=== PATIENT | female | born 1940 | race Caucasian/White ===

== ENCOUNTER 2017-02-02 11:01 | Inpatient (IN) | payer OTHER, BC ==
[2017-02-02 11:08] VITALS: BMI 42.1
[2017-02-02] MEDS ORDERED: ALBUTEROL SO4 2.5/IPRATROPIUM 0.5 INH SOL 3 ML VIAL.NEB. NEB ONE ×3 (11:14→13:35)
[2017-02-02] MEDS ORDERED: methylPREDNISolone NA SUCC 125 MG/2 ML VIAL IVPUSH ONE (11:43)
[2017-02-02] MEDS ORDERED: CEFTRIAXONE 1 GM in DEXTROSE 5%-WATER - 50 ML IVPB ONE (11:43)
[2017-02-02] MEDS ORDERED: AZITHROMYCIN IVPB 500 MG in DEXTROSE 5%-WATER - 250 ML IVPB ONE (11:43)
[2017-02-02] MEDS ORDERED: MAGNESIUM SULF 50% (8.12 MEQ/2 ML-1 GM VIAL) IVPB ONE (11:43)
[2017-02-02] MEDS ORDERED: AZITHROMYCIN IVPB 250 ML IVPB ONE (11:51)
[2017-02-02] MEDS ORDERED: methylPREDNISolone NA SUCC 125 MG/2 ML VIAL ONE (11:52)
[2017-02-02] MEDS ORDERED: CEFTRIAXONE 1 GM/50 ML BAG ONE (11:52)
--- NOTE | 2017-02-02 12:06 | PDOC ---
History of Present Illness - General Chief Complaint: Shortness of Breath Stated Complaint: SOB, COLD SYMPTOMS Time Seen by Provider: 02/02/17 11:07 History Source: Patient Exam Limitations: No Limitations - History of Present Illness Initial Comments: 02/02/17 11:57 Patient is a 76F with history of afib (on coumadin and digoxin), chf, copd, NIDDM, Lung cancer (s/p lobectomy in 2005 with resultant breathing capacity), HTN, 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 The shortness of breath started 1.5 weeks ago, but has worsened significantly since Friday. Patient says she initially felt congested and had a cough. The cough and congestion increased until she felt like she couldn't breathe. She endorses a single episode of vomiting several days ago. Denies fevers, chills. Denies sick contacts. Says that she got her flu shot this year. She reports compliance with her medications and says her last INR was 2-3. She says that she developed some chest pain after coughing frequently for several days. Past History - Past Medical History Allergies/Adverse Reactions: Allergies Allergy/AdvReac Type Severity Reaction Status Date / Time Opioids - Morphine Analogues Allergy Intermediate Vomiting Verified 02/02/17 11: 08 [Opioids-Morphine & Related] adhesive tape Allergy Mild Rash Verified 02/02/17 11:08 Penicillins Allergy Verified 02/02/17 11:08 Home Medications: Ambulatory Orders Albuterol Sulfate [Proair Respiclick] 90 mcg IH PRN PRN 08/08/15 Atorvastatin Ca [Lipitor] 20 mg PO HS 08/08/15 Budesonide/Formeterol Fumarate [SYMBICORT 160/4.5mcg -] 2 inh PO BID 08/08/15 Digoxin [Lanoxin -] 0.125 mg PO Q48H 08/08/15 Diltiazem Cd [Cardizem Cd -] 360 mg PO DAILY 08/08/15 Gabapentin [Neurontin -] 200 mg PO BID 08/08/15 Levetiracetam [Keppra -] 1,000 mg PO BID 08/08/15 Multivit-Min/FA/Lycopen/Lutein [Centrum Silver Tablet] 1 each PO DAILY 08/08/15 Tiotropium [place] [Spiriva] 1 inh PO DAILY 08/08/15 Warfarin Na [Coumadin -] 0 mg PO DAILY 08/08/15 Allopurinol [Zyloprim -] 100 mg PO DAILY 02/02/17 Furosemide [Lasix -] 60 mg PO DAILY 02/02/17 Lansoprazole [Prevacid] 30 mg PO DAILY 02/02/17 Losartan Potassium 50 mg PO DAILY 02/02/17 Metformin HCl 500 mg PO DAILY 02/02/17 Cancer: Yes (lung cancer status post RIGHT UPPER lobectomy) Cardiac Disorders: Yes (afib) CVA: Yes COPD: Yes CHF: Yes DVT: No Diabetes: Yes GI Disorders: Yes (GERD) HTN: Yes Hypercholesterolemia: Yes Seizures: Yes - Surgical History Abdominal Surgery: Yes (appendectomy) Appendectomy: Yes Cardiac Surgery: Yes (LARIAT SX) Lung Surgery: Yes (lobectomy for lung cancer) - Suicide/Smoking/Psychosocial Hx Smoking Status: No (40 YRS QUIT) Smoking History: Never smoked Years of Tobacco Use: 25 Have you smoked in the past 12 months: No Number of Cigarettes Smoked Daily: 0 If you are a former smoker, when did you quit?: 35 years ago but lived with a who smoked Cigars Per Day: 0 Hx Alcohol Use: No Drug/Substance Use Hx: No Substance Use Type: None Hx Substance Use Treatment: No Review of Systems - Review of Systems Comments:: 02/02/17 12:06 GENERAL/CONSTITUTIONAL: No fever or chills. No weakness. HEAD, EYES, EARS, NOSE AND THROAT: No change in vision. No sore throat. CARDIOVASCULAR: Positive for chest pain and shortness of breath. RESPIRATORY: Positive for cough and wheezing. Negative for hemoptysis. GASTROINTESTINAL: Positive for nausea and vomiting. Negative for diarrhea or constipation. GENITOURINARY: No dysuria, frequency, or change in urination. MUSCULOSKELETAL: No joint or muscle swelling or pain. No neck or back pain. SKIN: No rash NEUROLOGIC: No headache, vertigo, loss of consciousness, or change in strength/ sensation. ENDOCRINE: No increased thirst. No abnormal weight change HEMATOLOGIC/LYMPHATIC: No anemia, easy bleeding, or history of blood clots. ALLERGIC/IMMUNOLOGIC: No hives or skin allergy. *Physical Exam - Vital Signs Last Vital Signs Temp Pulse Resp BP Pulse Ox 98.1 F 86 20 123/3 75 L 02/02/17:05 02/02/17 11:05 02/02/17 11:05 02/02/17 11:05 02/02/17 11:05 - Physical Exam Comments: 02/02/17 12:07 GENERAL: Awake, alert, and fully oriented, in no acute distress HEAD: No signs of trauma, normocephalic, atraumatic EYES: PERRLA, EOMI, sclera anicteric, conjunctiva clear ENT: Auricles normal inspection, hearing grossly normal, nares patent, oropharynx clear without exudates. Moist mucosa NECK: Normal ROM, supple, no lymphadenopathy, JVD, or masses LUNGS: Decreased breath sounds bilaterally, in respiratory distress, speaks in few word sentences HEART: Tachycardic, irregularly irregular rhythm, no murmurs, rubs or gallops, peripheral pulses normal and equal bilaterally. ABDOMEN: Soft, nontender, normoactive bowel sounds. No guarding, no rebound. No masses EXTREMITIES: Normal inspection, Normal range of motion, no edema. No clubbing or cyanosis. NEUROLOGICAL: Cranial nerves II through XII grossly intact. Normal speech, normal gait, no focal sensorimotor deficits SKIN: Warm, Dry, normal turgor, no rashes or lesions noted. ED Treatment Course - LABORATORY CBC & Chemistry Diagram: 02/02/17 11:55 02/02/17 11:55 - RADIOLOGY Radiology Studies Ordered: Category Date Time Status CHEST X-RAY PORTABLE* [RAD] Stat Radiology 02/02/17 11:28 Taken Medical Decision Making - Critical Care Time Total Critical Care Time (minutes): 30 Critical Care Statement: The care of this patient involved high complexity decision making to prevent further life threatening deterioration of the patient 's condition and/or to evaluate & treat vital organ system(s) failure or risk of failure. - Medical Decision Making 02/02/17 12:09 Patient is a 76F with history of afib (on coumadin and digoxin), chf, copd, NIDDM, Lung cancer (s/p lobectomy in 2005 with resultant breathing capacity), HTN, 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 Patient's initial spO2 was 75%, decreased breath sounds bilaterally. Tachycardic to 110. Given duonebs and o2. Ventilation status improved with bilateral wheezes. SpO2 increased to 100%, oxygen weaned down until sating in low to mid 90s, currently on room air. Patient now speaking full sentences, no longer in respiratory distress. Now coughing, no gabriella Differential diagnosis includes, but is not limited to: COPD exacerbation, CHF exacerbation, Pneumonia. Will treat for CAP and COPD with abx and steroids empirically. Septic workup initiated. 02/02/17 12:18 CXR shows signs of fluid overload. Given IV 60mg lasix (home dose is 60mg PO). EKG shows afib with one PVC. High amount of artifact in ekg due to patient coughing and rapid respiratory rate. No st elevations. Norlma axis. Normal QTc/ QRS interval. 02/02/17 14:06 Laboratory Tests 02/02/17 02/02/17 02/02/17 11:35 11:55 11:55 WBC 8.2 Hgb 12.2 D Hct 38.9 Plt Count 250 INR 4.18 H* D POC VBG pCO2 67.7 H* BUN Creatinine Troponin I B-Natriuretic Peptide Digoxin 02/02/17 02/02/17 02/02/17 11:55 11:55 11:55 WBC Hgb Hct Plt Count INR POC VBG pCO2 BUN 28 H D Creatinine 1.5 H D Troponin I < 0.02 B-Natriuretic Peptide 3097.83 H Digoxin 0.5189 L CBC normal. INR elevated to 4.18. pCO2 elevated to 67.7. Cr elevated to 1.5. Last Cr in 2016 1.0. Trop negative. BNP elevated to 3k. Digoxin level low. 02/02/17 14:08 Flu negative. 02/02/17 14:35 Spoke with MARY CARMEN Miner. Admitted to tele inpatient under Ann[facility]. 02/02/17 18:08 Patient respiratory status deteriorated in ED. Approved for ICU by Dr Finn. Put on Bipap, ABG shows improvement from prior VBG. Patient is ventilating better on bipap and does not require intubation at this time. MARY CARMEN Miner notified of change in status to ICU. *DC/Admit/Observation/Transfer Diagnosis at time of Disposition: Shortness of breath - Discharge Dispostion Disposition: HOME Condition at time of disposition: Stable Admit: Yes - Referrals - Patient Instructions - Post Discharge Activity
[2017-02-02 12:08] LABS: VENOUS PH 7.28 (7.32-7.42)
[2017-02-02 12:09] LABS: BASOPHIL 0.5 % (0-2.0); EOSINOPHIL 1.2 % (0-4.5); MCHC 31.4 g/dl (32.0-36.0); MEAN PLT VOLUME 8.4 fl (7.5-11.1); NEUTROPHILS 77.8 % (42.8-82.8); PLATELET COUNT 250 K/MM3 (134-434); RDW 17.6 % (11.6-15.6); WHITE BLOOD COUNT 8.2 K/mm3 (4.0-10.0)
[2017-02-02 12:09] LABS: VENOUS BLOOD GAS HCO3 30.4 meq/L (19-25)
[2017-02-02] MEDS ORDERED: FUROSEMIDE 40 MG/4 ML INJECTABLE VIAL IVPUSH ONE ×2 (12:17→17:36)
[2017-02-02 12:22] LABS: PROTHROMBIN TIME (PATIENT) 47.2 SEC (9.98-11.88)
[2017-02-02 12:24] LABS: ACTIVATED PTT 42.5 SECONDS (26.9-34.4)
[2017-02-02] MEDS ORDERED: MAGNESIUM SULF 50% (8.12 MEQ/2 ML-1 GM VIAL) ONE (12:24)
[2017-02-02] MEDS ORDERED: FUROSEMIDE 40 MG/4 ML INJECTABLE VIAL ONE ×2 (12:24→17:45)
[2017-02-02 12:28] LABS: INR 4.18 (0.82-1.09)
[2017-02-02 12:51] LABS: ALBUMIN 3.3 g/dl (3.4-5.0); ANION GAP 14 (8-16); BILIRUBIN,TOTAL 0.5 mg/dL (0.2-1.0); CALCIUM 8.1 mg/dL (8.5-10.1); CO2 28 mmol/L (21-32); CREATININE 1.5 mg/dL (0.55-1.02); GLUCOSE,RANDOM 160 mg/dL (74-106); SGOT/AST 18 U/L (15-37); SGPT/ALT 24 U/L (12-78); TOT PROT 7.4 g/dl (6.4-8.2)
[2017-02-02 12:54] LABS: ALK PHOS 61 U/L (45-117); CPK 207 IU/L (26-192); TROPONIN I < 0.02 ng/ml (0.00-0.05)
--- NOTE | 2017-02-02 13:15 | PDOC ---
Attending Attestation - Resident Resident Name: Bigg Del Rio - ED Attending Attestation I have performed the following: I have examined & evaluated the patient, The case was reviewed & discussed with the resident, I agree w/resident's findings & plan, Exceptions are as noted - HPI HPI: 02/02/17 13:01 76 F with h/o afib (on coumadin and digoxin), copd, NIDDM, Lung cancer (s/p lobectomy in 2005 with resultant breathing capacity), HTN, ?heart failure ( normal echo 2015), presenting to ER with several days of SOB. Pt reports that her symptoms started with a cough earlier this week. SHe denies F/C. Denies leg swelling, denies chest pain. The cough worsened and today pt began to feel very SOB. Pt had similar episode last year and was admitted for decompensated heart failure. She is currently taking 60mg lasix daily and reports compliance with it. Denies change in UOP. - Physicial Exam PE: 02/02/17 13:04 "GENERAL: Awake, alert, and fully oriented, in no acute distress HEAD: No signs of trauma EYES: PERRLA, EOMI, sclera anicteric, conjunctiva clear ENT: Auricles normal inspection, hearing grossly normal, nares patent, oropharynx clear without exudates. Moist mucosa NECK: Nontender, no stepoffs, Normal ROM, supple, no lymphadenopathy, JVD, or masses LUNGS: bibasilar rales, mild expiratory wheezing, no rhonchi HEART: Regular rate and rhythm, normal S1 and S2, no murmurs, rubs or gallops ABDOMEN: Soft, nontender, normoactive bowel sounds. No guarding, no rebound. No masses EXTREMITIES: Normal range of motion, no edema. No clubbing or cyanosis. No cords, erythema, or tenderness NEUROLOGICAL: Cranial nerves II through XII intact. 5/5 strength and sensation in all extremities, Normal speech, normal gait SKIN: Warm, Dry, normal turgor, no rashes or lesions noted. " - Medical Decision Making 02/02/17 13:05 76 F with SOB. Exam with rales and wheezes, consistent with CHF vs COPD. Pt given nebulizers in ER with good response and improvement in lung sounds, more consistent with COPD exacerbation. However, pt also with rales on exam, concerning for CHF. - Labs, BNP - CXR - Nebs, steroids - Lasix 02/02/17 14:33 Pt reassessed s/p nebs, now with improved aeration and decreased wheezing. CXR shows pulmonary edema, elevated BNP on labs. Pt given lasix 60mg IV. 02/02/17 16:33 Pt reassessed - appears more somnolent but remains arousable and oriented. Repeat gas shows worsening acidosis 7.22 and pCO2 up to 73. Pt placed on BiPAP. Will admit to ICU.
--- NOTE | 2017-02-02 14:47 | EKG ---
Test Reason : Blood Pressure : / mmHG Vent. Rate : 097 BPM Atrial Rate : 050 BPM P-R Int : 000 ms QRS Dur : 088 ms QT Int : 340 ms P-R-T Axes : 000 -50 075 degrees QTc Int : 431 ms ATRIAL FIBRILLATION BASELINE ARTIFACT LEFT AXIS DEVIATION ,LEFT ANTERIOR HEMIBLOCK VENTRICULAR ECTOPIC BEATS, BIDIRECTIONAL AND SUCCESSIVE LOW VOLTAGE QRS SEPTAL INFARCT (CITED ON OR BEFORE 17-MAY-2007) ABNORMAL ECG WHEN COMPARED WITH ECG OF 08-AUG-2015 15:27, APPEARANCE OF VENTRICULAR PREMATURE BEATS. REPEAT EKG IF CLINICALLY INDICATED Confirmed by FRIDA ABRAMS MD ([id number]) on 02/02/2017 2:46:34 PM Referred By: Confirmed By:FRIDA ABRAMS MD
[2017-02-02 16:18] LABS: VENOUS BLOOD GAS HCO3 28.7 meq/L (19-25)
[2017-02-02 16:19] LABS: VENOUS PH 7.22 (7.32-7.42)
[2017-02-02] MEDS ORDERED: FUROSEMIDE 40 MG/4 ML INJECTABLE VIAL IVPUSH SCH (17:45)
[2017-02-02 17:52] LABS: ARTERIAL BLD GAS O2 SATURATION 94.1 % (90-98.9); ARTERIAL BLOOD GAS BASE EXCESS 1.3 meq/l (-2-2); ARTERIAL BLOOD GAS pH 7.27 (7.35-7.45)
[2017-02-02 17:55] LABS: ALLENS TEST POSITIVE; ART PUNCT SITE RIGHT RADIAL; LPM/O2% 40%; PT. ON O2? YES
[2017-02-02 17:57] LABS: MECH. VENT. BIPAP RR16
[2017-02-02 17:59] LABS: TYPE OF O2 BIPAPI12E PAP 5
[2017-02-02] MEDS ORDERED: DIGOXIN 0.125 MG TABLET (FP) ONE (18:29)
[2017-02-02] MEDS: DIGOXIN 0.125 MG TABLET (FP) PO SCH (18:47)
--- NOTE | 2017-02-02 19:27 | PDOC ---
*Physical Exam - Vital Signs Care assumed from Dr. Del Rio. 76 YOF with h/o CHF, lobectomy for lung nodule, a- fib on digoxin presents with SOB. Primary suspicion is CHF exacerbation. Patient 's initial blood gas was concerning and she has been on BiPAP with repeat blood gas improving. BNP>3000, Cr 1.5, CK>200. Admitted to ICU and awaiting bed/ transport. Last Vital Signs Temp Pulse Resp BP Pulse Ox 98.4 F 94 H 22 126/68 94 L 02/02/17 18:48 02/02/17 18:48 02/02/17 18:48 02/02/17 18:48 02/02/17 18:48 ED Treatment Course - LABORATORY CBC & Chemistry Diagram: 02/03/17 06:00 02/03/17 06:00 - ADDITIONAL ORDERS Additional order review: Laboratory Results 02/02/17 02/02/17 02/02/17 12:12 11:55 11:55 PT with INR INR PTT (Actin FS) VBG pH POC VBG pCO2 POC VBG pO2 Mixed VBG HCO3 Sodium Potassium Chloride Carbon Dioxide Anion Gap BUN Creatinine Creat Clearance w eGFR Random Glucose Lactic Acid Calcium Total Bilirubin AST ALT Alkaline Phosphatase Creatine Kinase Creatine Kinase Index CK-MB (CK-2) Troponin I B-Natriuretic Peptide 3097.83 H Total Protein Albumin Digoxin 0.5189 L Blood Type B NEGATIVE Antibody Screen Negative 02/02/17 02/02/17 02/02/17 11:55 11:55 11:55 PT with INR 47.20 H INR 4.18 H* D PTT (Actin FS) 42.5 H VBG pH POC VBG pCO2 POC VBG pO2 Mixed VBG HCO3 Sodium 134 L Potassium 3.8 Chloride 92 L Carbon Dioxide 28 D Anion Gap 14 BUN 28 H D Creatinine 1.5 H D Creat Clearance w eGFR 33.67 Random Glucose 160 H Lactic Acid Cancelled Calcium 8.1 L Total Bilirubin 0.5 D AST 18 D ALT 24 Alkaline Phosphatase 61 Creatine Kinase 207 H Creatine Kinase Index 0.7 CK-MB (CK-2) 1.556 Troponin I < 0.02 B-Natriuretic Peptide Total Protein 7.4 Albumin 3.3 L Digoxin Blood Type Antibody Screen 02/02/17 11:35 PT with INR INR PTT (Actin FS) VBG pH 7.28 L POC VBG pCO2 67.7 H* POC VBG pO2 34.4 Mixed VBG HCO3 30.4 H Sodium Potassium Chloride Carbon Dioxide Anion Gap BUN Creatinine Creat Clearance w eGFR Random Glucose Lactic Acid Calcium Total Bilirubin AST ALT Alkaline Phosphatase Creatine Kinase Creatine Kinase Index CK-MB (CK-2) Troponin I B-Natriuretic Peptide Total Protein Albumin Digoxin Blood Type Antibody Screen 02/02/17 11:55 Influenza Types A,B Antigen (HILARIO) - Final Nasopharyngeal Swab - Final 02/02/17 11:55 RBC 4.69 MCV 83.0 MCHC 31.4 L RDW 17.6 H MPV 8.4 Neutrophils % 77.8 Lymphocytes % 11.4 D Monocytes % 9.1 D Eosinophils % 1.2 D Basophils % 0.5 D - Medications Given in the ED: ED Medications Discontinued Medications Generic Name Dose Route Start Last Admin Trade Name Freq PRN Reason Stop Dose Admin Albuterol/Ipratropium 3 amp 02/02/17 12:20 02/02/17 12:32 Duoneb - NEB 02/02/17 12:21 3 amp ONCE ONE Administration Albuterol/Ipratropium 3 amp 02/02/17 13:35 02/02/17 13:43 Duoneb - NEB 02/02/17 13:36 3 amp ONCE ONE Administration Furosemide 60 mg 02/02/17 12:17 02/02/17 12:32 Lasix Injection - IVPUSH 02/02/17 12:18 60 mg ONCE ONE Administration Furosemide 40 mg 02/02/17 17:36 02/02/17 17:50 Lasix Injection - IVPUSH 02/02/17 17:37 40 mg ONCE ONE Administration Azithromycin 500 mg/ Dextrose 250 mls @ 250 mls/hr 02/02/17 11:43 02/02/17 12 :22 IVPB 02/02/17 12:42 250 mls/hr ONCE ONE Administration Ceftriaxone Sodium 1 gm/ 50 mls @ 100 mls/hr 02/02/17 11:43 02/02/17 12:17 Dextrose IVPB 02/02/17 12:12 100 mls/hr ONCE ONE Administration Magnesium Sulfate 1 gm 02/02/17 11:43 02/02/17 12:32 Magnesium Sulfate IVPB 02/02/17 11:44 1 gm ONCE ONE Administration Methylprednisolone Sodium Succinate 125 mg 02/02/17 11:43 02/02/17 12:17 Solu-Medrol - IVPUSH 02/02/17 11:44 125 mg ONCE ONE Administration Medical Decision Making - Medical Decision Making No significant medical events on my shift. Pt admitted to ICU, transferred there without issue. *DC/Admit/Observation/Transfer Diagnosis at time of Disposition: Shortness of breath - Referrals - Patient Instructions - Post Discharge Activity
[2017-02-02] MEDS ORDERED: ALBUTEROL SO4 18 GM HFA INHALER IH PRN (20:04)
--- NOTE | 2017-02-02 21:22 | HP ---
Admitting History and Physical - Primary Care Physician PCP: Dami Faria ([email or web address]) - Admission Chief Complaint: SOB, dyspnea History of Present Illness: Patient is a 76F with history of afib (on coumadin and digoxin), chf, copd, NIDDM, Lung cancer (s/p lobectomy in 2005 with resultant breathing capacity), HTN, 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 The shortness of breath started 1.5 weeks ago, but has worsened significantly since Friday. Patient says she initially felt congested and had a cough. The cough and congestion increased until she felt like she couldn't breathe. She endorses a single episode of vomiting several days ago. Denies fevers, chills. Denies sick contacts. Says that she got her flu shot this year. She reports compliance with her medications and says her last INR was 2-3. She says that she developed some chest pain after coughing frequently for several days. History Source: Patient, Medical Record Limitations to Obtaining History: No Limitations - Past Medical History Cardiovascular: Yes: AFIB Pulmonary: Yes: Bronchitis, Cancer, COPD, Sleep Apnea Endocrine: Yes: Diabetes Mellitus - Past Surgical History Past Surgical History: Yes: Joint Replacement (left knee) - Smoking History Smoking history: Never smoked Have you smoked in the past 12 months: No Aproximately how many cigarettes per day: 0 If you are a former smoker, when did you quit?: 35 years ago but lived with a who smoked - Alcohol/Substance Use Hx Alcohol Use: No Home Medications - Allergies Allergies/Adverse Reactions: Allergies Allergy/AdvReac Type Severity Reaction Status Date / Time Opioids - Morphine Analogues Allergy Intermediate Vomiting Verified 02/02/17 11: 08 [Opioids-Morphine & Related] adhesive tape Allergy Mild Rash Verified 02/02/17 11:08 Penicillins Allergy Verified 02/02/17 11:08 - Home Medications Home Medications: Ambulatory Orders Albuterol Sulfate [Proair Respiclick] 90 mcg IH PRN PRN 08/08/15 Atorvastatin Ca [Lipitor] 20 mg PO HS 08/08/15 Budesonide/Formeterol Fumarate [SYMBICORT 160/4.5mcg -] 2 inh PO BID 08/08/15 Digoxin [Lanoxin -] 0.125 mg PO Q48H 08/08/15 Diltiazem Cd [Cardizem Cd -] 360 mg PO DAILY 08/08/15 Gabapentin [Neurontin -] 200 mg PO BID 08/08/15 Levetiracetam [Keppra -] 1,000 mg PO BID 08/08/15 Multivit-Min/FA/Lycopen/Lutein [Centrum Silver Tablet] 1 each PO DAILY 08/08/15 Tiotropium [place] [Spiriva] 1 inh PO DAILY 08/08/15 Warfarin Na [Coumadin -] 0 mg PO DAILY 08/08/15 Allopurinol [Zyloprim -] 100 mg PO DAILY 02/02/17 Furosemide [Lasix -] 60 mg PO DAILY 02/02/17 Lansoprazole [Prevacid] 30 mg PO DAILY 02/02/17 Losartan Potassium 50 mg PO DAILY 02/02/17 Metformin HCl 500 mg PO DAILY 02/02/17 Review of Systems - Review of Systems Constitutional: reports: Weakness Eyes: reports: No Symptoms HENT: reports: No Symptoms Neck: reports: No Symptoms Cardiovascular: reports: Shortness of Breath Respiratory: reports: Cough, SOB Gastrointestinal: reports: No Symptoms Genitourinary: reports: No Symptoms Breasts: reports: No Symptoms Reported Musculoskeletal: reports: No Symptoms Integumentary: reports: No Symptoms Neurological: reports: No Symptoms Endocrine: reports: No Symptoms Hematology/Lymphatic: reports: No Symptoms Psychiatric: reports: No Symptoms Pain Intensity: 0 Physical Examination Vital Signs: Vital Signs Temperature 98.4 F 02/02/17 18:48 Pulse Rate 90 02/02/17 20:20 Respiratory Rate 20 02/02/17 20:20 Blood Pressure 126/67 02/02/17 20:20 O2 Sat by Pulse Oximetry (%) 94 L 02/02/17 20:20 Constitutional: Yes: Well Nourished, Calm, Mild Distress Cardiovascular: Yes: Pulse Irregular Respiratory: Yes: Regular, Diminished, SOB on Exertion (on BIPAP) Gastrointestinal: Yes: WNL Edema: Yes Edema: LLE: Trace, RLE: Trace Peripheral Pulses WNL: Yes Neurological: Yes: Alert, Oriented Psychiatric: Yes: Alert, Oriented Labs: CBC, BMP 02/02/17 11:55 02/02/17 11:55 Imaging - Results Chest X-ray: Report Reviewed Problem List - Problems (1) Shortness of breath Assessment/Plan: -Pulmonary consult -IV diuresis -BIPAP -neb tx -ABG series -CXR reviewed Code(s): R06.02 - SHORTNESS OF BREATH (2) Acute decompensated heart failure Assessment/Plan: -Cardiology consult -IV diuresis -Bipap -Telemetry -low sodium diet -BNP>3000 Code(s): I50.9 - HEART FAILURE, UNSPECIFIED (3) CKD (chronic kidney disease) stage 3, GFR 30-59 ml/min Assessment/Plan: -Cr slightly worse than last year -nephrology consult -monitor renal function Code(s): N18.3 - CHRONIC KIDNEY DISEASE, STAGE 3 (MODERATE) (4) COPD (chronic obstructive pulmonary disease) Assessment/Plan: -Pulmonary consult -neb tx -received medrol in ER -defer to pulmonary for medrol Code(s): J44.9 - CHRONIC OBSTRUCTIVE PULMONARY DISEASE, UNSPECIFIED (5) Pleural effusion Assessment/Plan: -BNP>3000 -CXR-pleural effusion vs infiltrates -no leukocytosis, fever -received IV abx in ER -defer to Pulmonary the need to start abx -repeat CXR in AM Code(s): J90 - PLEURAL EFFUSION, NOT ELSEWHERE CLASSIFIED Assessment/Plan see problem list Son at bedside, all questions and concerns addressed. Awaiting bed availability in ICU
[2017-02-02] MEDS: CHLORHEXIDINE GLUCONATE 4% CLEANSER FOR DECOLONIZATION TP SCH (22:37)
[2017-02-02] MEDS: MUPIROCIN 2% TOPICAL OINTMENT FOR DECOLONIZATION NS SCH (22:37)
[2017-02-02] MEDS: GABAPENTIN 100 MG CAPSULE (FP) PO SCH (22:38)
[2017-02-02] MEDS: BUDESONIDE/FORMETEROL FUMARATE 160/4.5 mcg INHALER IH SCH (22:38)
[2017-02-02] MEDS: ATORVASTATIN CA 20 MG TABLET (FP) PO SCH (22:39)
[2017-02-03 00:32] LABS: URINE APPEARANCE SLCLOUDY; URINE BILIRUBIN NEGATIVE (NEGATIVE); URINE BLOOD NEGATIVE (NEGATIVE); URINE COLOR YELLOW; URINE GLUCOSE (UA) 1+ (NEGATIVE); URINE KETONE NEGATIVE (NEGATIVE); URINE NITRITE NEGATIVE (NEGATIVE); URINE PROTEIN NEGATIVE (NEGATIVE); URINE UROBILINOGEN NEGATIVE mg/dL (0.2-1.0)
--- NOTE | 2017-02-03 04:21 | CONSULT ---
Consult Consult Specialty:: PULM/CCM Referred by:: Dr. Yayo Van Reason for Consultation:: Resp Fail - History of Present Illness Chief Complaint: SOB History of Present Illness: Ms. 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 The pt presents to the ED O/N c/o SOB. The SOB started 1.5 weeks ago, but has worsened significantly over this weekend. Pt states that she initially felt congested and had a cough. The cough and congestion increased until she felt like she couldn't breathe. (She does endorse vomit X1 several days in the past). Denies any fevers, chills. Denies any sick contacts. In the ED BNP>3000, Cr 1.5, CK>200, AB.27/65/77 m/l 2/2 CHF +/- COPD +/- PNA. Pt placed on Bi- level & started on Broad Spec abx. She reports compliance w/ ALL her meds and says her last INR was 2-3. Already got her flu shot. Pt admitted to ICU for Hypercap Resp Fail. - History Source History Provided By: Patient, Medical Record - Past Medical History Cardio/Vascular: Yes: AFIB Pulmonary: Yes: Bronchitis, Cancer, COPD, Sleep Apnea Endocrine: Yes: Diabetes Mellitus - Past Surgical History Past Surgical History: Yes: Joint Replacement (left knee) - Alcohol/Substance Use Hx Alcohol Use: No - Smoking History Smoking history: Never smoked Have you smoked in the past 12 months: No Aproximately how many cigarettes per day: 0 If you are a former smoker, when did you quit?: 35 years ago but lived with a who smoked - Social History History of Recent Travel: No Home Medications - Allergies Allergies/Adverse Reactions: Allergies Allergy/AdvReac Type Severity Reaction Status Date / Time Opioids - Morphine Analogues Allergy Intermediate Vomiting Verified 02/02/17 11: 08 [Opioids-Morphine & Related] adhesive tape Allergy Mild Rash Verified 02/02/17 11:08 Penicillins Allergy Verified 02/02/17 11:08 - Home Medications Home Medications: Ambulatory Orders Albuterol Sulfate [Proair Respiclick] 90 mcg IH PRN PRN 08/08/15 Atorvastatin Ca [Lipitor] 20 mg PO HS 08/08/15 Budesonide/Formeterol Fumarate [SYMBICORT 160/4.5mcg -] 2 inh PO BID 08/08/15 Digoxin [Lanoxin -] 0.125 mg PO Q48H 08/08/15 Diltiazem Cd [Cardizem Cd -] 360 mg PO DAILY 08/08/15 Gabapentin [Neurontin -] 200 mg PO BID 08/08/15 Levetiracetam [Keppra -] 1,000 mg PO BID 08/08/15 Multivit-Min/FA/Lycopen/Lutein [Centrum Silver Tablet] 1 each PO DAILY 08/08/15 Tiotropium [place] [Spiriva] 1 inh PO DAILY 08/08/15 Warfarin Na [Coumadin -] 0 mg PO DAILY 08/08/15 Allopurinol [Zyloprim -] 100 mg PO DAILY 02/02/17 Furosemide [Lasix -] 60 mg PO DAILY 02/02/17 Lansoprazole [Prevacid] 30 mg PO DAILY 02/02/17 Losartan Potassium 50 mg PO DAILY 02/02/17 Metformin HCl 500 mg PO DAILY 02/02/17 Family Disease History - Family Disease History Family History: Unable to Obtain Review of Systems Unable to obtain ROS, reason: UTO (Pt on Bi-Level) Physical Exam Vital Signs: Vital Signs Temperature 99.0 F 02/03/17 02:00 Pulse Rate 84 02/03/17 04:00 Respiratory Rate 19 02/03/17 04:00 Blood Pressure 133/74 02/03/17 04:00 O2 Sat by Pulse Oximetry (%) 94 L 02/03/17 00:45 Constitutional: Yes: Well Nourished, No Distress, Calm Eyes: Yes: WNL, Conjunctiva Clear, EOM Intact HENT: Yes: Atraumatic, Normocephalic Neck: Yes: WNL, Supple, Trachea Midline Cardiovascular: Yes: WNL, Pulse Irregular Respiratory: Yes: Diminished, On BiPap Gastrointestinal: Yes: WNL, Normal Bowel Sounds, Abdomen, Obese ...Rectal Exam: Yes: Deferred Renal/: Yes: WNL Breast(s): Yes: WNL Musculoskeletal: Yes: WNL Extremities: Yes: WNL Edema: No Peripheral Pulses WNL: Yes Integumentary: Yes: WNL Neurological: Yes: Lethargy ...Motor Strength: WNL Psychiatric: Yes: WNL, Alert, Oriented Labs: CBC, BMP 02/02/17 11:55 02/02/17 11:55 Imaging - Results Chest X-ray: Image Reviewed (02/02: V/O +/- PNA mayur in the bases.) EKG: Image Reviewed (02/02: A-fib in the 80's w/ occ PVCs, normal axis, No ST or T-wave aberrations. Normal QTc/QRS interval (No Acute Process (MY Read).) Problem List - Problems (1) Shortness of breath Assessment/Plan: -Clxr -Nocturnal Bi-Level -gentle diuresis -Nebs -Symbicort -Spiriva -Trend ABG -CXR Code(s): R06.02 - SHORTNESS OF BREATH (2) Acute decompensated heart failure Assessment/Plan: -Gentle Diuresis -Cont statin -Cont Dig -Cont Cardizem -Losartan -TTE -CARDS Code(s): I50.9 - HEART FAILURE, UNSPECIFIED (3) CKD (chronic kidney disease) stage 3, GFR 30-59 ml/min Assessment/Plan: -Strict I's & O's -Trend BUN/Cr -Trend UOP -Replete e-lytes prn -Gentle Diuresis -U-Lytes -Renal US -RENAL Code(s): N18.3 - CHRONIC KIDNEY DISEASE, STAGE 3 (MODERATE) (4) COPD (chronic obstructive pulmonary disease) Assessment/Plan: -NEBS -Nocturnal Bi-Level -Symbicort -Spiriva -Azith -Considder IV Steroids Code(s): J44.9 - CHRONIC OBSTRUCTIVE PULMONARY DISEASE, UNSPECIFIED (5) Seizure Assessment/Plan: -Keppra Code(s): R56.9 - UNSPECIFIED CONVULSIONS (6) Atrial fibrillation Assessment/Plan: -Dig -Coumadin -Windows System Admin Code(s): I48.91 - UNSPECIFIED ATRIAL FIBRILLATION Assessment/Plan ABOVE. Roverto Delacruz, ACNP-BC 2321 PULM/CCM
[2017-02-03] MEDS ORDERED: FUROSEMIDE INJECTION 100 MG in DEXTROSE 5%-WATER - 90 ML IVPB SCH (04:45)
[2017-02-03] MEDS ORDERED: FUROSEMIDE 40 MG/4 ML INJECTABLE VIAL ONE (05:08)
[2017-02-03 06:26] LABS: BASOPHIL 0.1 % (0-2.0); MCH 26.7 pg (25.7-33.7); MEAN CELL VOLUME 83.4 fl (80-96); MEAN PLT VOLUME 8.8 fl (7.5-11.1); NEUTROPHILS 88.8 % (42.8-82.8); PLATELET COUNT 226 K/MM3 (134-434); RDW 17.6 % (11.6-15.6); WHITE BLOOD COUNT 6.4 K/mm3 (4.0-10.0)
[2017-02-03 06:39] LABS: INR 3.49 (0.82-1.09); PROTHROMBIN TIME (PATIENT) 39.4 SEC (9.98-11.88)
[2017-02-03] MEDS ORDERED: HEMOQUE TEST 1 EACH EACH ONE (06:55)
[2017-02-03] MEDS: ALBUTEROL SO4 2.5/IPRATROPIUM 0.5 INH SOL 3 ML VIAL.NEB. NEB SCH ×2 (08:06→11:24)
[2017-02-03] MEDS: guaiFENesin 200 MG/10 ML 10 ML UNIT-DOSE CUPS PO PRN ×3 (08:31→21:39)
[2017-02-03 08:37] LABS: ALBUMIN 2.9 g/dl (3.4-5.0); ANION GAP 9 (8-16); CO2 31 mmol/L (21-32); GLUCOSE,RANDOM 271 mg/dL (74-106); MAGNESIUM 1.9 mg/dL (1.8-2.4)
[2017-02-03 08:41] LABS: ALK PHOS 51 U/L (45-117); BILIRUBIN,TOTAL 0.4 mg/dL (0.2-1.0); CREATININE 1.3 mg/dL (0.55-1.02); SGOT/AST 12 U/L (15-37); SGPT/ALT 20 U/L (12-78); TOT PROT 6.5 g/dl (6.4-8.2)
[2017-02-03] MEDS ORDERED: MAGNESIUM OXIDE 400 MG TABLET (FP) PO ONE (09:15)
[2017-02-03] MEDS: MUPIROCIN 2% TOPICAL OINTMENT FOR DECOLONIZATION NS SCH ×2 (09:15→21:38)
[2017-02-03] MEDS: ALLOPURINOL 100 MG TABLET (FP) PO SCH (09:16)
[2017-02-03] MEDS: PANTOPRAZOLE 40 MG TABLET (FP) PO SCH (09:16)
[2017-02-03] MEDS: GABAPENTIN 100 MG CAPSULE (FP) PO SCH ×2 (09:16→21:37)
[2017-02-03] MEDS: MULTIVITAMINS THER W-MINERALS COMBO TABLET (FP) PO SCH (09:16)
[2017-02-03] MEDS ORDERED: FUROSEMIDE 40 MG/4 ML INJECTABLE VIAL IVPUSH SCH ×2 (10:00)
[2017-02-03] MEDS ORDERED: LOSARTAN POTASSIUM 50 MG TABLET (FP) PO SCH (10:00)
[2017-02-03] MEDS ORDERED: PATIENT'S OWN MEDICATION (NON-FORMULARY) (Lansoprazole [Prevacid] 30 MG) PO SCH (10:00)
[2017-02-03] MEDS: INSULIN SLIDING SCALE (NOVOLOG) 1 VIAL SQ SCH ×3 (10:57→21:49)
[2017-02-03] MEDS ORDERED: INSULIN (NOVOLOG) ASPART 100 UNITS/ML 10ML VIAL ONE ×3 (11:00→18:07)
[2017-02-03] MEDS: BUDESONIDE/FORMETEROL FUMARATE 160/4.5 mcg INHALER IH SCH ×2 (11:02→21:47)
[2017-02-03 11:27] LABS: URINE LEUK ESTERASE 1+ (NEGATIVE)
[2017-02-03] MEDS ORDERED: dilTIAZem HCL 50 MG/10 ML - 10 ML VIAL IVPUSH ONE (11:58)
[2017-02-03] MEDS ORDERED: ALBUTEROL SO4 2.5/IPRATROPIUM 0.5 INH SOL 3 ML VIAL.NEB. NEB PRN (11:59)
[2017-02-03 12:51] LABS: ARTERIAL BLD GAS O2 SATURATION 93.7 % (90-98.9); ARTERIAL BLOOD GAS PO2 71.8 mmHg (70-100)
[2017-02-03 12:52] LABS: ALLENS TEST POSITIVE; ARTERIAL BLOOD GAS BASE EXCESS 5.1 meq/l (-2-2)
--- NOTE | 2017-02-03 13:55 | PN ---
Physical Exam: SUBJECTIVE: Patient seen and examined. 76 y/o female with past medical h/o copd, sleep apnea( uses cpap at home) and chf came to ed with a complaint of increase in sob. was on bipap overnight. got lasix for diuresis. Now feels good, breathing has improved but still have cough, produces clear sputum but some time has produced yellow and pink sputum. Denies fever, chills denies sick contact. OBJECTIVE: Vital Signs Period Temp Pulse Resp BP Sys/[place] Pulse Ox Last 24 Hr 98.4 F-99.2 F 82-117 17-28 115-138/67-96 4-96 GENERAL: The patient is awake, alert, and fully oriented, mild distress. HEAD: Normal with no signs of trauma. EYES: PERRL, extraocular movements intact, ENT: moist mucous membranes. NECK: Trachea midline, full range of motion, supple. LUNGS: decrease air entry b/l lateral, mild crackel at right base, wheezing on expiration on both side. HEART: s1s2 normal. ABDOMEN: Soft, nontender, nondistended, normoactive bowel sounds, no guarding, no rebound, PSYCH: Normal mood, normal affect. SKIN: Warm, dry, Laboratory Results - last 24 hr 02/02/17 02/02/17 02/02/17 11:35 16:00 17:34 WBC RBC Hgb Hct MCV MCH MCHC RDW Plt Count MPV Neutrophils % Lymphocytes % Monocytes % Eosinophils % Basophils % PT with INR INR Anticoagulation Therapy Y Puncture Site Right radial ABG pH 7.27 L ABG pCO2 at Pt Temp 65.0 H* D ABG pO2 at Pt Temp 77.0 ABG HCO3 29.0 H ABG O2 Sat (Measured) 94.1 ABG O2 Content 15.2 ABG Base Excess 1.3 Justice Test Positive VBG pH 7.28 L 7.22 L* POC VBG pCO2 67.7 H* 73.1 H* POC VBG pO2 34.4 59.1 H D Mixed VBG HCO3 30.4 H 28.7 H O2 Delivery Device [id number] pap 5 Oxygen Flow Rate 40% Vent Mode St Vent Rate Y Mechanical Rate Bipap [id number] Pressure Support Vent Y Sodium Potassium Chloride Carbon Dioxide Anion Gap BUN Creatinine Creat Clearance w eGFR POC Glucometer Random Glucose Hemoglobin A1c % Lactic Acid Calcium Magnesium Total Bilirubin AST ALT Alkaline Phosphatase Total Protein Albumin Urine Color Urine Appearance Urine pH Ur Specific [place] Urine Protein Urine Glucose (UA) Urine Ketones Urine Blood Urine Nitrite Urine Bilirubin Urine Urobilinogen Ur Leukocyte Esterase Urine RBC Urine WBC Ur Epithelial Cells Amorphous Urates 02/03/17 02/03/17 02/03/17 00:12 00:19 06:00 WBC 6.4 RBC 4.24 Hgb 11.3 Hct 35.4 MCV 83.4 MCH 26.7 MCHC 32.0 RDW 17.6 H Plt Count 226 MPV 8.8 Neutrophils % 88.8 H Lymphocytes % 7.6 L D Monocytes % 3.5 L Eosinophils % 0.0 D Basophils % 0.1 PT with INR INR Anticoagulation Therapy Puncture Site ABG pH ABG pCO2 at Pt Temp ABG pO2 at Pt Temp ABG HCO3 ABG O2 Sat (Measured) ABG O2 Content ABG Base Excess Justice Test VBG pH POC VBG pCO2 POC VBG pO2 Mixed VBG HCO3 O2 Delivery Device Oxygen Flow Rate Vent Mode Vent Rate Mechanical Rate Pressure Support Vent Sodium Potassium Chloride Carbon Dioxide Anion Gap BUN Creatinine Creat Clearance w eGFR POC Glucometer Random Glucose Hemoglobin A1c % Lactic Acid 1.8 Calcium Magnesium Total Bilirubin AST ALT Alkaline Phosphatase Total Protein Albumin Urine Color Yellow Urine Appearance Slcloudy Urine pH 5.0 Ur Specific [place] 1.010 Urine Protein Negative Urine Glucose (UA) 1+ H Urine Ketones Negative Urine Blood Negative Urine Nitrite Negative Urine Bilirubin Negative Urine Urobilinogen Negative Ur Leukocyte Esterase 1+ H Urine RBC 3-5 Urine WBC 10-15 Ur Epithelial Cells 3-5 Amorphous Urates Moderate 02/03/17 02/03/17 02/03/17 06:00 06:00 06:00 WBC RBC Hgb Hct MCV MCH MCHC RDW Plt Count MPV Neutrophils % Lymphocytes % Monocytes % Eosinophils % Basophils % PT with INR 39.40 H INR 3.49 H Anticoagulation Therapy Puncture Site ABG pH ABG pCO2 at Pt Temp ABG pO2 at Pt Temp ABG HCO3 ABG O2 Sat (Measured) ABG O2 Content ABG Base Excess Justice Test VBG pH POC VBG pCO2 POC VBG pO2 Mixed VBG HCO3 O2 Delivery Device Oxygen Flow Rate Vent Mode Vent Rate Mechanical Rate Pressure Support Vent Sodium 136 Potassium 4.3 Chloride 96 L Carbon Dioxide 31 Anion Gap 9 BUN 31 H Creatinine 1.3 H Creat Clearance w eGFR 39.72 POC Glucometer Random Glucose 271 H D Hemoglobin A1c % 8.0 H D Lactic Acid Calcium 8.0 L Magnesium 1.9 D Total Bilirubin 0.4 AST 12 L D ALT 20 Alkaline Phosphatase 51 Total Protein 6.5 Albumin 2.9 L Urine Color Urine Appearance Urine pH Ur Specific [place] Urine Protein Urine Glucose (UA) Urine Ketones Urine Blood Urine Nitrite Urine Bilirubin Urine Urobilinogen Ur Leukocyte Esterase Urine RBC Urine WBC Ur Epithelial Cells Amorphous Urates 02/03/17 02/03/17 02/03/17 06:00 06:55 10:54 WBC RBC Hgb Hct MCV MCH MCHC RDW Plt Count MPV Neutrophils % Lymphocytes % Monocytes % Eosinophils % Basophils % PT with INR INR Anticoagulation Therapy Puncture Site ABG pH ABG pCO2 at Pt Temp ABG pO2 at Pt Temp ABG HCO3 ABG O2 Sat (Measured) ABG O2 Content ABG Base Excess Justice Test VBG pH POC VBG pCO2 POC VBG pO2 Mixed VBG HCO3 O2 Delivery Device Oxygen Flow Rate Vent Mode Vent Rate Mechanical Rate Pressure Support Vent Sodium Potassium Chloride Carbon Dioxide Anion Gap BUN Creatinine Creat Clearance w eGFR POC Glucometer [phone] Random Glucose Hemoglobin A1c % Lactic Acid 1.3 Calcium Magnesium Total Bilirubin AST ALT Alkaline Phosphatase Total Protein Albumin Urine Color Urine Appearance Urine pH Ur Specific [place] Urine Protein Urine Glucose (UA) Urine Ketones Urine Blood Urine Nitrite Urine Bilirubin Urine Urobilinogen Ur Leukocyte Esterase Urine RBC Urine WBC Ur Epithelial Cells Amorphous Urates 02/03/17 11:58 WBC RBC Hgb Hct MCV MCH MCHC RDW Plt Count MPV Neutrophils % Lymphocytes % Monocytes % Eosinophils % Basophils % PT with INR INR Anticoagulation Therapy Y Puncture Site Y ABG pH 7.40 ABG pCO2 at Pt Temp 47.7 H D ABG pO2 at Pt Temp 71.8 ABG HCO3 30.0 H ABG O2 Sat (Measured) 93.7 ABG O2 Content 14.8 L ABG Base Excess 5.1 H Justice Test Positive VBG pH POC VBG pCO2 POC VBG pO2 Mixed VBG HCO3 O2 Delivery Device Y Oxygen Flow Rate Y Vent Mode Y Vent Rate Y Mechanical Rate Y Pressure Support Vent Y Sodium Potassium Chloride Carbon Dioxide Anion Gap BUN Creatinine Creat Clearance w eGFR POC Glucometer Random Glucose Hemoglobin A1c % Lactic Acid Calcium Magnesium Total Bilirubin AST ALT Alkaline Phosphatase Total Protein Albumin Urine Color Urine Appearance Urine pH Ur Specific [place] Urine Protein Urine Glucose (UA) Urine Ketones Urine Blood Urine Nitrite Urine Bilirubin Urine Urobilinogen Ur Leukocyte Esterase Urine RBC Urine WBC Ur Epithelial Cells Amorphous Urates Active Medications Generic Name Dose Route Start Last Admin Trade Name Wilmer PRN Reason Stop Dose Admin Albuterol Sulfate 2 puff 02/02/17 20:04 Ventolin Hfa Inhaler - IH Q4H PRN ASTHMA Albuterol/Ipratropium 1 amp 02/03/17 11:59 Duoneb - NEB QIDR PRN WHEEZING Allopurinol 100 mg 02/03/17 10:00 02/03/17 09:16 Zyloprim - PO 100 mg DAILY TIM Administration Atorvastatin Calcium 20 mg 02/02/17 22:00 02/02/17 22:39 Lipitor - PO Not Given HS [facility] Budesonide/Formoterol Fumarate 2 puff 02/02/17 22:00 02/03/17 11:02 Symbicort 160/4.5mcg - IH 2 puff BID TIM Administration Chlorhexidine Gluconate 1 applic 02/02/17 22:00 02/02/17 22:37 Hibiclens For Decolonization - TP Not Given HS [facility] Digoxin 0.125 mg 02/02/17 18:00 02/02/17 18:47 Lanoxin - PO 0.125 mg Q2D@1800 TIM Administration Diltiazem HCl 360 mg 02/03/17 10:00 02/03/17 09:15 Cardizem Cd - PO 360 mg DAILY TIM Administration Furosemide 60 mg 02/03/17 10:00 02/03/17 10:45 Lasix Injection - IVPUSH 60 mg BID@0600,1800 TIM Administration Gabapentin 200 mg 02/02/17 22:00 02/03/17 09:16 Neurontin - PO 200 mg BID TIM Administration Guaifenesin 10 ml 02/03/17 07:22 02/03/17 08:31 Robitussin - PO 10 ml Q4H PRN Administration COUGH Insulin Aspart 1 vial 02/03/17 11:00 02/03/17 10:57 Novolog Vial Sliding Scale - SQ 8 units ACHS TIM Administration Protocol Losartan Potassium 50 mg 02/03/17 10:00 02/03/17 09:15 Cozaar - PO 50 mg DAILY TIM Administration Multivitamins/Minerals 1 each 02/03/17 10:00 02/03/17 09:16 Theragran-M PO 1 each DAILY TIM Administration Mupirocin 1 applic 02/02/17 22:00 02/03/17 09:15 Bactroban Ointment (For Decolonization) - NS 02/07/17 21:59 1 applic BID TIM Administration Pantoprazole Sodium 40 mg 02/03/17 10:00 02/03/17 09:16 Protonix - PO 40 mg DAILY TIM Administration ASSESSMENT/PLAN: Resipratory distress: could be due to chf vs copd. Acute exabration of CHF CKD COPD Pleural effusion. Afib NIDDM HTN Supratheraputic INR Plan BIPAP prn incentive spirometry. IV lasix 60 BID Monitor intake and output. Daily weight low salt diet. ECHO pending. Duoneb q6h prn. Rate control with cardiazem. digoxin coumadin on hold, INR elevated, monitor INR Although alvarez is afebrile but CXR shows right ;lower lobe infiltrate and UA has +ve wbc, will start her on ceftriaxone. MOnitor vitals. Sliding scale novalog. monitor blood glucose. Visit type - Emergency Visit Emergency Visit: Yes ED Registration Date: 02/02/17 Care time: The patient presented to the Emergency Department on the above date and was hospitalized for further evaluation of their emergent condition. - New Patient This patient is new to me today: Yes Date on this admission: 02/03/17 - Critical Care Critical Care patient: Yes Total Critical Care Time (in minutes): 45 Critical Care Statement: The care of this patient involved high complexity decision making to prevent further life threatening deterioration of the patient 's condition and/or to evaluate & treat vital organ system(s) failure or risk of failure.
--- NOTE | 2017-02-03 14:29 | PN ---
Progress Note, Physician Chief Complaint: sob with exertion and talking History of Present Illness: Patient is a 76F with history of afib (on coumadin and digoxin), chf, copd, NIDDM, Lung cancer (s/p lobectomy in 2005 with resultant breathing capacity), HTN, 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 The shortness of breath started 1.5 weeks ago, but has worsened significantly since Friday. Patient says she initially felt congested and had a cough. The cough and congestion increased until she felt like she couldn't breathe. She endorses a single episode of vomiting several days ago. Denies fevers, chills. Denies sick contacts. Says that she got her flu shot this year. She reports compliance with her medications and says her last INR was 2-3. She says that she developed some chest pain after coughing frequently for several days. in ER she got iv lasix and nebulizers- found to have in hypercarbic resp failure admmited to ICU on bipap - Current Medication List Current Medications: Active Medications Albuterol Sulfate (Ventolin Hfa Inhaler -) 2 puff IH Q4H PRN PRN Reason: ASTHMA Albuterol/Ipratropium (Duoneb -) 1 amp NEB QIDR PRN PRN Reason: WHEEZING Allopurinol (Zyloprim -) 100 mg PO DAILY [facility] Last Admin: 02/03/17 09:16 Dose: 100 mg Atorvastatin Calcium (Lipitor -) 20 mg PO [facility] Last Admin: 02/02/17 22:39 Dose: Not Given Budesonide/Formoterol Fumarate (Symbicort 160/4.5mcg -) 2 puff IH BID [facility] Last Admin: 02/03/17 11:02 Dose: 2 puff Chlorhexidine Gluconate (Hibiclens For Decolonization -) 1 applic TP HS [facility] Last Admin: 02/02/17 22:37 Dose: Not Given Digoxin (Lanoxin -) 0.125 mg PO Q2D@1800 [facility] Last Admin: 02/02/17 18:47 Dose: 0.125 mg Diltiazem HCl (Cardizem Cd -) 360 mg PO DAILY [facility] Last Admin: 02/03/17 09:15 Dose: 360 mg Furosemide (Lasix Injection -) 60 mg IVPUSH BID@0600,1800 [facility] Last Admin: 02/03/17 10:45 Dose: 60 mg Gabapentin (Neurontin -) 200 mg PO BID [facility] Last Admin: 02/03/17 09:16 Dose: 200 mg Guaifenesin (Robitussin -) 10 ml PO Q4H PRN PRN Reason: COUGH Last Admin: 02/03/17 08:31 Dose: 10 ml CEFTRIAXONE 1 G/50 ML PREMIX (Ceftriaxone 1 Gm-D5w Bag) 50 mls @ 100 mls/hr IVPB DAILY [facility] Insulin Aspart (Novolog Vial Sliding Scale -) 1 vial SQ ACHS [facility] PRN Reason: Protocol Last Admin: 02/03/17 10:57 Dose: 8 units Losartan Potassium (Cozaar -) 50 mg PO DAILY [facility] Last Admin: 02/03/17 09:15 Dose: 50 mg Multivitamins/Minerals (Theragran-M) 1 each PO DAILY [facility] Last Admin: 02/03/17 09:16 Dose: 1 each Mupirocin (Bactroban Ointment (For Decolonization) -) 1 applic NS BID [facility] Stop: 02/07/17 21:59 Last Admin: 02/03/17 09:15 Dose: 1 applic Pantoprazole Sodium (Protonix -) 40 mg PO DAILY [facility] Last Admin: 02/03/17 09:16 Dose: 40 mg - Objective Vital Signs: Vital Signs Temperature 98.7 F 02/03/17 14:00 Pulse Rate 117 H 02/03/17 14:00 Respiratory Rate 24 02/03/17 14:00 Blood Pressure 130/71 02/03/17 14:00 O2 Sat by Pulse Oximetry (%) 93 L 02/03/17 10:16 today she says her SOB is better today is bringing up sputum when she coughs Constitutional: Yes: Calm Cardiovascular: Yes: Tachycardia, Pulse Irregular, S1, S2 Respiratory: Yes: Diminished, On Nasal O2 Gastrointestinal: Yes: Normal Bowel Sounds, Soft Neurological: Yes: Alert, Oriented Labs: CBC, BMP 02/03/17 06:00 02/03/17 06:00 INR, PTT INR 3.49 (0.82-1.09) H 02/03/17 06:00 Problem List - Problems (1) Shortness of breath Assessment/Plan: icu monitoring bipap as needed oxygen duonebulizers cxr congestion iv lasix I/O weight echo wang cath Code(s): R06.02 - SHORTNESS OF BREATH (2) Acute decompensated heart failure Assessment/Plan: iv lasix echo i/o monitor lytes digoxin losartan Code(s): I50.9 - HEART FAILURE, UNSPECIFIED (3) Atrial fibrillation Assessment/Plan: cardizem trend inr coumadin on hold given elevated INR" digoxin Code(s): I48.91 - UNSPECIFIED ATRIAL FIBRILLATION (4) UTI (urinary tract infection) Assessment/Plan: iv rocephin awaiting culture Code(s): N39.0 - URINARY TRACT INFECTION, SITE NOT SPECIFIED
--- NOTE | 2017-02-03 15:07 | CON.CARD ---
Cardiology Consult (text) - Consultation Consultation Note: CC: SOB 76 yo with h/o known atrial fibrillation on coumadin, NOLBERTO on cpap, copd, HTN, HL , DM, seizure, GERD, lung CA s/p left upper lobectomy and chemotherapy who was admitted for SOB. + progressive sob over the past 1.5 weeks. + cough. congestion. no f/c/s. endorses adherence to meds including outpatient diuretic regimen (40 mg po daily ), states she became weak and had a fall (presumably from overdiuresis) on lasix 60 mg daily. sob improved on bipap. now s/p lasix 60 mg IV x 1 and lasix 40 mg IV x 1 yesterday. Lasix drip overnight. Lasix 60 mg IV x1 today. --> now on nasal cannula. s/p dilt 10 mg IV x 1 for RVR this morning --> improved rates + chronic intermittent n/v, stable sx's. Has + chronic right hip pain Denies h/a, rashes, diarrhea, abdominal pain, change in appetite, bleeding or transient neurologic symptoms. PMHx: Per HPI Social Hx: Former smoker, occasional alcohol, no illicits Fam Hx: No family history of major cardiovascular disease ROS: Per HPI Ambulatory Orders Albuterol Sulfate [Proair Respiclick] 90 mcg IH PRN PRN 08/08/15 Atorvastatin Ca [Lipitor] 20 mg PO HS 08/08/15 Budesonide/Formeterol Fumarate [SYMBICORT 160/4.5mcg -] 2 inh PO BID 08/08/15 Digoxin [Lanoxin -] 0.125 mg PO Q48H 08/08/15 Diltiazem Cd [Cardizem Cd -] 360 mg PO DAILY 08/08/15 Gabapentin [Neurontin -] 200 mg PO BID 08/08/15 Levetiracetam [Keppra -] 1,000 mg PO BID 08/08/15 Multivit-Min/FA/Lycopen/Lutein [Centrum Silver Tablet] 1 each PO DAILY 08/08/15 Tiotropium [place] [Spiriva] 1 inh PO DAILY 08/08/15 Warfarin Na [Coumadin -] 0 mg PO DAILY 08/08/15 Allopurinol [Zyloprim -] 100 mg PO DAILY 02/02/17 Furosemide [Lasix -] 60 mg PO DAILY 02/02/17 Lansoprazole [Prevacid] 30 mg PO DAILY 02/02/17 Losartan Potassium 50 mg PO DAILY 02/02/17 Metformin HCl 500 mg PO DAILY 02/02/17 Current Medications Albuterol Sulfate (Ventolin Hfa Inhaler -) 2 puff IH Q4H PRN PRN Reason: ASTHMA Albuterol/Ipratropium (Duoneb -) 1 amp NEB QIDR PRN PRN Reason: WHEEZING Allopurinol (Zyloprim -) 100 mg PO DAILY [facility] Last Admin: 02/03/17 09:16 Dose: 100 mg Atorvastatin Calcium (Lipitor -) 20 mg PO HS [facility] Last Admin: 02/02/17 22:39 Dose: Not Given Budesonide/Formoterol Fumarate (Symbicort 160/4.5mcg -) 2 puff IH BID [facility] Last Admin: 02/03/17 11:02 Dose: 2 puff Chlorhexidine Gluconate (Hibiclens For Decolonization -) 1 applic TP HS [facility] Last Admin: 02/02/17 22:37 Dose: Not Given Digoxin (Lanoxin -) 0.125 mg PO Q2D@1800 [facility] Last Admin: 02/02/17 18:47 Dose: 0.125 mg Diltiazem HCl (Cardizem Cd -) 360 mg PO DAILY [facility] Last Admin: 02/03/17 09:15 Dose: 360 mg Furosemide (Lasix Injection -) 60 mg IVPUSH BID@0600,1800 [facility] Last Admin: 02/03/17 10:45 Dose: 60 mg Gabapentin (Neurontin -) 200 mg PO BID [facility] Last Admin: 02/03/17 09:16 Dose: 200 mg Guaifenesin (Robitussin -) 10 ml PO Q4H PRN PRN Reason: COUGH Last Admin: 02/03/17 08:31 Dose: 10 ml CEFTRIAXONE 1 G/50 ML PREMIX (Ceftriaxone 1 Gm-D5w Bag) 50 mls @ 100 mls/hr IVPB DAILY [facility] Insulin Aspart (Novolog Vial Sliding Scale -) 1 vial SQ ACHS [facility] PRN Reason: Protocol Last Admin: 02/03/17 10:57 Dose: 8 units Losartan Potassium (Cozaar -) 50 mg PO DAILY [facility] Last Admin: 02/03/17 09:15 Dose: 50 mg Multivitamins/Minerals (Theragran-M) 1 each PO DAILY [facility] Last Admin: 02/03/17 09:16 Dose: 1 each Mupirocin (Bactroban Ointment (For Decolonization) -) 1 applic NS BID [facility] Stop: 02/07/17 21:59 Last Admin: 02/03/17 09:15 Dose: 1 applic Pantoprazole Sodium (Protonix -) 40 mg PO DAILY [facility] Last Admin: 02/03/17 09:16 Dose: 40 mg PE: Vital Signs - 24 hr 02/02/17 02/02/17 02/02/17 16:30 16:42 16:44 Temperature Pulse Rate 112 H Pulse Rate [ Right Radial] Respiratory 28 H Rate Blood Pressure 128/85 Blood Pressure [Left Arm] O2 Sat by Pulse 95 4 L Oximetry (%) 02/02/17 02/02/17 02/02/17 18:48 20:02 20:20 Temperature 98.4 F Pulse Rate Pulse Rate [ 94 H 90 Right Radial] Respiratory 22 20 Rate Blood Pressure Blood Pressure 126/68 126/67 [Left Arm] O2 Sat by Pulse 94 L 96 94 L Oximetry (%) 02/02/17 02/03/17 02/03/17 22:30 00:45 00:52 Temperature 99.2 F Pulse Rate 82 Pulse Rate [ Right Radial] Respiratory 19 Rate Blood Pressure 138/96 Blood Pressure [Left Arm] O2 Sat by Pulse 94 L 94 L 94 L Oximetry (%) 02/03/17 02/03/17 02/03/17 02:00 04:00 05:53 Temperature 99.0 F Pulse Rate 83 84 Pulse Rate [ Right Radial] Respiratory 17 19 Rate Blood Pressure 130/74 133/74 Blood Pressure [Left Arm] O2 Sat by Pulse 94 L Oximetry (%) 02/03/17 02/03/17 02/03/17 06:00 08:00 10:00 Temperature 99 F 98.6 F 99.1 F Pulse Rate 98 H 105 H 104 H Pulse Rate [ Right Radial] Respiratory 19 22 22 Rate Blood Pressure 135/76 135/84 127/90 Blood Pressure [Left Arm] O2 Sat by Pulse 92 L Oximetry (%) 02/03/17 02/03/17 02/03/17 10:16 12:00 14:00 Temperature 98.7 F Pulse Rate 115 H 117 H 117 H Pulse Rate [ Right Radial] Respiratory 27 H 24 Rate Blood Pressure 138/82 130/71 Blood Pressure [Left Arm] O2 Sat by Pulse 93 L Oximetry (%) Intake & Output 02/01/17 02/02/17 02/03/17 02/04/17 07:59 07:59 07:59 07:59 Intake Total 5 12.5 Output Total 900 900 Balance -895 -887.5 Weight 242 lb NAD, calm jvd tds. neck supple no carotid bruits Irregular rhythm, normal rate. Nl s1,s2. 2/6 soft sys murmur at sternal border bibasilar rales and diminshed air movment, nl eff +bs soft obese nt nd trace edema + dp/pt aaox3 no jaundice, diaphoresis. CBC, BMP 02/03/17 06:00 02/03/17 06:00 Laboratory Tests 08/09/15 02/02/17 02/02/17 09:15 11:55 11:55 INR 4.18 H* D ABG pH ABG pCO2 at Pt Temp ABG pO2 at Pt Temp ABG HCO3 Creatinine 1.5 H D Hemoglobin A1c % Lactic Acid Magnesium Total Bilirubin AST ALT Alkaline Phosphatase Creatine Kinase 207 H CK-MB (CK-2) 1.556 Troponin I < 0.02 B-Natriuretic Peptide 3976.59 H Albumin 3.3 L Ur Leukocyte Esterase Digoxin 02/02/17 02/02/17 02/02/17 11:55 11:55 17:34 INR ABG pH ABG pCO2 at Pt Temp 65.0 H* D ABG pO2 at Pt Temp 77.0 ABG HCO3 Creatinine Hemoglobin A1c % Lactic Acid Magnesium Total Bilirubin AST ALT Alkaline Phosphatase Creatine Kinase CK-MB (CK-2) Troponin I B-Natriuretic Peptide 3097.83 H Albumin Ur Leukocyte Esterase Digoxin 0.5189 L 02/03/17 02/03/17 02/03/17 00:12 00:19 06:00 INR 3.49 H ABG pH ABG pCO2 at Pt Temp ABG pO2 at Pt Temp ABG HCO3 Creatinine Hemoglobin A1c % Lactic Acid 1.8 Magnesium Total Bilirubin AST ALT Alkaline Phosphatase Creatine Kinase CK-MB (CK-2) Troponin I B-Natriuretic Peptide Albumin Ur Leukocyte Esterase 1+ H Digoxin 02/03/17 02/03/17 02/03/17 06:00 06:00 06:00 INR ABG pH ABG pCO2 at Pt Temp ABG pO2 at Pt Temp ABG HCO3 Creatinine Hemoglobin A1c % 8.0 H D Lactic Acid 1.3 Magnesium 1.9 D Total Bilirubin 0.4 AST 12 L D ALT 20 Alkaline Phosphatase 51 Creatine Kinase CK-MB (CK-2) Troponin I B-Natriuretic Peptide Albumin 2.9 L Ur Leukocyte Esterase Digoxin 02/03/17 11:58 INR ABG pH 7.40 ABG pCO2 at Pt Temp 47.7 H D ABG pO2 at Pt Temp 71.8 ABG HCO3 30.0 H Creatinine Hemoglobin A1c % Lactic Acid Magnesium Total Bilirubin AST ALT Alkaline Phosphatase Creatine Kinase CK-MB (CK-2) Troponin I B-Natriuretic Peptide Albumin Ur Leukocyte Esterase Digoxin EKG 01/2017: poor baseline. afib, VR 97 bpm. lad. anterior and inferior q waves. Low voltage. non-specific t wave ab vs. artifact. tele: afib initially 100's-120's --> this afternoon 80's. PVCs. echo 07/2015: nl lv/rv, mod [place], mod phtn, no sig valve path CXR 02/03: Increased congestive changes (compared to 02/02). basilar atelectasis vs infiltrates vs. fluid. (by my review 76 yo with h/o known atrial fibrillation on coumadin, NOLBERTO, HTN, HL, DM, seizure , GERD, lung CA s/p left upper lobectomy and chemotherapy admitted for SOB. sob - likely combination of volume overload and possible additional copd exacerbation. COPD management per pulm/PMD diastolic hf exacerbation. - s/p lasix 60 mg IV x 2, 40 mg IV x 1 and lasix drip overnight. HR now controlled. SOB improved. BP running low. --> decrease diuretic regimen to 60 mg IV daily. daily weights, I/O's, bmp. - Hyponatremia previously improved on IV lasix, improving here on diuretics, con't to monitor. Atrial fibrillation - known diagnosis - cont dig, ccb for rate control. Dig level here ok. - Con't AC with coumadin per inr, curretnly supratherapeutic HTN: -stable, 02/03 bp running low --> will decrease morning losartan dose from 50 mg to 25 mg to avoid hypotension. HL: - On atorvastatin
[2017-02-03] MEDS: ATORVASTATIN CA 20 MG TABLET (FP) PO SCH (21:38)
[2017-02-03] MEDS: CHLORHEXIDINE GLUCONATE 4% CLEANSER FOR DECOLONIZATION TP SCH (21:38)
--- NOTE | 2017-02-03 23:23 | CONSULT ---
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 The shortness of breath worse w exertion, easily tired and cold skin - History Source History Provided By: Patient - Past Medical History Cardio/Vascular: Yes: AFIB Pulmonary: Yes: Bronchitis, Cancer, COPD, Sleep Apnea Endocrine: Yes: Diabetes Mellitus - Past Surgical History Past Surgical History: Yes: Joint Replacement (left knee) - Alcohol/Substance Use Hx Alcohol Use: No - Smoking History Smoking history: Never smoked Have you smoked in the past 12 months: No Aproximately how many cigarettes per day: 0 If you are a former smoker, when did you quit?: 35 years ago but lived with a who smoked - Social History History of Recent Travel: No Home Medications - Allergies Allergies/Adverse Reactions: Allergies Allergy/AdvReac Type Severity Reaction Status Date / Time Opioids - Morphine Analogues Allergy Intermediate Vomiting Verified 02/02/17 11: 08 [Opioids-Morphine & Related] adhesive tape Allergy Mild Rash Verified 02/02/17 11:08 Penicillins Allergy Verified 02/02/17 11:08 - Home Medications Home Medications: Ambulatory Orders Albuterol Sulfate [Proair Respiclick] 90 mcg IH PRN PRN 08/08/15 Atorvastatin Ca [Lipitor] 20 mg PO HS 08/08/15 Budesonide/Formeterol Fumarate [SYMBICORT 160/4.5mcg -] 2 inh PO BID 08/08/15 Digoxin [Lanoxin -] 0.125 mg PO Q48H 08/08/15 Diltiazem Cd [Cardizem Cd -] 360 mg PO DAILY 08/08/15 Gabapentin [Neurontin -] 200 mg PO BID 08/08/15 Levetiracetam [Keppra -] 1,000 mg PO BID 08/08/15 Multivit-Min/FA/Lycopen/Lutein [Centrum Silver Tablet] 1 each PO DAILY 08/08/15 Tiotropium [place] [Spiriva] 1 inh PO DAILY 08/08/15 Warfarin Na [Coumadin -] 0 mg PO DAILY 08/08/15 Allopurinol [Zyloprim -] 100 mg PO DAILY 02/02/17 Furosemide [Lasix -] 60 mg PO DAILY 02/02/17 Lansoprazole [Prevacid] 30 mg PO DAILY 02/02/17 Losartan Potassium 50 mg PO DAILY 02/02/17 Metformin HCl 500 mg PO DAILY 02/02/17 Review of Systems - Review of Systems Constitutional: reports: Weakness Eyes: reports: No Symptoms HENT: reports: No Symptoms Neck: reports: No Symptoms Cardiovascular: reports: Shortness of Breath Respiratory: reports: Exercise Intolerance, SOB on Exertion Gastrointestinal: reports: Constipation Genitourinary: reports: No Symptoms Breasts: reports: No Symptoms Reported Musculoskeletal: reports: Joint Swelling, Muscle Pain, Muscle Cramps, Muscle Weakness Integumentary: reports: No Symptoms Neurological: reports: Dizziness, Unsteady Gait, Weakness Endocrine: reports: Intolerance to Cold, Unexplained Weight Gain Physical Exam Vital Signs: Vital Signs Temperature 98.7 F 02/03/17 22:00 Pulse Rate 80 02/03/17 22:00 Respiratory Rate 14 02/03/17 22:00 Blood Pressure 128/65 02/03/17 22:00 O2 Sat by Pulse Oximetry (%) 100 02/03/17 20:22 Constitutional: Yes: Anxious Eyes: Yes: EOM Intact HENT: Yes: Normocephalic Neck: Yes: Trachea Midline, Thyromegaly Cardiovascular: Yes: Tachycardia Respiratory: Yes: Cough, Rales, SOB, Tachypnea Gastrointestinal: Yes: Abdomen, Obese, Tenderness, Epigastrium ...Rectal Exam: Yes: WNL Renal/: Yes: WNL Breast(s): Yes: WNL Musculoskeletal: Yes: Muscle Weakness Extremities: Yes: WNL Edema: Yes Edema: LLE: 1+, RLE: 1+ Neurological: Yes: Alert, Oriented, Numbness, Tremors, Weakness Labs: CBC, BMP 02/03/17 06:00 02/03/17 06:00 Problem List - Problems (1) Diabetes mellitus Code(s): E11.9 - TYPE 2 DIABETES MELLITUS WITHOUT COMPLICATIONS (2) Shortness of breath Code(s): R06.02 - SHORTNESS OF BREATH (3) Acute decompensated heart failure Code(s): I50.9 - HEART FAILURE, UNSPECIFIED (4) Acute renal failure Code(s): N17.9 - ACUTE KIDNEY FAILURE, UNSPECIFIED (5) Atrial fibrillation Code(s): I48.91 - UNSPECIFIED ATRIAL FIBRILLATION (6) COPD exacerbation Code(s): J44.1 - CHRONIC OBSTRUCTIVE PULMONARY DISEASE W (ACUTE) EXACERBATION Assessment/Plan Current Active Problems Diabetes mellitus (Acute) Shortness of breath (Acute) UTI (urinary tract infection) (Acute) Abnormal Lab Results 02/02/17 02/03/17 02/03/17 11:35 00:19 06:00 RDW 17.6 H Neutrophils % 88.8 H Lymphocytes % 7.6 L D Monocytes % 3.5 L PT with INR INR ABG pCO2 at Pt Temp ABG HCO3 ABG O2 Content ABG Base Excess VBG pH 7.28 L POC VBG pCO2 67.7 H* Mixed VBG HCO3 30.4 H Chloride BUN Creatinine Random Glucose Hemoglobin A1c % Calcium AST Albumin Urine Glucose (UA) 1+ H Ur Leukocyte Esterase 1+ H 02/03/17 02/03/17 02/03/17 06:00 06:00 06:00 RDW Neutrophils % Lymphocytes % Monocytes % PT with INR 39.40 H INR 3.49 H ABG pCO2 at Pt Temp ABG HCO3 ABG O2 Content ABG Base Excess VBG pH POC VBG pCO2 Mixed VBG HCO3 Chloride 96 L BUN 31 H Creatinine 1.3 H Random Glucose 271 H D Hemoglobin A1c % 8.0 H D Calcium 8.0 L AST 12 L D Albumin 2.9 L Urine Glucose (UA) Ur Leukocyte Esterase 02/03/17 11:58 RDW Neutrophils % Lymphocytes % Monocytes % PT with INR INR ABG pCO2 at Pt Temp 47.7 H D ABG HCO3 30.0 H ABG O2 Content 14.8 L ABG Base Excess 5.1 H VBG pH POC VBG pCO2 Mixed VBG HCO3 Chloride BUN Creatinine Random Glucose Hemoglobin A1c % Calcium AST Albumin Urine Glucose (UA) Ur Leukocyte Esterase Laboratory Tests 02/03/17 02/03/17 02/03/17 06:00 06:55 10:54 Sodium 136 Potassium 4.3 Chloride 96 L Carbon Dioxide 31 Anion Gap 9 BUN 31 H Creatinine 1.3 H POC Glucometer 301.50316 310.87688 Random Glucose 271 H D Calcium 8.0 L plan: bgm qid novolog insulin coverage glymeperide 4mg daily ck tsh free t4
[2017-02-04] MEDS: INSULIN SLIDING SCALE (NOVOLOG) 1 VIAL SQ SCH ×4 (06:16→21:21)
[2017-02-04 06:35] LABS: BASOPHIL 0.1 % (0-2.0); EOSINOPHIL 0.2 % (0-4.5); MCH 27.2 pg (25.7-33.7); MCHC 32.8 g/dl (32.0-36.0); MEAN PLT VOLUME 8.5 fl (7.5-11.1); NEUTROPHILS 80.8 % (42.8-82.8); PLATELET COUNT 237 K/MM3 (134-434); RDW 17.5 % (11.6-15.6); WHITE BLOOD COUNT 9.5 K/mm3 (4.0-10.0)
[2017-02-04 06:47] LABS: INR 2.15 (0.82-1.09); PROTHROMBIN TIME (PATIENT) 24.3 SEC (9.98-11.88)
[2017-02-04 06:51] LABS: ALBUMIN 2.7 g/dl (3.4-5.0); ANION GAP 7 (8-16); BILIRUBIN,TOTAL 0.4 mg/dL (0.2-1.0); CALCIUM 8.1 mg/dL (8.5-10.1); CO2 34 mmol/L (21-32); CREATININE 1.1 mg/dL (0.55-1.02); GLUCOSE,RANDOM 160 mg/dL (74-106); MAGNESIUM 1.7 mg/dL (1.8-2.4); PHOSPHOROUS 3.2 mg/dL (2.5-4.9); SGOT/AST 20 U/L (15-37); SGPT/ALT 19 U/L (12-78); TOT PROT 5.9 g/dl (6.4-8.2)
[2017-02-04 06:52] LABS: ALK PHOS 46 U/L (45-117)
[2017-02-04] MEDS: GABAPENTIN 100 MG CAPSULE (FP) PO SCH ×2 (09:20→21:17)
[2017-02-04] MEDS: PANTOPRAZOLE 40 MG TABLET (FP) PO SCH (09:21)
[2017-02-04] MEDS: MULTIVITAMINS THER W-MINERALS COMBO TABLET (FP) PO SCH (09:21)
[2017-02-04] MEDS: ALLOPURINOL 100 MG TABLET (FP) PO SCH (09:21)
[2017-02-04] MEDS: LOSARTAN POTASSIUM 25 MG TABLET PO SCH (09:23)
[2017-02-04] MEDS: MUPIROCIN 2% TOPICAL OINTMENT FOR DECOLONIZATION NS SCH ×2 (09:23→21:14)
--- NOTE | 2017-02-04 09:23 | PN ---
Progress Note, Physician - Current Medication List Current Medications: Active Medications Albuterol Sulfate (Ventolin Hfa Inhaler -) 2 puff IH Q4H PRN PRN Reason: ASTHMA Albuterol/Ipratropium (Duoneb -) 1 amp NEB QIDR PRN PRN Reason: WHEEZING Last Admin: 02/03/17 17:24 Dose: 1 amp Allopurinol (Zyloprim -) 100 mg PO DAILY [facility] Last Admin: 02/03/17 09:16 Dose: 100 mg Atorvastatin Calcium (Lipitor -) 20 mg PO HS [facility] Last Admin: 02/03/17 21:38 Dose: 20 mg Budesonide/Formoterol Fumarate (Symbicort 160/4.5mcg -) 2 puff IH BID [facility] Last Admin: 02/03/17 21:47 Dose: 2 puff Chlorhexidine Gluconate (Hibiclens For Decolonization -) 1 applic TP HS [facility] Last Admin: 02/03/17 21:38 Dose: 1 applic Digoxin (Lanoxin -) 0.125 mg PO Q2D@1800 [facility] Last Admin: 02/02/17 18:47 Dose: 0.125 mg Diltiazem HCl (Cardizem Cd -) 360 mg PO DAILY [facility] Last Admin: 02/03/17 09:15 Dose: 360 mg Furosemide (Lasix Injection -) 60 mg IVPUSH DAILY [facility] Gabapentin (Neurontin -) 200 mg PO BID [facility] Last Admin: 02/03/17 21:37 Dose: 200 mg Guaifenesin (Robitussin -) 10 ml PO Q4H PRN PRN Reason: COUGH Last Admin: 02/03/17 21:39 Dose: 10 ml CEFTRIAXONE 1 G/50 ML PREMIX (Ceftriaxone 1 Gm-D5w Bag) 50 mls @ 100 mls/hr IVPB DAILY [facility] Insulin Aspart (Novolog Vial Sliding Scale -) 1 vial SQ ACHS [facility] PRN Reason: Protocol Last Admin: 02/04/17 06:16 Dose: 2 units Losartan Potassium (Cozaar -) 25 mg PO DAILY [facility] Multivitamins/Minerals (Theragran-M) 1 each PO DAILY [facility] Last Admin: 02/03/17 09:16 Dose: 1 each Mupirocin (Bactroban Ointment (For Decolonization) -) 1 applic NS BID [facility] Stop: 02/07/17 21:59 Last Admin: 02/03/17 21:38 Dose: 1 applic Pantoprazole Sodium (Protonix -) 40 mg PO DAILY [facility] Last Admin: 02/03/17 09:16 Dose: 40 mg - Objective Vital Signs: Vital Signs Temperature 97.8 F 02/04/17 05:50 Pulse Rate 70 02/04/17 08:00 Respiratory Rate 18 02/04/17 08:28 Blood Pressure 146/68 02/04/17 08:00 O2 Sat by Pulse Oximetry (%) 100 02/03/17 20:22 Labs: CBC, BMP 02/04/17 06:15 02/04/17 06:15 INR, PTT INR 2.15 (0.82-1.09) H D 02/04/17 06:15 Assessment/Plan - Problems (1) Shortness of breath Assessment/Plan: icu monitoring bipap as needed oxygen duoneb cxr congestion iv lasix I/O weight echo wang cath Code(s): R06.02 - SHORTNESS OF BREATH (2) Acute decompensated heart failure Assessment/Plan: iv lasix echo i/o monitor lytes digoxin losartan Code(s): I50.9 - HEART FAILURE, UNSPECIFIED (3) Atrial fibrillation Assessment/Plan: cardizem trend inr coumadin on hold given elevated INR" digoxin Code(s): I48.91 - UNSPECIFIED ATRIAL FIBRILLATION (4) UTI (urinary tract infection) Assessment/Plan: iv rocephin awaiting culture Code(s): N39.0 - URINARY TRACT INFECTION, SITE NOT SPECIFIED
[2017-02-04] MEDS: BUDESONIDE/FORMETEROL FUMARATE 160/4.5 mcg INHALER IH SCH ×2 (09:24→22:17)
[2017-02-04] MEDS ORDERED: WARFARIN NA 2.5 MG TABLET (FP) PO SCH (09:30)
[2017-02-04] MEDS ORDERED: MAGNESIUM SULF 50% (8.12 MEQ/2 ML-1 GM VIAL) IVPB ONE (09:48)
[2017-02-04] MEDS ORDERED: AZITHROMYCIN IVPB 500 MG in DEXTROSE 5%-WATER - 250 ML IVPB SCH (10:00)
[2017-02-04] MEDS ORDERED: CEFTRIAXONE 1 G/50 ML PREMIX 50 ML IVPB SCH (10:00)
[2017-02-04] MEDS ORDERED: FUROSEMIDE 40 MG/4 ML INJECTABLE VIAL IVPUSH SCH (10:00)
--- NOTE | 2017-02-04 12:40 | PN ---
Teaching Attending Note Name of Resident: Víctor Rivera ATTENDING PHYSICIAN STATEMENT I saw and evaluated the patient. I reviewed the resident's note and discussed the case with the resident. I agree with the resident's findings and plan as documented. SUBJECTIVE: Pt seen and examined in the ICU. Breathing much improved today. ABG has normalized. +nonproductive cough. No chest pain. OBJECTIVE: Last Vital Signs Temp Pulse Resp BP Pulse Ox 97.8 F 88 18 146/68 97 02/04/17 05:50 02/04/17 10:27 02/04/17 08:28 02/04/17 08:00 02/04/17 10:27 Intake & Output 02/01/17 02/02/17 02/03/17 02/04/17 23:59 23:59 23:59 23:59 Intake Total 1567.5 500 Output Total 3400 900 Balance -1832.5 -400 Weight 238 lb 242 lb 242 lb 6.4 oz Gen: NAD in chair Heart: irregular Lung: distant breath sounds, scattered rales Abd: soft, nontender Ext: + edema CBC, BMP 02/04/17 06:15 02/04/17 06:15 Active Medications Albuterol Sulfate (Ventolin Hfa Inhaler -) 2 puff IH Q4H PRN PRN Reason: ASTHMA Albuterol/Ipratropium (Duoneb -) 1 amp NEB QIDR PRN PRN Reason: WHEEZING Last Admin: 02/03/17 17:24 Dose: 1 amp Allopurinol (Zyloprim -) 100 mg PO DAILY [facility] Last Admin: 02/04/17 09:21 Dose: 100 mg Atorvastatin Calcium (Lipitor -) 20 mg PO HS [facility] Last Admin: 02/03/17 21:38 Dose: 20 mg Budesonide/Formoterol Fumarate (Symbicort 160/4.5mcg -) 2 puff IH BID [facility] Last Admin: 02/04/17 09:24 Dose: 2 puff Chlorhexidine Gluconate (Hibiclens For Decolonization -) 1 applic TP HS [facility] Last Admin: 02/03/17 21:38 Dose: 1 applic Digoxin (Lanoxin -) 0.125 mg PO Q2D@1800 [facility] Last Admin: 02/02/17 18:47 Dose: 0.125 mg Diltiazem HCl (Cardizem Cd -) 360 mg PO DAILY [facility] Last Admin: 02/04/17 09:19 Dose: 360 mg Furosemide (Lasix Injection -) 60 mg IVPUSH DAILY [facility] Last Admin: 02/04/17 09:20 Dose: 60 mg Gabapentin (Neurontin -) 200 mg PO BID [facility] Last Admin: 02/04/17 09:20 Dose: 200 mg Glimepiride (Amaryl -) 4 mg PO DAILY@0700 [facility] Guaifenesin (Robitussin -) 10 ml PO Q4H PRN PRN Reason: COUGH Last Admin: 02/03/17 21:39 Dose: 10 ml CEFTRIAXONE 1 G/50 ML PREMIX (Ceftriaxone 1 Gm-D5w Bag) 50 mls @ 100 mls/hr IVPB DAILY [facility] Last Admin: 02/04/17 09:20 Dose: 100 mls/hr Insulin Aspart (Novolog Vial Sliding Scale -) 1 vial SQ ACHS [facility] PRN Reason: Protocol Last Admin: 02/04/17 06:16 Dose: 2 units Losartan Potassium (Cozaar -) 25 mg PO DAILY [facility] Last Admin: 02/04/17 09:23 Dose: 25 mg Multivitamins/Minerals (Theragran-M) 1 each PO DAILY [facility] Last Admin: 02/04/17 09:21 Dose: 1 each Mupirocin (Bactroban Ointment (For Decolonization) -) 1 applic NS BID [facility] Stop: 02/07/17 21:59 Last Admin: 02/04/17 09:23 Dose: 1 applic Pantoprazole Sodium (Protonix -) 40 mg PO DAILY [facility] Last Admin: 02/04/17 09:21 Dose: 40 mg Warfarin Sodium (Coumadin -) 2.5 mg PO DAILY@1800 [facility] ASSESSMENT AND PLAN: Acute Hypoxic Respiratory Failure Atrial Fibrillation with RVR Acute on Chronic Diastolic Heart Failure COPD h/o Lung Ca HTN Hyperlipidemia - continue IV lasix - monitor urine output, creatinine - rate control with cardizem, digoxin - resume anticoagulation - continue empiric antibiotics - f/u cultures - O2 to keep SpO2 >90% - BiPAP at night and PRN during day, instructed to bring home device if more comfortable - inhaled bronchodilators prn - can defer systemic steroids at this time - can monitor on telemetry critical care time spent in reviewing chart, evaluating patient and formulating plan 35 min
[2017-02-04] MEDS ORDERED: PT OWN MED DRAWER 7, Y5N ONE ×2 (13:13→22:19)
[2017-02-04] MEDS: GLIMEPIRIDE 4 MG TABLET (FP) PO SCH (15:00)
[2017-02-04 15:44] LABS: THYROID STIMULATING HORMONE 0.88 uIU/ml (0.358-3.74)
[2017-02-04] MEDS: WARFARIN NA 2.5 MG TABLET (FP) PO SCH (17:54)
[2017-02-04] MEDS: DIGOXIN 0.125 MG TABLET (FP) PO SCH (17:55)
[2017-02-04] MEDS ORDERED: INSULIN (NOVOLOG) ASPART 100 UNITS/ML 10ML VIAL ONE ×2 (18:00→21:20)
[2017-02-04] MEDS: CHLORHEXIDINE GLUCONATE 4% CLEANSER FOR DECOLONIZATION TP SCH (21:15)
[2017-02-04] MEDS: ATORVASTATIN CA 20 MG TABLET (FP) PO SCH (21:17)
[2017-02-05] MEDS ORDERED: FUROSEMIDE 20 MG TABLET (FP) PO SCH (06:00)
[2017-02-05] MEDS: GLIMEPIRIDE 4 MG TABLET (FP) PO SCH (06:06)
[2017-02-05] MEDS: INSULIN SLIDING SCALE (NOVOLOG) 1 VIAL SQ SCH ×4 (06:06→22:26)
[2017-02-05 07:28] LABS: BASOPHIL 0.4 % (0-2.0); EOSINOPHIL 1.3 % (0-4.5); MCH 26.4 pg (25.7-33.7); MCHC 31.8 g/dl (32.0-36.0); MEAN CELL VOLUME 83.1 fl (80-96); MEAN PLT VOLUME 8.2 fl (7.5-11.1); NEUTROPHILS 74.7 % (42.8-82.8); PLATELET COUNT 259 K/MM3 (134-434); RDW 17.9 % (11.6-15.6); WHITE BLOOD COUNT 7.1 K/mm3 (4.0-10.0)
[2017-02-05 07:46] LABS: ALBUMIN 2.7 g/dl (3.4-5.0); ANION GAP 5 (8-16); BILIRUBIN,TOTAL 0.6 mg/dL (0.2-1.0); CALCIUM 8.2 mg/dL (8.5-10.1); CO2 37 mmol/L (21-32); GLUCOSE,RANDOM 166 mg/dL (74-106); MAGNESIUM 1.7 mg/dL (1.8-2.4); PHOSPHOROUS 3.5 mg/dL (2.5-4.9); SGOT/AST 19 U/L (15-37); SGPT/ALT 23 U/L (12-78)
[2017-02-05 07:47] LABS: ALK PHOS 54 U/L (45-117)
[2017-02-05 08:22] LABS: INR 1.42 (0.82-1.09)
--- NOTE | 2017-02-05 09:15 | PN ---
Progress Note (short form) - Note Progress Note: CC: SOB S: sob significantly improved. no cp, palps, dizziness. plan to transfer to [facility]. Current medications: Albuterol Sulfate (Ventolin Hfa Inhaler -) 2 puff IH Q4H PRN PRN Reason: ASTHMA Albuterol/Ipratropium (Duoneb -) 1 amp NEB QIDR PRN PRN Reason: WHEEZING Last Admin: 02/03/17 17:24 Dose: 1 amp Allopurinol (Zyloprim -) 100 mg PO DAILY [facility] Last Admin: 02/04/17 09:21 Dose: 100 mg Atorvastatin Calcium (Lipitor -) 20 mg PO HS [facility] Last Admin: 02/03/17 21:38 Dose: 20 mg Budesonide/Formoterol Fumarate (Symbicort 160/4.5mcg -) 2 puff IH BID [facility] Last Admin: 02/04/17 09:24 Dose: 2 puff Chlorhexidine Gluconate (Hibiclens For Decolonization -) 1 applic TP HS [facility] Last Admin: 02/03/17 21:38 Dose: 1 applic Digoxin (Lanoxin -) 0.125 mg PO Q2D@1800 [facility] Last Admin: 02/02/17 18:47 Dose: 0.125 mg Diltiazem HCl (Cardizem Cd -) 360 mg PO DAILY [facility] Last Admin: 02/04/17 09:19 Dose: 360 mg Furosemide (Lasix Injection -) 60 mg IVPUSH DAILY [facility] Last Admin: 02/04/17 09:20 Dose: 60 mg Gabapentin (Neurontin -) 200 mg PO BID [facility] Last Admin: 02/04/17 09:20 Dose: 200 mg Glimepiride (Amaryl -) 4 mg PO DAILY@0700 [facility] Guaifenesin (Robitussin -) 10 ml PO Q4H PRN PRN Reason: COUGH Last Admin: 02/03/17 21:39 Dose: 10 ml CEFTRIAXONE 1 G/50 ML PREMIX (Ceftriaxone 1 Gm-D5w Bag) 50 mls @ 100 mls/hr IVPB DAILY [facility] Last Admin: 02/04/17 09:20 Dose: 100 mls/hr Insulin Aspart (Novolog Vial Sliding Scale -) 1 vial SQ ACHS [facility] PRN Reason: Protocol Last Admin: 02/04/17 06:16 Dose: 2 units Losartan Potassium (Cozaar -) 25 mg PO DAILY [facility] Last Admin: 02/04/17 09:23 Dose: 25 mg Multivitamins/Minerals (Theragran-M) 1 each PO DAILY [facility] Last Admin: 02/04/17 09:21 Dose: 1 each Mupirocin (Bactroban Ointment (For Decolonization) -) 1 applic NS BID [facility] Stop: 02/07/17 21:59 Last Admin: 02/04/17 09:23 Dose: 1 applic Pantoprazole Sodium (Protonix -) 40 mg PO DAILY [facility] Last Admin: 02/04/17 09:21 Dose: 40 mg Warfarin Sodium (Coumadin -) 2.5 mg PO DAILY@1800 [facility] Vital Signs 02/04/17 02/04/17 02/04/17 10:00 10:26 10:27 Temperature Pulse Rate 70 88 Respiratory 20 Rate Blood Pressure 126/79 O2 Sat by Pulse 97 97 Oximetry (%) 02/04/17 02/04/17 02/04/17 12:00 13:53 15:00 Temperature 98 F Pulse Rate 87 88 106 H Respiratory 20 20 19 Rate Blood Pressure 141/77 128/71 150/87 O2 Sat by Pulse Oximetry (%) PE: NAD, calm jvd tds. neck supple no carotid bruits Irregular rhythm, normal rate. Nl s1,s2. 2/6 soft sys murmur at sternal border bibasilar rales , nl eff +bs soft obese nt nd trace edema + dp/pt aaox3 no jaundice, diaphoresis. Laboratory Tests 02/04/17 02/04/17 02/04/17 06:15 06:15 10:00 WBC 9.5 D Hgb 11.1 Plt Count 237 Sodium 139 Potassium 4.3 Carbon Dioxide 34 H BUN 31 H Creatinine 1.1 H Magnesium 1.7 L Albumin 2.7 L TSH 0.88 D EKG 01/2017: poor baseline. afib, VR 97 bpm. lad. anterior and inferior q waves. Low voltage. non-specific t wave ab vs. artifact. tele: rate controlled afib echo 07/2015: nl lv/rv, mod israel, mod phtn, no sig valve path CXR 02/03: Increased congestive changes (compared to 02/02). basilar atelectasis vs infiltrates vs. fluid. (by my review 76 yo with h/o known atrial fibrillation on coumadin, NOLBERTO, HTN, HL, DM, seizure , GERD, lung CA s/p left upper lobectomy and chemotherapy admitted for SOB. sob - likely combination of volume overload and possible additional copd exacerbation. COPD management per pulm/PMD diastolic hf exacerbation. - s/p lasix 60 mg IV x 2, 40 mg IV x 1 and lasix drip overnight. HR now controlled. SOB improved. BP running low. --> decreased diuretic regimen to 60 mg IV daily. consider transition to Po regimen tomorrow. daily weights, I/O' s, bmp. - Hyponatremia previously improved on IV lasix, improving here on diuretics, con't to monitor. Atrial fibrillation - known diagnosis - cont dig, ccb for rate control. Dig level here ok. - Con't AC with coumadin per inr, curretnly supratherapeutic HTN: -stable, 02/03 bp running low --> will decreased morning losartan dose from 50 mg to 25 mg to avoid hypotension. 02/04 today improved, monitor. may be able to increase losartan dose back to 50 mg HL: - On atorvastatin
[2017-02-05] MEDS: ALLOPURINOL 100 MG TABLET (FP) PO SCH (09:16)
[2017-02-05] MEDS: MULTIVITAMINS THER W-MINERALS COMBO TABLET (FP) PO SCH (09:16)
[2017-02-05] MEDS: LOSARTAN POTASSIUM 25 MG TABLET PO SCH (09:16)
[2017-02-05] MEDS: GABAPENTIN 100 MG CAPSULE (FP) PO SCH ×2 (09:16→22:27)
[2017-02-05] MEDS: PANTOPRAZOLE 40 MG TABLET (FP) PO SCH (09:16)
[2017-02-05] MEDS: BUDESONIDE/FORMETEROL FUMARATE 160/4.5 mcg INHALER IH SCH ×2 (09:17→22:26)
--- NOTE | 2017-02-05 09:25 | DS ---
Physical Examination Vital Signs: Vital Signs Temperature 97.1 F L 02/05/17 08:36 Pulse Rate 98 H 02/05/17 08:36 Respiratory Rate 20 02/05/17 08:36 Blood Pressure 131/75 02/05/17 08:36 O2 Sat by Pulse Oximetry (%) 94 L 02/05/17 08:43 Cardiovascular: Yes: Murmur, S1, S2 Respiratory: Yes: Rhonchi Gastrointestinal: Yes: Normal Bowel Sounds, Soft Labs: CBC, BMP 02/05/17 05:20 02/05/17 05:20 Discharge Summary Reason For Visit: SOB Current Active Problems Diabetes mellitus (Acute) Shortness of breath (Acute) UTI (urinary tract infection) (Acute) Hospital Course: Patient is a 76F with history of afib (on coumadin and digoxin), chf, copd, NIDDM, Lung cancer (s/p lobectomy in 2005 with resultant breathing capacity), HTN, 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 The shortness of breath started 1.5 weeks ago, but has worsened significantly since Friday. Patient says she initially felt congested and had a cough. The cough and congestion increased until she felt like she couldn't breathe. She endorses a single episode of vomiting several days ago. Denies fevers, chills. Denies sick contacts. Says that she got her flu shot this year. She reports compliance with her medications and says her last INR was 2-3. She says that she developed some chest pain after coughing frequently for several days. History Source: Patient, Medical Record Limitations to Obtaining History: No Limitations - Past Medical History Cardiovascular: Yes: AFIB Pulmonary: Yes: Bronchitis, Cancer, COPD, Sleep Apnea Endocrine: Yes: Diabetes Mellitus - Past Surgical History Past Surgical History: Yes: Joint Replacement (left knee) - Problems (1) Shortness of breath Assessment/Plan: ON TELE bipap as needed oxygen--CHECK PULSE OX ON RA duoneb cxr congestion po lasix I/O weight echo--mild lv dysfunctin wang cath Code(s): R06.02 - SHORTNESS OF BREATH (2) Acute decompensated heart failure Assessment/Plan: po lasix echo i/o monitor lytes digoxin losartan Code(s): I50.9 - HEART FAILURE, UNSPECIFIED (3) Atrial fibrillation Assessment/Plan: cardizem trend inr coumadin and monitor INR" digoxin Code(s): I48.91 - UNSPECIFIED ATRIAL FIBRILLATION (4) UTI (urinary tract infection) Assessment/Plan: dc iv rocephin--po ceftin Code(s): N39.0 - URINARY TRACT INFECTION, SITE NOT SPECIFIED Condition: Improved - Instructions Diet, Activity, Other Instructions: BLOOD TEST FOR KIDNEY AND INR WITHIN ONE WEEK Referrals: Dami Faria MD [Primary Care Provider] - 1 Week Disposition: VNS/HOME HEALTH CARE - Home Medications Comprehensive Discharge Medication List: Ambulatory Orders Albuterol Sulfate [Proair Respiclick] 90 mcg IH PRN PRN 08/08/15 Atorvastatin Ca [Lipitor] 20 mg PO HS 08/08/15 Budesonide/Formeterol Fumarate [SYMBICORT 160/4.5mcg -] 2 inh PO BID 08/08/15 Digoxin [Lanoxin -] 0.125 mg PO Q48H 08/08/15 Diltiazem Cd [Cardizem Cd -] 360 mg PO DAILY 08/08/15 Gabapentin [Neurontin -] 200 mg PO BID 08/08/15 Levetiracetam [Keppra -] 1,000 mg PO BID 08/08/15 Multivit-Min/FA/Lycopen/Lutein [Centrum Silver Tablet] 1 each PO DAILY 08/08/15 Tiotropium Mccamey [Spiriva] 1 inh PO DAILY 08/08/15 Allopurinol [Zyloprim -] 100 mg PO DAILY 02/02/17 Lansoprazole [Prevacid] 30 mg PO DAILY 02/02/17 Losartan Potassium 50 mg PO DAILY 02/02/17 Cefuroxime Axetil [Ceftin -] 250 mg PO BID #10 tablet 02/05/17 Furosemide [Lasix -] 60 mg PO BIDLASIX tablet 02/05/17 Glimepiride [Amaryl -] 4 mg PO DAILY@0700 #30 tablet 02/05/17 Warfarin Na [Coumadin -] 4 mg PO DAILY@1800 tablet 02/05/17
[2017-02-05] MEDS: FUROSEMIDE 20 MG TABLET (FP) PO SCH (10:13)
[2017-02-05] MEDS ORDERED: PT OWN MED DRAWER 7, Y5N ONE ×3 (10:20→21:47)
[2017-02-05] MEDS: CEFUROXIME AXETIL 250 MG TABLET PO SCH ×3 (10:46→22:26)
[2017-02-05] MEDS: MUPIROCIN 2% TOPICAL OINTMENT FOR DECOLONIZATION NS SCH ×2 (11:04→22:23)
--- NOTE | 2017-02-05 11:49 | PN ---
Progress Note, Physician History of Present Illness: pulmonary alert,feeling better,,-resp distress - Current Medication List Current Medications: Active Medications Albuterol Sulfate (Ventolin Hfa Inhaler -) 2 puff IH Q4H PRN PRN Reason: ASTHMA Albuterol/Ipratropium (Duoneb -) 1 amp NEB QIDR PRN PRN Reason: WHEEZING Last Admin: 02/03/17 17:24 Dose: 1 amp Allopurinol (Zyloprim -) 100 mg PO DAILY [facility] Last Admin: 02/05/17 09:16 Dose: 100 mg Atorvastatin Calcium (Lipitor -) 20 mg PO HS [facility] Last Admin: 02/04/17 21:17 Dose: 20 mg Budesonide/Formoterol Fumarate (Symbicort 160/4.5mcg -) 2 puff IH BID [facility] Last Admin: 02/05/17 09:17 Dose: 2 puff Cefuroxime Axetil (Ceftin -) 250 mg PO BID [facility] Last Admin: 02/05/17 11:04 Dose: Not Given Chlorhexidine Gluconate (Hibiclens For Decolonization -) 1 applic TP HS [facility] Last Admin: 02/04/17 21:15 Dose: Not Given Digoxin (Lanoxin -) 0.125 mg PO Q2D@1800 [facility] Last Admin: 02/04/17 17:55 Dose: 0.125 mg Diltiazem HCl (Cardizem Cd -) 360 mg PO DAILY [facility] Last Admin: 02/05/17 09:16 Dose: 360 mg Furosemide (Lasix -) 60 mg PO DAILY [facility] Last Admin: 02/05/17 10:13 Dose: 40 mg Gabapentin (Neurontin -) 200 mg PO BID [facility] Last Admin: 02/05/17 09:16 Dose: 200 mg Glimepiride (Amaryl -) 4 mg PO DAILY@0700 [facility] Last Admin: 02/05/17 06:06 Dose: 4 mg Guaifenesin (Robitussin -) 10 ml PO Q4H PRN PRN Reason: COUGH Last Admin: 02/03/17 21:39 Dose: 10 ml Insulin Aspart (Novolog Vial Sliding Scale -) 1 vial SQ ACHS [facility] PRN Reason: Protocol Last Admin: 02/05/17 11:14 Dose: Not Given Losartan Potassium (Cozaar -) 25 mg PO DAILY [facility] Last Admin: 02/05/17 09:16 Dose: 25 mg Multivitamins/Minerals (Theragran-M) 1 each PO DAILY [facility] Last Admin: 02/05/17 09:16 Dose: 1 each Mupirocin (Bactroban Ointment (For Decolonization) -) 1 applic NS BID [facility] Stop: 02/07/17 21:59 Last Admin: 02/05/17 11:04 Dose: Not Given Pantoprazole Sodium (Protonix -) 40 mg PO DAILY [facility] Last Admin: 02/05/17 09:16 Dose: 40 mg Warfarin Sodium (Coumadin -) 2.5 mg PO DAILY@1800 [facility] Last Admin: 02/04/17 17:54 Dose: 2.5 mg - Objective Vital Signs: Vital Signs Temperature 97.1 F L 02/05/17 08:36 Pulse Rate 75 02/05/17 09:53 Respiratory Rate 20 02/05/17 08:36 Blood Pressure 131/75 02/05/17 08:36 O2 Sat by Pulse Oximetry (%) 83 L 02/05/17 09:53 Constitutional: Yes: Well Nourished, Calm Eyes: Yes: WNL HENT: Yes: WNL Neck: Yes: WNL Cardiovascular: Yes: Pulse Irregular, S1, S2 Respiratory: Yes: Diminished Gastrointestinal: Yes: Normal Bowel Sounds, Soft Extremities: Yes: WNL Edema: No Labs: CBC, BMP 02/05/17 05:20 02/05/17 05:20 INR, PTT INR 1.42 (0.82-1.09) H D 02/05/17 05:20 Problem List - Problems (1) Acute hypoxemic respiratory failure Code(s): J96.01 - ACUTE RESPIRATORY FAILURE WITH HYPOXIA (2) Diabetes mellitus Code(s): E11.9 - TYPE 2 DIABETES MELLITUS WITHOUT COMPLICATIONS (3) Shortness of breath Code(s): R06.02 - SHORTNESS OF BREATH (4) Atrial fibrillation Code(s): I48.91 - UNSPECIFIED ATRIAL FIBRILLATION (5) CKD (chronic kidney disease) stage 3, GFR 30-59 ml/min Code(s): N18.3 - CHRONIC KIDNEY DISEASE, STAGE 3 (MODERATE) (6) COPD (chronic obstructive pulmonary disease) Code(s): J44.9 - CHRONIC OBSTRUCTIVE PULMONARY DISEASE, UNSPECIFIED (7) Congestive heart failure Code(s): I50.9 - HEART FAILURE, UNSPECIFIED (8) Diabetes Code(s): E11.9 - TYPE 2 DIABETES MELLITUS WITHOUT COMPLICATIONS Qualifiers: Diabetes mellitus type: type 2 Diabetes mellitus complication detail: with unspecified neuropathy (9) Lung cancer Code(s): C34.90 - MALIGNANT NEOPLASM OF UNSP PART OF UNSP BRONCHUS OR LUNG (10) Morbid obesity Code(s): E66.01 - MORBID (SEVERE) OBESITY DUE TO EXCESS CALORIES (11) Sleep apnea Code(s): G47.30 - SLEEP APNEA, UNSPECIFIED Assessment/Plan ASSESSMENT AND PLAN: Acute Hypoxic Respiratory Failure improved Atrial Fibrillation with RVR Acute on Chronic Diastolic Heart Failure COPD h/o Lung Ca HTN Hyperlipidemia - lasix - rate control with cardizem, digoxin - anticoagulation - O2 to keep SpO2 >90% - BiPAP at night and PRN during day, instructed to bring home device if more comfortable - inhaled bronchodilators prn - home o2 - can defer systemic steroids at this time DR MOSLEY
--- NOTE | 2017-02-05 11:50 | PN ---
Progress Note (short form) - Note Progress Note: CC: SOB S: feeling well. no sob cp palps dizzy Current Medications Generic Name Dose Route Start Last Admin Trade Name Freq PRN Reason Stop Dose Admin Albuterol Sulfate 2 puff 02/02/17 20:04 Ventolin Hfa Inhaler - IH Q4H PRN ASTHMA Albuterol/Ipratropium 1 amp 02/03/17 11:59 02/03/17 17:24 Duoneb - NEB 1 amp QIDR PRN Administration WHEEZING Allopurinol 100 mg 02/03/17 10:00 02/05/17 09:16 Zyloprim - PO 100 mg DAILY TIM Administration Atorvastatin Calcium 20 mg 02/02/17 22:00 02/04/17 21:17 Lipitor - PO 20 mg HS TIM Administration Budesonide/Formoterol Fumarate 2 puff 02/02/17 22:00 02/05/17 09:17 Symbicort 160/4.5mcg - IH 2 puff BID TIM Administration Cefuroxime Axetil 250 mg 02/05/17 09:30 02/05/17 11:04 Ceftin - PO Not Given BID TIM Chlorhexidine Gluconate 1 applic 02/02/17 22:00 02/04/17 21:15 Hibiclens For Decolonization - TP Not Given HS TIM Digoxin 0.125 mg 02/02/17 18:00 02/04/17 17:55 Lanoxin - PO 0.125 mg Q2D@1800 TIM Administration Diltiazem HCl 360 mg 02/03/17 10:00 02/05/17 09:16 Cardizem Cd - PO 360 mg DAILY ITM Administration Furosemide 60 mg 02/05/17 10:00 02/05/17 10:13 Lasix - PO 40 mg DAILY TIM Administration Gabapentin 200 mg 02/02/17 22:00 02/05/17 09:16 Neurontin - PO 200 mg BID TIM Administration Glimepiride 4 mg 02/04/17 10:00 02/05/17 06:06 Amaryl - PO 4 mg DAILY@0700 TIM Administration Guaifenesin 10 ml 02/03/17 07:22 02/03/17 21:39 Robitussin - PO 10 ml Q4H PRN Administration COUGH Insulin Aspart 1 vial 02/03/17 11:00 02/05/17 11:14 Novolog Vial Sliding Scale - SQ Not Given ACHS TIM Protocol Losartan Potassium 25 mg 02/04/17 10:00 02/05/17 09:16 Cozaar - PO 25 mg DAILY TIM Administration Multivitamins/Minerals 1 each 02/03/17 10:00 02/05/17 09:16 Theragran-M PO 1 each DAILY TIM Administration Mupirocin 1 applic 02/02/17 22:00 02/05/17 11:04 Bactroban Ointment (For Decolonization) - NS 02/07/17 21:59 Not Given BID TIM Pantoprazole Sodium 40 mg 02/03/17 10:00 02/05/17 09:16 Protonix - PO 40 mg DAILY TIM Administration Warfarin Sodium 2.5 mg 02/04/17 18:00 02/04/17 17:54 Coumadin - PO 2.5 mg DAILY@1800 TIM Administration Vital Signs Period Temp Pulse Resp BP Sys/[place] Pulse Ox Last 24 Hr 97.1 F-98.7 F 75-106 15-20 128-150/56-87 83-95 NAD, calm jvd tds. neck supple Irregular rhythm, normal rate. Nl s1,s2. 2/6 soft sys murmur at sternal border cta bl nl eff +bs soft obese nt nd no le edema + dp/pt aaox3 no jaundice, diaphoresis. CBC, BMP 02/05/17 05:20 02/05/17 05:20 EKG 01/2017: poor baseline. afib, VR 97 bpm. lad. anterior and inferior q waves. Low voltage. non-specific t wave ab vs. artifact. tele: rate controlled afib echo 07/2015: nl lv/rv, mod israel, mod phtn, no sig valve path CXR 02/03: Increased congestive changes (compared to 02/02). basilar atelectasis vs infiltrates vs. fluid. (by my review a/p: 76 yo with h/o known atrial fibrillation on coumadin, NOLBERTO, HTN, HL, DM, seizure, GERD, lung CA s/p left upper lobectomy and chemotherapy admitted for SOB. sob - likely combination of volume overload and possible additional copd exacerbation. -COPD management per pulm/PMD diastolic hf exacerbation. - s/p lasix 60 mg IV x 2, 40 mg IV x 1 and lasix drip overnight. HR now controlled. SOB improved. BP running low. --> decreased diuretic regimen to 60 mg IV daily. consider transition to Po regimen tomorrow. daily weights, I/O' s, bmp. -02/05: vol stable, cont po lasix Atrial fibrillation - known diagnosis - cont dig, ccb for rate control. Dig level here ok. - Con't AC with coumadin per inr HTN: -cont current meds HLD: - On atorvastatin cardiac gomez stable, can dc tele
[2017-02-05] MEDS: WARFARIN NA 2.5 MG TABLET (FP) PO SCH (17:01)
[2017-02-05] MEDS: CHLORHEXIDINE GLUCONATE 4% CLEANSER FOR DECOLONIZATION TP SCH (22:23)
[2017-02-05] MEDS: ATORVASTATIN CA 20 MG TABLET (FP) PO SCH (22:26)
--- NOTE | 2017-02-06 00:19 | PN ---
Progress Note, Physician Chief Complaint: has dyspnea exertional History of Present Illness: 76F with history of afib (on coumadin and digoxin), chf, copd, NIDDM, Lung cancer (s/p lobectomy in 2006 with resultant breathing capacity), HTN, clinically improved with diuresis,and nebulizer therapy,has persistant cough and congestion, sugars are elevated - Current Medication List Current Medications: Active Medications Albuterol Sulfate (Ventolin Hfa Inhaler -) 2 puff IH Q4H PRN PRN Reason: ASTHMA Albuterol/Ipratropium (Duoneb -) 1 amp NEB QIDR PRN PRN Reason: WHEEZING Last Admin: 02/03/17 17:24 Dose: 1 amp Allopurinol (Zyloprim -) 100 mg PO DAILY [facility] Last Admin: 02/05/17 09:16 Dose: 100 mg Atorvastatin Calcium (Lipitor -) 20 mg PO HS [facility] Last Admin: 02/05/17 22:26 Dose: 20 mg Budesonide/Formoterol Fumarate (Symbicort 160/4.5mcg -) 2 puff IH BID [facility] Last Admin: 02/05/17 22:26 Dose: 2 puff Cefuroxime Axetil (Ceftin -) 250 mg PO BID [facility] Last Admin: 02/05/17 22:26 Dose: 250 mg Chlorhexidine Gluconate (Hibiclens For Decolonization -) 1 applic TP HS [facility] Last Admin: 02/05/17 22:23 Dose: Not Given Digoxin (Lanoxin -) 0.125 mg PO Q2D@1800 [facility] Last Admin: 02/04/17 17:55 Dose: 0.125 mg Diltiazem HCl (Cardizem Cd -) 360 mg PO DAILY [facility] Last Admin: 02/05/17 09:16 Dose: 360 mg Furosemide (Lasix -) 60 mg PO DAILY [facility] Last Admin: 02/05/17 10:13 Dose: 40 mg Gabapentin (Neurontin -) 200 mg PO BID [facility] Last Admin: 02/05/17 22:27 Dose: 200 mg Glimepiride (Amaryl -) 4 mg PO DAILY@0700 [facility] Last Admin: 02/05/17 06:06 Dose: 4 mg Guaifenesin (Robitussin -) 10 ml PO Q4H PRN PRN Reason: COUGH Last Admin: 11/13/17 21:39 Dose: 10 ml Insulin Aspart (Novolog Vial Sliding Scale -) 1 vial SQ ACHS [facility] PRN Reason: Protocol Last Admin: 02/05/17 22:26 Dose: 2 units Losartan Potassium (Cozaar -) 25 mg PO DAILY [facility] Last Admin: 02/05/17 09:16 Dose: 25 mg Multivitamins/Minerals (Theragran-M) 1 each PO DAILY [facility] Last Admin: 02/05/17 09:16 Dose: 1 each Mupirocin (Bactroban Ointment (For Decolonization) -) 1 applic NS BID [facility] Stop: 02/07/17 21:59 Last Admin: 02/05/17 22:23 Dose: Not Given Pantoprazole Sodium (Protonix -) 40 mg PO DAILY [facility] Last Admin: 02/05/17 09:16 Dose: 40 mg Warfarin Sodium (Coumadin -) 2.5 mg PO DAILY@1800 [facility] Last Admin: 02/05/17 17:01 Dose: 2.5 mg - Objective Vital Signs: Vital Signs Temperature 98.7 F 02/05/17 22:00 Pulse Rate 100 H 02/05/17 22:00 Respiratory Rate 20 02/05/17 22:00 Blood Pressure 123/63 02/05/17 22:00 O2 Sat by Pulse Oximetry (%) 98 02/05/17 21:00 Constitutional: Yes: Well Nourished Eyes: Yes: Conjunctiva Clear HENT: Yes: Normocephalic Neck: Yes: Trachea Midline Cardiovascular: Yes: Tachycardia, Murmur Respiratory: Yes: SOB, Tachypnea Gastrointestinal: Yes: Normal Bowel Sounds ...Rectal Exam: Yes: Deferred Genitourinary: Yes: WNL Musculoskeletal: Yes: WNL Extremities: Yes: Delayed Capillary Refill, Erythema Edema: Yes Edema: LLE: 1+, RLE: 1+ Neurological: Yes: Oriented, Numbness, Unsteady Gait, Weakness Psychiatric: Yes: Alert, Oriented Labs: CBC, BMP 02/05/17 05:20 02/05/17 05:20 INR, PTT INR 1.42 (0.82-1.09) H D 02/05/17 05:20 Problem List - Problems (1) Diabetes mellitus Code(s): E11.9 - TYPE 2 DIABETES MELLITUS WITHOUT COMPLICATIONS Qualifiers: Diabetic retinopathy severity: with mild nonproliferative retinopathy (2) Shortness of breath Code(s): R06.02 - SHORTNESS OF BREATH (3) Acute decompensated heart failure Code(s): I50.9 - HEART FAILURE, UNSPECIFIED (4) Acute renal failure Code(s): N17.9 - ACUTE KIDNEY FAILURE, UNSPECIFIED (5) Atrial fibrillation Code(s): I48.91 - UNSPECIFIED ATRIAL FIBRILLATION (6) COPD exacerbation Code(s): J44.1 - CHRONIC OBSTRUCTIVE PULMONARY DISEASE W (ACUTE) EXACERBATION Assessment/Plan Current Active Problems Acute hypoxemic respiratory failure (Acute) Diabetes mellitus (Acute) Shortness of breath (Acute) UTI (urinary tract infection) (Acute) Abnormal Lab Results 02/05/17 02/05/17 02/05/17 05:20 05:20 05:20 MCHC 31.8 L RDW 17.9 H PT with INR 16.00 H INR 1.42 H D Chloride 96 L Carbon Dioxide 37 H Anion Gap 5 L BUN 30 H Random Glucose 166 H Calcium 8.2 L Magnesium 1.7 L Total Protein 6.0 L Albumin 2.7 L Laboratory Tests 02/05/17 02/05/17 02/05/17 05:20 05:48 11:10 BUN 30 H Creatinine 1.0 POC Glucometer 217 140 02/05/17 02/05/17 15:51 22:25 BUN Creatinine POC Glucometer 200 169 plan: Current Medications Generic Name Dose Route Start Last Admin Trade Name Freq PRN Reason Stop Dose Admin Albuterol Sulfate 2 puff 02/02/17 20:04 Ventolin Hfa Inhaler - IH Q4H PRN ASTHMA Albuterol/Ipratropium 1 amp 02/03/17 11:59 02/03/17 17:24 Duoneb - NEB 1 amp QIDR PRN Administration WHEEZING Allopurinol 100 mg 02/03/17 10:00 02/05/17 09:16 Zyloprim - PO 100 mg DAILY TIM Administration Atorvastatin Calcium 20 mg 02/02/17 22:00 02/05/17 22:26 Lipitor - PO 20 mg HS TIM Administration Budesonide/Formoterol Fumarate 2 puff 02/02/17 22:00 02/05/17 22:26 Symbicort 160/4.5mcg - IH 2 puff BID TIM Administration Cefuroxime Axetil 250 mg 02/05/17 09:30 02/05/17 22:26 Ceftin - PO 250 mg BID TIM Administration Chlorhexidine Gluconate 1 applic 02/02/17 22:00 02/05/17 22:23 Hibiclens For Decolonization - TP Not Given HS TIM Digoxin 0.125 mg 02/02/17 18:00 02/04/17 17:55 Lanoxin - PO 0.125 mg Q2D@1800 TIM Administration Diltiazem HCl 360 mg 02/03/17 10:00 02/05/17 09:16 Cardizem Cd - PO 360 mg DAILY TIM Administration Furosemide 60 mg 02/05/17 10:00 02/05/17 10:13 Lasix - PO 40 mg DAILY TIM Administration Gabapentin 200 mg 02/02/17 22:00 02/05/17 22:27 Neurontin - PO 200 mg BID TIM Administration Glimepiride 4 mg 02/04/17 10:00 02/05/17 06:06 Amaryl - PO 4 mg DAILY@0700 TIM Administration Guaifenesin 10 ml 02/03/17 07:22 02/03/17 21:39 Robitussin - PO 10 ml Q4H PRN Administration COUGH Insulin Aspart 1 vial 02/03/17 11:00 02/05/17 22:26 Novolog Vial Sliding Scale - SQ 2 units ACHS TIM Administration Protocol Losartan Potassium 25 mg 02/04/17 10:00 02/05/17 09:16 Cozaar - PO 25 mg DAILY TIM Administration Multivitamins/Minerals 1 each 02/03/17 10:00 02/05/17 09:16 Theragran-M PO 1 each DAILY TIM Administration Mupirocin 1 applic 02/02/17 22:00 02/05/17 22:23 Bactroban Ointment (For Decolonization) - NS 02/07/17 21:59 Not Given BID TIM Pantoprazole Sodium 40 mg 02/03/17 10:00 02/05/17 09:16 Protonix - PO 40 mg DAILY TIM Administration Warfarin Sodium 2.5 mg 02/04/17 18:00 02/05/17 17:01 Coumadin - PO 2.5 mg DAILY@1800 TIM Administration
[2017-02-06] MEDS: GLIMEPIRIDE 4 MG TABLET (FP) PO SCH (06:54)
[2017-02-06] MEDS: INSULIN SLIDING SCALE (NOVOLOG) 1 VIAL SQ SCH ×2 (06:54→11:55)
--- NOTE | 2017-02-06 08:02 | DS ---
Physical Examination Vital Signs: Vital Signs Temperature 97.7 F 02/06/17 06:00 Pulse Rate 92 H 02/06/17 06:00 Respiratory Rate 20 02/06/17 06:00 Blood Pressure 149/64 02/06/17 06:00 O2 Sat by Pulse Oximetry (%) 98 02/05/17 21:00 Cardiovascular: Yes: S1, S2 Respiratory: Yes: Regular, CTA Bilaterally Gastrointestinal: Yes: Normal Bowel Sounds, Soft Labs: CBC, BMP 02/05/17 05:20 02/05/17 05:20 Discharge Summary Reason For Visit: SOB Current Active Problems Acute hypoxemic respiratory failure (Acute) Diabetes mellitus (Acute) Shortness of breath (Acute) UTI (urinary tract infection) (Acute) Hospital Course: Patient is a 76F with history of afib (on coumadin and digoxin), chf, copd, NIDDM, Lung cancer (s/p lobectomy in 2005 with resultant breathing capacity), HTN, 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 The shortness of breath started 1.5 weeks ago, but has worsened significantly since Friday. Patient says she initially felt congested and had a cough. The cough and congestion increased until she felt like she couldn't breathe. She endorses a single episode of vomiting several days ago. Denies fevers, chills. Denies sick contacts. Says that she got her flu shot this year. She reports compliance with her medications and says her last INR was 2-3. She says that she developed some chest pain after coughing frequently for several days. History Source: Patient, Medical Record Limitations to Obtaining History: No Limitations - Past Medical History Cardiovascular: Yes: AFIB Pulmonary: Yes: Bronchitis, Cancer, COPD, Sleep Apnea Endocrine: Yes: Diabetes Mellitus - Past Surgical History Past Surgical History: Yes: Joint Replacement (left knee) - Problems (1) Shortness of breath Assessment/Plan: ON TELE bipap as needed oxygen--CHECK PULSE OX ON RA duoneb cxr congestion po lasix I/O weight echo--mild lv dysfunctin wang cath Code(s): R06.02 - SHORTNESS OF BREATH (2) Acute decompensated heart failure Assessment/Plan: po lasix echo i/o monitor lytes digoxin losartan Code(s): I50.9 - HEART FAILURE, UNSPECIFIED (3) Atrial fibrillation Assessment/Plan: cardizem trend inr coumadin and monitor INR" digoxin Code(s): I48.91 - UNSPECIFIED ATRIAL FIBRILLATION (4) UTI (urinary tract infection) Assessment/Plan: dc iv rocephin--po ceftin Code(s): N39.0 - URINARY TRACT INFECTION, SITE NOT SPECIFIED Condition: Improved - Instructions Diet, Activity, Other Instructions: BLOOD TEST FOR KIDNEY AND INR WITHIN ONE WEEK Referrals: Dami Faria MD [Primary Care Provider] - 1 Week Disposition: VNS/HOME HEALTH CARE - Home Medications Comprehensive Discharge Medication List: Ambulatory Orders Albuterol Sulfate [Proair Respiclick] 90 mcg IH PRN PRN 08/08/15 Atorvastatin Ca [Lipitor] 20 mg PO HS 08/08/15 Budesonide/Formeterol Fumarate [SYMBICORT 160/4.5mcg -] 2 inh PO BID 08/08/15 Digoxin [Lanoxin -] 0.125 mg PO Q48H 08/08/15 Diltiazem Cd [Cardizem Cd -] 360 mg PO DAILY 08/08/15 Gabapentin [Neurontin -] 200 mg PO BID 08/08/15 Levetiracetam [Keppra -] 1,000 mg PO BID 08/08/15 Multivit-Min/FA/Lycopen/Lutein [Centrum Silver Tablet] 1 each PO DAILY 08/08/[address] [place] [Spiriva] 1 inh PO DAILY 08/08/15 Allopurinol [Zyloprim -] 100 mg PO DAILY 02/02/17 Lansoprazole [Prevacid] 30 mg PO DAILY 02/02/17 Losartan Potassium 50 mg PO DAILY 02/02/17 Cefuroxime Axetil [Ceftin -] 250 mg PO BID #10 tablet 02/05/17 Furosemide [Lasix -] 60 mg PO BIDLASIX tablet 02/05/17 Glimepiride [Amaryl -] 4 mg PO DAILY@0700 #30 tablet 02/05/17 Warfarin Na [Coumadin -] 4 mg PO DAILY@1800 tablet 02/05/17
[2017-02-06] MEDS ORDERED: PT OWN MED DRAWER 7, Y5N ONE (09:33)
[2017-02-06] MEDS: MUPIROCIN 2% TOPICAL OINTMENT FOR DECOLONIZATION NS SCH (09:37)
[2017-02-06] MEDS: CEFUROXIME AXETIL 250 MG TABLET PO SCH (09:37)
[2017-02-06] MEDS: LOSARTAN POTASSIUM 25 MG TABLET PO SCH (09:38)
[2017-02-06] MEDS: FUROSEMIDE 20 MG TABLET (FP) PO SCH (09:38)
[2017-02-06] MEDS: BUDESONIDE/FORMETEROL FUMARATE 160/4.5 mcg INHALER IH SCH (09:39)
[2017-02-06] MEDS: PANTOPRAZOLE 40 MG TABLET (FP) PO SCH (09:39)
[2017-02-06] MEDS: GABAPENTIN 100 MG CAPSULE (FP) PO SCH (09:39)
[2017-02-06] MEDS: MULTIVITAMINS THER W-MINERALS COMBO TABLET (FP) PO SCH (09:39)
[2017-02-06] MEDS: ALLOPURINOL 100 MG TABLET (FP) PO SCH (09:39)
--- NOTE | 2017-02-06 10:24 | PN ---
Progress Note (short form) - Note Progress Note: CC: SOB S: feeling well. no sob cp palps dizzy Current Medications Generic Name Dose Route Start Last Admin Trade Name Freq PRN Reason Stop Dose Admin Albuterol Sulfate 2 puff 02/02/17 20:04 Ventolin Hfa Inhaler - IH Q4H PRN ASTHMA Albuterol/Ipratropium 1 amp 02/03/17 11:59 02/03/17 17:24 Duoneb - NEB 1 amp QIDR PRN Administration WHEEZING Allopurinol 100 mg 02/03/17 10:00 02/06/17 09:39 Zyloprim - PO 100 mg DAILY TIM Administration Atorvastatin Calcium 20 mg 02/02/17 22:00 02/05/17 22:26 Lipitor - PO 20 mg HS TIM Administration Budesonide/Formoterol Fumarate 2 puff 02/02/17 22:00 02/06/17 09:39 Symbicort 160/4.5mcg - IH 2 puff BID TIM Administration Cefuroxime Axetil 250 mg 02/05/17 09:30 02/06/17 09:37 Ceftin - PO 250 mg BID TIM Administration Chlorhexidine Gluconate 1 applic 02/02/17 22:00 02/05/17 22:23 Hibiclens For Decolonization - TP Not Given HS TIM Digoxin 0.125 mg 02/02/17 18:00 02/04/17 17:55 Lanoxin - PO 0.125 mg Q2D@1800 TIM Administration Diltiazem HCl 360 mg 02/03/17 10:00 02/06/17 09:37 Cardizem Cd - PO 360 mg DAILY TIM Administration Furosemide 60 mg 02/05/17 10:00 02/06/17 09:38 Lasix - PO 60 mg DAILY TIM Administration Gabapentin 200 mg 02/02/17 22:00 02/06/17 09:39 Neurontin - PO 200 mg BID TIM Administration Glimepiride 4 mg 02/04/17 10:00 02/06/17 06:54 Amaryl - PO 4 mg DAILY@0700 TIM Administration Guaifenesin 10 ml 02/03/17 07:22 02/03/17 21:39 Robitussin - PO 10 ml Q4H PRN Administration COUGH Insulin Aspart 1 vial 02/03/17 11:00 02/06/17 06:54 Novolog Vial Sliding Scale - SQ 2 units ACHS TIM Administration Protocol Losartan Potassium 25 mg 02/04/17 10:00 02/06/17 09:38 Cozaar - PO 25 mg DAILY TIM Administration Multivitamins/Minerals 1 each 02/03/17 10:00 02/06/17 09:39 Theragran-M PO 1 each DAILY TIM Administration Mupirocin 1 applic 02/02/17 22:00 02/06/17 09:37 Bactroban Ointment (For Decolonization) - NS 02/07/17 21:59 Not Given BID TIM Pantoprazole Sodium 40 mg 02/03/17 10:00 02/06/17 09:39 Protonix - PO 40 mg DAILY TIM Administration Warfarin Sodium 2.5 mg 02/04/17 18:00 02/05/17 17:01 Coumadin - PO 2.5 mg DAILY@1800 TIM Administration Vital Signs Period Temp Pulse Resp BP Sys/[place] Pulse Ox Last 24 Hr 96.6 F-99.8 F 80-102 18-20 120-149/63-78 92-98 NAD, calm jvd tds. neck supple Irregular rhythm, normal rate. Nl s1,s2. 2/6 soft sys murmur at sternal border cta bl nl eff +bs soft obese nt nd no le edema + dp/pt aaox3 no jaundice, diaphoresis. CBC, BMP 02/05/17 05:20 02/05/17 05:20 EKG 01/2017: poor baseline. afib, VR 97 bpm. lad. anterior and inferior q waves. Low voltage. non-specific t wave ab vs. artifact. tele: rate controlled afib echo 07/2015: nl lv/rv, mod [place], mod phtn, no sig valve path CXR 02/03: Increased congestive changes (compared to 02/02). basilar atelectasis vs infiltrates vs. fluid. (by my review a/p: 76 yo with h/o known atrial fibrillation on coumadin, NOLBERTO, HTN, HL, DM, seizure, GERD, lung CA s/p left upper lobectomy and chemotherapy admitted for SOB. sob - likely combination of volume overload and possible additional copd exacerbation. -COPD management per pulm/PMD diastolic hf exacerbation. - s/p lasix 60 mg IV x 2, 40 mg IV x 1 and lasix drip overnight. HR now controlled. SOB improved. BP running low. --> decreased diuretic regimen to 60 mg IV daily. consider transition to Po regimen tomorrow. daily weights, I/O' s, bmp. -02/05-16: vol stable, cont po lasix Atrial fibrillation - known diagnosis - cont dig, ccb for rate control. Dig level here ok. - Con't AC with coumadin per inr HTN: -cont current meds HLD: - On atorvastatin cardiac gomez stable for dc
--- NOTE | 2017-02-06 12:34 | PN ---
Progress Note (short form) - Note Progress Note: PULMONARY Breathing continues to improve. Minimal cough. Last Vital Signs Temp Pulse Resp BP Pulse Ox 99.8 F H 90 18 127/70 98 02/06/17 08:57 02/06/17 11:42 02/06/17 09:00 02/06/17 08:57 02/06/17 11:42 Gen: NAD in chair Heart: RRR Lung: decreased breath sounds at the bases Abd: soft, nontender Ext: no edema CBC, BMP 02/05/17 05:20 02/05/17 05:20 Active Medications Albuterol Sulfate (Ventolin Hfa Inhaler -) 2 puff IH Q4H PRN PRN Reason: ASTHMA Albuterol/Ipratropium (Duoneb -) 1 amp NEB QIDR PRN PRN Reason: WHEEZING Last Admin: 02/03/17 17:24 Dose: 1 amp Allopurinol (Zyloprim -) 100 mg PO DAILY [facility] Last Admin: 02/06/17 09:39 Dose: 100 mg Atorvastatin Calcium (Lipitor -) 20 mg PO HS [facility] Last Admin: 02/05/17 22:26 Dose: 20 mg Budesonide/Formoterol Fumarate (Symbicort 160/4.5mcg -) 2 puff IH BID [facility] Last Admin: 02/06/17 09:39 Dose: 2 puff Cefuroxime Axetil (Ceftin -) 250 mg PO BID [facility] Last Admin: 02/06/17 09:37 Dose: 250 mg Chlorhexidine Gluconate (Hibiclens For Decolonization -) 1 applic TP HS [facility] Last Admin: 02/05/17 22:23 Dose: Not Given Digoxin (Lanoxin -) 0.125 mg PO Q2D@1800 [facility] Last Admin: 02/04/17 17:55 Dose: 0.125 mg Diltiazem HCl (Cardizem Cd -) 360 mg PO DAILY [facility] Last Admin: 02/06/17 09:37 Dose: 360 mg Furosemide (Lasix -) 60 mg PO DAILY [facility] Last Admin: 02/06/17 09:38 Dose: 60 mg Gabapentin (Neurontin -) 200 mg PO BID [facility] Last Admin: 02/06/17 09:39 Dose: 200 mg Glimepiride (Amaryl -) 4 mg PO DAILY@0700 [facility] Last Admin: 02/06/17 06:54 Dose: 4 mg Guaifenesin (Robitussin -) 10 ml PO Q4H PRN PRN Reason: COUGH Last Admin: 02/03/17 21:39 Dose: 10 ml Insulin Aspart (Novolog Vial Sliding Scale -) 1 vial SQ ACHS [facility] PRN Reason: Protocol Last Admin: 02/06/17 11:55 Dose: Not Given Losartan Potassium (Cozaar -) 25 mg PO DAILY [facility] Last Admin: 02/06/17 09:38 Dose: 25 mg Multivitamins/Minerals (Theragran-M) 1 each PO DAILY [facility] Last Admin: 02/06/17 09:39 Dose: 1 each Mupirocin (Bactroban Ointment (For Decolonization) -) 1 applic NS BID [facility] Stop: 02/07/17 21:59 Last Admin: 02/06/17 09:37 Dose: Not Given Pantoprazole Sodium (Protonix -) 40 mg PO DAILY [facility] Last Admin: 02/06/17 09:39 Dose: 40 mg Warfarin Sodium (Coumadin -) 2.5 mg PO DAILY@1800 [facility] Last Admin: 02/05/17 17:01 Dose: 2.5 mg A/P Acute Hypoxic Respiratory Failure Atrial Fibrillation with RVR Acute on Chronic Diastolic Heart Failure COPD h/o Lung Ca HTN Hyperlipidemia - continue lasix - rate control with cardizem, digoxin - continue anticoagulation - complete empiric antibiotics - O2 to keep SpO2 >90% - BiPAP at night and PRN during day - inhaled bronchodilators prn - d/c planning with outpt f/u
[2017-02-06 15:44] VITALS: BP 106/59; PULSE 105; TEMP 98.8
== END 2017-02-06 16:59 | disposition home health service (06) | DRG 291 ==
LOC: JER 11:01 → JERBED 15:34 → JICU 02-03 00:15 → J4W 02-04 18:31
PROVIDERS: ADMIT Family Medicine; ATTEND Family Medicine
PROC: 5A09457 Assistance with Respiratory Ventilation, 24-96 Consecutive Hours, Continuous Positive Airway Pressure (ICD-10-PCS; principal; 2017-02-02)
DX: I13.0 Hypertensive heart and chronic kidney disease with heart failure and stage 1 through stage 4 chronic kidney disease, or unspecified chronic kidney disease (principal); J18.9 Pneumonia, unspecified organism; I50.33 Acute on chronic diastolic (congestive) heart failure; J96.01 Acute respiratory failure with hypoxia; J96.02 Acute respiratory failure with hypercapnia; G40.89 Other seizures; J44.1 Chronic obstructive pulmonary disease with (acute) exacerbation; N39.0 Urinary tract infection, site not specified; E87.0 Hyperosmolality and hypernatremia; Z68.41 Body mass index [BMI] 40.0-44.9, adult; I48.91 Unspecified atrial fibrillation; E11.9 Type 2 diabetes mellitus without complications; Z79.01 Long term (current) use of anticoagulants; Z85.118 Personal history of other malignant neoplasm of bronchus and lung; Z90.2 Acquired absence of lung [part of]; N18.3 Chronic kidney disease, stage 3 (moderate); E66.01 Morbid (severe) obesity due to excess calories; R79.1 Abnormal coagulation profile; G47.30 Sleep apnea, unspecified; G83.84 Todd's paralysis (postepileptic); Z86.73 Personal history of transient ischemic attack (TIA), and cerebral infarction without residual deficits; E78.5 Hyperlipidemia, unspecified; Z79.84 Long term (current) use of oral hypoglycemic drugs; K21.9 Gastro-esophageal reflux disease without esophagitis; Z96.652 Presence of left artificial knee joint; Z77.22 Contact with and (suspected) exposure to environmental tobacco smoke (acute) (chronic)
CPT/HCPCS: 36415; 36600; 71010-TC; 80053; 80162; 81003; 81015; 82550; 82553; 82803; 83036; 83605; 83735; 83880; 84100; 84436; 84443; 84484; 85025; 85610; 85730; 86850; 86900; 86901; 87040; 87086; 87804; 93005; 93010; 93306-TC; 94640; 94660; 94761; 97116-GP; 97161-GP; 99283-25

== ENCOUNTER 2017-08-06 12:17 | Emergency (ER) | payer OTHER, BC ==
[2017-08-06 12:28] VITALS: BMI 41.8
--- NOTE | 2017-08-06 12:50 | PDOC ---
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 She also reports experiencing pain to the right side of her face for 3 days which she initially attributed to her sinus congestion. She states she was walking with her rolling walker into the exam room when she felt a lightheadedness described as a full head. She also states she felt mildly more short of breath this morning, but denies feeling short of breath at this time. She also reports her legs are not more swollen than usual. The patent's son reports she changed her medication from metoprolol to Janumet about a week ago. She denies chest pain, palpitations, dizziness. She denies fever, chills, nausea , vomit, diarrhea and constipation. She denies dysuria, frequency, urgency and hematuria. Allergies: penicillins, opioids, adhesive PCP: Dr. Faria Sheet Metal Helper: Dr. Simmons Pulm: Dr. Gan <Haley Lerma - Last Filed: 08/06/17 15:21> - General History Source: Patient Exam Limitations: No Limitations <Staci Echols - Last Filed: 08/06/17 15:45> - General Chief Complaint: Pain Stated Complaint: R/O CVA, HEADACHE (PCP SENT) Time Seen by Provider: 08/06/17 12:47 Past History <Haley Lerma - Last Filed: 08/06/17 15:21> - Past Medical History Cancer: Yes (lung cancer status post RIGHT UPPER lobectomy) Cardiac Disorders: Yes (afib) CVA: Yes COPD: Yes CHF: Yes DVT: No Diabetes: Yes GI Disorders: Yes (GERD) HTN: Yes Hypercholesterolemia: Yes Seizures: Yes - Surgical History Abdominal Surgery: Yes (appendectomy) Appendectomy: Yes Cardiac Surgery: Yes (LARIAT SX) Lung Surgery: Yes (lobectomy for lung cancer) - Immunization History Immunization Up to Date: Yes - Suicide/Smoking/Psychosocial Hx Smoking Status: No (40 YRS QUIT) Smoking History: Former smoker Years of Tobacco Use: 25 Have you smoked in the past 12 months: No Number of Cigarettes Smoked Daily: 0 If you are a former smoker, when did you quit?: 40 yrs ago Cigars Per Day: 0 Information on smoking cessation initiated: No Hx Alcohol Use: No Drug/Substance Use Hx: No Substance Use Type: None Hx Substance Use Treatment: No <Staci Echols - Last Filed: 08/06/17 15:45> - Past Medical History Allergies/Adverse Reactions: Allergies Allergy/AdvReac Type Severity Reaction Status Date / Time Opioids - Morphine Analogues Allergy Intermediate Vomiting Verified 08/06/17 12: 22 [Opioids-Morphine & Related] adhesive tape Allergy Mild Rash Verified 08/06/17 12:22 Penicillins Allergy Verified 08/06/17 12:22 Home Medications: Ambulatory Orders Atorvastatin Ca [Lipitor] 20 mg PO HS 08/08/15 Digoxin [Lanoxin -] 0.125 mg PO Q48H 08/08/15 Diltiazem Cd [Cardizem Cd -] 360 mg PO DAILY 08/08/15 Gabapentin [Neurontin -] 200 mg PO BID 08/08/15 Tiotropium [place] [Spiriva] 1 inh PO DAILY 08/08/15 levETIRAcetam [Keppra -] 1,000 mg PO BID 08/08/15 Allopurinol [Zyloprim -] 100 mg PO DAILY 02/02/17 Lansoprazole [Prevacid] 30 mg PO DAILY 02/02/17 Losartan Potassium 50 mg PO DAILY 02/02/17 Allopurinol [Zyloprim -] 100 mg PO DAILY 08/06/17 Furosemide [Lasix -] 80 mg PO DAILY 08/06/17 Glimepiride [Amaryl -] 2 mg PO HS 08/06/17 Glimepiride [Amaryl -] 4 mg PO AM 08/06/17 Multivit-Min/FA/Lycopen/Lutein [Centrum Silver Tablet] 1 each PO DAILY 08/06/17 Sitagliptin Phos/Metformin HCl [Janumet Xr 50-1,000 mg Tablet] 1 each PO DAILY 08/06/17 Warfarin Sodium [Coumadin] 0 mg PO DAILY 08/06/17 Review of Systems - Review of Systems Able to Perform ROS?: Yes Comments:: 08/06/17 13:33 CONSTITUTIONAL: Absent: fever, no chills, no fatigue EYES: Absent: visual changes ENT: Absent: ear pain, no sore throat HEAD: (+) right face pain. CARDIOVASCULAR: Absent: chest pain, no palpitations RESPIRATORY: Absent: cough, no SOB GASTROINTESTINAL: Absent: abdominal pain, no nausea, no vomiting, no constipation, no diarrhea GENITOURINARY: Absent: dysuria, no frequency, no hematuria MUSCULOSKELETAL: Absent: back pain, no arthralgia, no myalgia SKIN: Absent: rash NEURO: (+) lightheaded, head "fullness". Absent: headache <Haley Lerma - Last Filed: 08/06/17 15:21> *Physical Exam - Vital Signs Last Vital Signs Temp Pulse Resp BP Pulse Ox 97.3 F L 56 L 18 113/72 94 L 08/06/17 12:22 08/06/17 12:22 08/06/17 12:22 08/06/17 12:22 08/06/17 12:22 - Physical Exam Comments: 08/06/17 13:34 GENERAL: The patient is in no acute distress. HEAD: Normal with no signs of trauma. EYES: PERRLA, EOMI, sclera anicteric, conjunctiva clear. ENT: Ears normal, nares patent, oropharynx clear without exudates. Moist mucous membranes. NECK: Normal range of motion, supple without lymphadenopathy, JVD, or masses. LUNGS: Breath sounds equal, clear to auscultation bilaterally. No wheezes, and no crackles. HEART:(+) irregularly irregular. normal S1 and S2 without murmur, rub or gallop. ABDOMEN: (+) protuberant abdomen. Soft, nontender, normoactive bowel sounds. No guarding, no rebound. No masses palpable. EXTREMITIES: (+) 2+ pitting edema bilaterally to knees. Normal range of motion, no edema. No clubbing or cyanosis. No erythema, or tenderness. NEUROLOGICAL: Cranial nerves II through XII grossly intact. Normal speech. No focal neurological deficits. chronic weakness to right upper and lower extremity secondary to prior CVA but unchanged from her baseline. MUSCULOSKELETAL: Back non-tender to palpation, no CVA tenderness SKIN: Warm, Dry, normal turgor, no rashes or lesions noted. <Haley Lerma - Last Filed: 08/06/17 15:21> - Vital Signs Last Vital Signs Temp Pulse Resp BP Pulse Ox 97.3 F L 56 L 18 113/72 94 L 08/06/17 12:22 08/06/17 12:22 08/06/17 12:22 08/06/17 12:22 08/06/17 12:22 <Real Echolsole - Last Filed: 08/06/17 15:45> ED Treatment Course - LABORATORY CBC & Chemistry Diagram: 08/06/17 13:46 08/06/17 13:46 - RADIOLOGY Radiograph Interpretation: EXAM#: TYPE/EXAM: RESULT: [id number] RAD/CHEST X-RAY PORTABLE* AP portable chest: Preadmission Since the prior study of 02/05/2017, again is a large heart with sclerotic knob and mediastinal clips. There is poorly healed fracture deformity of the proximal right humerus. There is fullness of the marce. There is evidence of bibasilar atelectatic changes. The bases are slightly better aerated than in 2017. Correlation and follow-up recommended. Reported By: Jalil Griffith MD 08/06/17 1342 EXAM#: TYPE/EXAM: RESULT: [id number] CT/HEAD CT WITHOUT CONTRAST Cranial CT without contrast Clinical information right facial pain, dizziness, weakness; history of left CVA No intracranial hemorrhage is seen. There is no evidence of acute infarction with the limitations of CT. As on a previous CT exam of 06/19/2013 note is made of a large left posterior temporoparietal chronic cortical infarct. There is no extra-axial fluid collection. No gross mass lesion is seen. Involutional changes are noted with mild ventricular dilatation. No calvarial defect is identified. There has been interval resolution of right mastoid fluid accumulation. IMPRESSION: No CT evidence of acute intracranial pathology. Left temporoparietal chronic cortical infarct. Reported By: Terrell Hopkins MD 08/06/17 1512 <Haley Lerma - Last Filed: 08/06/17 15:21> - LABORATORY CBC & Chemistry Diagram: 08/06/17 13:46 08/06/17 13:46 <Staci Echols - Last Filed: 08/06/17 15:45> Medical Decision Making - Medical Decision Making 08/06/17 14:22 Ms Fierro is a 76 yo F with a h/o Afib on coumadin and digoxin, prior CVA, seizure disorder on keppra She presents to the ER with a complaint of right facial pain This has been present for the past 3 days Pt was seen today by her activities specialist, Dr Miller He walked in to the office and was noted to feel weak Pt reports no chest pain, no palpitations No shortness of breath She feels a sense of fullness in her head No vertigo No tinnitus Of note: Pt reports that she felt presyncopal, and unsteady yesterday particularly when she was turned around She was admitted to [facility] in February of 2017 for syncopal event DD broad and includes ACS, Anemia, ICH, Sinusitis TIA less likely given no new neurological complaint Will do: Labs, CT, EKG, CXR, re assess Laboratory Tests 08/06/17 08/06/17 13:46 13:46 WBC 6.1 Hgb 10.7 Hct 32.5 Plt Count 237 INR 2.27 H D 08/06/17 15:07 Laboratory Tests 08/06/17 13:46 Sodium 138 Potassium 3.6 Chloride 96 L Carbon Dioxide 32 BUN 44 H Creatinine 1.5 H Random Glucose 151 H Creatine Kinase 70 Troponin I < 0.[address] pending 08/06/17 15:36 EKG: Afib rate of 54 bpm, axis nml, no st elevations or depressions low voltage CT: no acute intracranial pathology, no sinusitis Pt was ambulatory to the bathroom No dizziness Pt states her face feels much better She is refusing to stay in the hospital at this time Clinical impression: Facial pain, initial presentation Dizziness, initial presentation <Staci Echols - Last Filed: 08/06/17 15:45> *DC/Admit/Observation/Transfer - Attestations Scribe Attestion: 08/06/17 13:35 Documentation prepared by Haley Lerma, acting as medical affairs director for Staci Echols MD <Haley Lerma - Last Filed: 08/06/17 15:21> - Discharge Dispostion Decision to Admit order: No <Staci Echols - Last Filed: 08/06/17 15:45> Diagnosis at time of Disposition: Dizziness, Facial pain - Discharge Dispostion Disposition: HOME Condition at time of disposition: Stable - Referrals Referrals: Dami Faria MD [Primary Care Provider] - - Patient Instructions Printed Discharge Instructions: DI for Dizziness-Nonvertigo Additional Instructions: Ms Fierro Thanks for coming in to the ER Please continue taking your medications as prescribed Please be sure to follow up with Dr Faria within 1 week Feel free to return to the ER for any other concerns or complaints, persistent symptoms - Post Discharge Activity
[2017-08-06 13:58] LABS: BASO % 0.7 % (0-2.0); EOS % 3.4 % (0-4.5); HEMATOCRIT 32.5 % (32.4-45.2); HEMOGLOBIN 10.7 GM/dL (10.7-15.3); LYMPH % 20.3 % (8-40); MCH 26.8 pg (25.7-33.7); MEAN CELL VOLUME 81.3 fl (80-96); MEAN PLT VOLUME 7.8 fl (7.5-11.1); MONO % 6.9 % (3.8-10.2); NEUT % 68.7 % (42.8-82.8); PLATELET COUNT 237 K/MM3 (134-434); RDW 17.9 % (11.6-15.6); WHITE BLOOD COUNT 6.1 K/mm3 (4.0-10.0)
[2017-08-06 14:18] LABS: INR 2.27 (0.82-1.09); PROTHROMBIN TIME (PATIENT) 25.6 SEC (9.7-13.0)
[2017-08-06 14:24] LABS: ALBUMIN 3.5 g/dl (3.4-5.0); ANION GAP 10 (8-16); BLOOD UREA NITROGEN 44 mg/dL (7-18); CALCIUM 8.6 mg/dL (8.5-10.1); CHLORIDE 96 mmol/L (98-107); CO2 32 mmol/L (21-32); CREATININE 1.5 mg/dL (0.55-1.02); GLUCOSE,RANDOM 151 mg/dL (74-106); POTASSIUM 3.6 mmol/L (3.5-5.1); SGOT/AST 21 U/L (15-37); SGPT/ALT 24 U/L (12-78); SODIUM 138 mmol/L (136-145)
[2017-08-06 14:37] LABS: ALK PHOS 59 U/L (45-117); BILIRUBIN,TOTAL 0.4 mg/dL (0.2-1.0); TOT PROT 6.9 g/dl (6.4-8.2)
[2017-08-06 16:05] VITALS: BP 135/71; PULSE 71; TEMP 97.4
--- NOTE | 2017-08-07 11:59 | EKG ---
Test Reason : Blood Pressure : / mmHG Vent. Rate : 054 BPM Atrial Rate : 357 BPM P-R Int : 000 ms QRS Dur : 092 ms QT Int : 444 ms P-R-T Axes : 000 -43 073 degrees QTc Int : 421 ms ATRIAL FIBRILLATION WITH SLOW VENTRICULAR RESPONSE LEFT AXIS DEVIATION LOW VOLTAGE QRS INCOMPLETE RIGHT BUNDLE BRANCH BLOCK INFERIOR INFARCT (CITED ON OR BEFORE 17-MAY-2007) CANNOT RULE OUT ANTEROSEPTAL INFARCT (CITED ON OR BEFORE 17-MAY-2007) ABNORMAL ECG WHEN COMPARED WITH ECG OF 02-FEB-2017 11:18, VENT. RATE HAS DECREASED BY 43 BPM NONSPECIFIC T WAVE ABNORMALITY NOW EVIDENT IN ANTERIOR LEADS Confirmed by ASHWIN ELIZABETH MD ([id number]) on 08/07/2017 11:58:50 AM Referred By: Confirmed By:ASHWIN ELIZABETH MD
== END 2017-08-06 16:05 | disposition home or self-care (01) ==
LOC: JER 12:17
DX: R42 Dizziness and giddiness (principal); G50.1 Atypical facial pain; I48.91 Unspecified atrial fibrillation; Z79.01 Long term (current) use of anticoagulants; E11.9 Type 2 diabetes mellitus without complications; Z85.118 Personal history of other malignant neoplasm of bronchus and lung; G83.84 Todd's paralysis (postepileptic); I10 Essential (primary) hypertension; E78.00 Pure hypercholesterolemia, unspecified; Z87.891 Personal history of nicotine dependence
CPT/HCPCS: 36415; 70450-TC; 71045-TC-FY; 80053; 80162; 82550; 84484; 85025; 85610; 93005; 93010; 99283-25

== ENCOUNTER 2017-09-01 10:05 | Inpatient (IN) | payer OTHER, BC ==
--- NOTE | 2017-09-01 11:40 | PDOC ---
History of Present Illness - General Chief Complaint: Shortness of Breath Stated Complaint: SOB Time Seen by Provider: 09/01/17 10:25 - History of Present Illness Initial Comments: 09/01/17 11:37 76 yo with h/o known atrial fibrillation on coumadin, NOLBERTO on cpap and 2L o2 at home, copd, HTN, HL, DM, seizure, GERD, lung CA s/p left upper lobectomy and chemotherapy who was admitted for SOB. Patient complains that she has had a cold the past few days but last night she had really difficulty catching her breath in spite of the Bipap. Since this morning the dyspnea is on and off. Patient states she usually saturates around 90% Past History - Past Medical History Allergies/Adverse Reactions: Allergies Allergy/AdvReac Type Severity Reaction Status Date / Time Opioids - Morphine Analogues Allergy Intermediate Vomiting Verified 09/01/17 10: 11 [Opioids-Morphine & Related] adhesive tape Allergy Mild Rash Verified 09/01/17 10:11 Penicillins Allergy Verified 09/01/17 10:11 Home Medications: Ambulatory Orders Atorvastatin Ca [Lipitor] 20 mg PO HS 08/08/15 Digoxin [Lanoxin -] 0.125 mg PO Q48H 08/08/15 Diltiazem Cd [Cardizem Cd -] 360 mg PO DAILY 08/08/15 Gabapentin [Neurontin -] 200 mg PO BID 08/08/15 Tiotropium [place] [Spiriva] 1 inh PO DAILY 08/08/15 levETIRAcetam [Keppra -] 1,000 mg PO BID 08/08/15 Allopurinol [Zyloprim -] 100 mg PO DAILY 02/02/17 Lansoprazole [Prevacid] 30 mg PO DAILY 02/02/17 Losartan Potassium 50 mg PO DAILY 02/02/17 Allopurinol [Zyloprim -] 100 mg PO DAILY 08/06/17 Furosemide [Lasix -] 80 mg PO DAILY 08/06/17 Glimepiride [Amaryl -] 2 mg PO HS 08/06/17 Glimepiride [Amaryl -] 4 mg PO AM 08/06/17 Multivit-Min/FA/Lycopen/Lutein [Centrum Silver Tablet] 1 each PO DAILY 08/06/17 Sitagliptin Phos/Metformin HCl [Janumet Xr 50-1,000 mg Tablet] 1 each PO DAILY 08/06/17 Warfarin Sodium [Coumadin] 0 mg PO DAILY 08/06/17 Cancer: Yes (lung cancer status post RIGHT UPPER lobectomy) Cardiac Disorders: Yes (afib) CVA: Yes COPD: Yes CHF: Yes DVT: No Diabetes: Yes GI Disorders: Yes (GERD) HTN: Yes Hypercholesterolemia: Yes Seizures: Yes Other medical history: obesity - Surgical History Abdominal Surgery: Yes (appendectomy) Appendectomy: Yes Cardiac Surgery: Yes (LARIAT SX) Lung Surgery: Yes (lobectomy for lung cancer) - Immunization History Immunization Up to Date: Yes - Suicide/Smoking/Psychosocial Hx Smoking Status: No (40 YRS QUIT) Smoking History: Former smoker Years of Tobacco Use: 25 Have you smoked in the past 12 months: No Number of Cigarettes Smoked Daily: 0 If you are a former smoker, when did you quit?: 40 yrs ago Cigars Per Day: 0 Information on smoking cessation initiated: No Hx Alcohol Use: No Drug/Substance Use Hx: No Substance Use Type: None Hx Substance Use Treatment: No Review of Systems - Review of Systems Able to Perform ROS?: Yes Is the patient limited Polish proficient: No Constitutional: No: Symptoms Reported, Fever HEENTM: No: Symptoms Reported Respiratory: Yes: SOB at Rest Cardiac (ROS): No: Symptoms Reported ABD/GI: No: Symptoms Reported : No: Symptoms Reported All Other Systems: Reviewed and Negative *Physical Exam - Vital Signs Last Vital Signs Temp Pulse Resp BP Pulse Ox 98 F 68 19 107/56 93 L 09/01/17 10:07 09/01/17 11:06 09/01/17 10:07 09/01/17 10:07 09/01/17 11:06 - Physical Exam General Appearance: Yes: Nourished, Appropriately Dressed. No: Apparent Distress HEENT: positive: EOMI, TONI, Normal ENT Inspection Neck: positive: Normal Thyroid. negative: Tender Respiratory/Chest: positive: Crackles, Rales Cardiovascular: positive: Irregularly Irregular Gastrointestinal/Abdominal: positive: Normal Bowel Sounds, Flat, Soft. negative : Tender Integumentary: positive: Normal Color, Dry, Warm Neurologic: positive: Fully Oriented, Alert, Normal Mood/Affect ED Treatment Course - LABORATORY CBC & Chemistry Diagram: 09/01/17 11:12 09/01/17 11:12 - RADIOLOGY Radiology Studies Ordered: Category Date Time Status CHEST X-RAY PORTABLE* [RAD] Stat Radiology 09/01/17 10:52 Ordered Medical Decision Making - Medical Decision Making 09/01/17 11:42 COPD exacerbation vs pneumonia vs PE vs viral illness PAtient started on duoneb and steroids. 09/01/17 14:44 CXR: Right pleural effusion associated with right lower lobe consolidation. No evidence of pneumothorax. Cardiomegaly Patient started on abx and admitted to Dr. Gaona. *DC/Admit/Observation/Transfer Diagnosis at time of Disposition: Pneumonia - Discharge Dispostion Condition at time of disposition: Improved Decision to Admit order: Yes - Referrals Referrals: Dami Faria MD [Primary Care Provider] - - Patient Instructions - Post Discharge Activity
[2017-09-01] MEDS ORDERED: methylPREDNISolone NA SUCC 125 MG/2 ML VIAL IVPB ONE (11:50)
[2017-09-01 11:51] LABS: BASO % 0.2 % (0-2.0); EOS % 0.7 % (0-4.5); HEMOGLOBIN 10.1 GM/dL (10.7-15.3); LYMPH % 7.3 % (8-40); MCH 26.2 pg (25.7-33.7); MCHC 32.6 g/dl (32.0-36.0); MEAN CELL VOLUME 80.4 fl (80-96); MEAN PLT VOLUME 8.2 fl (7.5-11.1); MONO % 7.9 % (3.8-10.2); NEUT % 83.9 % (42.8-82.8); PLATELET COUNT 315 K/MM3 (134-434); RBC 3.85 M/mm3 (3.60-5.2); RDW 18.4 % (11.6-15.6); WHITE BLOOD COUNT 9.1 K/mm3 (4.0-10.0)
[2017-09-01 11:52] LABS: ALBUMIN 2.8 g/dl (3.4-5.0); ANION GAP 8 (8-16); CALCIUM 8.5 mg/dL (8.5-10.1); CHLORIDE 93 mmol/L (98-107); CO2 31 mmol/L (21-32); GLUCOSE,RANDOM 250 mg/dL (74-106); POTASSIUM 4.1 mmol/L (3.5-5.1); SODIUM 132 mmol/L (136-145)
[2017-09-01] MEDS ORDERED: ALBUTEROL SO4 2.5/IPRATROPIUM 0.5 INH SOL 3 ML VIAL.NEB. NEB ONE (11:55)
[2017-09-01] MEDS ORDERED: methylPREDNISolone NA SUCC 125 MG/2 ML VIAL ONE (11:55)
[2017-09-01 11:58] LABS: N-TERMINAL BNP 3027.83 pg/ml (5-450)
[2017-09-01 12:00] LABS: ALK PHOS 48 U/L (45-117); BILIRUBIN,TOTAL 0.4 mg/dL (0.2-1.0); BLOOD UREA NITROGEN 35 mg/dL (7-18); CREATININE 1.4 mg/dL (0.55-1.02); SGOT/AST 12 U/L (15-37); SGPT/ALT 19 U/L (12-78); TOT PROT 6.6 g/dl (6.4-8.2)
[2017-09-01] MEDS: ALBUTEROL SO4 2.5/IPRATROPIUM 0.5 INH SOL 3 ML VIAL.NEB. NEB SCH ×3 (12:03→12:38)
[2017-09-01] MEDS ORDERED: AZITHROMYCIN 500 MG TABLET PO ONE (12:44)
[2017-09-01] MEDS ORDERED: CEFTRIAXONE 1 GM in DEXTROSE 5%-WATER - 100 ML IVPB ONE (12:44)
--- NOTE | 2017-09-01 13:35 | PDOC ---
Attending Attestation - Resident Resident Name: Monty Mon - ED Attending Attestation I have performed the following: I have examined & evaluated the patient, The case was reviewed & discussed with the resident, I agree w/resident's findings & plan, Exceptions are as noted - HPI HPI: 09/01/17 13:32 76 F with h/o atrial fibrillation on coumadin, NOLBERTO on cpap and 2L o2 at home, copd, HTN, HL, DM, seizure, GERD, lung CA s/p left upper lobectomy and chemotherapy, presenting to ED with SOB x 1 week. Pt reports dyspnea on exertion and chest pressure. Denies chest pain. Denies F/C. Also endorses sore throat and nasal congestion. States that her SOB acutely worsened today. Took an albuterol neb at home that helped. Denies leg swelling. Denies calf pain. - Physicial Exam PE: 09/01/17 13:34 "GENERAL: Awake, alert, and fully oriented, in no acute distress. HEAD: No signs of trauma EYES: PERRLA, EOMI, sclera anicteric, conjunctiva clear ENT: Auricles normal inspection, hearing grossly normal, nares patent, oropharynx clear without exudates. Moist mucosa NECK: Nontender, no stepoffs, Normal ROM, supple, no lymphadenopathy, JVD, or masses LUNGS: + expiratory wheezes, bilateral rales HEART: Regular rate and rhythm, normal S1 and S2, no murmurs, rubs or gallops ABDOMEN: Soft, nontender, normoactive bowel sounds. No guarding, no rebound. No masses EXTREMITIES: Normal range of motion, no edema. No clubbing or cyanosis. No cords, erythema, or tenderness NEUROLOGICAL: Cranial nerves II through XII intact. 5/5 strength and sensation in all extremities, Normal speech, normal gait, normal cerebellar function SKIN: Warm, Dry, normal turgor, no rashes or lesions noted. " - Medical Decision Making 09/01/17 13:34 76 F with SOB. Likely COPD exacerbation. Also consider CHF, though pt does not appear fluid overloaded on exam. Pt with no fever to suggest PNA but rales on lung exam. - Labs, BNP, trop - CXR - Nebs, steroids - Admit
[2017-09-01] MEDS ORDERED: AZITHROMYCIN 250 MG TABLET ONE (13:58)
[2017-09-01] MEDS ORDERED: CEFTRIAXONE 1 GM/50 ML BAG ONE (13:58)
[2017-09-01 14:15] LABS: VENOUS PC02 57.5 mmHg (38-52); VENOUS PH 7.32 (7.32-7.42); VENOUS PO2 36.3 mmHg (28-48)
[2017-09-01] MEDS ORDERED: ACETAMINOPHEN 325 MG TABLET (FP) PO PRN (15:58)
--- NOTE | 2017-09-01 16:03 | PN ---
Progress Note (short form) - Note Progress Note: PULMONARY CONSULTATION DICTATED 09/01/17 IMP ACUTE ON CHRONIC HYPOXEMIC/HYPERCAPNEIC RESPIRATORY FAILURE PNEUMONIA COPD ON HOME O2 CHF OSAS ON CPAP H/O LUNG CA S/P RESECTION/CHEMO DM S/P CVA AFIB CKD PLAN ABX INHALED BRONCHODILATORS O2 CULTURES LASIX CHEST CT AC MONITOR INR MONITOR LYTES,RENAL FUNCTION DR MOSLEY Problem List - Problems (1) Lung cancer Code(s): C34.90 - MALIGNANT NEOPLASM OF UNSP PART OF UNSP BRONCHUS OR LUNG (2) Pneumonia Code(s): J18.9 - PNEUMONIA, UNSPECIFIED ORGANISM (3) Atrial fibrillation Code(s): I48.91 - UNSPECIFIED ATRIAL FIBRILLATION (4) CKD (chronic kidney disease) stage 3, GFR 30-59 ml/min Code(s): N18.3 - CHRONIC KIDNEY DISEASE, STAGE 3 (MODERATE) (5) COPD (chronic obstructive pulmonary disease) Code(s): J44.9 - CHRONIC OBSTRUCTIVE PULMONARY DISEASE, UNSPECIFIED (6) Congestive heart failure Code(s): I50.9 - HEART FAILURE, UNSPECIFIED (7) Diabetes mellitus Code(s): E11.9 - TYPE 2 DIABETES MELLITUS WITHOUT COMPLICATIONS (8) Dyspnea Code(s): R06.00 - DYSPNEA, UNSPECIFIED (9) Pleural effusion Code(s): J90 - PLEURAL EFFUSION, NOT ELSEWHERE CLASSIFIED (10) Sleep apnea Code(s): G47.30 - SLEEP APNEA, UNSPECIFIED (11) Acute on chronic respiratory failure with hypoxia and hypercapnia Code(s): J96.21 - ACUTE AND CHRONIC RESPIRATORY FAILURE WITH HYPOXIA; J96.22 - ACUTE AND CHRONIC RESPIRATORY FAILURE WITH HYPERCAPNIA
--- NOTE | 2017-09-01 16:26 | EKG ---
Test Reason : Blood Pressure : / mmHG Vent. Rate : 075 BPM Atrial Rate : 079 BPM P-R Int : 000 ms QRS Dur : 098 ms QT Int : 388 ms P-R-T Axes : 000 -40 079 degrees QTc Int : 433 ms ATRIAL FIBRILLATION LEFT AXIS DEVIATION LOW VOLTAGE QRS SEPTAL INFARCT (CITED ON OR BEFORE 17-MAY-2007) ABNORMAL ECG WHEN COMPARED WITH ECG OF 06-AUG-2017 15:00, NONSPECIFIC T WAVE ABNORMALITY NO LONGER EVIDENT IN ANTERIOR LEADS Confirmed by PATRICIA ALDRICH MD ([id number]) on 09/01/2017 4:26:08 PM Referred By: Confirmed By:PATRICIA ALDRICH MD
[2017-09-01] MEDS ORDERED: INSULIN SLIDING SCALE (NOVOLOG) 1 VIAL SQ SCH (16:30)
[2017-09-01] MEDS: ALBUTEROL SO4 2.5/IPRATROPIUM 0.5 INH SOL 3 ML VIAL.NEB. NEB PRN ×2 (16:57→21:08)
--- NOTE | 2017-09-01 17:23 | CONSULT ---
Consult Consult Specialty:: Nephrology ( [facility]/ [facility]) Referred by:: Dr. Gaona Reason for Consultation:: Acute Kidney failure - History of Present Illness Chief Complaint: Many thanks for this consult referral. 76 yo with h/o known atrial fibrillation on coumadin, cpap and 2L o2 at home, copd, HTN, HL, DM, seizure, GERD, lung CA s/p left upper lobectomy and chemotherapy who was admitted for SOB. Patient complains that she has had a cold the past few days but last night she had difficulty catching her breath in spite of the Bipap. Patient states she usually saturates around 90% - History Source History Provided By: Patient, Family Member - Past Medical History Cardio/Vascular: Yes: AFIB Pulmonary: Yes: Bronchitis, Cancer, COPD, Sleep Apnea Endocrine: Yes: Diabetes Mellitus - Past Surgical History Past Surgical History: Yes: Joint Replacement (left knee) - Alcohol/Substance Use Hx Alcohol Use: No - Smoking History Smoking history: Former smoker Have you smoked in the past 12 months: No Aproximately how many cigarettes per day: 0 If you are a former smoker, when did you quit?: 40 yrs ago - Social History History of Recent Travel: No Home Medications - Allergies Allergies/Adverse Reactions: Allergies Allergy/AdvReac Type Severity Reaction Status Date / Time Opioids - Morphine Analogues Allergy Intermediate Vomiting Verified 09/01/17 10: 11 [Opioids-Morphine & Related] adhesive tape Allergy Mild Rash Verified 09/01/17 10:11 Penicillins Allergy Verified 09/01/17 10:11 - Home Medications Home Medications: Ambulatory Orders Atorvastatin Ca [Lipitor] 20 mg PO HS 08/08/15 Digoxin [Lanoxin -] 0.125 mg PO Q48H 08/08/15 Diltiazem Cd [Cardizem Cd -] 360 mg PO DAILY 08/08/15 Gabapentin [Neurontin -] 200 mg PO BID 08/08/15 Tiotropium [place] [Spiriva] 1 inh PO DAILY 08/08/15 levETIRAcetam [Keppra -] 1,000 mg PO BID 08/08/15 Allopurinol [Zyloprim -] 100 mg PO DAILY 02/02/17 Lansoprazole [Prevacid] 30 mg PO DAILY 02/02/17 Losartan Potassium 50 mg PO DAILY 02/02/17 Furosemide [Lasix -] 80 mg PO DAILY 08/06/17 Glimepiride [Amaryl -] 2 mg PO HS 08/06/17 Glimepiride [Amaryl -] 4 mg PO AM 08/06/17 Multivit-Min/FA/Lycopen/Lutein [Centrum Silver Tablet] 1 each PO DAILY 08/06/17 Sitagliptin Phos/Metformin HCl [Janumet Xr 50-1,000 mg Tablet] 1 each PO DAILY 08/06/17 Warfarin Sodium [Coumadin] 2.5 mg PO DAILY 08/06/17 Albuterol Sulfate [Proair Respiclick] 90 mcg IH DAILY 09/01/17 Budesonide/Formeterol Fumarate [SYMBICORT 160/4.5mcg -] 2 inh PO DAILY 09/01/17 Review of Systems - Review of Systems Constitutional: reports: Malaise, Weakness Cardiovascular: reports: Chest Pain, Palpitations, Shortness of Breath Respiratory: reports: Cough, Orthopnea, SOB, SOB on Exertion Gastrointestinal: reports: Bloating Musculoskeletal: reports: Back Pain Neurological: reports: Seizure Physical Exam Vital Signs: Vital Signs Temperature 98 F 09/01/17 10:07 Pulse Rate 86 09/01/17 16:05 Respiratory Rate 26 H 09/01/17 16:05 Blood Pressure 109/50 09/01/17 16:05 O2 Sat by Pulse Oximetry (%) 89 L 09/01/17 16:05 Constitutional: Yes: Well Nourished, Anxious, Mild Distress HENT: Yes: Normocephalic Neck: Yes: Trachea Midline Cardiovascular: Yes: Pulse Irregular, S1, S2 Respiratory: Yes: Regular, Diminished, On BiPap, Rhonchi, SOB Gastrointestinal: Yes: Normal Bowel Sounds, Soft, Abdomen, Obese Edema: LLE: Trace, RLE: Trace Neurological: Yes: Alert, Oriented Labs: CBC, BMP 09/01/17 11:12 09/01/17 11:12 Problem List - Problems (1) Lung cancer Code(s): C34.90 - MALIGNANT NEOPLASM OF UNSP PART OF UNSP BRONCHUS OR LUNG (2) Pneumonia Code(s): J18.9 - PNEUMONIA, UNSPECIFIED ORGANISM (3) Acute renal failure Code(s): N17.9 - ACUTE KIDNEY FAILURE, UNSPECIFIED (4) Atrial fibrillation Code(s): I48.91 - UNSPECIFIED ATRIAL FIBRILLATION (5) CKD (chronic kidney disease) stage 3, GFR 30-59 ml/min Code(s): N18.3 - CHRONIC KIDNEY DISEASE, STAGE 3 (MODERATE) (6) COPD exacerbation Code(s): J44.1 - CHRONIC OBSTRUCTIVE PULMONARY DISEASE W (ACUTE) EXACERBATION (7) Congestive heart failure Code(s): I50.9 - HEART FAILURE, UNSPECIFIED (8) Diabetes mellitus Code(s): E11.9 - TYPE 2 DIABETES MELLITUS WITHOUT COMPLICATIONS (9) Seizure Code(s): R56.9 - UNSPECIFIED CONVULSIONS (10) Shortness of breath Code(s): R06.02 - SHORTNESS OF BREATH (11) Sleep apnea Code(s): G47.30 - SLEEP APNEA, UNSPECIFIED Assessment/Plan 76 yo with h/o known atrial fibrillation on coumadin, on cpap and 2L o2 at home , COPD, HTN, HLD, DM, Seizure, GERD, Lung CA s/p left upper lobectomy. The patient admitted with acute dyspnea and exacerbatio of COPD. Acute Kidney failure, most likely related to deranged renal Hemodynamics in the setting of relatively low BP and a combination of loop diuretics and Angiotensin receptor blocking agents. Most likely she has some Chronic Kidney disease, possibly from Microvascular Renal disease. Mild Anemia may be related to the CKD. Will hold Losartan Continue the Lasix as ordered. Will monitor the Renal functions with you. Will get serum Uric acid levels. Extensive w/u not warranted now, unless the Renal functions worsens. Thanks again. Will follow with you. Yumi Hawkins MD
[2017-09-01] MEDS: methylPREDNISolone NA SUCC 40 MG/1 ML VIAL IVPUSH SCH (17:39)
[2017-09-01] MEDS: FUROSEMIDE 40 MG/4 ML INJECTABLE VIAL IVPUSH SCH (17:39)
[2017-09-01] MEDS: DIGOXIN 0.125 MG TABLET (FP) PO SCH (17:40)
[2017-09-01] MEDS: metFORMIN HCL 500 MG TABLET (FP) PO SCH (17:40)
[2017-09-01] MEDS: INSULIN SLIDING SCALE (NOVOLOG) 1 VIAL SQ SCH ×2 (17:56→23:22)
[2017-09-01] MEDS ORDERED: WARFARIN NA 2.5 MG TABLET (FP) PO SCH (18:00)
[2017-09-01 18:13] LABS: INR 1.73 (0.82-1.09); PROTHROMBIN TIME (PATIENT) 19.6 SEC (9.7-13.0)
--- NOTE | 2017-09-01 18:20 | CONS ---
PULMONARY CONSULTATION DATE OF CONSULTATION: 09/01/2017 REFERRING PHYSICIAN: Dami Faria MD The patient is a 76-year-old white female known to me in previous hospitalizations as well as office followup with past medical history of atrial fibrillation maintained on Coumadin, history of CVA, history of knee replacement, obstructive sleep apnea on CPAP, as well as chronic obstructive pulmonary disease on home O2 at 2 L, hypertension, hyperlipidemia, diabetes, seizure disorder, GERD, history of lung CA status post left upper lobe lobectomy as well as chemotherapy, admitted to [facility] with complaint of 2-3 day history of increasing shortness of breath, mild chest congestion, and generalized weakness. Patient denied any fever, chills, nausea, vomiting, or diaphoresis. Patient states that last night she developed and had significant increase in respiratory difficulty requiring the use of inhaled beta-agonist. Despite these measures, her symptoms worsened. At which time, she presented to the emergency room. In the ER, she had a chest x-ray performed which revealed a new right lower lobe consolidation and effusion. She was started on antibiotic therapy. She denies any history of recent travel. There is no history of occupational exposure to chemicals or fumes. She denied any fevers, chills, or rigors. PAST MEDICAL HISTORY: Again includes obstructive sleep apnea on CPAP; atrial fibrillation; status post CVA; COPD on home O2; hypertension; hyperlipidemia; diabetes; lung CA status post left upper lobectomy, status post chemotherapy; GERD; and seizures. REVIEW OF SYSTEMS: Positive shortness of breath. Positive cough. No chest pain. No palpitations. No fever. No chills. No nausea. No vomiting. No abdominal pain. MEDICATIONS PRIOR TO ADMISSION: Include Lipitor, Lanoxin, Cardizem, Neurontin, Spiriva, Keppra, Zyloprim, Prevacid, Lasix, Amaryl, Coumadin, and metformin. PHYSICAL EXAMINATION: General: The patient is an elderly white female, well developed, awake, alert, in no acute distress. Vital Signs: She is currently afebrile. Blood pressure is 107/56, respiratory rate is 19, and O2 saturation is 90% on 2 L. HEENT: Normocephalic, atraumatic. Neck: Supple. Heart: Irregular S1, S2. Chest: Diminished breath sounds on the right. Abdomen: Soft. Bowel sounds are positive. Extremities: No cyanosis or edema. LABORATORY DATA: WBC 9.1, hemoglobin 10.1, hematocrit 31.0, platelet count of 315,000. BUN 34, creatinine 1.4. BNP is 3023. Chest x-ray reveals right lower lobe consolidation as well as effusion, some increased markings at the left base. IMPRESSION: 1. [id number] hypoxemic respiratory failure. 2. Likely pneumonia. 3. History of chronic obstructive pulmonary disease on home oxygen. 4. Congestive heart failure. 5. History of lung cancer status post resection. 6. Hypertension. 7. Atrial fibrillation. 8. Status post cerebrovascular accident. 9. Obstructive sleep apnea on continuous positive airway pressure. 10. Diabetes. 11. Gastroesophageal reflux disease. 12. Hyperlipidemia. PLAN: Broad-spectrum antibiotics, inhaled bronchodilators,lasix supplemental O2 , BiPAP at night. Obtain cultures. CT scan of the chest. Strict I's and O's. Check INR. GOLD MOSLEY M.D. [id number] MTDD
[2017-09-01 20:09] VITALS: BMI 40.9
[2017-09-01] MEDS: levETIRAcetam 500 MG TABLET (FP) PO SCH (21:31)
[2017-09-01] MEDS: ATORVASTATIN CA 20 MG TABLET (FP) PO SCH (21:31)
[2017-09-01] MEDS: GABAPENTIN 100 MG CAPSULE (FP) PO SCH (21:31)
[2017-09-01] MEDS: BUDESONIDE/FORMETEROL FUMARATE 160/4.5 mcg INHALER IH SCH (21:32)
[2017-09-01] MEDS: INSULIN (LEVEMIR) 100 UNITS/ML UNITS SQ SCH (21:42)
--- NOTE | 2017-09-01 23:38 | HP ---
Admitting History and Physical - Primary Care Physician PCP: Yayo Van - Admission Chief Complaint: dyspnea History of Present Illness: 76 yo with h/o known atrial fibrillation on coumadin, NOLBERTO on cpap and 2L o2 at home, copd, HTN, HL, DM, seizure, GERD, lung CA s/p left upper lobectomy and chemotherapy who was admitted for SOB. Patient complains that she has had a cold the past few days but last night she had really difficulty catching her breath in spite of the Bipap. Since this morning the dyspnea is on and off. Patient states she usually saturates around 90% History Source: Patient, Medical Record - Past Medical History Cardiovascular: Yes: AFIB Pulmonary: Yes: Bronchitis, Cancer, COPD, Sleep Apnea ...: No Endocrine: Yes: Diabetes Mellitus - Past Surgical History Past Surgical History: Yes: Joint Replacement (left knee) - Smoking History Smoking history: Former smoker Have you smoked in the past 12 months: No Aproximately how many cigarettes per day: 0 If you are a former smoker, when did you quit?: 40 yrs ago - Alcohol/Substance Use Hx Alcohol Use: No - Social History History of Recent Travel: No Home Medications - Allergies Allergies/Adverse Reactions: Allergies Allergy/AdvReac Type Severity Reaction Status Date / Time Opioids - Morphine Analogues Allergy Intermediate Vomiting Verified 09/01/17 10: 11 [Opioids-Morphine & Related] adhesive tape Allergy Mild Rash Verified 09/01/17 10:11 Penicillins Allergy Verified 09/01/17 10:11 - Home Medications Home Medications: Ambulatory Orders Atorvastatin Ca [Lipitor] 20 mg PO HS 08/08/15 Digoxin [Lanoxin -] 0.125 mg PO Q48H 08/08/15 Diltiazem Cd [Cardizem Cd -] 360 mg PO DAILY 08/08/15 Gabapentin [Neurontin -] 200 mg PO BID 08/08/15 Tiotropium [place] [Spiriva] 1 inh PO DAILY 08/08/15 levETIRAcetam [Keppra -] 1,000 mg PO BID 08/08/15 Allopurinol [Zyloprim -] 100 mg PO DAILY 02/02/17 Lansoprazole [Prevacid] 30 mg PO DAILY 02/02/17 Losartan Potassium 50 mg PO DAILY 02/02/17 Furosemide [Lasix -] 80 mg PO DAILY 08/06/17 Glimepiride [Amaryl -] 2 mg PO HS 08/06/17 Glimepiride [Amaryl -] 4 mg PO AM 08/06/17 Multivit-Min/FA/Lycopen/Lutein [Centrum Silver Tablet] 1 each PO DAILY 08/06/17 Sitagliptin Phos/Metformin HCl [Janumet Xr 50-1,000 mg Tablet] 1 each PO DAILY 08/06/17 Warfarin Sodium [Coumadin] 2.5 mg PO DAILY 08/06/17 Albuterol Sulfate [Proair Respiclick] 90 mcg IH DAILY 09/01/17 Budesonide/Formeterol Fumarate [SYMBICORT 160/4.5mcg -] 2 inh PO DAILY 09/01/17 Review of Systems - Review of Systems Constitutional: reports: Weakness Eyes: reports: No Symptoms HENT: reports: No Symptoms Neck: reports: No Symptoms Cardiovascular: reports: Shortness of Breath Respiratory: reports: Cough, SOB Gastrointestinal: reports: No Symptoms Genitourinary: reports: No Symptoms Integumentary: reports: No Symptoms Neurological: reports: Numbness, Pre-Existing Deficit Endocrine: reports: No Symptoms Hematology/Lymphatic: reports: No Symptoms Psychiatric: reports: No Symptoms Physical Examination Vital Signs: Vital Signs Temperature 97.7 F 09/01/17 17:00 Pulse Rate 90 09/01/17 20:19 Respiratory Rate 20 09/01/17 20:19 Blood Pressure 123/62 09/01/17 20:19 O2 Sat by Pulse Oximetry (%) 97 09/01/17 22:47 Constitutional: Yes: Mild Distress Eyes: Yes: WNL HENT: Yes: WNL Neck: Yes: WNL Cardiovascular: Yes: WNL Respiratory: Yes: On Nasal O2, Poor Air Entry, SOB on Exertion Gastrointestinal: Yes: WNL Musculoskeletal: Yes: WNL, Muscle Weakness Extremities: Yes: WNL Edema: No Peripheral Pulses WNL: Yes Integumentary: Yes: WNL Wound/Incision: Yes: Clean/Dry Neurological: Yes: Pre-Existing Deficit ...Motor Strength: LLE, RLE Psychiatric: Yes: WNL Labs: CBC, BMP 09/01/17 11:12 09/01/17 21:35 Imaging - Results Chest X-ray: Report Reviewed Problem List - Problems (1) Acute on chronic respiratory failure with hypoxia and hypercapnia Code(s): J96.21 - ACUTE AND CHRONIC RESPIRATORY FAILURE WITH HYPOXIA; J96.22 - ACUTE AND CHRONIC RESPIRATORY FAILURE WITH HYPERCAPNIA (2) Lung cancer Code(s): C34.90 - MALIGNANT NEOPLASM OF UNSP PART OF UNSP BRONCHUS OR LUNG (3) Pneumonia Code(s): J18.9 - PNEUMONIA, UNSPECIFIED ORGANISM (4) Atrial fibrillation Code(s): I48.91 - UNSPECIFIED ATRIAL FIBRILLATION Assessment/Plan IV ABX 02 SUPPORT NEBS PULM/RENAL EVAL DVT PROPHLAXIS MONITOR LABS AWAIT CX
[2017-09-02] MEDS: methylPREDNISolone NA SUCC 40 MG/1 ML VIAL IVPUSH SCH ×3 (01:49→17:02)
[2017-09-02] MEDS: metFORMIN HCL 500 MG TABLET (FP) PO SCH ×2 (06:17→16:47)
[2017-09-02] MEDS: GLIMEPIRIDE 4 MG TABLET (FP) PO SCH (06:17)
[2017-09-02] MEDS: sitaGLIPtin PHOSPHATE 50 MG TABLET PO SCH (06:18)
[2017-09-02] MEDS: INSULIN SLIDING SCALE (NOVOLOG) 1 VIAL SQ SCH ×4 (06:18→21:14)
[2017-09-02 06:54] LABS: HEMATOCRIT 30.3 % (32.4-45.2); HEMOGLOBIN 9.7 GM/dL (10.7-15.3); MCH 25.7 pg (25.7-33.7); MCHC 31.9 g/dl (32.0-36.0); MEAN CELL VOLUME 80.5 fl (80-96); PLATELET COUNT 325 K/MM3 (134-434); RBC 3.76 M/mm3 (3.60-5.2); RDW 17.8 % (11.6-15.6); WHITE BLOOD COUNT 11.4 K/mm3 (4.0-10.0)
[2017-09-02 07:08] LABS: INR 1.75 (0.82-1.09); PROTHROMBIN TIME (PATIENT) 19.8 SEC (9.7-13.0)
[2017-09-02 07:58] LABS: CHLORIDE 91 mmol/L (98-107); POTASSIUM 4.5 mmol/L (3.5-5.1); SODIUM 131 mmol/L (136-145)
[2017-09-02 08:44] LABS: ALBUMIN 2.6 g/dl (3.4-5.0); ALK PHOS 47 U/L (45-117); ANION GAP 13 (8-16); BILIRUBIN,TOTAL 0.3 mg/dL (0.2-1.0); BLOOD UREA NITROGEN 42 mg/dL (7-18); CALCIUM 8.5 mg/dL (8.5-10.1); CHOLESTEROL 108 mg/dL (50-200); CO2 27 mmol/L (21-32); CREATININE 1.6 mg/dL (0.55-1.02); HDL CHOLESTEROL 47 mg/dL (40-60); PHOSPHOROUS 3.9 mg/dL (2.5-4.9); SGOT/AST 11 U/L (15-37); SGPT/ALT 19 U/L (12-78); TOT PROT 6.5 g/dl (6.4-8.2); TRIGLYCERIDES 56 mg/dL (35-160); URIC ACID 6.4 mg/dL (2.6-7.2)
[2017-09-02 08:51] LABS: GLUCOSE,RANDOM 336 mg/dL (74-106)
--- NOTE | 2017-09-02 09:16 | CON.CARD ---
Consult Consult Specialty:: Cardiology Referred by:: Dr. Gaona Reason for Consultation:: SOB - History of Present Illness Chief Complaint: SOB History of Present Illness: 76 year old woman pmh atrial fibrillation on coumadin, EVARISTO on cpap and home O2, HTN, HL, DM, seizure, GERD, lung CA s/p left upper lobectomy and chemotherapy admitted for SOB. Pt seen and examined today in nad. states she has not been feeling well for a few days, has had increasing sob. denies fever or chills. no chest pain, no cough until after admission when she developed a dry cough. Feeling slightly better since admission. Follows with Dr. Arceo as outpatient. ECHO 01/2017-TDS, unable to accurately assess LV, probably low normal or mildly reduced, mod MR echo 07/2015: nl lv/rv, mod israel, mod phtn, no sig valve path - History Source History Provided By: Patient, Medical Record Limitations to Obtaining History: No Limitations - Past Medical History Cardio/Vascular: Yes: AFIB, CHF, HTN Pulmonary: Yes: Bronchitis, Cancer, COPD, Sleep Apnea ...: No Endocrine: Yes: Diabetes Mellitus - Past Surgical History Past Surgical History: Yes: Joint Replacement (left knee) - Alcohol/Substance Use Hx Alcohol Use: No - Smoking History Smoking history: Former smoker Have you smoked in the past 12 months: No Aproximately how many cigarettes per day: 0 If you are a former smoker, when did you quit?: 40 yrs ago - Social History History of Recent Travel: No Home Medications - Allergies Allergies/Adverse Reactions: Allergies Allergy/AdvReac Type Severity Reaction Status Date / Time Opioids - Morphine Analogues Allergy Intermediate Vomiting Verified 09/01/17 10: 11 [Opioids-Morphine & Related] adhesive tape Allergy Mild Rash Verified 09/01/17 10:11 Penicillins Allergy Verified 09/01/17 10:11 - Home Medications Home Medications: Ambulatory Orders Atorvastatin Ca [Lipitor] 20 mg PO HS 08/08/15 Digoxin [Lanoxin -] 0.125 mg PO Q48H 08/08/15 Diltiazem Cd [Cardizem Cd -] 360 mg PO DAILY 08/08/15 Gabapentin [Neurontin -] 200 mg PO BID 08/08/15 Tiotropium [place] [Spiriva] 1 inh PO DAILY 08/08/15 levETIRAcetam [Keppra -] 1,000 mg PO BID 08/08/15 Allopurinol [Zyloprim -] 100 mg PO DAILY 02/02/17 Lansoprazole [Prevacid] 30 mg PO DAILY 02/02/17 Losartan Potassium 50 mg PO DAILY 02/02/17 Furosemide [Lasix -] 80 mg PO DAILY 08/06/17 Glimepiride [Amaryl -] 2 mg PO HS 08/06/17 Glimepiride [Amaryl -] 4 mg PO AM 08/06/17 Multivit-Min/FA/Lycopen/Lutein [Centrum Silver Tablet] 1 each PO DAILY 08/06/17 Sitagliptin Phos/Metformin HCl [Janumet Xr 50-1,000 mg Tablet] 1 each PO DAILY 08/06/17 Warfarin Sodium [Coumadin] 2.5 mg PO DAILY 08/06/17 Albuterol Sulfate [Proair Respiclick] 90 mcg IH DAILY 09/01/17 Budesonide/Formeterol Fumarate [SYMBICORT 160/4.5mcg -] 2 inh PO DAILY 09/01/17 Family Disease History - Family Disease History Family History: Denies Review of Systems - Review of Systems Constitutional: denies: No Symptoms, Chills, Diaphoresis, Fever, Lethargy, Loss of Appetite, Malaise, Night Sweats, Unintentional Wgt. Loss, Weakness, Other Eyes: denies: No Symptoms, Blind Spots, Blurred Vision, Double Vision, Eye Pain , Floaters, Photophobia, Recent Change in Vision, Other HENT: denies: No Symptoms, Difficult Swallowing, Ear Discharge, Ear Pain, Epistaxis, Gingival Bleeding, Hearing Loss, Mouth Swelling, Nasal Congestion, Ocular Prosthesis, Throat Pain, Toothache, Ringing in Ears, Other Neck: denies: No Symptoms, Decreased ROM, Lumps, Pain on Movement, Stiffness, Swollen Glands, Tenderness, Other Cardiovascular: reports: Edema, Shortness of Breath. denies: No Symptoms, Chest Pain, Palpitations, Other Respiratory: reports: Cough, Exercise Intolerance, SOB, SOB on Exertion. denies : No Symptoms, Hemoptysis, Orthopnea, PND, Snoring, Wheezing, Other Gastrointestinal: denies: No Symptoms, Abdominal Pain, Bloating, Constipation, Diarrhea, Dysphagia, Indigestion, Melena, Nausea, Rectal Bleeding, Vomiting, Vomiting Blood, Other Genitourinary: denies: No Symptoms, Burning, Discharge, Dysuria, Flank Pain, Frequency, Hematuria, Incontinence, Lesions, Menses, Pain, Testicular Mass, Testicular Pain, Testicular Swelling, Urgency, Vaginal Bleeding, Other Breasts: denies: No Symptoms Reported, See HPI, Breast Implants, Discharge from Nipple, Lumps, Pain, Skin Changes, Other Musculoskeletal: denies: No Symptoms, Back Pain, Crepitus, Decreased ROM, Extremity Pain, Joint Pain, Joint Swelling, Muscle Pain, Muscle Cramps, Muscle Weakness, Other Integumentary: denies: No Symptoms, Blister, Bruising, Change in Color, Eczema, Erythema, Incision, Lesions, Lump, Pallor, Pruritis, Rash, Wound, Other Neurological: denies: No Symptoms, Change in LOC, Change in Speech, Confusion, Dizziness, Headache, Incoordination, Numbness, Parasthesia, Pre-Existing Deficit , Seizure, Syncope, Tremors, Unsteady Gait, Weakness, Other Endocrine: denies: No Symptoms, Excessive Sweating, Flushing, Increased Hunger, Increased Thirst, Intolerance to Cold, Intolerance to Heat, Unexplained Weight Gain, Unexplained Weight Loss, Other Hematology/Lymphatic: denies: No Symptoms, Easily Bruised, Excessive Bleeding, Swollen Glands, Other Psychiatric: denies: No Symptoms, Altered Sleep Pattern, Anxiety, Depression, Hallucinations, Panic, Paranoia, Suicidal, Other - Risk Factors Known Risk Factors: Yes: Age, Hypercholesterolemia, Hypertension Vital Signs: Vital Signs Temperature 97.3 F L 09/02/17 06:50 Pulse Rate 89 09/02/17 06:50 Respiratory Rate 22 09/02/17 06:50 Blood Pressure 134/79 09/02/17 06:50 O2 Sat by Pulse Oximetry (%) 95 09/02/17 03:00 Constitutional: Yes: No Distress, Calm Eyes: Yes: Conjunctiva Clear, EOM Intact, PERRL HENT: Yes: Atraumatic, Normocephalic Neck: Yes: Supple, Trachea Midline Respiratory: Yes: Regular, Diminished, On Nasal O2, Rhonchi. No: Rales, SOB, Wheezes Gastrointestinal: Yes: Normal Bowel Sounds, Soft. No: Distention, Tenderness Cardiovascular: Yes: Pulse Irregular. No: Regular Rate and Rhythm, Bradycardia , Tachycardia, Gallop, Rub, Varicosities JVD: No Carotid Bruit: No PMI: Non-Displaced Heart Sounds: Yes: S1, S2. No: Split S2, S3, S4, Clicks, Gallop, Rub, Bruit Murmur: No: Systolic Murmur, Diastolic Murmur Musculoskeletal: Yes: WNL Extremities: Yes: WNL Edema: Yes Edema: LLE: 1+, RLE: 1+ Peripheral Pulses WNL: Yes Peripheral Pulses: 2+ Left Doralis Pedis, 2+ Right Dorsalis Pedis Neurological: Yes: Alert, Oriented Psychiatric: Yes: Alert, Oriented - Other Data Labs, Other Data: CBC, BMP 09/02/17 06:45 09/02/17 06:45 INR, PTT INR 1.75 (0.82-1.09) H 09/02/17 06:45 Troponin, BNP 09/01/17 11:12 Troponin I < 0.02 B-Natriuretic Peptide 3027.83 H Troponin, BNP 09/01/17 11:12 Troponin I < 0.02 B-Natriuretic Peptide 3027.83 H ek-afib 75bpm, septal infarct, no sig st abnl, no sig change from past ekgs Echo: Report Reviewed Imaging - Results Chest X-ray: Report Reviewed, Image Reviewed EKG: Report Reviewed, Image Reviewed Other: Report Reviewed, Image Reviewed Assessment/Plan 76 year old woman pmh atrial fibrillation on coumadin, EVARISTO on cpap and home O2, HTN, HL, DM, seizure, GERD, lung CA s/p left upper lobectomy and chemotherapy admitted for SOB. Pt seen and examined today in nad. states she has not been feeling well for a few days, has had increasing sob. denies fever or chills. no chest pain, no cough until after admission when she developed a dry cough. Feeling slightly better since admission. Follows with Dr. Arceo as outpatient. ECHO 01/2017-TDS, unable to accurately assess LV, probably low normal or mildly reduced, mod MR echo 07/2015: nl lv/rv, mod israel, mod phtn, no sig valve path SOB-likely multifactorial due to Evaristo, copd home O2, lung Ca s/p lobectomy, PNA, likely component of mild acute on chronic diastolic CHF -PNA/COPD management per pulm/PMD -can cont Lasix for now however BUN/creat trended up slightly today suggesting possible intravascular depletion developing, monitor bun/creat, electrolytes and if bun/creat cont to trend up would change lasix back to po -monitor I/Os, daily weights, electrolytes and replete as needed Atrial fibrillation-chronic, HR controlled -cont home rate control agents cardizem and dig -close monitoring of dig as outpt given GREG on likely CKD -dose warfarin for INR 2-3
[2017-09-02] MEDS ORDERED: PT OWN MED DRAWER 7, Y5N ONE ×2 (09:53→10:08)
--- NOTE | 2017-09-02 09:59 | CON.ID ---
Consult Consult Specialty:: infectious disease Referred by:: scot Reason for Consultation:: pneumonia - History of Present Illness Chief Complaint: SOB History of Present Illness: 76 year old female lives at home with her two sons, home oxygen (2 liters) for COPD had a cold for several days then became more sob 24 hours prior to admission no fevers, no chills now with dry cough uses bipap at home no swelling of legs received rocephin/zith in ED denies travel denies sick contacts had diarrhea day [employer], now resolved at baseline sleeps in a recliner (for last 2 years) - History Source History Provided By: Patient, Medical Record Limitations to Obtaining History: No Limitations - Past Medical History [employer]: Yes: Seizure Cardio/Vascular: Yes: AFIB, CHF, HTN, Hyperlipdemia Pulmonary: Yes: Bronchitis, Cancer, COPD, O2 Dependent, Sleep Apnea Gastrointestinal: Yes: GERD ...: No Heme/Onc: Yes: Cancer (lung cancer) Endocrine: Yes: Diabetes Mellitus Additional Medical History: right shoulder fracture - Past Surgical History Past Surgical History: Yes: Appendectomy (age 16), Joint Replacement (bilateral) Additional Surgical History: Lariat procedure - Alcohol/Substance Use Hx Alcohol Use: No History of Substance Use: reports: None - Smoking History Smoking history: Former smoker Have you smoked in the past 12 months: No Aproximately how many cigarettes per day: 0 If you are a former smoker, when did you quit?: 40 yrs ago - Social History Usual Living Arrangement: With Child ADL: Independent History of Recent Travel: No Home Medications - Allergies Allergies/Adverse Reactions: Allergies Allergy/AdvReac Type Severity Reaction Status Date / Time Opioids - Morphine Analogues Allergy Intermediate Vomiting Verified 09/01/17 10: 11 [Opioids-Morphine & Related] adhesive tape Allergy Mild Rash Verified 09/01/17 10:11 Penicillins Allergy Verified 09/01/17 10:11 - Home Medications Home Medications: Ambulatory Orders Atorvastatin Ca [Lipitor] 20 mg PO HS 08/08/15 Digoxin [Lanoxin -] 0.125 mg PO Q48H 08/08/15 Diltiazem Cd [Cardizem Cd -] 360 mg PO DAILY 08/08/15 Gabapentin [Neurontin -] 200 mg PO BID 08/08/15 Tiotropium [place] [Spiriva] 1 inh PO DAILY 08/08/15 levETIRAcetam [Keppra -] 1,000 mg PO BID 08/08/15 Allopurinol [Zyloprim -] 100 mg PO DAILY 02/02/17 Lansoprazole [Prevacid] 30 mg PO DAILY 02/02/17 Losartan Potassium 50 mg PO DAILY 02/02/17 Furosemide [Lasix -] 80 mg PO DAILY 08/06/17 Glimepiride [Amaryl -] 2 mg PO HS 08/06/17 Glimepiride [Amaryl -] 4 mg PO AM 08/06/17 Multivit-Min/FA/Lycopen/Lutein [Centrum Silver Tablet] 1 each PO DAILY 08/06/17 Sitagliptin Phos/Metformin HCl [Janumet Xr 50-1,000 mg Tablet] 1 each PO DAILY 08/06/17 Warfarin Sodium [Coumadin] 2.5 mg PO DAILY 08/06/17 Albuterol Sulfate [Proair Respiclick] 90 mcg IH DAILY 09/01/17 Budesonide/Formeterol Fumarate [SYMBICORT 160/4.5mcg -] 2 inh PO DAILY 09/01/17 Family Disease History - Family Disease History Family History: Unremarkable Review of Systems - Review of Systems Constitutional: reports: No Symptoms. denies: Chills, Fever, Lethargy, Loss of Appetite Eyes: reports: No Symptoms HENT: reports: No Symptoms. denies: Difficult Swallowing, Ear Pain, Throat Pain Neck: reports: No Symptoms Cardiovascular: reports: Shortness of Breath. denies: Chest Pain, Edema Respiratory: reports: Cough, SOB Gastrointestinal: reports: No Symptoms. denies: Abdominal Pain Genitourinary: reports: No Symptoms Breasts: reports: No Symptoms Reported Musculoskeletal: reports: No Symptoms Integumentary: reports: No Symptoms Neurological: reports: No Symptoms Endocrine: reports: No Symptoms Hematology/Lymphatic: reports: No Symptoms Psychiatric: reports: No Symptoms Physical Exam Vital Signs: Vital Signs Temperature 98.7 F 09/02/17 09:30 Pulse Rate 78 09/02/17 09:30 Respiratory Rate 18 09/02/17 09:30 Blood Pressure 148/66 09/02/17 09:30 O2 Sat by Pulse Oximetry (%) 95 09/02/17 03:00 Constitutional: Yes: Well Nourished, No Distress Eyes: Yes: Conjunctiva Clear HENT: Yes: Atraumatic, Normocephalic Neck: Yes: Supple, Trachea Midline Cardiovascular: Yes: Regular Rate and Rhythm Respiratory: Yes: Regular, CTA Bilaterally Gastrointestinal: Yes: Normal Bowel Sounds, Soft ...Rectal Exam: Yes: Deferred Musculoskeletal: Yes: Other (decreased ROM left shoulder) Edema: LLE: Trace, RLE: Trace Integumentary: Yes: WNL Psychiatric: Yes: Alert, Oriented Labs: CBC, BMP 09/02/17 06:45 09/02/17 06:45 Imaging - Results Chest X-ray: Report Reviewed, Image Reviewed Problem List - Problems (1) Pneumonia Code(s): J18.9 - PNEUMONIA, UNSPECIFIED ORGANISM (2) COPD exacerbation Code(s): J44.1 - CHRONIC OBSTRUCTIVE PULMONARY DISEASE W (ACUTE) EXACERBATION (3) Congestive heart failure Code(s): I50.9 - HEART FAILURE, UNSPECIFIED (4) CKD (chronic kidney disease) stage 3, GFR 30-59 ml/min Code(s): N18.3 - CHRONIC KIDNEY DISEASE, STAGE 3 (MODERATE) Assessment/Plan patient unaware of nature of pen allergy (wasn t aware she was allergic) tolerated rocephin/zithromax would continue rocephin/zithromax for CAP check urinary antigens f/u blood cultures cold agglutinins on treatment for COPD
[2017-09-02] MEDS ORDERED: LOSARTAN POTASSIUM 50 MG TABLET (FP) PO SCH (10:00)
[2017-09-02] MEDS: GABAPENTIN 100 MG CAPSULE (FP) PO SCH ×2 (10:04→21:14)
[2017-09-02] MEDS: PANTOPRAZOLE 40 MG TABLET (FP) PO SCH (10:04)
[2017-09-02] MEDS: levETIRAcetam 500 MG TABLET (FP) PO SCH ×2 (10:04→21:13)
[2017-09-02] MEDS: ALLOPURINOL 100 MG TABLET (FP) PO SCH (10:04)
[2017-09-02] MEDS: FUROSEMIDE 40 MG/4 ML INJECTABLE VIAL IVPUSH SCH (10:05)
[2017-09-02] MEDS: BUDESONIDE/FORMETEROL FUMARATE 160/4.5 mcg INHALER IH SCH ×2 (10:08→21:14)
[2017-09-02] MEDS ORDERED: INSULIN (NOVOLOG) ASPART 100 UNITS/ML 10ML VIAL ONE (10:34)
[2017-09-02] MEDS ORDERED: DEXTROSE 5%-WATER 100 ML IVPB ONE (11:03)
[2017-09-02] MEDS: CEFTRIAXONE 2 GM in DEXTROSE 5%-WATER 100 ML IVPB SCH (11:12)
--- NOTE | 2017-09-02 11:53 | PN ---
Progress Note, Physician History of Present Illness: PULMONARY ALERT,FEELING BETTER,LESS DYSPNEIC,+ DRY COUGH - Current Medication List Current Medications: Active Medications Acetaminophen (Tylenol -) 650 mg PO Q6H PRN PRN Reason: PAIN OR FEVER Albuterol/Ipratropium (Duoneb -) 1 amp NEB Q6H PRN PRN Reason: SHORTNESS OF BREATH Last Admin: 09/01/17 21:08 Dose: 1 amp Allopurinol (Zyloprim -) 100 mg PO DAILY [facility] Last Admin: 09/02/17 10:04 Dose: 100 mg Atorvastatin Calcium (Lipitor -) 20 mg PO HS [facility] Last Admin: 09/01/17 21:31 Dose: 20 mg Budesonide/Formoterol Fumarate (Symbicort 160/4.5mcg -) 2 puff IH BID [facility] Last Admin: 09/02/17 10:08 Dose: 2 puff Digoxin (Lanoxin -) 0.125 mg PO Q48H [facility] Last Admin: 09/01/17 17:40 Dose: 0.125 mg Diltiazem HCl (Cardizem Cd -) 360 mg PO DAILY [facility] Last Admin: 09/02/17 10:04 Dose: 360 mg Furosemide (Lasix Injection -) 40 mg IVPUSH DAILY [facility] Last Admin: 09/02/17 10:05 Dose: 40 mg Gabapentin (Neurontin -) 200 mg PO BID [facility] Last Admin: 09/02/17 10:04 Dose: 200 mg Glimepiride (Amaryl -) 4 mg PO DAILY@0700 [facility] Last Admin: 09/02/17 06:17 Dose: 4 mg Ceftriaxone Sodium 2 gm/ (Dextrose) 100 mls @ 100 mls/hr IVPB DAILY [facility]; Protocol Last Admin: 09/02/17 11:12 Dose: 100 mls/hr Azithromycin 500 mg/ Dextrose 250 mls @ 250 mls/hr IVPB DAILY [facility] Insulin Aspart (Novolog Vial Sliding Scale -) 1 vial SQ ACHS [facility]; Protocol Last Admin: 09/02/17 11:14 Dose: 8 units Insulin Detemir (Levemir Vial) 10 units SQ HS [facility] Last Admin: 09/01/17 21:42 Dose: 10 units Levetiracetam (Keppra -) 1,000 mg PO BID [facility] Last Admin: 09/02/17 10:04 Dose: 1,000 mg Metformin HCl (Glucophage -) 500 mg PO BID@0700,1630 [facility] Last Admin: 09/02/17 06:17 Dose: 500 mg Methylprednisolone Sodium Succinate (Solu-Medrol -) 40 mg IVPUSH Q8H-IV [facility] Last Admin: 09/02/17 10:05 Dose: 40 mg Pantoprazole Sodium (Protonix -) 40 mg PO DAILY [facility] Last Admin: 09/02/17 10:04 Dose: 40 mg Sitagliptin Phosphate (Januvia -) 50 mg PO DAILY@0700 [facility] Last Admin: 09/02/17 06:18 Dose: 50 mg Warfarin Sodium (Coumadin -) 2.5 mg PO DAILY@1800 [facility] Last Admin: 09/01/17 18:49 Dose: 2.5 mg - Objective Vital Signs: Vital Signs Temperature 98.7 F 09/02/17 09:30 Pulse Rate 78 09/02/17 09:30 Respiratory Rate 18 09/02/17 09:30 Blood Pressure 148/66 09/02/17 09:30 O2 Sat by Pulse Oximetry (%) 95 09/02/17 03:00 Constitutional: Yes: Well Nourished, Calm Eyes: Yes: WNL HENT: Yes: WNL Neck: Yes: WNL Cardiovascular: Yes: Pulse Irregular, S1, S2 Respiratory: Yes: Diminished Gastrointestinal: Yes: Normal Bowel Sounds, Soft Extremities: Yes: WNL Edema: No Labs: CBC, BMP 09/02/17 06:45 09/02/17 06:45 INR, PTT INR 1.75 (0.82-1.09) H 09/02/17 06:45 Problem List - Problems (1) Lung cancer Code(s): C34.90 - MALIGNANT NEOPLASM OF UNSP PART OF UNSP BRONCHUS OR LUNG (2) Pneumonia Code(s): J18.9 - PNEUMONIA, UNSPECIFIED ORGANISM (3) Atrial fibrillation Code(s): I48.91 - UNSPECIFIED ATRIAL FIBRILLATION (4) CKD (chronic kidney disease) stage 3, GFR 30-59 ml/min Code(s): N18.3 - CHRONIC KIDNEY DISEASE, STAGE 3 (MODERATE) (5) COPD (chronic obstructive pulmonary disease) Code(s): J44.9 - CHRONIC OBSTRUCTIVE PULMONARY DISEASE, UNSPECIFIED (6) Congestive heart failure Code(s): I50.9 - HEART FAILURE, UNSPECIFIED (7) Diabetes mellitus Code(s): E11.9 - TYPE 2 DIABETES MELLITUS WITHOUT COMPLICATIONS (8) Dyspnea Code(s): R06.00 - DYSPNEA, UNSPECIFIED (9) Pleural effusion Code(s): J90 - PLEURAL EFFUSION, NOT ELSEWHERE CLASSIFIED (10) Sleep apnea Code(s): G47.30 - SLEEP APNEA, UNSPECIFIED (11) Acute on chronic respiratory failure with hypoxia and hypercapnia Code(s): J96.21 - ACUTE AND CHRONIC RESPIRATORY FAILURE WITH HYPOXIA; J96.22 - ACUTE AND CHRONIC RESPIRATORY FAILURE WITH HYPERCAPNIA Assessment/Plan IMP ACUTE ON CHRONIC HYPOXEMIC/HYPERCAPNEIC RESPIRATORY FAILURE IMPROVING PNEUMONIA COPD ON HOME O2 CHF OSAS ON CPAP H/O LUNG CA S/P RESECTION/CHEMO DM S/P CVA AFIB CKD PLAN ABX PER ID INHALED BRONCHODILATORS O2 LASIX CHEST CT AC MONITOR INR MONITOR LYTES,RENAL FUNCTION DR MOSLEY Problem List - Problems (1) Lung cancer Code(s): C34.90 - MALIGNANT NEOPLASM OF UNSP PART OF UNSP BRONCHUS OR LUNG (2) Pneumonia Code(s): J18.9 - PNEUMONIA, UNSPECIFIED ORGANISM (3) Atrial fibrillation Code(s): I48.91 - UNSPECIFIED ATRIAL FIBRILLATION (4) CKD (chronic kidney disease) stage 3, GFR 30-59 ml/min Code(s): N18.3 - CHRONIC KIDNEY DISEASE, STAGE 3 (MODERATE) (5) COPD (chronic obstructive pulmonary disease) Code(s): J44.9 - CHRONIC OBSTRUCTIVE PULMONARY DISEASE, UNSPECIFIED (6) Congestive heart failure Code(s): I50.9 - HEART FAILURE, UNSPECIFIED (7) Diabetes mellitus Code(s): E11.9 - TYPE 2 DIABETES MELLITUS WITHOUT COMPLICATIONS (8) Dyspnea Code(s): R06.00 - DYSPNEA, UNSPECIFIED (9) Pleural effusion Code(s): J90 - PLEURAL EFFUSION, NOT ELSEWHERE CLASSIFIED (10) Sleep apnea Code(s): G47.30 - SLEEP APNEA, UNSPECIFIED (11) Acute on chronic respiratory failure with hypoxia and hypercapnia Code(s): J96.21 - ACUTE AND CHRONIC RESPIRATORY FAILURE WITH HYPOXIA; J96.22 - ACUTE AND CHRONIC RESPIRATORY FAILURE WITH HYPERCAPNIA
--- NOTE | 2017-09-02 13:49 | PN ---
Progress Note, Physician Chief Complaint: awake alert comfortable on - Current Medication List Current Medications: Active Medications Acetaminophen (Tylenol -) 650 mg PO Q6H PRN PRN Reason: PAIN OR FEVER Albuterol/Ipratropium (Duoneb -) 1 amp NEB Q6H PRN PRN Reason: SHORTNESS OF BREATH Last Admin: 09/01/17 21:08 Dose: 1 amp Allopurinol (Zyloprim -) 100 mg PO DAILY [facility] Last Admin: 09/02/17 10:04 Dose: 100 mg Atorvastatin Calcium (Lipitor -) 20 mg PO HS [facility] Last Admin: 09/01/17 21:31 Dose: 20 mg Budesonide/Formoterol Fumarate (Symbicort 160/4.5mcg -) 2 puff IH BID [facility] Last Admin: 09/02/17 10:08 Dose: 2 puff Digoxin (Lanoxin -) 0.125 mg PO Q48H [facility] Last Admin: 09/01/17 17:40 Dose: 0.125 mg Diltiazem HCl (Cardizem Cd -) 360 mg PO DAILY [facility] Last Admin: 09/02/17 10:04 Dose: 360 mg Furosemide (Lasix Injection -) 40 mg IVPUSH DAILY [facility] Last Admin: 09/02/17 10:05 Dose: 40 mg Gabapentin (Neurontin -) 200 mg PO BID [facility] Last Admin: 09/02/17 10:04 Dose: 200 mg Glimepiride (Amaryl -) 4 mg PO DAILY@0700 [facility] Last Admin: 09/02/17 06:17 Dose: 4 mg Ceftriaxone Sodium 2 gm/ (Dextrose) 100 mls @ 100 mls/hr IVPB DAILY [facility]; Protocol Last Admin: 09/02/17 11:12 Dose: 100 mls/hr Azithromycin 500 mg/ Dextrose 250 mls @ 250 mls/hr IVPB DAILY [facility] Insulin Aspart (Novolog Vial Sliding Scale -) 1 vial SQ ACHS [facility]; Protocol Last Admin: 09/02/17 11:14 Dose: 8 units Insulin Detemir (Levemir Vial) 10 units SQ HS [facility] Last Admin: 09/01/17 21:42 Dose: 10 units Levetiracetam (Keppra -) 1,000 mg PO BID [facility] Last Admin: 09/02/17 10:04 Dose: 1,000 mg Metformin HCl (Glucophage -) 500 mg PO BID@0700,1630 [facility] Last Admin: 09/02/17 06:17 Dose: 500 mg Methylprednisolone Sodium Succinate (Solu-Medrol -) 40 mg IVPUSH Q8H-IV [facility] Last Admin: 09/02/17 10:05 Dose: 40 mg Pantoprazole Sodium (Protonix -) 40 mg PO DAILY [facility] Last Admin: 09/02/17 10:04 Dose: 40 mg Sitagliptin Phosphate (Januvia -) 50 mg PO DAILY@0700 [facility] Last Admin: 09/02/17 06:18 Dose: 50 mg Warfarin Sodium (Coumadin -) 2.5 mg PO DAILY@1800 [facility] Last Admin: 09/01/17 18:49 Dose: 2.5 mg - Objective Vital Signs: Vital Signs Temperature 98.2 F 09/02/17 13:48 Pulse Rate 91 H 09/02/17 13:48 Respiratory Rate 18 09/02/17 13:48 Blood Pressure 126/46 09/02/17 13:48 O2 Sat by Pulse Oximetry (%) 92 L 09/02/17 10:50 Constitutional: Yes: Mild Distress Eyes: Yes: WNL HENT: Yes: WNL Neck: Yes: WNL Cardiovascular: Yes: Pulse Irregular Respiratory: Yes: On Nasal O2 Gastrointestinal: Yes: WNL Genitourinary: Yes: WNL Musculoskeletal: Yes: Muscle Weakness Extremities: Yes: WNL Edema: Yes Peripheral Pulses WNL: Yes Integumentary: Yes: WNL Wound/Incision: Yes: Clean/Dry Neurological: Yes: Pre-Existing Deficit ...Motor Strength: LLE, RLE Psychiatric: Yes: WNL Labs: CBC, BMP 09/02/17 06:45 09/02/17 06:45 INR, PTT INR 1.75 (0.82-1.09) H 09/02/17 06:45 Problem List - Problems (1) Acute on chronic respiratory failure with hypoxia and hypercapnia Code(s): J96.21 - ACUTE AND CHRONIC RESPIRATORY FAILURE WITH HYPOXIA; J96.22 - ACUTE AND CHRONIC RESPIRATORY FAILURE WITH HYPERCAPNIA (2) Lung cancer Code(s): C34.90 - MALIGNANT NEOPLASM OF UNSP PART OF UNSP BRONCHUS OR LUNG (3) Pneumonia Code(s): J18.9 - PNEUMONIA, UNSPECIFIED ORGANISM (4) Atrial fibrillation Code(s): I48.91 - UNSPECIFIED ATRIAL FIBRILLATION Assessment/Plan IV ABX 02 SUPPORT NEBS PULM/RENAL EVAL DVT PROPHLAXIS MONITOR LABS AWAIT CX
[2017-09-02] MEDS ORDERED: WARFARIN NA 2.5 MG TABLET (FP) PO SCH (13:50)
[2017-09-02] MEDS: AZITHROMYCIN IVPB 500 MG in DEXTROSE 5%-WATER - 250 ML IVPB SCH (14:30)
--- NOTE | 2017-09-02 15:05 | PN ---
Progress Note, Physician Chief Complaint: The patient seen in her room. Son with her. Still with a cough. Maintains good urine output. History of Present Illness: x - Current Medication List Current Medications: Active Medications Acetaminophen (Tylenol -) 650 mg PO Q6H PRN PRN Reason: PAIN OR FEVER Albuterol/Ipratropium (Duoneb -) 1 amp NEB Q6H PRN PRN Reason: SHORTNESS OF BREATH Last Admin: 09/01/17 21:08 Dose: 1 amp Allopurinol (Zyloprim -) 100 mg PO DAILY [facility] Last Admin: 09/02/17 10:04 Dose: 100 mg Atorvastatin Calcium (Lipitor -) 20 mg PO HS [facility] Last Admin: 09/01/17 21:31 Dose: 20 mg Budesonide/Formoterol Fumarate (Symbicort 160/4.5mcg -) 2 puff IH BID [facility] Last Admin: 09/02/17 10:08 Dose: 2 puff Digoxin (Lanoxin -) 0.125 mg PO Q48H [facility] Last Admin: 09/01/17 17:40 Dose: 0.125 mg Diltiazem HCl (Cardizem Cd -) 360 mg PO DAILY [facility] Last Admin: 09/02/17 10:04 Dose: 360 mg Furosemide (Lasix Injection -) 40 mg IVPUSH DAILY [facility] Last Admin: 09/02/17 10:05 Dose: 40 mg Gabapentin (Neurontin -) 200 mg PO BID [facility] Last Admin: 09/02/17 10:04 Dose: 200 mg Glimepiride (Amaryl -) 4 mg PO DAILY@0700 [facility] Last Admin: 09/02/17 06:17 Dose: 4 mg Ceftriaxone Sodium 2 gm/ (Dextrose) 100 mls @ 100 mls/hr IVPB DAILY [facility]; Protocol Last Admin: 09/02/17 11:12 Dose: 100 mls/hr Azithromycin 500 mg/ Dextrose 250 mls @ 250 mls/hr IVPB DAILY [facility] Last Admin: 09/02/17 14:30 Dose: 250 mls/hr Insulin Aspart (Novolog Vial Sliding Scale -) 1 vial SQ [facility]; Protocol Last Admin: 09/02/17 11:14 Dose: 8 units Insulin Detemir (Levemir Vial) 10 units SQ [facility] Last Admin: 09/01/17 21:42 Dose: 10 units Levetiracetam (Keppra -) 1,000 mg PO BID [facility] Last Admin: 09/02/17 10:04 Dose: 1,000 mg Metformin HCl (Glucophage -) 500 mg PO BID@0700,1630 [facility] Last Admin: 09/02/17 06:17 Dose: 500 mg Methylprednisolone Sodium Succinate (Solu-Medrol -) 40 mg IVPUSH Q8H-IV [facility] Last Admin: 09/02/17 10:05 Dose: 40 mg Pantoprazole Sodium (Protonix -) 40 mg PO DAILY [facility] Last Admin: 09/02/17 10:04 Dose: 40 mg Sitagliptin Phosphate (Januvia -) 50 mg PO DAILY@0700 [facility] Last Admin: 09/02/17 06:18 Dose: 50 mg Warfarin Sodium (Coumadin -) 3 mg PO DAILY@1800 [facility] - Objective Vital Signs: Vital Signs Temperature 98.2 F 09/02/17 13:48 Pulse Rate 91 H 09/02/17 13:48 Respiratory Rate 18 09/02/17 13:48 Blood Pressure 126/46 09/02/17 13:48 O2 Sat by Pulse Oximetry (%) 92 L 09/02/17 10:50 Constitutional: Yes: No Distress, Anxious Eyes: Yes: Conjunctiva Clear HENT: Yes: Normocephalic Neck: Yes: Trachea Midline Cardiovascular: Yes: Regular Rate and Rhythm, S1, S2 Respiratory: Yes: CTA Bilaterally, Diminished Gastrointestinal: Yes: Normal Bowel Sounds, Abdomen, Obese Labs: CBC, BMP 09/02/17 06:45 09/02/17 06:45 INR, PTT INR 1.75 (0.82-1.09) H 09/02/17 06:45 Problem List - Problems (1) Lung cancer Code(s): C34.90 - MALIGNANT NEOPLASM OF UNSP PART OF UNSP BRONCHUS OR LUNG (2) Pneumonia Code(s): J18.9 - PNEUMONIA, UNSPECIFIED ORGANISM (3) Acute renal failure Code(s): N17.9 - ACUTE KIDNEY FAILURE, UNSPECIFIED (4) Atrial fibrillation Code(s): I48.91 - UNSPECIFIED ATRIAL FIBRILLATION (5) CKD (chronic kidney disease) stage 3, GFR 30-59 ml/min Code(s): N18.3 - CHRONIC KIDNEY DISEASE, STAGE 3 (MODERATE) (6) COPD exacerbation Code(s): J44.1 - CHRONIC OBSTRUCTIVE PULMONARY DISEASE W (ACUTE) EXACERBATION (7) Congestive heart failure Code(s): I50.9 - HEART FAILURE, UNSPECIFIED (8) Diabetes mellitus Code(s): E11.9 - TYPE 2 DIABETES MELLITUS WITHOUT COMPLICATIONS (9) Seizure Code(s): R56.9 - UNSPECIFIED CONVULSIONS (10) Shortness of breath Code(s): R06.02 - SHORTNESS OF BREATH (11) Sleep apnea Code(s): G47.30 - SLEEP APNEA, UNSPECIFIED Assessment/Plan 76 yo with h/o known atrial fibrillation on coumadin, on cpap and 2L o2 at home , COPD, HTN, HLD, DM, Seizure, GERD, Lung CA s/p left upper lobectomy. The patient admitted with acute dyspnea and exacerbation of COPD. H/o Ca Lung. Acute Kidney failure, most likely related to deranged renal Hemodynamics in the setting of relatively low BP and a combination of loop diuretics and Angiotensin Receptor blocking agents. Most likely she has some Chronic Kidney disease, possibly from Microvascular Renal disease. Mild Anemia may be related to the CKD. Will maintain euvolemia. If IV contrast must be used, will need to be hydrated adequately prior to the same. Will monitor the renal functions closely. Ad jarret oral fluids now. Thanks again. Will follow with you. Yumi Hawkins MD
[2017-09-02] MEDS: WARFARIN NA 3 MG TABLET PO SCH (17:04)
[2017-09-02] MEDS: ATORVASTATIN CA 20 MG TABLET (FP) PO SCH (21:13)
[2017-09-02] MEDS: INSULIN (LEVEMIR) 100 UNITS/ML UNITS SQ SCH (21:14)
[2017-09-03] MEDS: methylPREDNISolone NA SUCC 40 MG/1 ML VIAL IVPUSH SCH ×3 (01:48→17:19)
[2017-09-03] MEDS: sitaGLIPtin PHOSPHATE 50 MG TABLET PO SCH (06:09)
[2017-09-03] MEDS: INSULIN SLIDING SCALE (NOVOLOG) 1 VIAL SQ SCH ×4 (06:09→21:27)
[2017-09-03] MEDS: metFORMIN HCL 500 MG TABLET (FP) PO SCH ×2 (06:09→17:20)
[2017-09-03] MEDS: GLIMEPIRIDE 4 MG TABLET (FP) PO SCH (06:09)
[2017-09-03 08:16] LABS: INR 1.96 (0.82-1.09); PROTHROMBIN TIME (PATIENT) 22.2 SEC (9.7-13.0)
--- NOTE | 2017-09-03 09:09 | PN ---
Progress Note, Physician - Current Medication List Current Medications: Active Medications Acetaminophen (Tylenol -) 650 mg PO Q6H PRN PRN Reason: PAIN OR FEVER Albuterol/Ipratropium (Duoneb -) 1 amp NEB Q6H PRN PRN Reason: SHORTNESS OF BREATH Last Admin: 09/01/17 21:08 Dose: 1 amp Allopurinol (Zyloprim -) 100 mg PO DAILY [facility] Last Admin: 09/02/17 10:04 Dose: 100 mg Atorvastatin Calcium (Lipitor -) 20 mg PO HS [facility] Last Admin: 09/02/17 21:13 Dose: 20 mg Budesonide/Formoterol Fumarate (Symbicort 160/4.5mcg -) 2 puff IH BID [facility] Last Admin: 09/02/17 21:14 Dose: 2 puff Digoxin (Lanoxin -) 0.125 mg PO Q48H [facility] Last Admin: 09/01/17 17:40 Dose: 0.125 mg Diltiazem HCl (Cardizem Cd -) 360 mg PO DAILY [facility] Last Admin: 09/02/17 10:04 Dose: 360 mg Furosemide (Lasix Injection -) 40 mg IVPUSH DAILY [facility] Last Admin: 09/02/17 10:05 Dose: 40 mg Gabapentin (Neurontin -) 200 mg PO BID [facility] Last Admin: 09/02/17 21:14 Dose: 200 mg Glimepiride (Amaryl -) 4 mg PO DAILY@0700 [facility] Last Admin: 09/03/17 06:09 Dose: 4 mg Ceftriaxone Sodium 2 gm/ (Dextrose) 100 mls @ 100 mls/hr IVPB DAILY [facility]; Protocol Last Admin: 09/02/17 11:12 Dose: 100 mls/hr Azithromycin 500 mg/ Dextrose 250 mls @ 250 mls/hr IVPB DAILY [facility] Last Admin: 09/02/17 14:30 Dose: 250 mls/hr Insulin Aspart (Novolog Vial Sliding Scale -) 1 vial SQ [facility]; Protocol Last Admin: 09/03/17 06:09 Dose: 8 units Insulin Detemir (Levemir Vial) 10 units SQ HS [facility] Last Admin: 09/02/17 21:14 Dose: 10 units Levetiracetam (Keppra -) 1,000 mg PO BID [facility] Last Admin: 09/02/17 21:13 Dose: 1,000 mg Metformin HCl (Glucophage -) 500 mg PO BID@0700,1630 [facility] Last Admin: 09/03/17 06:09 Dose: 500 mg Methylprednisolone Sodium Succinate (Solu-Medrol -) 40 mg IVPUSH Q8H-IV [facility] Last Admin: 09/03/17 01:48 Dose: 40 mg Pantoprazole Sodium (Protonix -) 40 mg PO DAILY [facility] Last Admin: 09/02/17 10:04 Dose: 40 mg Sitagliptin Phosphate (Januvia -) 50 mg PO DAILY@0700 [facility] Last Admin: 09/03/17 06:09 Dose: 50 mg Warfarin Sodium (Coumadin -) 3 mg PO DAILY@1800 [facility] Last Admin: 09/02/17 17:04 Dose: 3 mg - Objective Vital Signs: Vital Signs Temperature 98.5 F 09/03/17 06:00 Pulse Rate 65 09/03/17 06:00 Respiratory Rate 18 09/03/17 06:00 Blood Pressure 135/69 09/03/17 06:00 O2 Sat by Pulse Oximetry (%) 97 09/02/17 22:23 Cardiovascular: Yes: S1, S2 Respiratory: Yes: Rales Gastrointestinal: Yes: Normal Bowel Sounds, Soft Labs: CBC, BMP 09/02/17 06:45 09/02/17 06:45 INR, PTT INR 1.96 (0.82-1.09) H 09/03/17 07:30 Problem List - Problems (1) Pneumonia Assessment/Plan: -IV Abx per ID -Follow labs Code(s): J18.9 - PNEUMONIA, UNSPECIFIED ORGANISM (2) Atrial fibrillation Assessment/Plan: -On coumadin -Follow INR Code(s): I48.91 - UNSPECIFIED ATRIAL FIBRILLATION (3) CKD (chronic kidney disease) stage 3, GFR 30-59 ml/min Assessment/Plan: -Renal on board Code(s): N18.3 - CHRONIC KIDNEY DISEASE, STAGE 3 (MODERATE) (4) COPD (chronic obstructive pulmonary disease) Assessment/Plan: _Nebs _steroids -pulm Code(s): J44.9 - CHRONIC OBSTRUCTIVE PULMONARY DISEASE, UNSPECIFIED (5) Congestive heart failure Assessment/Plan: -Iv Lasix -Monitor labs/wt and cxr -cardio Code(s): I50.9 - HEART FAILURE, UNSPECIFIED (6) Diabetes mellitus Assessment/Plan: -monitor bgm -endo Code(s): E11.9 - TYPE 2 DIABETES MELLITUS WITHOUT COMPLICATIONS
[2017-09-03] MEDS: ALBUTEROL SO4 2.5/IPRATROPIUM 0.5 INH SOL 3 ML VIAL.NEB. NEB PRN (09:29)
[2017-09-03] MEDS ORDERED: INSULIN (NOVOLOG) ASPART 100 UNITS/ML 10ML VIAL ONE (10:11)
[2017-09-03] MEDS ORDERED: DEXTROSE 5%-WATER 100 ML IVPB ONE (10:12)
[2017-09-03] MEDS ORDERED: PT OWN MED DRAWER 7, Y5N ONE ×2 (10:12→21:05)
[2017-09-03 10:23] LABS: BASO % 0.1 % (0-2.0); HEMATOCRIT 31.1 % (32.4-45.2); HEMOGLOBIN 9.9 GM/dL (10.7-15.3); LYMPH % 3.9 % (8-40); MCH 25.2 pg (25.7-33.7); MCHC 31.8 g/dl (32.0-36.0); MEAN CELL VOLUME 79.3 fl (80-96); MEAN PLT VOLUME 8.3 fl (7.5-11.1); MONO % 1.3 % (3.8-10.2); NEUT % 94.7 % (42.8-82.8); PLATELET COUNT 409 K/MM3 (134-434); RBC 3.92 M/mm3 (3.60-5.2); RDW 17.8 % (11.6-15.6); WHITE BLOOD COUNT 19.6 K/mm3 (4.0-10.0)
[2017-09-03] MEDS: BUDESONIDE/FORMETEROL FUMARATE 160/4.5 mcg INHALER IH SCH ×2 (10:47→21:28)
[2017-09-03] MEDS: FUROSEMIDE 40 MG/4 ML INJECTABLE VIAL IVPUSH SCH (10:47)
[2017-09-03] MEDS: GABAPENTIN 100 MG CAPSULE (FP) PO SCH ×2 (10:47→21:28)
[2017-09-03] MEDS: PANTOPRAZOLE 40 MG TABLET (FP) PO SCH (10:48)
[2017-09-03] MEDS: ALLOPURINOL 100 MG TABLET (FP) PO SCH (10:48)
[2017-09-03] MEDS: CEFTRIAXONE 2 GM in DEXTROSE 5%-WATER 100 ML IVPB SCH (10:48)
[2017-09-03] MEDS: levETIRAcetam 500 MG TABLET (FP) PO SCH ×2 (10:48→21:28)
[2017-09-03] MEDS: AZITHROMYCIN IVPB 500 MG in DEXTROSE 5%-WATER - 250 ML IVPB SCH (11:31)
--- NOTE | 2017-09-03 12:22 | PN ---
Progress Note, Physician Chief Complaint: The patient seen in her room. Son with her. Still with a cough. Maintains good urine output. No shortness of breath. History of Present Illness: x - Current Medication List Current Medications: Active Medications Acetaminophen (Tylenol -) 650 mg PO Q6H PRN PRN Reason: PAIN OR FEVER Last Admin: 09/03/17 10:51 Dose: 650 mg Albuterol/Ipratropium (Duoneb -) 1 amp NEB Q6H PRN PRN Reason: SHORTNESS OF BREATH Last Admin: 09/03/17 09:29 Dose: 1 amp Allopurinol (Zyloprim -) 100 mg PO DAILY [facility] Last Admin: 09/03/17 10:48 Dose: 100 mg Atorvastatin Calcium (Lipitor -) 20 mg PO HS [facility] Last Admin: 09/02/17 21:13 Dose: 20 mg Budesonide/Formoterol Fumarate (Symbicort 160/4.5mcg -) 2 puff IH BID [facility] Last Admin: 09/03/17 10:47 Dose: 2 puff Digoxin (Lanoxin -) 0.125 mg PO Q48H [facility] Last Admin: 09/01/17 17:40 Dose: 0.125 mg Diltiazem HCl (Cardizem Cd -) 360 mg PO DAILY [facility] Last Admin: 09/03/17 10:48 Dose: 360 mg Furosemide (Lasix Injection -) 40 mg IVPUSH DAILY [facility] Last Admin: 09/03/17 10:47 Dose: 40 mg Gabapentin (Neurontin -) 200 mg PO BID [facility] Last Admin: 09/03/17 10:47 Dose: 200 mg Glimepiride (Amaryl -) 4 mg PO DAILY@0700 [facility] Last Admin: 09/03/17 06:09 Dose: 4 mg Ceftriaxone Sodium 2 gm/ (Dextrose) 100 mls @ 100 mls/hr IVPB DAILY [facility]; Protocol Last Admin: 09/03/17 10:48 Dose: 100 mls/hr Azithromycin 500 mg/ Dextrose 250 mls @ 250 mls/hr IVPB DAILY [facility] Last Admin: 09/03/17 11:31 Dose: 250 mls/hr Insulin Aspart (Novolog Vial Sliding Scale -) 1 vial SQ [facility]; Protocol Last Admin: 09/03/17 11:32 Dose: 14 units Insulin Detemir (Levemir Vial) 10 units SQ [facility] Last Admin: 06/12/18 21:14 Dose: 10 units Levetiracetam (Keppra -) 1,000 mg PO BID [facility] Last Admin: 09/03/17 10:48 Dose: 1,000 mg Metformin HCl (Glucophage -) 500 mg PO BID@0700,1630 [facility] Last Admin: 09/03/17 06:09 Dose: 500 mg Methylprednisolone Sodium Succinate (Solu-Medrol -) 40 mg IVPUSH Q8H-IV [facility] Last Admin: 09/03/17 10:48 Dose: 40 mg Pantoprazole Sodium (Protonix -) 40 mg PO DAILY [facility] Last Admin: 09/03/17 10:48 Dose: 40 mg Sitagliptin Phosphate (Januvia -) 50 mg PO DAILY@0700 [facility] Last Admin: 09/03/17 06:09 Dose: 50 mg Warfarin Sodium (Coumadin -) 3 mg PO DAILY@1800 [facility] Last Admin: 09/02/17 17:04 Dose: 3 mg - Objective Vital Signs: Vital Signs Temperature 98.7 F 09/03/17 10:00 Pulse Rate 86 09/03/17 10:00 Respiratory Rate 18 09/03/17 10:00 Blood Pressure 141/73 09/03/17 10:00 O2 Sat by Pulse Oximetry (%) 93 L 09/03/17 09:59 Constitutional: Yes: Well Nourished, Calm Eyes: Yes: Conjunctiva Clear HENT: Yes: Normocephalic Neck: Yes: Trachea Midline Cardiovascular: Yes: S1, S2 Respiratory: Yes: CTA Bilaterally, Diminished Gastrointestinal: Yes: Normal Bowel Sounds, Abdomen, Obese Musculoskeletal: Yes: Joint Stiffness Neurological: Yes: Alert, Oriented Labs: CBC, BMP 09/03/17 09:45 INR, PTT INR 1.96 (0.82-1.09) H 09/03/17 07:30 Problem List - Problems (1) Lung cancer Code(s): C34.90 - MALIGNANT NEOPLASM OF UNSP PART OF UNSP BRONCHUS OR LUNG (2) Pneumonia Code(s): J18.9 - PNEUMONIA, UNSPECIFIED ORGANISM (3) Acute renal failure Code(s): N17.9 - ACUTE KIDNEY FAILURE, UNSPECIFIED (4) Atrial fibrillation Code(s): I48.91 - UNSPECIFIED ATRIAL FIBRILLATION (5) CKD (chronic kidney disease) stage 3, GFR 30-59 ml/min Code(s): N18.3 - CHRONIC KIDNEY DISEASE, STAGE 3 (MODERATE) (6) COPD exacerbation Code(s): J44.1 - CHRONIC OBSTRUCTIVE PULMONARY DISEASE W (ACUTE) EXACERBATION (7) Congestive heart failure Code(s): I50.9 - HEART FAILURE, UNSPECIFIED (8) Diabetes mellitus Code(s): E11.9 - TYPE 2 DIABETES MELLITUS WITHOUT COMPLICATIONS (9) Seizure Code(s): R56.9 - UNSPECIFIED CONVULSIONS (10) Shortness of breath Code(s): R06.02 - SHORTNESS OF BREATH (11) Sleep apnea Code(s): G47.30 - SLEEP APNEA, UNSPECIFIED Assessment/Plan 76 yo with h/o known Atrial fibrillation on Coumadin, on CPAP and 2L O2 at home , COPD, HTN, HLD, DM, Seizure, GERD, Lung CA s/p left upper lobectomy. The patient was admitted with acute dyspnea and exacerbation of COPD. H/o Ca Lung. Acute Kidney failure, most likely related to deranged renal Hemodynamics in the setting of relatively low BP and a combination of loop diuretics and Angiotensin Receptor blocking agents. Most likely she has some Chronic Kidney disease, possibly from Microvascular Renal disease. Mild Anemia may be related to the CKD. Will maintain euvolemia. Will monitor the renal functions closely. Ad jarret oral fluids now. Today's labs are still pending ( at 12.30 PM) Thanks again. Will follow with you. Yumi Hawkisn MD
--- NOTE | 2017-09-03 12:48 | PN ---
Progress Note (short form) - Note Progress Note: PULMONARY States breathing slightly improved. +nonproductive cough and wheezing. No fevers or chills. CT chest showing moderate right sided effusion. Last Vital Signs Temp Pulse Resp BP Pulse Ox 98.7 F 86 18 141/73 93 L 09/03/17 10:00 09/03/17 10:00 09/03/17 10:00 09/03/17 10:00 09/03/17 09:59 Gen: mildly tachypneic with speaking Heart: RRR Lung: decreased breath sounds right base Abd: soft, nontender Ext: + edema CBC, BMP 09/03/17 09:45 Active Medications Acetaminophen (Tylenol -) 650 mg PO Q6H PRN PRN Reason: PAIN OR FEVER Last Admin: 09/03/17 10:51 Dose: 650 mg Albuterol/Ipratropium (Duoneb -) 1 amp NEB Q6H PRN PRN Reason: SHORTNESS OF BREATH Last Admin: 09/03/17 09:29 Dose: 1 amp Allopurinol (Zyloprim -) 100 mg PO DAILY [facility] Last Admin: 09/03/17 10:48 Dose: 100 mg Atorvastatin Calcium (Lipitor -) 20 mg PO HS [facility] Last Admin: 09/02/17 21:13 Dose: 20 mg Budesonide/Formoterol Fumarate (Symbicort 160/4.5mcg -) 2 puff IH BID [facility] Last Admin: 09/03/17 10:47 Dose: 2 puff Digoxin (Lanoxin -) 0.125 mg PO Q48H [facility] Last Admin: 09/01/17 17:40 Dose: 0.125 mg Diltiazem HCl (Cardizem Cd -) 360 mg PO DAILY [facility] Last Admin: 09/03/17 10:48 Dose: 360 mg Furosemide (Lasix Injection -) 40 mg IVPUSH DAILY [facility] Last Admin: 09/03/17 10:47 Dose: 40 mg Gabapentin (Neurontin -) 200 mg PO BID [facility] Last Admin: 09/03/17 10:47 Dose: 200 mg Glimepiride (Amaryl -) 4 mg PO DAILY@0700 [facility] Last Admin: 09/03/17 06:09 Dose: 4 mg Ceftriaxone Sodium 2 gm/ (Dextrose) 100 mls @ 100 mls/hr IVPB DAILY [facility]; Protocol Last Admin: 09/03/17 10:48 Dose: 100 mls/hr Azithromycin 500 mg/ Dextrose 250 mls @ 250 mls/hr IVPB DAILY [facility] Last Admin: 09/03/17 11:31 Dose: 250 mls/hr Insulin Aspart (Novolog Vial Sliding Scale -) 1 vial SQ [facility]; Protocol Last Admin: 09/03/17 11:32 Dose: 14 units Insulin Detemir (Levemir Vial) 10 units SQ HS [facility] Last Admin: 09/02/17 21:14 Dose: 10 units Levetiracetam (Keppra -) 1,000 mg PO BID [facility] Last Admin: 09/03/17 10:48 Dose: 1,000 mg Metformin HCl (Glucophage -) 500 mg PO BID@0700,1630 [facility] Last Admin: 09/03/17 06:09 Dose: 500 mg Methylprednisolone Sodium Succinate (Solu-Medrol -) 40 mg IVPUSH Q8H-IV [facility] Last Admin: 09/03/17 10:48 Dose: 40 mg Pantoprazole Sodium (Protonix -) 40 mg PO DAILY [facility] Last Admin: 09/03/17 10:48 Dose: 40 mg Sitagliptin Phosphate (Januvia -) 50 mg PO DAILY@0700 [facility] Last Admin: 09/03/17 06:09 Dose: 50 mg Warfarin Sodium (Coumadin -) 3 mg PO DAILY@1800 [facility] Last Admin: 09/02/17 17:04 Dose: 3 mg A/P Acute on Chronic Hypoxic Respiratory Failure Pneumonia Pleural Effusion Acute on Chronic Diastolic Heart Failure Atrial Fibrillation Acute on Chronic Renal Failure h/o Lung Ca s/p RUL lobectomy Obstructive Sleep Apnea DM - continue antibiotics - f/u cultures - continue lasix - monitor urine output, creatinine - O2 to keep SpO2 >90% - rate control - continue anticoagulation - continue medrol - inhaled bronchodilators - if no improvement, may benefit from thoracentesis but will need to be off anticoagulation
[2017-09-03 12:59] LABS: ANISOCYTOSIS 1+; MACROCYTOSIS 1+; OVALOCYTE 1+; PLATELET ESTIMATE NORMAL
--- NOTE | 2017-09-03 13:15 | PN ---
Progress Note (short form) - Note Progress Note: still SOB no cough chest ct noted Vital Signs Period Temp Pulse Resp BP Sys/[place] Pulse Ox Last 24 Hr 97.6 F-98.7 F 65-91 18-18 126-141/46-77 93-97 cor-rrr lungs clear abd soft,nt ext +edema CBC, BMP 09/03/17 09:45 Microbiology 09/01/17 13:45 Blood - Peripheral Venous Blood Culture - Preliminary NO GROWTH OBTAINED AFTER 24 HOURS, INCUBATION TO CONTINUE FOR 4 DAYS. 09/01/17 13:45 Blood - Peripheral Venous Blood Culture - Preliminary NO GROWTH OBTAINED AFTER 24 HOURS, INCUBATION TO CONTINUE FOR 4 DAYS. 09/02/17 11:00 Urine For Antigen Detection Legionella Antigen - Final 09/02/17 11:00 Urine For Antigen Detection Streptococcus pneumoniae Antigen (M - Final a/p Pneumonia pleural effusion COPD exacerbation CHF CKD continue rocephin d/c zithromax Problem List - Problems (1) Pneumonia Code(s): J18.9 - PNEUMONIA, UNSPECIFIED ORGANISM (2) COPD exacerbation Code(s): J44.1 - CHRONIC OBSTRUCTIVE PULMONARY DISEASE W (ACUTE) EXACERBATION (3) Congestive heart failure Code(s): I50.9 - HEART FAILURE, UNSPECIFIED (4) CKD (chronic kidney disease) stage 3, GFR 30-59 ml/min Code(s): N18.3 - CHRONIC KIDNEY DISEASE, STAGE 3 (MODERATE)
[2017-09-03 13:51] LABS: ALBUMIN 2.9 g/dl (3.4-5.0); ANION GAP 13 (8-16); BLOOD UREA NITROGEN 51 mg/dL (7-18); CALCIUM 9.2 mg/dL (8.5-10.1); CHLORIDE 92 mmol/L (98-107); CO2 27 mmol/L (21-32); CREATININE 1.6 mg/dL (0.55-1.02); GLUCOSE,RANDOM 253 mg/dL (74-106); POTASSIUM 4.7 mmol/L (3.5-5.1); SGOT/AST 15 U/L (15-37); SGPT/ALT 24 U/L (12-78); SODIUM 132 mmol/L (136-145)
[2017-09-03 13:52] LABS: ALK PHOS 55 U/L (45-117); BILIRUBIN,TOTAL 0.3 mg/dL (0.2-1.0)
--- NOTE | 2017-09-03 17:03 | PN ---
Progress Note, Physician History of Present Illness: seen and examined today in nad. no sig change today, no new complaints. - Current Medication List Current Medications: Active Medications Acetaminophen (Tylenol -) 650 mg PO Q6H PRN PRN Reason: PAIN OR FEVER Last Admin: 09/03/17 10:51 Dose: 650 mg Albuterol/Ipratropium (Duoneb -) 1 amp NEB Q6H PRN PRN Reason: SHORTNESS OF BREATH Last Admin: 09/03/17 09:29 Dose: 1 amp Allopurinol (Zyloprim -) 100 mg PO DAILY [facility] Last Admin: 09/03/17 10:48 Dose: 100 mg Atorvastatin Calcium (Lipitor -) 20 mg PO HS [facility] Last Admin: 09/02/17 21:13 Dose: 20 mg Budesonide/Formoterol Fumarate (Symbicort 160/4.5mcg -) 2 puff IH BID [facility] Last Admin: 09/03/17 10:47 Dose: 2 puff Digoxin (Lanoxin -) 0.125 mg PO Q48H [facility] Last Admin: 09/01/17 17:40 Dose: 0.125 mg Diltiazem HCl (Cardizem Cd -) 360 mg PO DAILY [facility] Last Admin: 09/03/17 10:48 Dose: 360 mg Furosemide (Lasix Injection -) 40 mg IVPUSH DAILY [facility] Last Admin: 09/03/17 10:47 Dose: 40 mg Gabapentin (Neurontin -) 200 mg PO BID [facility] Last Admin: 09/03/17 10:47 Dose: 200 mg Glimepiride (Amaryl -) 4 mg PO DAILY@0700 [facility] Last Admin: 09/03/17 06:09 Dose: 4 mg Ceftriaxone Sodium 2 gm/ (Dextrose) 100 mls @ 100 mls/hr IVPB DAILY [facility]; Protocol Last Admin: 09/03/17 10:48 Dose: 100 mls/hr Insulin Aspart (Novolog Vial Sliding Scale -) 1 vial SQ [facility]; Protocol Last Admin: 09/03/17 11:32 Dose: 14 units Insulin Detemir (Levemir Vial) 10 units SQ HS [facility] Last Admin: 09/02/17 21:14 Dose: 10 units Levetiracetam (Keppra -) 1,000 mg PO BID [facility] Last Admin: 09/03/17 10:48 Dose: 1,000 mg Metformin HCl (Glucophage -) 500 mg PO BID@0700,1630 [facility] Last Admin: 09/03/17 06:09 Dose: 500 mg Methylprednisolone Sodium Succinate (Solu-Medrol -) 40 mg IVPUSH Q8H-IV [facility] Last Admin: 09/03/17 10:48 Dose: 40 mg Pantoprazole Sodium (Protonix -) 40 mg PO DAILY [facility] Last Admin: 09/03/17 10:48 Dose: 40 mg Sitagliptin Phosphate (Januvia -) 50 mg PO DAILY@0700 [facility] Last Admin: 09/03/17 06:09 Dose: 50 mg Warfarin Sodium (Coumadin -) 3 mg PO DAILY@1800 [facility] Last Admin: 09/02/17 17:04 Dose: 3 mg - Objective Vital Signs: Vital Signs Temperature 98.3 F 09/03/17 14:08 Pulse Rate 86 09/03/17 14:08 Respiratory Rate 24 09/03/17 14:08 Blood Pressure 129/50 09/03/17 14:08 O2 Sat by Pulse Oximetry (%) 93 L 09/03/17 14:21 Constitutional: Yes: No Distress, Calm Eyes: Yes: Conjunctiva Clear, EOM Intact HENT: Yes: Atraumatic, Normocephalic Cardiovascular: Yes: Regular Rate and Rhythm, S1, S2. No: Bradycardia, Tachycardia, Pulse Irregular, Bruit, JVD, Gallop, Murmur, Rub, S3, S4, Varicosities Respiratory: Yes: Regular, Diminished, On Nasal O2, Rhonchi. No: Rales, SOB, Wheezes Gastrointestinal: Yes: Normal Bowel Sounds, Soft. No: Distention, Tenderness Edema: Yes Edema: LLE: Trace, RLE: Trace Peripheral Pulses WNL: Yes Neurological: Yes: Alert, Oriented Psychiatric: Yes: Alert, Oriented Labs: CBC, BMP 09/03/17 09:45 09/03/17 10:00 INR, PTT INR 1.96 (0.82-1.09) H 09/03/17 07:30 - ....Imaging Chest X-ray: Report Reviewed, Image Reviewed EKG: Report Reviewed, Image Reviewed Other: Report Reviewed, Image Reviewed Assessment/Plan 76 year old woman pmh atrial fibrillation on coumadin, EVARISTO on cpap and home O2, HTN, HL, DM, seizure, GERD, lung CA s/p left upper lobectomy and chemotherapy admitted for SOB. Pt seen and examined today in nad. states she has not been feeling well for a few days, has had increasing sob. denies fever or chills. no chest pain, no cough until after admission when she developed a dry cough. Feeling slightly better since admission. Follows with Dr. Arceo as outpatient. ECHO 01/2017-TDS, unable to accurately assess LV, probably low normal or mildly reduced, mod MR echo 07/2015: nl lv/rv, mod israel, mod phtn, no sig valve path SOB-likely multifactorial due to Evaristo, copd home O2, lung Ca s/p lobectomy, PNA, likely component of mild acute on chronic diastolic CHF -pleural effusion on CT chest -PNA/COPD management per pulm/PMD -cont Lasix for now however unlikely to resolve pleural effusion and BUN/creat trending up slightly suggesting possible intravascular depletion developing, monitor bun/creat, electrolytes and if bun/creat cont to trend up would change lasix back to po -may need thoracentesis -monitor I/Os, daily weights, electrolytes and replete as needed Atrial fibrillation-chronic, HR controlled -cont home rate control agents cardizem and dig -close monitoring of dig as outpt given GREG on likely CKD -dose warfarin for INR 2-3, unless needs to be held for thoracentesis
[2017-09-03] MEDS: DIGOXIN 0.125 MG TABLET (FP) PO SCH (17:20)
[2017-09-03] MEDS: WARFARIN NA 3 MG TABLET PO SCH (17:20)
[2017-09-03] MEDS: ATORVASTATIN CA 20 MG TABLET (FP) PO SCH (21:28)
[2017-09-03] MEDS: INSULIN (LEVEMIR) 100 UNITS/ML UNITS SQ SCH (21:28)
--- NOTE | 2017-09-04 00:31 | CONSULT ---
Consult Consult Specialty:: endocrine Referred by:: dr.annabi garcía Reason for Consultation:: diabetes mellitus - History of Present Illness Chief Complaint: shortness of breath, and high sugars History of Present Illness: 76 yo with h/o known atrial fibrillation on coumadin, NOLBERTO on cpap and 2L o2 at home, copd, HTN, HL, DM, seizure, GERD, lung CA s/p left upper lobectomy and chemotherapy who was admitted for SOB.high sugars,frequent episodes of high sugars despite eating well,has refused insulin therapy at home,taking only pills. Patient complains that she has had a cold the past few days but last night she had really difficulty catching her breath in spite of the Bipap. Since this morning the dyspnea is on and off. 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 Cardio/Vascular: Yes: AFIB, CHF, HTN, Hyperlipdemia Pulmonary: Yes: Bronchitis, Cancer, COPD, O2 Dependent, Sleep Apnea Gastrointestinal: Yes: GERD ...: No Endocrine: Yes: Diabetes Mellitus Additional Medical History: right shoulder fracture - Past Surgical History Past Surgical History: Yes: Appendectomy (age 16), Joint Replacement (bilateral) Additional Surgical History: Lariat procedure - Alcohol/Substance Use Hx Alcohol Use: No History of Substance Use: reports: None - Smoking History Smoking history: Former smoker Have you smoked in the past 12 months: No Aproximately how many cigarettes per day: 0 If you are a former smoker, when did you quit?: 40 yrs ago - Social History Usual Living Arrangement: With Child ADL: Independent History of Recent Travel: No Home Medications - Allergies Allergies/Adverse Reactions: Allergies Allergy/AdvReac Type Severity Reaction Status Date / Time Opioids - Morphine Analogues Allergy Intermediate Vomiting Verified 09/01/17 10: 11 [Opioids-Morphine & Related] adhesive tape Allergy Mild Rash Verified 09/01/17 10:11 Penicillins Allergy Verified 09/01/17 10:11 - Home Medications Home Medications: Ambulatory Orders Atorvastatin Ca [Lipitor] 20 mg PO HS 08/08/15 Digoxin [Lanoxin -] 0.125 mg PO Q48H 08/08/15 Diltiazem Cd [Cardizem Cd -] 360 mg PO DAILY 08/08/15 Gabapentin [Neurontin -] 200 mg PO BID 08/08/15 Tiotropium [place] [Spiriva] 1 inh PO DAILY 08/08/15 levETIRAcetam [Keppra -] 1,000 mg PO BID 08/08/15 Allopurinol [Zyloprim -] 100 mg PO DAILY 02/02/17 Lansoprazole [Prevacid] 30 mg PO DAILY 02/02/17 Losartan Potassium 50 mg PO DAILY 02/02/17 Furosemide [Lasix -] 80 mg PO DAILY 08/06/17 Glimepiride [Amaryl -] 2 mg PO HS 08/06/17 Glimepiride [Amaryl -] 4 mg PO AM 08/06/17 Multivit-Min/FA/Lycopen/Lutein [Centrum Silver Tablet] 1 each PO DAILY 08/06/17 Sitagliptin Phos/Metformin HCl [Janumet Xr 50-1,000 mg Tablet] 1 each PO DAILY 08/06/17 Warfarin Sodium [Coumadin] 2.5 mg PO DAILY 08/06/17 Albuterol Sulfate [Proair Respiclick] 90 mcg IH DAILY 09/01/17 Budesonide/Formeterol Fumarate [SYMBICORT 160/4.5mcg -] 2 inh PO DAILY 09/01/17 Review of Systems - Review of Systems Constitutional: reports: Lethargy, Loss of Appetite, Weakness Eyes: reports: Blurred Vision HENT: reports: No Symptoms Neck: reports: No Symptoms Cardiovascular: reports: Edema, Shortness of Breath Respiratory: reports: Cough, Exercise Intolerance, SOB, SOB on Exertion Gastrointestinal: reports: Bloating, Constipation Genitourinary: reports: No Symptoms Breasts: reports: No Symptoms Reported Musculoskeletal: reports: Muscle Pain Integumentary: reports: No Symptoms Neurological: reports: Numbness, Unsteady Gait, Weakness Physical Exam Vital Signs: Vital Signs Temperature 97.4 F L 09/03/17 20:56 Pulse Rate 70 09/03/17 20:56 Respiratory Rate 22 09/03/17 20:56 Blood Pressure 133/73 09/03/17 20:56 O2 Sat by Pulse Oximetry (%) 97 09/03/17 22:34 Constitutional: Yes: Anxious Eyes: Yes: EOM Intact HENT: Yes: Normocephalic Neck: Yes: Trachea Midline Cardiovascular: Yes: Tachycardia Respiratory: Yes: Diminished, Dullness, Rhonchi, SOB Gastrointestinal: Yes: Normal Bowel Sounds ...Rectal Exam: Yes: Deferred Renal/: Yes: WNL Extremities: Yes: Delayed Capillary Refill, Erythema Neurological: Yes: Alert, Oriented Labs: CBC, BMP 09/03/17 09:45 09/03/17 10:00 Problem List - Problems (1) Type 2 diabetes mellitus with diabetic dermatitis Code(s): E11.620 - TYPE 2 DIABETES MELLITUS WITH DIABETIC DERMATITIS (2) Acute on chronic respiratory failure with hypoxia and hypercapnia Code(s): J96.21 - ACUTE AND CHRONIC RESPIRATORY FAILURE WITH HYPOXIA; J96.22 - ACUTE AND CHRONIC RESPIRATORY FAILURE WITH HYPERCAPNIA (3) Lung cancer Code(s): C34.90 - MALIGNANT NEOPLASM OF UNSP PART OF UNSP BRONCHUS OR LUNG (4) Pneumonia Code(s): J18.9 - PNEUMONIA, UNSPECIFIED ORGANISM (5) Acute decompensated heart failure Code(s): I50.9 - HEART FAILURE, UNSPECIFIED (6) Acute hypoxemic respiratory failure Code(s): J96.01 - ACUTE RESPIRATORY FAILURE WITH HYPOXIA (7) Acute renal failure Code(s): N17.9 - ACUTE KIDNEY FAILURE, UNSPECIFIED (8) Atrial fibrillation Code(s): I48.91 - UNSPECIFIED ATRIAL FIBRILLATION Assessment/Plan Current Active Problems Acute on chronic respiratory failure with hypoxia and hypercapnia (Acute) Lung cancer (Acute) Pneumonia (Acute) diabetes mellitus hyperglycemia pleural effusion chf ashd afib Abnormal Lab Results 09/03/17 09/03/17 09/03/17 07:30 09:45 10:00 WBC 19.6 H D Hgb 9.9 L Hct 31.1 L MCV 79.3 L MCH 25.2 L MCHC 31.8 L RDW 17.8 H Neutrophils % 94.7 H Neutrophils % (Manual) 97.0 H Lymphocytes % 3.9 L D Lymphocytes % (Manual) 2.0 L Monocytes % 1.3 L D Monocytes % (Manual) 0 L PT with INR 22.20 H INR 1.96 H Sodium 132 L Chloride 92 L BUN 51 H Creatinine 1.6 H Random Glucose 253 H Albumin 2.9 L Laboratory Results - last 24 hr 09/03/17 09/03/17 09/03/17 05:25 07:30 07:30 WBC RBC Hgb Hct MCV MCH MCHC RDW Plt Count MPV Absolute Neuts (auto) Neutrophils % Neutrophils % (Manual) Band Neutrophils % Lymphocytes % Lymphocytes % (Manual) Monocytes % Monocytes % (Manual) Eosinophils % Eosinophils % (Manual) Basophils % Basophils % (Manual) Myelocytes % (Man) Promyelocytes % (Man) Blast Cells % (Manual) Nucleated RBC % Metamyelocytes Platelet Estimate Anisocytosis Microcytosis Macrocytosis Ovalocytes PT with INR 22.20 H INR 1.96 H Sodium Potassium Chloride Carbon Dioxide Anion Gap BUN Creatinine Creat Clearance w eGFR POC Glucometer 287 Random Glucose Calcium Total Bilirubin AST ALT Alkaline Phosphatase Total Protein Albumin Digoxin 1.19 09/03/17 09/03/17 09/03/17 09:45 10:00 11:32 WBC 19.6 H D RBC 3.92 Hgb 9.9 L Hct 31.1 L MCV 79.3 L MCH 25.2 L MCHC 31.8 L RDW 17.8 H Plt Count 409 D MPV 8.3 Absolute Neuts (auto) 18.6 Neutrophils % 94.7 H Neutrophils % (Manual) 97.0 H Band Neutrophils % 0.0 Lymphocytes % 3.9 L D Lymphocytes % (Manual) 2.0 L Monocytes % 1.3 L D Monocytes % (Manual) 0 L Eosinophils % 0.0 D Eosinophils % (Manual) 0.0 Basophils % 0.1 Basophils % (Manual) 0.0 Myelocytes % (Man) 0 Promyelocytes % (Man) 0 Blast Cells % (Manual) 0 Nucleated RBC % 0 Metamyelocytes 0 Platelet Estimate Normal Anisocytosis 1+ Microcytosis 1+ Macrocytosis 1+ Ovalocytes 1+ PT with INR INR Sodium 132 L Potassium 4.7 Chloride 92 L Carbon Dioxide 27 Anion Gap 13 BUN 51 H Creatinine 1.6 H Creat Clearance w eGFR 31.26 POC Glucometer 366 Random Glucose 253 H Calcium 9.2 Total Bilirubin 0.3 AST 15 ALT 24 Alkaline Phosphatase 55 Total Protein 7.0 Albumin 2.9 L Digoxin 09/03/17 09/03/17 17:18 21:26 WBC RBC Hgb Hct MCV MCH MCHC RDW Plt Count MPV Absolute Neuts (auto) Neutrophils % Neutrophils % (Manual) Band Neutrophils % Lymphocytes % Lymphocytes % (Manual) Monocytes % Monocytes % (Manual) Eosinophils % Eosinophils % (Manual) Basophils % Basophils % (Manual) Myelocytes % (Man) Promyelocytes % (Man) Blast Cells % (Manual) Nucleated RBC % Metamyelocytes Platelet Estimate Anisocytosis Microcytosis Macrocytosis Ovalocytes PT with INR INR Sodium Potassium Chloride Carbon Dioxide Anion Gap BUN Creatinine Creat Clearance w eGFR POC Glucometer 296 287 Random Glucose Calcium Total Bilirubin AST ALT Alkaline Phosphatase Total Protein Albumin Digoxin plan: bgm qid novolog insulin doses levemir 25 am levemir 20 units hs amaryl 4 mg daily januvia 50mg daily Laboratory Tests 09/03/17 09/03/17 09/03/17 11:32 17:18 21:26 POC Glucometer 366 296 764
[2017-09-04] MEDS: INSULIN (LEVEMIR) 100 UNITS/ML UNITS SQ SCH ×3 (00:45→21:45)
[2017-09-04] MEDS: methylPREDNISolone NA SUCC 40 MG/1 ML VIAL IVPUSH SCH ×3 (02:02→21:42)
[2017-09-04] MEDS: INSULIN SLIDING SCALE (NOVOLOG) 1 VIAL SQ SCH ×4 (06:01→21:43)
[2017-09-04] MEDS: GLIMEPIRIDE 4 MG TABLET (FP) PO SCH (06:58)
[2017-09-04] MEDS: metFORMIN HCL 500 MG TABLET (FP) PO SCH ×3 (06:59→17:26)
[2017-09-04] MEDS: sitaGLIPtin PHOSPHATE 50 MG TABLET PO SCH (06:59)
[2017-09-04] MEDS: ALBUTEROL SO4 2.5/IPRATROPIUM 0.5 INH SOL 3 ML VIAL.NEB. NEB PRN ×2 (08:00→21:33)
[2017-09-04 08:56] LABS: ALBUMIN 2.7 g/dl (3.4-5.0); ALK PHOS 43 U/L (45-117); ANION GAP 13 (8-16); BILIRUBIN,TOTAL 0.2 mg/dL (0.2-1.0); BLOOD UREA NITROGEN 56 mg/dL (7-18); CALCIUM 8.8 mg/dL (8.5-10.1); CHLORIDE 93 mmol/L (98-107); CO2 25 mmol/L (21-32); CREATININE 1.5 mg/dL (0.55-1.02); GLUCOSE,RANDOM 252 mg/dL (74-106); POTASSIUM 4.8 mmol/L (3.5-5.1); SGOT/AST 17 U/L (15-37); SGPT/ALT 22 U/L (12-78); SODIUM 131 mmol/L (136-145); TOT PROT 6.6 g/dl (6.4-8.2)
[2017-09-04 09:02] LABS: BASO % 0.1 % (0-2.0); HEMATOCRIT 30.6 % (32.4-45.2); HEMOGLOBIN 9.9 GM/dL (10.7-15.3); LYMPH % 3.6 % (8-40); MCH 25.6 pg (25.7-33.7); MCHC 32.3 g/dl (32.0-36.0); MEAN PLT VOLUME 8.4 fl (7.5-11.1); MONO % 1.3 % (3.8-10.2); PLATELET COUNT 418 K/MM3 (134-434); RBC 3.87 M/mm3 (3.60-5.2); RDW 18.1 % (11.6-15.6); WHITE BLOOD COUNT 12.7 K/mm3 (4.0-10.0)
[2017-09-04 09:05] LABS: INR 2.19 (0.82-1.09); PROTHROMBIN TIME (PATIENT) 24.7 SEC (9.7-13.0)
[2017-09-04] MEDS ORDERED: DEXTROSE 5%-WATER 100 ML IVPB ONE (09:11)
--- NOTE | 2017-09-04 09:40 | PN ---
Progress Note, Physician - Current Medication List Current Medications: Active Medications Acetaminophen (Tylenol -) 650 mg PO Q6H PRN PRN Reason: PAIN OR FEVER Last Admin: 09/03/17 10:51 Dose: 650 mg Albuterol/Ipratropium (Duoneb -) 1 amp NEB Q6H PRN PRN Reason: SHORTNESS OF BREATH Last Admin: 09/03/17 09:29 Dose: 1 amp Allopurinol (Zyloprim -) 100 mg PO DAILY [facility] Last Admin: 09/03/17 10:48 Dose: 100 mg Atorvastatin Calcium (Lipitor -) 20 mg PO HS [facility] Last Admin: 09/03/17 21:28 Dose: 20 mg Budesonide/Formoterol Fumarate (Symbicort 160/4.5mcg -) 2 puff IH BID [facility] Last Admin: 09/03/17 21:28 Dose: 2 puff Digoxin (Lanoxin -) 0.125 mg PO Q48H [facility] Last Admin: 09/03/17 17:20 Dose: 0.125 mg Diltiazem HCl (Cardizem Cd -) 360 mg PO DAILY [facility] Last Admin: 09/03/17 10:48 Dose: 360 mg Furosemide (Lasix Injection -) 40 mg IVPUSH DAILY [facility] Last Admin: 09/03/17 10:47 Dose: 40 mg Gabapentin (Neurontin -) 200 mg PO BID [facility] Last Admin: 09/03/17 21:28 Dose: 200 mg Glimepiride (Amaryl -) 4 mg PO DAILY@0700 [facility] Last Admin: 09/03/17 06:09 Dose: 4 mg Ceftriaxone Sodium 2 gm/ (Dextrose) 100 mls @ 100 mls/hr IVPB DAILY [facility]; Protocol Last Admin: 09/03/17 10:48 Dose: 100 mls/hr Insulin Aspart (Novolog Vial Sliding Scale -) 1 vial SQ [facility]; Protocol Last Admin: 09/03/17 21:27 Dose: 8 units Insulin Detemir (Levemir Vial) 20 units SQ HS [facility] Insulin Detemir (Levemir Vial) 25 units SQ AM [facility] Levetiracetam (Keppra -) 1,000 mg PO BID [facility] Last Admin: 09/03/17 21:28 Dose: 1,000 mg Metformin HCl (Glucophage -) 500 mg PO BID@0700,1630 [facility] Last Admin: 09/03/17 17:20 Dose: 500 mg Methylprednisolone Sodium Succinate (Solu-Medrol -) 40 mg IVPUSH Q8H-IV [facility] Last Admin: 09/03/17 17:19 Dose: 40 mg Pantoprazole Sodium (Protonix -) 40 mg PO DAILY [facility] Last Admin: 09/03/17 10:48 Dose: 40 mg Sitagliptin Phosphate (Januvia -) 50 mg PO DAILY@0700 [facility] Last Admin: 09/03/17 06:09 Dose: 50 mg Warfarin Sodium (Coumadin -) 3 mg PO DAILY@1800 [facility] Last Admin: 09/03/17 17:20 Dose: 3 mg - Objective Vital Signs: Vital Signs Temperature 97.4 F L 09/03/17 20:56 Pulse Rate 70 09/03/17 20:56 Respiratory Rate 22 09/03/17 21:00 Blood Pressure 133/73 09/03/17 20:56 O2 Sat by Pulse Oximetry (%) 97 09/03/17 22:34 Cardiovascular: Yes: S1, S2 Respiratory: Yes: Rales Gastrointestinal: Yes: Normal Bowel Sounds, Soft Labs: CBC, BMP 09/03/17 09:45 09/03/17 10:00 INR, PTT INR 1.96 (0.82-1.09) H 09/03/17 07:30 Problem List - Problems (1) Pneumonia Assessment/Plan: -IV Abx per ID -Follow labs Code(s): J18.9 - PNEUMONIA, UNSPECIFIED ORGANISM (2) Atrial fibrillation Assessment/Plan: -On coumadin -Follow INR Code(s): I48.91 - UNSPECIFIED ATRIAL FIBRILLATION (3) CKD (chronic kidney disease) stage 3, GFR 30-59 ml/min Assessment/Plan: -Renal on board Code(s): N18.3 - CHRONIC KIDNEY DISEASE, STAGE 3 (MODERATE) (4) COPD (chronic obstructive pulmonary disease) Assessment/Plan: _Nebs _steroids -pulm Code(s): J44.9 - CHRONIC OBSTRUCTIVE PULMONARY DISEASE, UNSPECIFIED (5) Congestive heart failure Assessment/Plan: -Iv Lasix -Monitor labs/wt and cxr -cardio Code(s): I50.9 - HEART FAILURE, UNSPECIFIED (6) Diabetes mellitus Assessment/Plan: -monitor bgm -endo Code(s): E11.9 - TYPE 2 DIABETES MELLITUS WITHOUT COMPLICATIONS
[2017-09-04] MEDS: levETIRAcetam 500 MG TABLET (FP) PO SCH ×2 (10:44→21:42)
[2017-09-04] MEDS: PANTOPRAZOLE 40 MG TABLET (FP) PO SCH (10:45)
[2017-09-04] MEDS: FUROSEMIDE 40 MG/4 ML INJECTABLE VIAL IVPUSH SCH (10:45)
[2017-09-04] MEDS: ALLOPURINOL 100 MG TABLET (FP) PO SCH (10:45)
[2017-09-04] MEDS: GABAPENTIN 100 MG CAPSULE (FP) PO SCH ×2 (10:46→21:42)
[2017-09-04] MEDS: BUDESONIDE/FORMETEROL FUMARATE 160/4.5 mcg INHALER IH SCH ×2 (10:47→21:42)
[2017-09-04] MEDS: CEFTRIAXONE 2 GM in DEXTROSE 5%-WATER 100 ML IVPB SCH (10:47)
--- NOTE | 2017-09-04 11:13 | EKG ---
Test Reason : Blood Pressure : / mmHG Vent. Rate : 080 BPM Atrial Rate : 042 BPM P-R Int : 000 ms QRS Dur : 084 ms QT Int : 352 ms P-R-T Axes : 000 -30 082 degrees QTc Int : 405 ms ATRIAL FIBRILLATION LEFT AXIS DEVIATION LOW VOLTAGE QRS INFERIOR INFARCT , AGE UNDETERMINED CANNOT RULE OUT ANTEROSEPTAL INFARCT (CITED ON OR BEFORE 17-MAY-2007) ABNORMAL ECG WHEN COMPARED WITH ECG OF 01-SEP-2017 10:46, NO SIGNIFICANT CHANGE WAS FOUND Confirmed by ASHWIN ELIZABETH MD ([id number]) on 09/04/2017 11:12:39 AM Referred By: EUNICE MATTSON DR Confirmed By:ASHWIN ELIZABETH MD
--- NOTE | 2017-09-04 11:44 | PN ---
Progress Note (short form) - Note Progress Note: Reported left sided CP this AM, which is now better. Labs ordered for assessment. SOB slightly better. Used NIPPV overnight. Intake & Output 09/01/17 09/02/17 09/03/17 09/04/17 23:59 23:59 23:59 23:59 Intake Total 240 800 940 Output Total 400 Balance 240 400 940 Weight 231 lb 0.9 oz Last Vital Signs Temp Pulse Resp BP Pulse Ox 97.4 F L 70 22 133/73 97 09/03/17 20:56 09/03/17 20:56 09/03/17 21:00 09/03/17 20:56 09/03/17 22:34 Active Medications Acetaminophen (Tylenol -) 650 mg PO Q6H PRN PRN Reason: PAIN OR FEVER Last Admin: 09/03/17 10:51 Dose: 650 mg Albuterol/Ipratropium (Duoneb -) 1 amp NEB Q6H PRN PRN Reason: SHORTNESS OF BREATH Last Admin: 09/04/17 08:00 Dose: 1 amp Allopurinol (Zyloprim -) 100 mg PO DAILY [facility] Last Admin: 09/04/17 10:45 Dose: 100 mg Atorvastatin Calcium (Lipitor -) 20 mg PO HS [facility] Last Admin: 09/03/17 21:28 Dose: 20 mg Budesonide/Formoterol Fumarate (Symbicort 160/4.5mcg -) 2 puff IH BID [facility] Last Admin: 09/04/17 10:47 Dose: 2 puff Digoxin (Lanoxin -) 0.125 mg PO Q48H [facility] Last Admin: 09/03/17 17:20 Dose: 0.125 mg Diltiazem HCl (Cardizem Cd -) 360 mg PO DAILY [facility] Last Admin: 09/04/17 10:44 Dose: 360 mg Furosemide (Lasix Injection -) 40 mg IVPUSH DAILY [facility] Last Admin: 09/04/17 10:45 Dose: 40 mg Gabapentin (Neurontin -) 200 mg PO BID [facility] Last Admin: 09/04/17 10:46 Dose: 200 mg Glimepiride (Amaryl -) 4 mg PO DAILY@0700 [facility] Last Admin: 09/03/17 06:09 Dose: 4 mg Ceftriaxone Sodium 2 gm/ (Dextrose) 100 mls @ 100 mls/hr IVPB DAILY [facility]; Protocol Last Admin: 09/04/17 10:47 Dose: 100 mls/hr Insulin Aspart (Novolog Vial Sliding Scale -) 1 vial SQ ACHS [facility]; Protocol Last Admin: 09/04/17 10:42 Dose: 8 units Insulin Detemir (Levemir Vial) 20 units SQ HS [facility] Insulin Detemir (Levemir Vial) 25 units SQ [facility] Levetiracetam (Keppra -) 1,000 mg PO BID [facility] Last Admin: 09/04/17 10:44 Dose: 1,000 mg Metformin HCl (Glucophage -) 500 mg PO BID@0700,1630 [facility] Last Admin: 09/03/17 17:20 Dose: 500 mg Methylprednisolone Sodium Succinate (Solu-Medrol -) 40 mg IVPUSH Q8H-IV [facility] Last Admin: 09/04/17 10:46 Dose: 40 mg Pantoprazole Sodium (Protonix -) 40 mg PO DAILY [facility] Last Admin: 09/04/17 10:45 Dose: 40 mg Sitagliptin Phosphate (Januvia -) 50 mg PO DAILY@0700 [facility] Last Admin: 09/03/17 06:09 Dose: 50 mg Warfarin Sodium (Coumadin -) 3 mg PO DAILY@1800 [facility] Last Admin: 09/03/17 17:20 Dose: 3 mg Gen: mildly tachypneic at rest Heart: RRR Lung: decreased breath sounds right base Abd: soft, nontender Ext: + edema Laboratory Results - last 24 hr 09/03/17 09/03/17 09/03/17 09:45 10:00 11:32 WBC RBC Hgb Hct MCV MCH MCHC RDW Plt Count MPV Absolute Neuts (auto) Neutrophils % Neutrophils % (Manual) 97.0 H Band Neutrophils % 0.0 Lymphocytes % Lymphocytes % (Manual) 2.0 L Monocytes % Monocytes % (Manual) 0 L Eosinophils % Eosinophils % (Manual) 0.0 Basophils % Basophils % (Manual) 0.0 Myelocytes % (Man) 0 Promyelocytes % (Man) 0 Blast Cells % (Manual) 0 Nucleated RBC % Metamyelocytes 0 Platelet Estimate Normal Anisocytosis 1+ Microcytosis 1+ Macrocytosis 1+ Ovalocytes 1+ PT with INR INR Sodium 132 L Potassium 4.7 Chloride 92 L Carbon Dioxide 27 Anion Gap 13 BUN 51 H Creatinine 1.6 H Creat Clearance w eGFR 31.26 POC Glucometer 366 Random Glucose 253 H Calcium 9.2 Total Bilirubin 0.3 AST 15 ALT 24 Alkaline Phosphatase 55 Total Protein 7.0 Albumin 2.9 L 09/03/1718 09/04/17 17:18 21:26 06:00 WBC 12.7 H D RBC 3.87 Hgb 9.9 L Hct 30.6 L MCV 79.0 L MCH 25.6 L MCHC 32.3 RDW 18.1 H Plt Count 418 MPV 8.4 Absolute Neuts (auto) 12.1 Neutrophils % 95.0 H Neutrophils % (Manual) Band Neutrophils % Lymphocytes % 3.6 L Lymphocytes % (Manual) Monocytes % 1.3 L Monocytes % (Manual) Eosinophils % 0.0 Eosinophils % (Manual) Basophils % 0.1 Basophils % (Manual) Myelocytes % (Man) Promyelocytes % (Man) Blast Cells % (Manual) Nucleated RBC % 0 Metamyelocytes Platelet Estimate Anisocytosis Microcytosis Macrocytosis Ovalocytes PT with INR INR Sodium Potassium Chloride Carbon Dioxide Anion Gap BUN Creatinine Creat Clearance w eGFR POC Glucometer 296 287 Random Glucose Calcium Total Bilirubin AST ALT Alkaline Phosphatase Total Protein Albumin 09/04/17 09/04/17 09/04/17 06:20 06:20 06:37 WBC RBC Hgb Hct MCV MCH MCHC RDW Plt Count MPV Absolute Neuts (auto) Neutrophils % Neutrophils % (Manual) Band Neutrophils % Lymphocytes % Lymphocytes % (Manual) Monocytes % Monocytes % (Manual) Eosinophils % Eosinophils % (Manual) Basophils % Basophils % (Manual) Myelocytes % (Man) Promyelocytes % (Man) Blast Cells % (Manual) Nucleated RBC % Metamyelocytes Platelet Estimate Anisocytosis Microcytosis Macrocytosis Ovalocytes PT with INR 24.70 H INR 2.19 H Sodium 131 L Potassium 4.8 Chloride 93 L Carbon Dioxide 25 Anion Gap 13 BUN 56 H Creatinine 1.5 H Creat Clearance w eGFR 33.67 POC Glucometer 268 Random Glucose 252 H Calcium 8.8 Total Bilirubin 0.2 D AST 17 ALT 22 Alkaline Phosphatase 43 L Total Protein 6.6 Albumin 2.7 L 09/04/17 09:23 WBC RBC Hgb Hct MCV MCH MCHC RDW Plt Count MPV Absolute Neuts (auto) Neutrophils % Neutrophils % (Manual) Band Neutrophils % Lymphocytes % Lymphocytes % (Manual) Monocytes % Monocytes % (Manual) Eosinophils % Eosinophils % (Manual) Basophils % Basophils % (Manual) Myelocytes % (Man) Promyelocytes % (Man) Blast Cells % (Manual) Nucleated RBC % Metamyelocytes Platelet Estimate Anisocytosis Microcytosis Macrocytosis Ovalocytes PT with INR INR Sodium Potassium Chloride Carbon Dioxide Anion Gap BUN Creatinine Creat Clearance w eGFR POC Glucometer 317 Random Glucose Calcium Total Bilirubin AST ALT Alkaline Phosphatase Total Protein Albumin A/P Acute on Chronic Hypoxic Respiratory Failure Pneumonia Pleural Effusion Acute on Chronic Diastolic Heart Failure Atrial Fibrillation Acute on Chronic Renal Failure h/o Lung Ca s/p RUL lobectomy Obstructive Sleep Apnea DM - ABX per ID - Lasix - O2 to keep SpO2 >90% - rate control - Anticoagulation - Medrol - inhaled bronchodilators - if no improvement, may benefit from thoracentesis but will need to be off anticoagulation prior to procedure - NIPPV QHS & PRN Dr Forte
[2017-09-04 11:58] LABS: BASO % 0.1 % (0-2.0); HEMATOCRIT 31.1 % (32.4-45.2); LYMPH % 3.1 % (8-40); MCH 25.5 pg (25.7-33.7); MCHC 32.1 g/dl (32.0-36.0); MEAN CELL VOLUME 79.4 fl (80-96); MEAN PLT VOLUME 8.1 fl (7.5-11.1); MONO % 1.7 % (3.8-10.2); NEUT % 95.1 % (42.8-82.8); PLATELET COUNT 409 K/MM3 (134-434); RBC 3.91 M/mm3 (3.60-5.2); WHITE BLOOD COUNT 12.2 K/mm3 (4.0-10.0)
--- NOTE | 2017-09-04 12:17 | PN ---
Progress Note, Physician Chief Complaint: The patient seen in her room. Two sons with her. Cough better. Maintains good urine output. No shortness of breath. History of Present Illness: x - Current Medication List Current Medications: Active Medications Acetaminophen (Tylenol -) 650 mg PO Q6H PRN PRN Reason: PAIN OR FEVER Last Admin: 09/03/17 10:51 Dose: 650 mg Albuterol/Ipratropium (Duoneb -) 1 amp NEB Q6H PRN PRN Reason: SHORTNESS OF BREATH Last Admin: 09/04/17 08:00 Dose: 1 amp Allopurinol (Zyloprim -) 100 mg PO DAILY [facility] Last Admin: 09/04/17 10:45 Dose: 100 mg Atorvastatin Calcium (Lipitor -) 20 mg PO HS [facility] Last Admin: 09/03/17 21:28 Dose: 20 mg Budesonide/Formoterol Fumarate (Symbicort 160/4.5mcg -) 2 puff IH BID [facility] Last Admin: 09/04/17 10:47 Dose: 2 puff Digoxin (Lanoxin -) 0.125 mg PO Q48H [facility] Last Admin: 09/03/17 17:20 Dose: 0.125 mg Diltiazem HCl (Cardizem Cd -) 360 mg PO DAILY [facility] Last Admin: 09/04/17 10:44 Dose: 360 mg Furosemide (Lasix Injection -) 40 mg IVPUSH DAILY [facility] Last Admin: 09/04/17 10:45 Dose: 40 mg Gabapentin (Neurontin -) 200 mg PO BID [facility] Last Admin: 09/04/17 10:46 Dose: 200 mg Glimepiride (Amaryl -) 4 mg PO DAILY@0700 [facility] Last Admin: 09/03/17 06:09 Dose: 4 mg Ceftriaxone Sodium 2 gm/ (Dextrose) 100 mls @ 100 mls/hr IVPB DAILY [facility]; Protocol Last Admin: 09/04/17 10:47 Dose: 100 mls/hr Insulin Aspart (Novolog Vial Sliding Scale -) 1 vial SQ [facility]; Protocol Last Admin: 09/04/17 10:42 Dose: 8 units Insulin Detemir (Levemir Vial) 20 units SQ HS [facility] Insulin Detemir (Levemir Vial) 25 units SQ AM [facility] Levetiracetam (Keppra -) 1,000 mg PO BID [facility] Last Admin: 09/04/17 10:44 Dose: 1,000 mg Metformin HCl (Glucophage -) 500 mg PO BID@0700,1630 [facility] Last Admin: 09/03/17 17:20 Dose: 500 mg Methylprednisolone Sodium Succinate (Solu-Medrol -) 40 mg IVPUSH Q8H-IV [facility] Last Admin: 09/04/17 10:46 Dose: 40 mg Pantoprazole Sodium (Protonix -) 40 mg PO DAILY [facility] Last Admin: 09/04/17 10:45 Dose: 40 mg Sitagliptin Phosphate (Januvia -) 50 mg PO DAILY@0700 [facility] Last Admin: 09/03/17 06:09 Dose: 50 mg Warfarin Sodium (Coumadin -) 3 mg PO DAILY@1800 [facility] Last Admin: 09/03/17 17:20 Dose: 3 mg - Objective Vital Signs: Vital Signs Temperature 97.4 F L 09/03/17 20:56 Pulse Rate 70 09/03/17 20:56 Respiratory Rate 22 09/03/17 21:00 Blood Pressure 133/73 09/03/17 20:56 O2 Sat by Pulse Oximetry (%) 97 09/03/17 22:34 Constitutional: Yes: Well Nourished, Anxious Eyes: Yes: Conjunctiva Clear HENT: Yes: Normocephalic Neck: Yes: Trachea Midline Cardiovascular: Yes: S1, S2 Respiratory: Yes: CTA Bilaterally, Diminished, Poor Air Entry Gastrointestinal: Yes: Normal Bowel Sounds, Abdomen, Obese Genitourinary: No: Bladder Distention, CVA Tenderness - Left, CVA Tenderness - Right Edema: LLE: Trace, RLE: Trace Neurological: Yes: Alert, Oriented Labs: CBC, BMP 09/04/17 11:35 INR, PTT INR 2.19 (0.82-1.09) H 09/04/17 06:20 Problem List - Problems (1) Lung cancer Code(s): C34.90 - MALIGNANT NEOPLASM OF UNSP PART OF UNSP BRONCHUS OR LUNG (2) Pneumonia Code(s): J18.9 - PNEUMONIA, UNSPECIFIED ORGANISM (3) Acute renal failure Code(s): N17.9 - ACUTE KIDNEY FAILURE, UNSPECIFIED (4) Atrial fibrillation Code(s): I48.91 - UNSPECIFIED ATRIAL FIBRILLATION (5) CKD (chronic kidney disease) stage 3, GFR 30-59 ml/min Code(s): N18.3 - CHRONIC KIDNEY DISEASE, STAGE 3 (MODERATE) (6) COPD exacerbation Code(s): J44.1 - CHRONIC OBSTRUCTIVE PULMONARY DISEASE W (ACUTE) EXACERBATION (7) Congestive heart failure Code(s): I50.9 - HEART FAILURE, UNSPECIFIED (8) Diabetes mellitus Code(s): E11.9 - TYPE 2 DIABETES MELLITUS WITHOUT COMPLICATIONS (9) Seizure Code(s): R56.9 - UNSPECIFIED CONVULSIONS (10) Shortness of breath Code(s): R06.02 - SHORTNESS OF BREATH (11) Sleep apnea Code(s): G47.30 - SLEEP APNEA, UNSPECIFIED Assessment/Plan 76 yo with h/o known Atrial fibrillation on Coumadin, on CPAP and 2L O2 at home , COPD, HTN, HLD, DM, Seizure, GERD, Lung CA s/p left upper lobectomy. The patient was admitted with acute dyspnea and exacerbation of COPD. H/o Ca Lung. Has a moderate right pleural effusion. Acute Kidney failure, most likely related to deranged renal Hemodynamics in the setting of relatively low BP and a combination of loop diuretics and Angiotensin Receptor blocking agents. Most likely she has some Chronic Kidney disease, possibly from Microvascular Renal disease. Mild Anemia may be related to the CKD. Will maintain euvolemia. Will monitor the renal functions closely. Ad jarret oral fluids now. Again today's labs pending at 12.22 PM ? Thoracentesis. Thanks again. Will follow with you. Yumi Hawkins MD
[2017-09-04 13:09] LABS: ALBUMIN 2.9 g/dl (3.4-5.0); ANION GAP 13 (8-16); BLOOD UREA NITROGEN 59 mg/dL (7-18); CALCIUM 8.7 mg/dL (8.5-10.1); CHLORIDE 91 mmol/L (98-107); CO2 26 mmol/L (21-32); POTASSIUM 4.6 mmol/L (3.5-5.1); SODIUM 130 mmol/L (136-145)
[2017-09-04 13:25] LABS: ALK PHOS 47 U/L (45-117); BILIRUBIN,TOTAL 0.3 mg/dL (0.2-1.0); CREATININE 1.6 mg/dL (0.55-1.02); SGOT/AST 17 U/L (15-37); SGPT/ALT 24 U/L (12-78); TOT PROT 6.7 g/dl (6.4-8.2)
[2017-09-04 13:45] LABS: GLUCOSE,RANDOM 325 mg/dL (74-106)
--- NOTE | 2017-09-04 14:06 | PN ---
Progress Note, Physician Chief Complaint: ID Subjective improvement Ceftriaxone - Current Medication List Current Medications: Active Medications Acetaminophen (Tylenol -) 650 mg PO Q6H PRN PRN Reason: PAIN OR FEVER Last Admin: 09/03/17 10:51 Dose: 650 mg Albuterol/Ipratropium (Duoneb -) 1 amp NEB Q6H PRN PRN Reason: SHORTNESS OF BREATH Last Admin: 09/04/17 08:00 Dose: 1 amp Allopurinol (Zyloprim -) 100 mg PO DAILY [facility] Last Admin: 09/04/17 10:45 Dose: 100 mg Atorvastatin Calcium (Lipitor -) 20 mg PO HS [facility] Last Admin: 09/03/17 21:28 Dose: 20 mg Budesonide/Formoterol Fumarate (Symbicort 160/4.5mcg -) 2 puff IH BID [facility] Last Admin: 09/04/17 10:47 Dose: 2 puff Digoxin (Lanoxin -) 0.125 mg PO Q48H [facility] Last Admin: 09/03/17 17:20 Dose: 0.125 mg Diltiazem HCl (Cardizem Cd -) 360 mg PO DAILY [facility] Last Admin: 09/04/17 10:44 Dose: 360 mg Furosemide (Lasix Injection -) 40 mg IVPUSH DAILY [facility] Last Admin: 09/04/17 10:45 Dose: 40 mg Gabapentin (Neurontin -) 200 mg PO BID [facility] Last Admin: 09/04/17 10:46 Dose: 200 mg Glimepiride (Amaryl -) 4 mg PO DAILY@0700 [facility] Last Admin: 09/03/17 06:09 Dose: 4 mg Ceftriaxone Sodium 2 gm/ (Dextrose) 100 mls @ 100 mls/hr IVPB DAILY [facility]; Protocol Last Admin: 09/04/17 10:47 Dose: 100 mls/hr Insulin Aspart (Novolog Vial Sliding Scale -) 1 vial SQ [facility]; Protocol Last Admin: 09/04/17 10:42 Dose: 8 units Insulin Detemir (Levemir Vial) 20 units SQ HS [facility] Insulin Detemir (Levemir Vial) 25 units SQ AM [facility] Levetiracetam (Keppra -) 1,000 mg PO BID [facility] Last Admin: 09/04/17 10:44 Dose: 1,000 mg Metformin HCl (Glucophage -) 500 mg PO BID@0700,1630 [facility] Last Admin: 09/03/17 17:20 Dose: 500 mg Methylprednisolone Sodium Succinate (Solu-Medrol -) 40 mg IVPUSH Q8H-IV [facility] Last Admin: 09/04/17 10:46 Dose: 40 mg Pantoprazole Sodium (Protonix -) 40 mg PO DAILY [facility] Last Admin: 09/04/17 10:45 Dose: 40 mg Sitagliptin Phosphate (Januvia -) 50 mg PO DAILY@0700 [facility] Last Admin: 09/03/17 06:09 Dose: 50 mg Warfarin Sodium (Coumadin -) 3 mg PO DAILY@1800 [facility] Last Admin: 09/03/17 17:20 Dose: 3 mg - Objective Vital Signs: Vital Signs Temperature 97.4 F L 09/03/17 20:56 Pulse Rate 70 09/03/17 20:56 Respiratory Rate 22 09/03/17 21:00 Blood Pressure 133/73 09/03/17 20:56 O2 Sat by Pulse Oximetry (%) 97 09/03/17 22:34 Constitutional: Yes: Obese Cardiovascular: Yes: S1, S2 Respiratory: Yes: WNL, Regular, CTA Bilaterally, Diminished Edema: Yes Labs: CBC, BMP 09/04/17 11:35 09/04/17 11:35 INR, PTT INR 2.19 (0.82-1.09) H 09/04/17 06:20 Assessment/Plan Microbiology 09/02/17 11:00 Urine For Antigen Detection Legionella Antigen - Final 09/02/17 11:00 Urine For Antigen Detection Streptococcus pneumoniae Antigen (M - Final 09/01/17 13:45 Blood - Peripheral Venous Blood Culture - Preliminary NO GROWTH OBTAINED AFTER 48 HOURS, INCUBATION TO CONTINUE FOR 3 DAYS. 09/01/17 13:45 Blood - Peripheral Venous Blood Culture - Preliminary NO GROWTH OBTAINED AFTER 48 HOURS, INCUBATION TO CONTINUE FOR 3 DAYS. Laboratory Tests 09/04/17 09/04/17 11:35 11:35 WBC 12.2 H Hgb 10.0 L Hct 31.1 L Plt Count 409 BUN 59 H Creatinine 1.6 H Assessment Pleural effusion ? PNA ON ceftriaxone Plan Consider change to oral therapy Jp tomorrow Sherley REYNOSO
[2017-09-04 14:09] LABS: ANISOCYTOSIS 1+; PLATELET ESTIMATE NORMAL
--- NOTE | 2017-09-04 14:09 | PN ---
Progress Note, Physician Chief Complaint: Cardiology FU Had generalized malaise this morning. No improved. Still with SOB when recumbent. - Current Medication List Current Medications: Active Medications Acetaminophen (Tylenol -) 650 mg PO Q6H PRN PRN Reason: PAIN OR FEVER Last Admin: 09/03/17 10:51 Dose: 650 mg Albuterol/Ipratropium (Duoneb -) 1 amp NEB Q6H PRN PRN Reason: SHORTNESS OF BREATH Last Admin: 09/04/17 08:00 Dose: 1 amp Allopurinol (Zyloprim -) 100 mg PO DAILY [facility] Last Admin: 09/04/17 10:45 Dose: 100 mg Atorvastatin Calcium (Lipitor -) 20 mg PO HS [facility] Last Admin: 09/03/17 21:28 Dose: 20 mg Budesonide/Formoterol Fumarate (Symbicort 160/4.5mcg -) 2 puff IH BID [facility] Last Admin: 09/04/17 10:47 Dose: 2 puff Digoxin (Lanoxin -) 0.125 mg PO Q48H [facility] Last Admin: 09/03/17 17:20 Dose: 0.125 mg Diltiazem HCl (Cardizem Cd -) 360 mg PO DAILY [facility] Last Admin: 09/04/17 10:44 Dose: 360 mg Furosemide (Lasix Injection -) 40 mg IVPUSH DAILY [facility] Last Admin: 09/04/17 10:45 Dose: 40 mg Gabapentin (Neurontin -) 200 mg PO BID [facility] Last Admin: 09/04/17 10:46 Dose: 200 mg Glimepiride (Amaryl -) 4 mg PO DAILY@0700 [facility] Last Admin: 09/03/17 06:09 Dose: 4 mg Ceftriaxone Sodium 2 gm/ (Dextrose) 100 mls @ 100 mls/hr IVPB DAILY [facility]; Protocol Last Admin: 09/04/17 10:47 Dose: 100 mls/hr Insulin Aspart (Novolog Vial Sliding Scale -) 1 vial SQ [facility]; Protocol Last Admin: 09/04/17 10:42 Dose: 8 units Insulin Detemir (Levemir Vial) 20 units SQ HS [facility] Insulin Detemir (Levemir Vial) 25 units SQ AM [facility] Levetiracetam (Keppra -) 1,000 mg PO BID [facility] Last Admin: 09/04/17 10:44 Dose: 1,000 mg Metformin HCl (Glucophage -) 500 mg PO BID@0700,1630 [facility] Last Admin: 09/03/17 17:20 Dose: 500 mg Methylprednisolone Sodium Succinate (Solu-Medrol -) 40 mg IVPUSH Q8H-IV [facility] Last Admin: 09/04/17 10:46 Dose: 40 mg Pantoprazole Sodium (Protonix -) 40 mg PO DAILY [facility] Last Admin: 09/04/17 10:45 Dose: 40 mg Sitagliptin Phosphate (Januvia -) 50 mg PO DAILY@0700 [facility] Last Admin: 09/03/17 06:09 Dose: 50 mg Warfarin Sodium (Coumadin -) 3 mg PO DAILY@1800 [facility] Last Admin: 09/03/17 17:20 Dose: 3 mg - Objective Vital Signs: Vital Signs Temperature 97.4 F L 09/03/17 20:56 Pulse Rate 70 09/03/17 20:56 Respiratory Rate 22 09/03/17 21:00 Blood Pressure 133/73 09/03/17 20:56 O2 Sat by Pulse Oximetry (%) 97 09/03/17 22:34 Constitutional: Yes: Well Nourished, No Distress Eyes: Yes: Conjunctiva Clear HENT: Yes: Atraumatic, Normocephalic Neck: Yes: Supple, Trachea Midline Cardiovascular: Yes: Pulse Irregular, JVD Respiratory: Yes: Regular. No: Wheezes (decreased BS at the Rt base.) Edema: Yes Edema: LLE: Trace, RLE: Trace Labs: CBC, BMP 09/04/17 11:35 09/04/17 11:35 INR, PTT INR 2.19 (0.82-1.09) H 09/04/17 06:20 Assessment/Plan 76 year old woman pmh atrial fibrillation on coumadin, EVARISTO on cpap and home O2, HTN, HL, DM, seizure, GERD, lung CA s/p left upper lobectomy and chemotherapy admitted for SOB. Pt seen and examined today in nad. states she has not been feeling well for a few days, has had increasing sob. denies fever or chills. no chest pain, no cough until after admission when she developed a dry cough. Feeling better since admission with reduced edema. Follows with Dr. Arceo as outpatient. ECHO 01/2017-TDS, unable to accurately assess LV, probably low normal or mildly reduced, mod MR echo 07/2015: nl lv/rv, mod israel, mod phtn, no sig valve path SOB-likely multifactorial due to Evaristo, copd home O2, lung Ca s/p lobectomy, PNA, likely component of mild acute on chronic diastolic CHF -pleural effusion on CT chest -PNA/COPD management per pulm/PMD -cont IV Lasix for now however unlikely to resolve pleural effusion and BUN/ creat trending up slightly suggesting possible intravascular depletion developing, monitor bun/creat, electrolytes and if bun/creat cont to trend up would change lasix back to po -may need thoracentesis -monitor I/Os, daily weights, electrolytes and replete as needed Atrial fibrillation-chronic, HR controlled -cont home rate control agents cardizem and dig -dig level noted. -dose warfarin for INR 2-3, unless needs to be held for thoracentesis
[2017-09-04] MEDS: WARFARIN NA 3 MG TABLET PO SCH (17:25)
[2017-09-04] MEDS ORDERED: INSULIN (NOVOLOG) ASPART 100 UNITS/ML 10ML VIAL ONE (21:12)
[2017-09-04] MEDS ORDERED: PT OWN MED DRAWER 7, Y5N ONE (21:13)
[2017-09-04] MEDS: ATORVASTATIN CA 20 MG TABLET (FP) PO SCH (23:01)
[2017-09-05] MEDS: INSULIN (LEVEMIR) 100 UNITS/ML UNITS SQ SCH ×2 (06:31→21:55)
[2017-09-05] MEDS: INSULIN SLIDING SCALE (NOVOLOG) 1 VIAL SQ SCH ×4 (06:32→21:56)
[2017-09-05] MEDS: metFORMIN HCL 500 MG TABLET (FP) PO SCH ×2 (06:33→17:35)
[2017-09-05] MEDS: sitaGLIPtin PHOSPHATE 50 MG TABLET PO SCH (06:33)
[2017-09-05] MEDS: GLIMEPIRIDE 4 MG TABLET (FP) PO SCH (06:33)
[2017-09-05 07:37] LABS: ALBUMIN 3.1 g/dl (3.4-5.0); ANION GAP 10 (8-16); BILIRUBIN,TOTAL 0.2 mg/dL (0.2-1.0); BLOOD UREA NITROGEN 64 mg/dL (7-18); CHLORIDE 92 mmol/L (98-107); CO2 30 mmol/L (21-32); CREATININE 1.8 mg/dL (0.55-1.02); GLUCOSE,RANDOM 198 mg/dL (74-106); POTASSIUM 4.9 mmol/L (3.5-5.1); SGOT/AST 18 U/L (15-37); SGPT/ALT 26 U/L (12-78); SODIUM 132 mmol/L (136-145); TOT PROT 6.9 g/dl (6.4-8.2)
[2017-09-05 07:38] LABS: ALK PHOS 47 U/L (45-117)
--- NOTE | 2017-09-05 08:38 | PN ---
Progress Note, Physician Chief Complaint: ID Subjective improvement today Ceftriaxone - Current Medication List Current Medications: Active Medications Acetaminophen (Tylenol -) 650 mg PO Q6H PRN PRN Reason: PAIN OR FEVER Last Admin: 09/03/17 10:51 Dose: 650 mg Albuterol/Ipratropium (Duoneb -) 1 amp NEB Q6H PRN PRN Reason: SHORTNESS OF BREATH Last Admin: 09/04/17 21:33 Dose: 1 amp Allopurinol (Zyloprim -) 100 mg PO DAILY [facility] Last Admin: 09/04/17 10:45 Dose: 100 mg Atorvastatin Calcium (Lipitor -) 20 mg PO HS [facility] Last Admin: 09/04/17 23:01 Dose: 20 mg Budesonide/Formoterol Fumarate (Symbicort 160/4.5mcg -) 2 puff IH BID [facility] Last Admin: 09/04/17 21:42 Dose: 2 puff Digoxin (Lanoxin -) 0.125 mg PO Q48H [facility] Last Admin: 09/03/17 17:20 Dose: 0.125 mg Diltiazem HCl (Cardizem Cd -) 360 mg PO DAILY [facility] Last Admin: 09/04/17 10:44 Dose: 360 mg Furosemide (Lasix Injection -) 40 mg IVPUSH DAILY [facility] Last Admin: 09/04/17 10:45 Dose: 40 mg Gabapentin (Neurontin -) 200 mg PO BID [facility] Last Admin: 09/04/17 21:42 Dose: 200 mg Glimepiride (Amaryl -) 4 mg PO DAILY@0700 [facility] Last Admin: 09/05/17 06:33 Dose: 4 mg Ceftriaxone Sodium 2 gm/ (Dextrose) 100 mls @ 100 mls/hr IVPB DAILY [facility]; Protocol Last Admin: 09/04/17 10:47 Dose: 100 mls/hr Insulin Aspart (Novolog Vial Sliding Scale -) 1 vial SQ ACHS [facility]; Protocol Last Admin: 09/05/17 06:32 Dose: 6 units Insulin Detemir (Levemir Vial) 20 units SQ HS [facility] Last Admin: 09/04/17 21:45 Dose: 20 units Insulin Detemir (Levemir Vial) 25 units SQ AM [facility] Last Admin: 09/05/17 06:31 Dose: 25 units Levetiracetam (Keppra -) 1,000 mg PO BID [facility] Last Admin: 09/04/17 21:42 Dose: 1,000 mg Metformin HCl (Glucophage -) 500 mg PO BID@0700,1630 [facility] Last Admin: 09/05/17 06:33 Dose: 500 mg Methylprednisolone Sodium Succinate (Solu-Medrol -) 40 mg IVPUSH BID [facility] Last Admin: 09/04/17 21:42 Dose: 40 mg Pantoprazole Sodium (Protonix -) 40 mg PO DAILY [facility] Last Admin: 09/04/17 10:45 Dose: 40 mg Sitagliptin Phosphate (Januvia -) 50 mg PO DAILY@0700 [facility] Last Admin: 09/05/17 06:33 Dose: 50 mg Warfarin Sodium (Coumadin -) 3 mg PO DAILY@1800 [facility] Last Admin: 09/04/17 17:25 Dose: 3 mg - Objective Vital Signs: Vital Signs Temperature 97.6 F 09/05/17 06:00 Pulse Rate 77 09/05/17 06:00 Respiratory Rate 22 09/05/17 06:00 Blood Pressure 127/72 09/05/17 06:00 O2 Sat by Pulse Oximetry (%) 96 09/05/17 07:50 Constitutional: Yes: No Distress, Obese HENT: Yes: WNL, Atraumatic Neck: Yes: WNL, Supple Cardiovascular: Yes: S1, S2 Respiratory: Yes: WNL, Regular, CTA Bilaterally Gastrointestinal: Yes: WNL, Normal Bowel Sounds, Soft. No: Tenderness, Tenderness, Epigastrium Edema: Yes Labs: CBC, BMP 09/04/17 11:35 09/05/17 06:35 INR, PTT INR 2.19 (0.82-1.09) H 09/04/17 06:20 Problem List - Problems (1) Acute on chronic respiratory failure with hypoxia and hypercapnia Code(s): J96.21 - ACUTE AND CHRONIC RESPIRATORY FAILURE WITH HYPOXIA; J96.22 - ACUTE AND CHRONIC RESPIRATORY FAILURE WITH HYPERCAPNIA (2) Type 2 diabetes mellitus with diabetic dermatitis Code(s): E11.620 - TYPE 2 DIABETES MELLITUS WITH DIABETIC DERMATITIS (3) CKD (chronic kidney disease) stage 3, GFR 30-59 ml/min Code(s): N18.3 - CHRONIC KIDNEY DISEASE, STAGE 3 (MODERATE) (4) COPD exacerbation Code(s): J44.1 - CHRONIC OBSTRUCTIVE PULMONARY DISEASE W (ACUTE) EXACERBATION (5) Pleural effusion Code(s): J90 - PLEURAL EFFUSION, NOT ELSEWHERE CLASSIFIED Assessment/Plan Assessment Pleural effusion NO fever Plan Switch to Ceftin 500mg bid Sherley REYNOSO
[2017-09-05] MEDS: CEFUROXIME AXETIL 500 MG TABLET PO SCH ×2 (10:46→21:54)
[2017-09-05] MEDS: GABAPENTIN 100 MG CAPSULE (FP) PO SCH ×2 (10:46→21:54)
[2017-09-05] MEDS: PANTOPRAZOLE 40 MG TABLET (FP) PO SCH (10:48)
[2017-09-05] MEDS: levETIRAcetam 500 MG TABLET (FP) PO SCH ×2 (10:48→21:54)
[2017-09-05] MEDS: ALLOPURINOL 100 MG TABLET (FP) PO SCH (10:48)
[2017-09-05] MEDS: methylPREDNISolone NA SUCC 40 MG/1 ML VIAL IVPUSH SCH ×2 (10:48→11:32)
[2017-09-05] MEDS: FUROSEMIDE 40 MG/4 ML INJECTABLE VIAL IVPUSH SCH ×2 (10:48→11:32)
[2017-09-05] MEDS: BUDESONIDE/FORMETEROL FUMARATE 160/4.5 mcg INHALER IH SCH ×2 (10:48→21:55)
[2017-09-05] MEDS: ALBUTEROL SO4 2.5/IPRATROPIUM 0.5 INH SOL 3 ML VIAL.NEB. NEB PRN ×3 (11:25→20:45)
--- NOTE | 2017-09-05 11:33 | PN ---
Progress Note, Physician Chief Complaint: SOB CHF JOSE RAMON History of Present Illness: NAD, sitting at the edge of the bed Son at bedside Seen by Cardiology, ID, Pulmonary and Nephrology BUN/Cr rising, likely 2/2 to furosemide, allopurinol Hold Allopurinol as per nephrology Possible Dc in AM if labs are okay - Current Medication List Current Medications: Active Medications Acetaminophen (Tylenol -) 650 mg PO Q6H PRN PRN Reason: PAIN OR FEVER Last Admin: 09/03/17 10:51 Dose: 650 mg Albuterol/Ipratropium (Duoneb -) 1 amp NEB Q6H PRN PRN Reason: SHORTNESS OF BREATH Last Admin: 09/04/17 21:33 Dose: 1 amp Atorvastatin Calcium (Lipitor -) 20 mg PO HS [facility] Last Admin: 09/04/17 23:01 Dose: 20 mg Budesonide/Formoterol Fumarate (Symbicort 160/4.5mcg -) 2 puff IH BID [facility] Last Admin: 09/05/17 10:48 Dose: 2 puff Cefuroxime Axetil (Ceftin -) 500 mg PO BID [facility] Last Admin: 09/05/17 10:46 Dose: 500 mg Digoxin (Lanoxin -) 0.125 mg PO Q48H [facility] Last Admin: 09/03/17 17:20 Dose: 0.125 mg Diltiazem HCl (Cardizem Cd -) 360 mg PO DAILY [facility] Last Admin: 09/05/17 10:46 Dose: 360 mg Furosemide (Lasix Injection -) 40 mg IVPUSH DAILY [facility] Last Admin: 09/04/17 10:45 Dose: 40 mg Gabapentin (Neurontin -) 200 mg PO BID [facility] Last Admin: 09/05/17 10:46 Dose: 200 mg Glimepiride (Amaryl -) 4 mg PO DAILY@0700 [facility] Last Admin: 09/05/17 06:33 Dose: 4 mg Insulin Aspart (Novolog Vial Sliding Scale -) 1 vial SQ [facility]; Protocol Last Admin: 09/05/17 06:32 Dose: 6 units Insulin Detemir (Levemir Vial) 20 units SQ HS [facility] Last Admin: 09/04/17 21:45 Dose: 20 units Insulin Detemir (Levemir Vial) 25 units SQ AM [facility] Last Admin: 09/05/17 06:31 Dose: 25 units Levetiracetam (Keppra -) 1,000 mg PO BID [facility] Last Admin: 09/05/17 10:48 Dose: 1,000 mg Metformin HCl (Glucophage -) 500 mg PO BID@0700,1630 [facility] Last Admin: 09/05/17 06:33 Dose: 500 mg Pantoprazole Sodium (Protonix -) 40 mg PO DAILY [facility] Last Admin: 09/05/17 10:48 Dose: 40 mg Prednisone (Deltasone -) 40 mg PO BID [facility] Sitagliptin Phosphate (Januvia -) 50 mg PO DAILY@0700 [facility] Last Admin: 09/05/17 06:33 Dose: 50 mg Warfarin Sodium (Coumadin -) 3 mg PO DAILY@1800 [facility] Last Admin: 09/04/17 17:25 Dose: 3 mg - Objective Vital Signs: Vital Signs Temperature 97.6 F 09/05/17 06:00 Pulse Rate 77 09/05/17 06:00 Respiratory Rate 22 09/05/17 06:00 Blood Pressure 127/72 09/05/17 06:00 O2 Sat by Pulse Oximetry (%) 96 09/05/17 07:50 Constitutional: Yes: Well Nourished, No Distress, Calm Cardiovascular: Yes: Regular Rate and Rhythm Respiratory: Yes: Regular, Diminished (BLL), On Nasal O2, SOB on Exertion Gastrointestinal: Yes: Normal Bowel Sounds, Soft, Abdomen, Obese Musculoskeletal: Yes: Muscle Weakness Edema: Yes Edema: LLE: 2+, RLE: 2+ Peripheral Pulses WNL: Yes Neurological: Yes: Alert, Oriented Psychiatric: Yes: Alert, Oriented Labs: CBC, BMP 09/04/17 11:35 09/05/17 06:35 INR, PTT INR 2.19 (0.82-1.09) H 09/04/17 06:20 Problem List - Problems (1) Acute on chronic respiratory failure with hypoxia and hypercapnia Assessment/Plan: -Cardiology and pulmonary on board -Tapering Prednisone -Furosemide 40 mg po daily, has no IV access -Nasal O2 -BIPAP -Bronchodilators -PO ceftin Code(s): J96.21 - ACUTE AND CHRONIC RESPIRATORY FAILURE WITH HYPOXIA; J96.22 - ACUTE AND CHRONIC RESPIRATORY FAILURE WITH HYPERCAPNIA (2) Acute renal failure Assessment/Plan: -Nephrology on board -D/C allopurinol -Furosemide 40 mg po daily -monitor trend -if labs okay in AM, can go home with close f/u outpatient Code(s): N17.9 - ACUTE KIDNEY FAILURE, UNSPECIFIED (3) Atrial fibrillation Assessment/Plan: on Warfarin -INR therapeutic today, high end @ 2.85 -Daily INR's -Change Warfarin to 3 mg MWF and 1.5 mg all other days Code(s): I48.91 - UNSPECIFIED ATRIAL FIBRILLATION (4) COPD exacerbation Assessment/Plan: -nasal O2 -Pulmonary on board -Bronchodilators -Tapering prednisone -PO Ceftin 500 mg po bid -Repeat CXR today Code(s): J44.1 - CHRONIC OBSTRUCTIVE PULMONARY DISEASE W (ACUTE) EXACERBATION (5) Congestive heart failure Code(s): I50.9 - HEART FAILURE, UNSPECIFIED (6) Diabetes mellitus, insulin dependent (IDDM), uncontrolled Assessment/Plan: -diabetic diet -BGM ACHS -Novolog sliding scale -Levemir BID -Hold metformin due to increasing Cr -Decrease Januvia to 25 mg po daily due to CrCl<30 -Endocrinology on board Code(s): E10.65 - TYPE 1 DIABETES MELLITUS WITH HYPERGLYCEMIA (7) Pneumonia Assessment/Plan: -Cardiology and pulmonary on board -Tapering Prednisone -Furosemide 40 mg po daily, has no IV access -Nasal O2 -BIPAP -Bronchodilators -PO ceftin Code(s): J18.9 - PNEUMONIA, UNSPECIFIED ORGANISM Assessment/Plan see problem list
[2017-09-05] MEDS ORDERED: FUROSEMIDE 40 MG TABLET (FP) PO ONE (11:38)
[2017-09-05] MEDS: predniSONE 20 MG TABLET (UD) PO SCH ×2 (11:49→21:54)
[2017-09-05] MEDS ORDERED: PT OWN MED DRAWER 7, Y5N ONE (12:02)
[2017-09-05] MEDS ORDERED: FUROSEMIDE 40 MG/4 ML INJECTABLE VIAL ONE (12:02)
--- NOTE | 2017-09-05 12:05 | PN ---
Progress Note (short form) - Note Progress Note: PULMONARY OOB TO CHAIR VSS/AFEBRILE ANICTERIC DIMINISHED BREATH SOUNDS S1S2 OBESE TRACE ANKLE EDEMA LABS/MEDS/NOTES/IMAGES/MEDS REVIEWED A/P Acute on Chronic Hypoxic Respiratory Failure Pneumonia Pleural Effusion Acute on Chronic Diastolic Heart Failure Atrial Fibrillation Acute on Chronic Renal Failure h/o Lung Ca s/p RUL lobectomy Obstructive Sleep Apnea DM - ABX changed to oral - Lasix changed to oral - O2 to keep SpO2 >90% - rate control - Anticoagulation - prednisone - inhaled bronchodilators - NIPPV QHS & PRN - Discharge planning Lukas ONTIVEROS MD
[2017-09-05 13:00] LABS: BASO % 0.1 % (0-2.0); HEMATOCRIT 34.1 % (32.4-45.2); HEMOGLOBIN 10.9 GM/dL (10.7-15.3); LYMPH % 6.1 % (8-40); MCH 25.4 pg (25.7-33.7); MEAN CELL VOLUME 79.6 fl (80-96); MEAN PLT VOLUME 7.8 fl (7.5-11.1); MONO % 5.7 % (3.8-10.2); NEUT % 88.1 % (42.8-82.8); PLATELET COUNT 476 K/MM3 (134-434); RBC 4.28 M/mm3 (3.60-5.2); RDW 18.2 % (11.6-15.6); WHITE BLOOD COUNT 14.9 K/mm3 (4.0-10.0)
--- NOTE | 2017-09-05 13:26 | PN ---
Progress Note, Physician Chief Complaint: The patient seen in her room. Two sons with her. Cough better. Maintains good urine output. No shortness of breath. History of Present Illness: x - Current Medication List Current Medications: Active Medications Acetaminophen (Tylenol -) 650 mg PO Q6H PRN PRN Reason: PAIN OR FEVER Last Admin: 09/03/17 10:51 Dose: 650 mg Albuterol/Ipratropium (Duoneb -) 1 amp NEB Q6H PRN PRN Reason: SHORTNESS OF BREATH Last Admin: 09/04/17 21:33 Dose: 1 amp Atorvastatin Calcium (Lipitor -) 20 mg PO HS [facility] Last Admin: 09/04/17 23:01 Dose: 20 mg Budesonide/Formoterol Fumarate (Symbicort 160/4.5mcg -) 2 puff IH BID [facility] Last Admin: 09/05/17 10:48 Dose: 2 puff Cefuroxime Axetil (Ceftin -) 500 mg PO BID [facility] Last Admin: 09/05/17 10:46 Dose: 500 mg Digoxin (Lanoxin -) 0.125 mg PO Q48H [facility] Last Admin: 09/03/17 17:20 Dose: 0.125 mg Diltiazem HCl (Cardizem Cd -) 360 mg PO DAILY [facility] Last Admin: 09/05/17 10:46 Dose: 360 mg Gabapentin (Neurontin -) 200 mg PO BID [facility] Last Admin: 09/05/17 10:46 Dose: 200 mg Glimepiride (Amaryl -) 4 mg PO DAILY@0700 [facility] Last Admin: 09/05/17 06:33 Dose: 4 mg Insulin Aspart (Novolog Vial Sliding Scale -) 1 vial SQ [facility]; Protocol Last Admin: 09/05/17 11:50 Dose: 4 units Insulin Detemir (Levemir Vial) 20 units SQ HS [facility] Last Admin: 09/04/17 21:45 Dose: 20 units Insulin Detemir (Levemir Vial) 25 units SQ AM [facility] Last Admin: 09/05/17 06:31 Dose: 25 units Levetiracetam (Keppra -) 1,000 mg PO BID [facility] Last Admin: 09/05/17 10:48 Dose: 1,000 mg Metformin HCl (Glucophage -) 500 mg PO BID@0700,1630 [facility] Last Admin: 09/05/17 06:33 Dose: 500 mg Pantoprazole Sodium (Protonix -) 40 mg PO DAILY [facility] Last Admin: 09/05/17 10:48 Dose: 40 mg Prednisone (Deltasone -) 40 mg PO BID [facility] Last Admin: 09/05/17 11:49 Dose: 40 mg Sitagliptin Phosphate (Januvia -) 50 mg PO DAILY@0700 [facility] Last Admin: 09/05/17 06:33 Dose: 50 mg Warfarin Sodium (Coumadin -) 3 mg PO DAILY@1800 [facility] Last Admin: 09/04/17 17:25 Dose: 3 mg - Objective Vital Signs: Vital Signs Temperature 97.6 F 09/05/17 06:00 Pulse Rate 77 09/05/17 06:00 Respiratory Rate 22 09/05/17 06:00 Blood Pressure 127/72 09/05/17 06:00 O2 Sat by Pulse Oximetry (%) 96 09/05/17 09:00 Constitutional: Yes: Well Nourished, Calm HENT: Yes: Normocephalic Cardiovascular: Yes: Regular Rate and Rhythm, S1, S2 Respiratory: Yes: CTA Bilaterally, Poor Air Entry Gastrointestinal: Yes: Normal Bowel Sounds, Soft Genitourinary: No: Bladder Distention, CVA Tenderness - Left, CVA Tenderness - Right, Hematuria Edema: Yes Edema: LLE: 1+, RLE: 1+ Neurological: Yes: Alert, Oriented Labs: CBC, BMP 09/05/17 12:27 09/05/17 06:35 INR, PTT INR 2.19 (0.82-1.09) H 09/04/17 06:20 Problem List - Problems (1) Lung cancer Code(s): C34.90 - MALIGNANT NEOPLASM OF UNSP PART OF UNSP BRONCHUS OR LUNG (2) Pneumonia Code(s): J18.9 - PNEUMONIA, UNSPECIFIED ORGANISM (3) Acute renal failure Code(s): N17.9 - ACUTE KIDNEY FAILURE, UNSPECIFIED (4) Atrial fibrillation Code(s): I48.91 - UNSPECIFIED ATRIAL FIBRILLATION (5) CKD (chronic kidney disease) stage 3, GFR 30-59 ml/min Code(s): N18.3 - CHRONIC KIDNEY DISEASE, STAGE 3 (MODERATE) (6) COPD exacerbation Code(s): J44.1 - CHRONIC OBSTRUCTIVE PULMONARY DISEASE W (ACUTE) EXACERBATION (7) Congestive heart failure Code(s): I50.9 - HEART FAILURE, UNSPECIFIED (8) Diabetes mellitus Code(s): E11.9 - TYPE 2 DIABETES MELLITUS WITHOUT COMPLICATIONS (9) Seizure Code(s): R56.9 - UNSPECIFIED CONVULSIONS (10) Shortness of breath Code(s): R06.02 - SHORTNESS OF BREATH (11) Sleep apnea Code(s): G47.30 - SLEEP APNEA, UNSPECIFIED Assessment/Plan 76 yo with h/o known Atrial fibrillation on Coumadin, on CPAP and 2L O2 at home , COPD, HTN, HLD, DM, Seizure, GERD, Lung CA s/p left upper lobectomy. The patient was admitted with acute dyspnea and exacerbation of COPD. H/o Ca Lung. Has a moderate right pleural effusion. Acute Kidney failure, most likely related to deranged renal Hemodynamics in the setting of relatively low BP and a combination of loop diuretics and Angiotensin Receptor blocking agents. Marginal elevation of serum cr. On Allopurinol. Will Dc the same. Will keep her on the current dose of loop diuretics. Most likely she has some Chronic Kidney disease, possibly from Microvascular Renal disease. Mild Anemia may be related to the CKD. Will maintain euvolemia. Will monitor the renal functions closely. Ad jarret oral fluids now. Dc allopurinol. Can restart if necessary in the future. . The patient may settle at a higher serum creatinine in order to keep out of CHF . Thanks again. Will follow with you. Yumi Hawkins MD
[2017-09-05 13:35] LABS: INR 2.85 (0.82-1.09); PROTHROMBIN TIME (PATIENT) 32.2 SEC (9.7-13.0)
--- NOTE | 2017-09-05 16:24 | PN ---
Progress Note, Physician Chief Complaint: Cardiology FU Feels less SOB. - Current Medication List Current Medications: Active Medications Acetaminophen (Tylenol -) 650 mg PO Q6H PRN PRN Reason: PAIN OR FEVER Last Admin: 09/03/17 10:51 Dose: 650 mg Albuterol/Ipratropium (Duoneb -) 1 amp NEB Q6H PRN PRN Reason: SHORTNESS OF BREATH Last Admin: 09/05/17 16:10 Dose: 1 amp Atorvastatin Calcium (Lipitor -) 20 mg PO [facility] Last Admin: 09/04/17 23:01 Dose: 20 mg Budesonide/Formoterol Fumarate (Symbicort 160/4.5mcg -) 2 puff IH BID [facility] Last Admin: 09/05/17 10:48 Dose: 2 puff Cefuroxime Axetil (Ceftin -) 500 mg PO BID [facility] Last Admin: 09/05/17 10:46 Dose: 500 mg Digoxin (Lanoxin -) 0.125 mg PO Q48H [facility] Last Admin: 09/03/17 17:20 Dose: 0.125 mg Diltiazem HCl (Cardizem Cd -) 360 mg PO DAILY [facility] Last Admin: 09/05/17 10:46 Dose: 360 mg Gabapentin (Neurontin -) 200 mg PO BID [facility] Last Admin: 09/05/17 10:46 Dose: 200 mg Glimepiride (Amaryl -) 4 mg PO DAILY@0700 [facility] Last Admin: 09/05/17 06:33 Dose: 4 mg Insulin Aspart (Novolog Vial Sliding Scale -) 1 vial SQ [facility]; Protocol Last Admin: 09/05/17 11:50 Dose: 4 units Insulin Detemir (Levemir Vial) 20 units SQ HS [facility] Last Admin: 09/04/17 21:45 Dose: 20 units Insulin Detemir (Levemir Vial) 25 units SQ AM [facility] Last Admin: 09/05/17 06:31 Dose: 25 units Levetiracetam (Keppra -) 1,000 mg PO BID [facility] Last Admin: 09/05/17 10:48 Dose: 1,000 mg Metformin HCl (Glucophage -) 500 mg PO BID@0700,1630 [facility] Last Admin: 09/05/17 06:33 Dose: 500 mg Pantoprazole Sodium (Protonix -) 40 mg PO DAILY [facility] Last Admin: 09/05/17 10:48 Dose: 40 mg Prednisone (Deltasone -) 40 mg PO BID [facility] Last Admin: 09/05/17 11:49 Dose: 40 mg Sitagliptin Phosphate (Januvia -) 50 mg PO DAILY@0700 [facility] Last Admin: 09/05/17 06:33 Dose: 50 mg Warfarin Sodium (Coumadin -) 3 mg PO DAILY@1800 [facility] Last Admin: 09/04/17 17:25 Dose: 3 mg - Objective Vital Signs: Vital Signs Temperature 98.2 F 09/05/17 14:28 Pulse Rate 81 09/05/17 14:28 Respiratory Rate 22 09/05/17 14:28 Blood Pressure 137/76 09/05/17 14:28 O2 Sat by Pulse Oximetry (%) 96 09/05/17 09:00 Constitutional: Yes: Well Nourished, No Distress, Calm Eyes: Yes: Conjunctiva Clear, EOM Intact HENT: Yes: Atraumatic, Normocephalic Neck: Yes: Trachea Midline Cardiovascular: Yes: Pulse Irregular, S1, S2. No: JVD Respiratory: Yes: Regular, Rhonchi. No: SOB Gastrointestinal: Yes: Normal Bowel Sounds Edema: LLE: Trace, RLE: Trace Labs: CBC, BMP 09/05/17 12:27 09/05/17 06:35 INR, PTT INR 2.85 (0.82-1.09) H D 09/05/17 12:27 - ....Imaging Chest X-ray: Report Reviewed Problem List - Problems (1) Acute decompensated heart failure Code(s): I50.9 - HEART FAILURE, UNSPECIFIED Assessment/Plan 76 year old woman pmh atrial fibrillation on coumadin, NOLBERTO on cpap and home O2, HTN, HL, DM, seizure, GERD, lung CA s/p left upper lobectomy and chemotherapy admitted for SOB. Pt seen and examined today in nad. states she has not been feeling well for a few days, has had increasing sob. denies fever or chills. no chest pain, no cough until after admission when she developed a dry cough. Feeling better since admission with reduced edema. Follows with Dr. Arceo as outpatient. ECHO 01/2017-TDS, unable to accurately assess LV, probably low normal or mildly reduced, mod MR echo 07/2015: nl lv/rv, mod [place], mod phtn, no sig valve path SOB-improved Transition to oral diuretics as out patient. Lasix 40mg qd. Atrial fibrillation-chronic, HR controlled -cont home rate control agents cardizem and dig -dig level noted. -dose warfarin for INR 2-3 will see Prn
[2017-09-05] MEDS: WARFARIN NA 3 MG TABLET PO SCH (17:35)
[2017-09-05] MEDS: DIGOXIN 0.125 MG TABLET (FP) PO SCH (17:35)
[2017-09-05] MEDS ORDERED: WARFARIN NA 1 MG TABLET (FP) PO SCH (18:30)
[2017-09-05] MEDS ORDERED: WARFARIN NA 3 MG TABLET PO SCH (18:30)
[2017-09-05] MEDS: ATORVASTATIN CA 20 MG TABLET (FP) PO SCH (21:55)
[2017-09-05] MEDS ORDERED: predniSONE 20 MG TABLET (UD) PO SCH (22:00)
[2017-09-06] MEDS: GLIMEPIRIDE 4 MG TABLET (FP) PO SCH (06:00)
[2017-09-06] MEDS: INSULIN SLIDING SCALE (NOVOLOG) 1 VIAL SQ SCH ×2 (06:08→12:27)
[2017-09-06] MEDS: INSULIN (LEVEMIR) 100 UNITS/ML UNITS SQ SCH (06:08)
[2017-09-06 06:28] VITALS: TEMP 97.9
[2017-09-06] MEDS ORDERED: sitaGLIPtin PHOSPHATE 25 MG TABLET (FP) PO SCH (07:00)
[2017-09-06] MEDS: ALBUTEROL SO4 2.5/IPRATROPIUM 0.5 INH SOL 3 ML VIAL.NEB. NEB PRN (07:30)
[2017-09-06 08:29] LABS: INR 1.93 (0.82-1.09); PROTHROMBIN TIME (PATIENT) 21.8 SEC (9.7-13.0)
[2017-09-06 08:40] LABS: ALBUMIN 3.2 g/dl (3.4-5.0); ANION GAP 8 (8-16); BLOOD UREA NITROGEN 60 mg/dL (7-18); CALCIUM 9.4 mg/dL (8.5-10.1); CHLORIDE 93 mmol/L (98-107); CO2 32 mmol/L (21-32); CREATININE 1.6 mg/dL (0.55-1.02); GLUCOSE,RANDOM 155 mg/dL (74-106); POTASSIUM 5.4 mmol/L (3.5-5.1); SGOT/AST 20 U/L (15-37); SGPT/ALT 30 U/L (12-78); SODIUM 133 mmol/L (136-145)
[2017-09-06 08:42] LABS: ALK PHOS 52 U/L (45-117); BILIRUBIN,TOTAL 0.4 mg/dL (0.2-1.0)
--- NOTE | 2017-09-06 09:28 | PN ---
Progress Note (short form) - Note Progress Note: PULMONARY OOB TO CHAIR WANTS TO GO HOME VSS/AFEBRILE ANICTERIC DIMINISHED BREATH SOUNDS S1S2 OBESE TRACE ANKLE EDEMA LABS/MEDS/NOTES/IMAGES/MEDS REVIEWED A/P Acute on Chronic Hypoxic Respiratory Failure Pneumonia Pleural Effusion Acute on Chronic Diastolic Heart Failure Atrial Fibrillation Acute on Chronic Renal Failure h/o Lung Ca s/p RUL lobectomy Obstructive Sleep Apnea DM - ABX changed to oral - Lasix changed to oral - O2 to keep SpO2 >90% - rate control - Anticoagulation - prednisone decreased to 40 mg daily - inhaled bronchodilators - NIPPV QHS & PRN - Discharge planning for today Lukas ONTIVEROS MD
[2017-09-06] MEDS: levETIRAcetam 500 MG TABLET (FP) PO SCH (09:34)
[2017-09-06] MEDS: GABAPENTIN 100 MG CAPSULE (FP) PO SCH (09:35)
[2017-09-06] MEDS: PANTOPRAZOLE 40 MG TABLET (FP) PO SCH (09:35)
[2017-09-06] MEDS: CEFUROXIME AXETIL 500 MG TABLET PO SCH (09:35)
[2017-09-06] MEDS: BUDESONIDE/FORMETEROL FUMARATE 160/4.5 mcg INHALER IH SCH (09:41)
[2017-09-06 09:45] VITALS: BP 138/60; PULSE 88
[2017-09-06] MEDS ORDERED: predniSONE 20 MG TABLET (UD) PO SCH (10:00)
[2017-09-06] MEDS ORDERED: FUROSEMIDE 40 MG TABLET (FP) PO SCH (10:00)
--- NOTE | 2017-09-06 12:36 | DS ---
Physical Examination Vital Signs: Vital Signs Temperature 97.9 F 09/06/17 06:27 Pulse Rate 88 09/06/17 09:00 Respiratory Rate 20 09/06/17 09:00 Blood Pressure 138/60 09/06/17 09:00 O2 Sat by Pulse Oximetry (%) 97 09/06/17 09:00 Constitutional: Yes: No Distress Eyes: Yes: WNL HENT: Yes: WNL Neck: Yes: WNL Cardiovascular: Yes: Pulse Irregular Respiratory: Yes: WNL Gastrointestinal: Yes: WNL Renal/: Yes: WNL Musculoskeletal: Yes: Muscle Weakness Extremities: Yes: WNL Edema: Yes Edema: LLE: Trace, RLE: Trace Peripheral Pulses WNL: Yes Integumentary: Yes: WNL Wound/Incision: Yes: Clean/Dry Neurological: Yes: WNL ...Motor Strength: WNL Psychiatric: Yes: WNL Labs: CBC, BMP 09/05/17 12:27 09/06/17 07:25 Discharge Summary Reason For Visit: PNEUMONIA Current Active Problems Acute on chronic respiratory failure with hypoxia and hypercapnia (Acute) Lung cancer (Acute) Pneumonia (Acute) Type 2 diabetes mellitus with diabetic dermatitis (Acute) Procedures: Principal: CHEST CT Hospital Course: ADMITTED FOR ACUTE COPD EXACERBATION, STEROID, IV TX, NEBS, 02 SUPPORT, MONITORED BGM WHILE ON STEROIDS, AC ON COUMADIN Condition: Improved - Instructions Diet, Activity, Other Instructions: DIABETIC/LOW SODIUM SEE DR REYNOSO FRIDAY FOR LABS REPEAT POTASSIUM LEVELS AND INR Referrals: Dami Faria MD [Primary Care Provider] - Disposition: VNS/HOME HEALTH CARE - Home Medications Comprehensive Discharge Medication List: Ambulatory Orders Atorvastatin Ca [Lipitor] 20 mg PO HS 08/08/15 Digoxin [Lanoxin -] 0.125 mg PO Q48H 08/08/15 Diltiazem Cd [Cardizem Cd -] 360 mg PO DAILY 08/08/15 Gabapentin [Neurontin -] 200 mg PO BID 08/08/15 Tiotropium [place] [Spiriva] 1 inh PO DAILY 08/08/15 levETIRAcetam [Keppra -] 1,000 mg PO BID 08/08/15 Allopurinol [Zyloprim -] 100 mg PO DAILY 02/02/17 Lansoprazole [Prevacid] 30 mg PO DAILY 02/02/17 Losartan Potassium 50 mg PO DAILY 02/02/17 Glimepiride [Glimepiride -] 2 mg PO HS 08/06/17 Glimepiride [Glimepiride -] 4 mg PO AM 08/06/17 Multivit-Min/FA/Lycopen/Lutein [Centrum Silver Tablet] 1 each PO DAILY 08/06/17 Sitagliptin Phos/Metformin HCl [Janumet Xr 50-1,000 mg Tablet] 1 each PO DAILY 08/06/17 Warfarin Sodium [Coumadin] 2.5 mg PO DAILY 08/06/17 Albuterol Sulfate [Proair Respiclick] 90 mcg IH DAILY 09/01/17 Budesonide/Formeterol Fumarate [SYMBICORT 160/4.5mcg -] 2 inh PO DAILY 09/01/17 Acetaminophen [Tylenol .Regular Strength -] 650 mg PO Q6H PRN tablet 09/06/17 Albuterol 2.5/Ipratropium 0.5 [Duoneb -] 1 amp NEB Q6H PRN amp 09/06/17 Allopurinol [Zyloprim -] 100 mg PO DAILY tablet 09/06/17 Atorvastatin Ca [Lipitor] 20 mg PO HS tablet 09/06/17 Budesonide/Formeterol Fumarate [SYMBICORT 160/4.5mcg -] 2 puff IH BID inhaler 09/06/17 Cefuroxime Axetil [Ceftin -] 500 mg PO BID #10 tablet 09/06/17 Digoxin [Lanoxin -] 0.125 mg PO Q48H tablet 09/06/17 Diltiazem Cd [Cardizem Cd -] 360 mg PO DAILY cap.cd.24h 09/06/17 Furosemide [Lasix -] 40 mg PO DAILY tablet 09/06/17 Gabapentin [Neurontin -] 200 mg PO BID capsule 09/06/17 Glimepiride [Amaryl -] 4 mg PO DAILY@0700 tablet 09/06/17 Insulin (Levemir) [Levemir Vial] 20 units SQ HS units 09/06/17 Insulin (Levemir) [Levemir Vial] 25 units SQ AM units 09/06/17 Insulin Aspart [Novolog Flexpen] 100 unit SQ ACHS #4 insuln.pen 09/06/17 Insulin Detemir [Levemir Flextouch] 100 unit SQ BID 30 Days #6 insuln.pen Warfarin Na [Coumadin -] 1.5 mg PO SuTuThSa@1800 tablet 09/06/17 Warfarin Na [Coumadin -] 3 mg PO MoWeFr@1800 tablet 09/06/17 levETIRAcetam [Keppra -] 1,000 mg PO BID tablet 09/06/17 predniSONE [Deltasone -] See Taper PO DAILY #30 tablet 09/06/17
[2017-09-06 13:59] LABS: BASO % 0.1 % (0-2.0); HEMOGLOBIN 10.6 GM/dL (10.7-15.3); LYMPH % 5.1 % (8-40); MCH 24.9 pg (25.7-33.7); MCHC 31.1 g/dl (32.0-36.0); MEAN CELL VOLUME 80.2 fl (80-96); MEAN PLT VOLUME 8.4 fl (7.5-11.1); MONO % 3.3 % (3.8-10.2); NEUT % 91.5 % (42.8-82.8); PLATELET COUNT 470 K/MM3 (134-434); RBC 4.24 M/mm3 (3.60-5.2); RDW 18.2 % (11.6-15.6); WHITE BLOOD COUNT 12.4 K/mm3 (4.0-10.0)
[2017-09-06 17:07] LABS: PLATELET ESTIMATE SLT INCREASE
[2017-09-06] MEDS ORDERED: WARFARIN NA 1 MG TABLET (FP) PO SCH (18:00)
[2017-09-08] MEDS ORDERED: WARFARIN NA 3 MG TABLET PO SCH (18:00)
== END 2017-09-06 14:56 | disposition home health service (06) | DRG 291 ==
LOC: JER 10:05 → JERBED 13:55 → J5S 16:19
PROVIDERS: ADMIT Family Medicine; ATTEND Family Medicine
PROC: 5A09557 Assistance with Respiratory Ventilation, Greater than 96 Consecutive Hours, Continuous Positive Airway Pressure (ICD-10-PCS; principal; 2017-09-01)
DX: I13.0 Hypertensive heart and chronic kidney disease with heart failure and stage 1 through stage 4 chronic kidney disease, or unspecified chronic kidney disease (principal); J96.21 Acute and chronic respiratory failure with hypoxia; J18.9 Pneumonia, unspecified organism; I50.33 Acute on chronic diastolic (congestive) heart failure; J96.22 Acute and chronic respiratory failure with hypercapnia; C34.90 Malignant neoplasm of unspecified part of unspecified bronchus or lung; N17.9 Acute kidney failure, unspecified; Z68.41 Body mass index [BMI] 40.0-44.9, adult; I48.91 Unspecified atrial fibrillation; E78.5 Hyperlipidemia, unspecified; K21.9 Gastro-esophageal reflux disease without esophagitis; E11.620 Type 2 diabetes mellitus with diabetic dermatitis; G47.33 Obstructive sleep apnea (adult) (pediatric); E66.9 Obesity, unspecified; D63.1 Anemia in chronic kidney disease; N18.3 Chronic kidney disease, stage 3 (moderate); E11.65 Type 2 diabetes mellitus with hyperglycemia
CPT/HCPCS: 36415; 71045-TC-FY; 71046-TC-FY; 71250-TC; 80053; 80061; 80162; 82550; 82803; 82947; 82962; 83036; 83721; 83880; 84100; 84484; 84550; 85025; 85027; 85610; 86157; 87040; 87899; 93005; 93010; 93306-TC; 94640; 94660; 99285-25; J7620

== ENCOUNTER 2017-10-02 02:24 | Inpatient (IN) | payer OTHER, BC ==
--- NOTE | 2017-10-02 04:56 | PDOC ---
History of Present Illness - General Chief Complaint: Headache Stated Complaint: FALL,HEAD INJURY Time Seen by Provider: 10/02/17 04:10 History Source: Patient - History of Present Illness Initial Comments: 10/02/17 06:41 76-year-old female brought in from home complaining of head injury. Patient reports that as she was walking to the bathroom at 1 AM she felt like a sudden push that made her walk faster than her normal speed which may patient fall and hit her head on the sink. Since the head injury patient's been having headache and some slight disorientation as per son's. Patient has a past medical history of lung cancer status post right upper lobectomy, A. fib, CVA, COPD, CHF, diabetes, GERD, hypertension, hypercholesterolemia. Patient is currently on 2 L of oxygen at home. The most recent discharge from [facility] was 09/25/2017 Past History - Past Medical History Allergies/Adverse Reactions: Allergies Allergy/AdvReac Type Severity Reaction Status Date / Time Opioids - Morphine Analogues Allergy Intermediate Vomiting Verified 10/02/17 05: 01 [Opioids-Morphine & Related] adhesive tape Allergy Mild Rash Verified 10/02/17 05:01 Penicillins Allergy Verified 10/02/17 05:01 Home Medications: Ambulatory Orders Albuterol Sulfate Inhaler - [Ventolin HFA Inhaler -] 1 - 2 inh PO Q4H PRN Allopurinol [Zyloprim -] 100 mg PO DAILY 09/19/17 Atorvastatin Ca [Lipitor] 20 mg PO HS 09/19/17 Budesonide/Formeterol Fumarate [SYMBICORT 80/4.5mcg -] 1 inh PO BID 09/19/17 Digoxin [Lanoxin -] 0.125 mg PO Q48H 09/19/17 Diltiazem Cd [Cardizem Cd -] 360 mg PO DAILY 09/19/17 Gabapentin 200 mg PO BID 09/19/17 Glimepiride [Amaryl -] 4 mg PO BID 09/19/17 Lansoprazole [Prevacid] 30 mg PO DAILY 09/19/17 Multivit-Min/Iron/Folic/Lutein [Centrum Silver Women Tablet] 1 each PO DAILY Prednisone 15 mg PO DAILY 09/19/17 Sitagliptin Phosphate [Januvia] 50 mg PO DAILY 09/19/17 Tiotropium [place] [Spiriva] 1 inh IH DAILY 09/19/17 Warfarin Na [Coumadin -] 2.5 mg PO ASDIR 09/19/17 Warfarin Na [Coumadin -] 5 mg PO ASDIR 09/19/17 levETIRAcetam [Keppra -] 100 mg PO BID 09/19/17 Insulin (Levemir) [Levemir Vial] 20 units SQ HS units 09/24/17 Insulin (Levemir) [Levemir Vial] 35 units SQ AM units 09/24/17 Torsemide [Demadex] 10 mg PO DAILY #30 tablet 09/24/17 Torsemide [Demadex] 40 mg PO DAILY #30 tablet 09/24/17 Cancer: Yes (lung cancer status post RIGHT UPPER lobectomy) Cardiac Disorders: Yes (afib) CVA: Yes COPD: Yes CHF: Yes DVT: No Diabetes: Yes GI Disorders: Yes (GERD) HTN: Yes Hypercholesterolemia: Yes Seizures: Yes - Surgical History Abdominal Surgery: Yes (appendectomy) Appendectomy: Yes Cardiac Surgery: Yes (LARIAT SX) Lung Surgery: Yes (lobectomy for lung cancer) - Immunization History Immunization Up to Date: Yes - Suicide/Smoking/Psychosocial Hx Smoking Status: No (40 YRS QUIT) Smoking History: Former smoker Years of Tobacco Use: 25 Have you smoked in the past 12 months: No Number of Cigarettes Smoked Daily: 0 If you are a former smoker, when did you quit?: 1976 Cigars Per Day: 0 Hx Alcohol Use: Yes (occasional glass of wine) Drug/Substance Use Hx: No Substance Use Type: None Hx Substance Use Treatment: No Review of Systems - Review of Systems Able to Perform ROS?: Yes Is the patient limited Czech proficient: No Constitutional: No: Symptoms Reported, See HPI, Chills, Diaphoresis, Fever, Loss of Appetite, Malaise, Night Sweats, Weakness, Weight Stable, Unintentional Wgt. Loss, Unexplained wgt Loss, Other Respiratory: No: Symptoms reported, See HPI, Cough, Orthopnea, Shortness of Breath, SOB with Exertion, SOB at Rest, Stridor, Wheezing, Productive cough, Hemoptysis, Other Cardiac (ROS): No: Symptoms Reported, See HPI, Chest Pain, Edema, Irregular Heart Rate, Lightheadedness, Palpitations, Syncope, Chest Tightness, Other Neurological: Yes: Headache, Weakness. No: Symptoms reported, See HPI, Numbness , Paresthesia, Pre-Existing Deficit, Seizure, Tingling, Tremors, Unsteady Gait, Ataxia, Dizziness, Other *Physical Exam - Vital Signs 10/02/17 06:45 Last Vital Signs Temp Pulse Resp BP Pulse Ox 98.7 F 88 17 130/85 95 10/02/17 03:00 10/02/17 03:00 10/02/17 03:00 10/02/17 03:00 10/02/17 06:11 - Physical Exam General Appearance: Yes: Appropriately Dressed HEENT: positive: Other (+ laceration to scalp frontal area) Respiratory/Chest: positive: Lungs Clear, Normal Breath Sounds Cardiovascular: positive: Regular Rhythm, Regular Rate Gastrointestinal/Abdominal: positive: Normal Bowel Sounds, Soft Extremity: positive: Normal Capillary Refill, Normal Inspection, Normal Range of Motion Integumentary: positive: Normal Color, Dry, Warm Neurologic: positive: Fully Oriented, Alert, Normal Mood/Affect Heart Score/ECG Review - ECG Intrepretation Comment:: 10/02/17 06:36 A-fib: 55 bpm ED Treatment Course - LABORATORY CBC & Chemistry Diagram: 10/02/17 06:00 10/02/17 06:00 - RADIOLOGY Radiograph Interpretation: 10/02/17 06:02 CT Cervical neck: Degenerative changes. Negative for cervical spine fracture or malalignment. Enlarged thyroid with substernal component CT head: Involutional changes. No hemorrhage. Old left temporoparietal infarct associated with a smaller old left occipital infarct. Osseous structures are intact Progress Note - Progress Note Progress Note: A: Head injury; concussion' r/o near syncope. P: ct head/ neck cbc cmp cardiac bnp UA *DC/Admit/Observation/Transfer Diagnosis at time of Disposition: Near syncope Concussion Qualifiers: Encounter type: initial encounter Loss of consciousness presence/duration: without LOC Qualified Code(s): S06.0X0A - Concussion without loss of consciousness, initial encounter Head injury due to trauma Qualifiers: Encounter type: initial encounter Qualified Code(s): S09.90XA - Unspecified injury of head, initial encounter - Discharge Dispostion Condition at time of disposition: Fair - Referrals Referrals: Dami Faria MD [Primary Care Provider] - - Patient Instructions - Post Discharge Activity
--- NOTE | 2017-10-02 05:27 | PDOC ---
*Physical Exam - Vital Signs Last Vital Signs Temp Pulse Resp BP Pulse Ox 98.7 F 88 17 130/85 100 10/02/17 03:00 10/02/17 03:00 10/02/17 03:00 10/02/17 03:00 10/02/17 03:00 ED Treatment Course - LABORATORY CBC & Chemistry Diagram: 10/02/17 06:00 10/02/17 06:00 Medical Decision Making - Medical Decision Making 10/02/17 05:26 agree with care from [facility] *DC/Admit/Observation/Transfer Diagnosis at time of Disposition: Concussion, Head injury due to trauma, Near syncope - Discharge Dispostion Condition at time of disposition: Fair - Referrals - Patient Instructions - Post Discharge Activity
[2017-10-02 06:15] LABS: EOS % 2.3 % (0-4.5); HEMATOCRIT 32.1 % (32.4-45.2); HEMOGLOBIN 10.5 GM/dL (10.7-15.3); LYMPH % 12.3 % (8-40); MCH 26.6 pg (25.7-33.7); MCHC 32.8 g/dl (32.0-36.0); MONO % 8.9 % (3.8-10.2); NEUT % 75.5 % (42.8-82.8); PLATELET COUNT 213 K/MM3 (134-434); RBC 3.96 M/mm3 (3.60-5.2); RDW 19.8 % (11.6-15.6); WHITE BLOOD COUNT 7.8 K/mm3 (4.0-10.0)
[2017-10-02 06:41] LABS: INR 2.82 (0.82-1.09); PROTHROMBIN TIME (PATIENT) 31.9 SEC (9.7-13.0)
[2017-10-02 06:48] LABS: ALBUMIN 2.6 g/dl (3.4-5.0); ANION GAP 11 (8-16); BILIRUBIN,TOTAL 0.6 mg/dL (0.2-1.0); BLOOD UREA NITROGEN 25 mg/dL (7-18); CHLORIDE 96 mmol/L (98-107); CO2 31 mmol/L (21-32); CREATININE 1.4 mg/dL (0.55-1.02); GLUCOSE,RANDOM 225 mg/dL (74-106); MAGNESIUM 1.6 mg/dL (1.8-2.4); POTASSIUM 3.4 mmol/L (3.5-5.1); SGOT/AST 18 U/L (15-37); SGPT/ALT 20 U/L (12-78); SODIUM 138 mmol/L (136-145); TOT PROT 5.6 g/dl (6.4-8.2)
[2017-10-02 06:51] LABS: ALK PHOS 49 U/L (45-117)
--- NOTE | 2017-10-02 07:25 | PDOC ---
*Physical Exam - Vital Signs Last Vital Signs Temp Pulse Resp BP Pulse Ox 98.7 F 88 17 130/85 95 10/02/17 03:00 10/02/17 03:00 10/02/17 03:00 10/02/17 03:00 10/02/17 06:11 Heart Score/ECG Review - ECG Impressions Tachycardia: Afib w/controlled rate (rate 57with PVC. Left axis deviation.) ED Treatment Course - LABORATORY CBC & Chemistry Diagram: 10/02/17 06:00 10/02/17 06:00 - ADDITIONAL ORDERS Additional order review: Laboratory Results 10/02/17 10/02/17 06:00 06:00 PT with INR 31.90 H INR 2.82 H Sodium 138 Potassium 3.4 L Chloride 96 L Carbon Dioxide 31 Anion Gap 11 BUN 25 H Creatinine 1.4 H Creat Clearance w eGFR 36.46 Random Glucose 225 H Calcium 8.0 L Magnesium 1.6 L Total Bilirubin 0.6 AST 18 ALT 20 Alkaline Phosphatase 49 Creatine Kinase 30 Troponin I < 0.02 B-Natriuretic Peptide 2518.30 H Total Protein 5.6 L Albumin 2.6 L 10/02/17 06:00 RBC 3.96 MCV 81.0 MCHC 32.8 RDW 19.8 H MPV 8.0 Neutrophils % 75.5 Lymphocytes % 12.3 D Monocytes % 8.9 D Eosinophils % 2.3 D Basophils % 1.0 D Medical Decision Making - Medical Decision Making 10/02/17 07:21 Pt received in signout from [facility]. Pt s/p fall sustaining lac to forehead. Pt states she was not dizzy prior o the fall and unsure how she tripped. Pt is oxygen- dependant with BLE edema. Pt is on lasix followed by Dr. Faria. Awaiting head ct and cxr reading. Will repeat trop/ekg in 3 hours from previous and order 1 gm mg ivpb for mag level of 1.6 Laboratory Tests 10/02/17 10/02/17 06:00 06:00 WBC 7.8 Hgb 10.5 L Hct 32.1 L Plt Count 213 Neutrophils % 75.5 Potassium 3.4 L Creatinine 1.4 H Magnesium 1.6 L 10/02/17 10:07 Laboratory Tests 10/02/17 08:55 Urine Protein 2+ H Urine Nitrite Negative Urine Urobilinogen 2.0 H Ur Leukocyte Esterase 1+ H Urine WBC (Auto) [address] -. 2nd troponin pending. 10/02/17 10:19 Laboratory Tests 10/02/17 09:35 Creatine Kinase 29 Troponin I < 0.02 10/02/17 10:21 Chest x-ray shows progressive congestive changes with bilateral effusions and possible retrocardiac infiltrate. There is a large heart and sclerotic knob. There is a nonhealed fracture deformity of the right humerus. Pt with fx to rt humerus [address] Burnett recommending admission since patient needs adjustment of her Lasix along with the fact that she has been to the hospital 3 times last month secondary to similar symptoms he is also requesting physical therapy and nephrology consult to Dr. Yumi Del Real *DC/Admit/Observation/Transfer Diagnosis at time of Disposition: Near syncope Concussion Qualifiers: Encounter type: initial encounter Loss of consciousness presence/duration: without LOC Qualified Code(s): S06.0X0A - Concussion without loss of consciousness, initial encounter Head injury due to trauma Qualifiers: Encounter type: initial encounter Qualified Code(s): S09.90XA - Unspecified injury of head, initial encounter - Discharge Dispostion Condition at time of disposition: Fair Decision to Admit order: Yes - Referrals Referrals: Dami Faria MD [Primary Care Provider] - - Patient Instructions - Post Discharge Activity
[2017-10-02 09:36] LABS: URINE APPEARANCE SL CLOUDY; URINE BILIRUBIN NEGATIVE (<2.0 mg/dL); URINE COLOR DK YELLOW; URINE GLUCOSE (UA) NEGATIVE (NEGATIVE); URINE KETONE NEGATIVE (NEGATIVE)
[2017-10-02 09:37] LABS: URINE LEUK ESTERASE 1+ (NEGATIVE); URINE NITRITE NEGATIVE (NEGATIVE); URINE PROTEIN 2+ (NEGATIVE)
[2017-10-02 09:53] LABS: EPI CELLS RARE /HPF (FEW); URINE BACTERIA MANY /hpf (NONE SEEN); URINE MUCUS RARE
[2017-10-02] MEDS ORDERED: ACETAMINOPHEN 500 MG TABLET (FP) PO ONE (11:34)
--- NOTE | 2017-10-02 12:01 | EKG ---
Test Reason : Blood Pressure : / mmHG Vent. Rate : 055 BPM Atrial Rate : 056 BPM P-R Int : 000 ms QRS Dur : 098 ms QT Int : 452 ms P-R-T Axes : 000 -38 101 degrees QTc Int : 432 ms ATRIAL FIBRILLATION WITH SLOW VENTRICULAR RESPONSE LEFT AXIS DEVIATION LOW VOLTAGE QRS INFERIOR INFARCT (CITED ON OR BEFORE 17-MAY-2007) CANNOT RULE OUT ANTEROSEPTAL INFARCT (CITED ON OR BEFORE 17-MAY-2007) ABNORMAL ECG WHEN COMPARED WITH ECG OF 20-SEP-2017 10:36, QUESTIONABLE CHANGE IN INITIAL [employer] Confirmed by ASHWIN ELIZABETH MD ([id number]) on 10/02/2017 12:01:06 PM Referred By: Confirmed By:ASHWIN ELIZABETH MD
--- NOTE | 2017-10-02 12:04 | EKG ---
Test Reason : Blood Pressure : / mmHG Vent. Rate : 057 BPM Atrial Rate : 054 BPM P-R Int : 000 ms QRS Dur : 088 ms QT Int : 428 ms P-R-T Axes : 000 -41 087 degrees QTc Int : 416 ms ATRIAL FIBRILLATION WITH SLOW VENTRICULAR RESPONSE WITH PREMATURE VENTRICULAR OR ABERRANTLY CONDUCTED COMPLEXES LEFT AXIS DEVIATION LOW VOLTAGE QRS INFERIOR INFARCT (CITED ON OR BEFORE 17-MAY-2007) CANNOT RULE OUT ANTEROSEPTAL INFARCT (CITED ON OR BEFORE 17-MAY-2007) ABNORMAL ECG WHEN COMPARED WITH ECG OF 02-OCT-2017 05:20, NO SIGNIFICANT CHANGE WAS FOUND Confirmed by ASHWIN ELIZABETH MD ([id number]) on 10/02/2017 12:03:53 PM Referred By: Confirmed By:ASHWIN ELIZABETH MD
[2017-10-02] MEDS ORDERED: ACETAMINOPHEN 325 MG TABLET (FP) ONE (12:34)
[2017-10-02] MEDS ORDERED: DIGOXIN 0.125 MG TABLET (FP) PO SCH (16:30)
[2017-10-02] MEDS ORDERED: MAGNESIUM 1GM/D5W 100ML - 100 ML IVPB IVPB ONE (16:40)
--- NOTE | 2017-10-02 16:41 | HP ---
Admitting History and Physical - Primary Care Physician PCP: Dami Faria - Admission History of Present Illness: 76-year-old female brought in from home complaining of head injury. Patient reports that as she was walking to the bathroom at 1 AM she felt like a sudden push that made her walk faster than her normal speed which made patient fall and hit her head on the sink. Since the head injury patient's been having headache and some slight disorientation as per son's. currently she is alert and oriented and says she didnot lose consciousness she not sure if she tripped or not.doesnot recall what made her feel rushed which led her to fall down she was on ground for over30 minutes as it wsa difficult to lift her up Patient has a past medical history of lung cancer status post right upper lobectomy, A. fib, CVA, COPD, CHF, diabetes, GERD, hypertension, hypercholesterolemia. Patient is currently on 2 L of oxygen at home. 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 Cardiovascular: Yes: AFIB, CHF, HTN, Hyperlipdemia Pulmonary: Yes: Bronchitis, Cancer, COPD, O2 Dependent, Sleep Apnea Gastrointestinal: Yes: GERD Heme/Onc: Yes: Cancer (lung cancer) Endocrine: Yes: Diabetes Mellitus - Past Surgical History Past Surgical History: Yes: Appendectomy (age 16), Joint Replacement (bilateral) - Smoking History Smoking history: Former smoker Have you smoked in the past 12 months: No Aproximately how many cigarettes per day: 0 If you are a former smoker, when did you quit?: 1975 - Alcohol/Substance Use Hx Alcohol Use: Yes (occasional glass of wine) History of Substance Use: reports: None - Social History ADL: Independent History of Recent Travel: No Home Medications - Allergies Allergies/Adverse Reactions: Allergies Allergy/AdvReac Type Severity Reaction Status Date / Time Opioids - Morphine Analogues Allergy Intermediate Vomiting Verified 10/02/17 05: 01 [Opioids-Morphine & Related] adhesive tape Allergy Mild Rash Verified 10/02/17 05:01 Penicillins Allergy Verified 10/02/17 05:01 - Home Medications Home Medications: Ambulatory Orders Albuterol Sulfate Inhaler - [Ventolin HFA Inhaler -] 1 - 2 inh PO Q4H PRN Allopurinol [Zyloprim -] 100 mg PO DAILY 09/19/17 Atorvastatin Ca [Lipitor] 20 mg PO HS 09/19/17 Budesonide/Formeterol Fumarate [SYMBICORT 80/4.5mcg -] 2 puff PO BID 09/19/17 Digoxin [Lanoxin -] 0.125 mg PO Q48H 09/19/17 Diltiazem Cd [Cardizem Cd -] 360 mg PO DAILY 09/19/17 Gabapentin 200 mg PO BID 09/19/17 Glimepiride [Amaryl -] 4 mg PO BID 09/19/17 Lansoprazole [Prevacid] 30 mg PO DAILY 09/19/17 Multivit-Min/Iron/Folic/Lutein [Centrum Silver Women Tablet] 1 each PO DAILY Sitagliptin Phosphate [Januvia] 50 mg PO DAILY 09/19/17 Tiotropium [place] [Spiriva] 1 inh IH DAILY 09/19/17 Warfarin Na [Coumadin -] 2.5 mg PO ASDIR 09/19/17 Warfarin Na [Coumadin -] 5 mg PO ASDIR 09/19/17 levETIRAcetam [Keppra -] 1,000 mg PO BID 09/19/17 Physical Examination Vital Signs: Vital Signs Temperature 97.9 F 10/02/17 13:15 Pulse Rate 101 H 10/02/17 13:15 Respiratory Rate 20 10/02/17 13:15 Blood Pressure 131/59 10/02/17 14:00 O2 Sat by Pulse Oximetry (%) 97 10/02/17 11:23 Constitutional: Yes: Calm HENT: Yes: Other (laceration noted on head which is glued) Cardiovascular: Yes: Pulse Irregular, S1, S2 Respiratory: Yes: CTA Bilaterally Gastrointestinal: Yes: Normal Bowel Sounds, Soft Edema: Yes Labs: CBC, BMP 10/02/17 06:00 10/02/17 06:00 Imaging - Results Cat Scan: Report Reviewed (no acute infarct ct neck chronic discogenic disease) Problem List - Problems (1) Near syncope Assessment/Plan: cardiology echo orthostatic Code(s): R55 - SYNCOPE AND COLLAPSE (2) Head injury due to trauma Assessment/Plan: neurocheck carotid doppler PT echo neurology Code(s): S09.90XA - UNSPECIFIED INJURY OF HEAD, INITIAL ENCOUNTER Qualifiers: Encounter type: initial encounter Qualified Code(s): S09.90XA - Unspecified injury of head, initial encounter (3) CKD (chronic kidney disease) stage 3, GFR 30-59 ml/min Assessment/Plan: renal eval Code(s): N18.3 - CHRONIC KIDNEY DISEASE, STAGE 3 (MODERATE) (4) Diabetes Assessment/Plan: insulin bgm sliding scale [id number] januvia and amaryl Code(s): E11.9 - TYPE 2 DIABETES MELLITUS WITHOUT COMPLICATIONS Qualifiers: Diabetes mellitus type: type 2 (5) Seizure Assessment/Plan: keppra level keppra bid Code(s): R56.9 - UNSPECIFIED CONVULSIONS (6) COPD (chronic obstructive pulmonary disease) Assessment/Plan: oxygen [ prednisone spiriva Code(s): J44.9 - CHRONIC OBSTRUCTIVE PULMONARY DISEASE, UNSPECIFIED
[2017-10-02] MEDS ORDERED: POTASSIUM CHLORIDE TABS 20 MEQ TABLET.ER (FP) PO ONE ×2 (16:45→19:00)
--- NOTE | 2017-10-02 17:13 | PN ---
Progress Note (short form) - Note Progress Note: Renal follow up for CKD/Volume overload Pt seen and examined in the ER admitted s/p fall with head trauma. Denies LOC. No CP or palpitations. On Lasix 80mg PO BID at home. Denies any dizziness. Vital Signs Temperature 97.9 F 10/02/17 13:15 Pulse Rate 101 H 10/02/17 13:15 Respiratory Rate 20 10/02/17 13:15 Blood Pressure 131/59 10/02/17 14:00 O2 Sat by Pulse Oximetry (%) 97 10/02/17 11:23 Intake & Output 09/29/17 09/30/17 10/01/17 10/02/17 23:59 23:59 23:59 23:59 Intake Total 0 Balance 0 Weight 90.718 kg NAD awake and alert + laceration on top of head MMM No JVD RRR CTA + edema in LE CBC, BMP 10/02/17 06:00 10/02/17 06:00 Current Medications Digoxin (Lanoxin -) 0.125 mg PO Q48H [facility] Diltiazem HCl (Cardizem Cd -) 360 mg PO DAILY TIM Gabapentin (Neurontin -) 200 mg PO BID TIM Glimepiride (Amaryl -) 4 mg PO DAILY@0700 [facility] Insulin Aspart (Novolog Vial Sliding Scale -) 1 vial SQ ACHS [facility]; Protocol Insulin Detemir (Levemir Vial) 20 units SQ HS TIM Insulin Detemir (Levemir Vial) 35 units SQ AM TIM Levetiracetam (Keppra -) 1,000 mg PO BID [facility] Pantoprazole Sodium (Protonix -) 20 mg PO DAILY [facility] Prednisone (Deltasone -) 10 mg PO DAILY [facility] Sitagliptin Phosphate (Januvia -) 50 mg PO DAILY@0700 [facility] Tiotropium [place] (Spiriva -) 1 puff IH DAILY [facility] Warfarin Sodium (Coumadin -) 5 mg PO MoThSa@1800 [facility] Warfarin Sodium (Coumadin -) 2.5 mg PO SuTuWeFr@1800 [facility] 76 year old woman with PMxh of CKD, CHF, DM Type 2 presented s/p fall #CKD with volume overload #Hypertenstion/CHF #Fall Renal function stable Continue Lasix 80mg IV BID trend renal function and electrolytes supplement K to keep > 3.5 Trend Mg, K daily check orthostatics when on medical floor Thank you Connor Ruvalcaba DO
[2017-10-02] MEDS ORDERED: WARFARIN NA 5 MG TABLET (UD) PO SCH (18:00)
[2017-10-02 18:39] VITALS: BMI 40.9
[2017-10-02] MEDS: FUROSEMIDE 40 MG TABLET (FP) PO SCH (18:52)
--- NOTE | 2017-10-02 21:20 | CONSULT ---
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 PMH sig for HTN, DM, Chol, Gout, ASHD, COPD (O2 dependent) and AFib. On multiple medications including coumadin. S/P Left CVA about 10 years ago with resultant aphasia and seizures- now controlled on levetiracetam 1000mg BID. Last seizure "few years" ago. Pt walks independently with a rolator walker but does not recent worsening of her gait with "shaking" in her legs with walking and standing. Early this AM was ambulating to the bathroom when she felt "pulled forward" and fell into the bathroom striking his head without LOC. CT of head (reviewed): show an old, distal left MCA infarct with encephalomalacia, mild atrophy (L>R) and microvascular changes. CT of cervical spine shows moderate degenerative disease without traumatic changes. U/A 11 WBCs [place]: No evidence of external head trauma. -Battles. Decreased nec ROM. Frozen right shoulder after humerus fracture. Ecchymosis left volar forearm. s/p B/L TKR. Ecchymoses right knee. Obese. No bruits. Cor irreg. NEURO: Awake, alert Ox3. Fluent speech with rare dysnomic and paraphasic errors. No facial. right inferior quadrantic visual field errors. Gag fine Cannot test right drift due to right shoulder function. Symmetrical grasps. Areflexic in the legs. Plantars silent. Decreased NIGEL's B/L. Some cogwheel rigidity on the left. No FTN dystaxia Decreased vibration and pin both feet to the calves. Wide-based, shuffling, unsteady. IMP: 1. S/P Left MCA-territory CVA with mild, residual left cerebral dysfunction. 2. Seizure disorder due to the old stroke. 3. Diabetic Peripheral neuropathy (will contribute to slowly progressive gait deterioration). 4. Extrapyramidal signs or found on the left (which are likely causing recent gait deterioration and will cause a tendency to fall forward). 5. Fall with uncomplicated head trauma. SUGGEST: Home safety check. Night lights Check B12, TSH, repeat UA in a few weeks. Neuro f/u as out Patient to monitor extrapyramidal signs for progression. Continue levetiracetam 1 gm q 12 hrs and check a keppra level as out patient. Out Pt PT for gait safety (could be arranged via VNS to include the home safety check. Thank you very much, Panfilo Vegas MD
[2017-10-02] MEDS: levETIRAcetam 500 MG TABLET (FP) PO SCH (21:32)
[2017-10-02] MEDS: INSULIN SLIDING SCALE (NOVOLOG) 1 VIAL SQ SCH (21:37)
[2017-10-02] MEDS ORDERED: GABAPENTIN 400 MG CAPSULE (FP) PO SCH (22:00)
[2017-10-02] MEDS ORDERED: INSULIN (LEVEMIR) 100 UNITS/ML UNITS SQ SCH (22:00)
[2017-10-02] MEDS: GABAPENTIN 100 MG CAPSULE (FP) PO SCH (23:30)
[2017-10-03] MEDS: FUROSEMIDE 40 MG TABLET (FP) PO SCH (06:41)
[2017-10-03] MEDS: INSULIN SLIDING SCALE (NOVOLOG) 1 VIAL SQ SCH ×2 (06:43→12:25)
[2017-10-03] MEDS ORDERED: INSULIN (NOVOLOG) ASPART 100 UNITS/ML 10ML VIAL ONE (06:51)
[2017-10-03] MEDS ORDERED: PT OWN MED DRAWER 7, Y5N ONE (06:53)
[2017-10-03] MEDS ORDERED: sitaGLIPtin PHOSPHATE 50 MG TABLET PO SCH (07:00)
[2017-10-03] MEDS ORDERED: GLIMEPIRIDE 4 MG TABLET (FP) PO SCH (07:00)
[2017-10-03] MEDS ORDERED: INSULIN (LEVEMIR) 100 UNITS/ML UNITS SQ SCH (07:00)
[2017-10-03 08:25] LABS: HEMATOCRIT 31.3 % (32.4-45.2); HEMOGLOBIN 10.3 GM/dL (10.7-15.3); MCH 26.1 pg (25.7-33.7); MCHC 32.7 g/dl (32.0-36.0); MEAN CELL VOLUME 79.9 fl (80-96); PLATELET COUNT 243 K/MM3 (134-434); RBC 3.92 M/mm3 (3.60-5.2); RDW 20.1 % (11.6-15.6); WHITE BLOOD COUNT 6.4 K/mm3 (4.0-10.0)
[2017-10-03 08:47] LABS: CHLORIDE 93 mmol/L (98-107); POTASSIUM 3.9 mmol/L (3.5-5.1); SODIUM 137 mmol/L (136-145)
[2017-10-03 08:57] LABS: ALBUMIN 2.7 g/dl (3.4-5.0); ALK PHOS 45 U/L (45-117); ANION GAP 7 (8-16); BILIRUBIN,TOTAL 0.4 mg/dL (0.2-1.0); BLOOD UREA NITROGEN 26 mg/dL (7-18); CALCIUM 8.3 mg/dL (8.5-10.1); CHOLESTEROL 122 mg/dL (50-200); CO2 37 mmol/L (21-32); CREATININE 1.3 mg/dL (0.55-1.02); GLUCOSE,RANDOM 151 mg/dL (74-106); HDL CHOLESTEROL 43 mg/dL (40-60); MAGNESIUM 1.6 mg/dL (1.8-2.4); PHOSPHOROUS 3.6 mg/dL (2.5-4.9); SGOT/AST 17 U/L (15-37); SGPT/ALT 25 U/L (12-78); TOT PROT 5.7 g/dl (6.4-8.2); TRIGLYCERIDES 110 mg/dL (35-160)
[2017-10-03 09:06] LABS: INR 3.33 (0.82-1.09); PROTHROMBIN TIME (PATIENT) 37.6 SEC (9.7-13.0)
[2017-10-03] MEDS ORDERED: TIOTROPIUM BROMIDE 18 MCG CAPSULES IH SCH (10:00)
[2017-10-03] MEDS ORDERED: PANTOPRAZOLE 20 MG TABLET (FP) PO SCH (10:00)
[2017-10-03] MEDS ORDERED: predniSONE 10 MG TABLET (UD) PO SCH (10:00)
[2017-10-03] MEDS: GABAPENTIN 100 MG CAPSULE (FP) PO SCH (10:30)
[2017-10-03] MEDS: levETIRAcetam 500 MG TABLET (FP) PO SCH (10:31)
--- NOTE | 2017-10-03 12:49 | CONSULT ---
Consult Consult Specialty:: endocrine Referred by:: dr.saba murrieta Reason for Consultation:: diabetes mellitus hyperglycemia - History of Present Illness Chief Complaint: fell at home History of Present Illness: 76-year-old female brought in from home complaining of head injury. Patient reports that as she was walking to the bathroom she felt like a sudden push that made her walk faster than her normal speed which made patient fall and hit her head on the sink. 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 Cardio/Vascular: Yes: AFIB, CHF, HTN, Hyperlipdemia Pulmonary: Yes: Bronchitis, Cancer, COPD, O2 Dependent, Sleep Apnea Gastrointestinal: Yes: GERD ...: No Endocrine: Yes: Diabetes Mellitus Additional Medical History: right shoulder fracture - Past Surgical History Past Surgical History: Yes: Appendectomy (age 16), Joint Replacement (bilateral) - Alcohol/Substance Use Hx Alcohol Use: Yes (occasional glass of wine) History of Substance Use: reports: None - Smoking History Smoking history: Former smoker Have you smoked in the past 12 months: No Aproximately how many cigarettes per day: 0 If you are a former smoker, when did you quit?: 1975 - Social History Usual Living Arrangement: With Child ADL: Independent History of Recent Travel: No Home Medications - Allergies Allergies/Adverse Reactions: Allergies Allergy/AdvReac Type Severity Reaction Status Date / Time Opioids - Morphine Analogues Allergy Intermediate Vomiting Verified 10/02/17 05: 01 [Opioids-Morphine & Related] adhesive tape Allergy Mild Rash Verified 10/02/17 05:01 Penicillins Allergy Verified 10/02/17 05:01 - Home Medications Home Medications: Ambulatory Orders Albuterol Sulfate Inhaler - [Ventolin HFA Inhaler -] 1 - 2 inh PO Q4H PRN Allopurinol [Zyloprim -] 100 mg PO DAILY 09/19/17 Atorvastatin Ca [Lipitor] 20 mg PO HS 09/19/17 Budesonide/Formeterol Fumarate [SYMBICORT 80/4.5mcg -] 2 puff PO BID 09/19/17 Digoxin [Lanoxin -] 0.125 mg PO Q48H 09/19/17 Diltiazem Cd [Cardizem Cd -] 360 mg PO DAILY 09/19/17 Gabapentin 200 mg PO BID 09/19/17 Glimepiride [Amaryl -] 4 mg PO BID 09/19/17 Lansoprazole [Prevacid] 30 mg PO DAILY 09/19/17 Multivit-Min/Iron/Folic/Lutein [Centrum Silver Women Tablet] 1 each PO DAILY Sitagliptin Phosphate [Januvia] 50 mg PO DAILY 09/19/17 Tiotropium [place] [Spiriva] 1 inh IH DAILY 09/19/17 Warfarin Na [Coumadin -] 2.5 mg PO ASDIR 09/19/17 Warfarin Na [Coumadin -] 5 mg PO ASDIR 09/19/17 levETIRAcetam [Keppra -] 1,000 mg PO BID 09/19/17 Review of Systems - Review of Systems Constitutional: reports: Lethargy, Weakness Eyes: reports: No Symptoms HENT: reports: No Symptoms Neck: reports: No Symptoms Cardiovascular: reports: Shortness of Breath Respiratory: reports: Exercise Intolerance, SOB on Exertion Genitourinary: reports: No Symptoms Breasts: reports: No Symptoms Reported Musculoskeletal: reports: Back Pain, Joint Swelling, Muscle Pain, Muscle Cramps Neurological: reports: Unsteady Gait, Weakness Endocrine: reports: Unexplained Weight Gain Physical Exam Vital Signs: Vital Signs Temperature 97.9 F 10/03/17 10:28 Pulse Rate 83 10/03/17 10:28 Respiratory Rate 22 10/03/17 10:28 Blood Pressure 136/65 10/03/17 10:28 O2 Sat by Pulse Oximetry (%) 95 10/03/17 08:03 Constitutional: Yes: Anxious Eyes: Yes: EOM Intact HENT: Yes: Normocephalic Neck: Yes: Trachea Midline Cardiovascular: Yes: Pulse Irregular Respiratory: Yes: On Nasal O2, Tachypnea Gastrointestinal: Yes: Abdomen, Obese ...Rectal Exam: Yes: Deferred Renal/: Yes: WNL Edema: LLE: 1+, RLE: 1+ Neurological: Yes: Alert, Oriented Labs: CBC, BMP 10/03/17 07:30 10/03/17 07:30 Problem List - Problems (1) Near syncope Code(s): R55 - SYNCOPE AND COLLAPSE (2) Acute hypoxemic respiratory failure Code(s): J96.01 - ACUTE RESPIRATORY FAILURE WITH HYPOXIA (3) Acute on chronic congestive heart failure Code(s): I50.9 - HEART FAILURE, UNSPECIFIED (4) Acute on chronic respiratory failure with hypoxia and hypercapnia Code(s): J96.21 - ACUTE AND CHRONIC RESPIRATORY FAILURE WITH HYPOXIA; J96.22 - ACUTE AND CHRONIC RESPIRATORY FAILURE WITH HYPERCAPNIA (5) Acute renal failure Code(s): N17.9 - ACUTE KIDNEY FAILURE, UNSPECIFIED (6) Diabetes Code(s): E11.9 - TYPE 2 DIABETES MELLITUS WITHOUT COMPLICATIONS Qualifiers: Diabetes mellitus type: type 2 Assessment/Plan Current Active Problems Concussion (Acute) Head injury due to trauma (Acute) Near syncope (Acute) diabetes mellitus hyperglycemia,neuropathy hypertension ashd hyperlipidemia chf copd Abnormal Lab Results 10/03/17 10/03/17 10/03/17 07:30 07:30 07:30 Hgb 10.3 L Hct 31.3 L MCV 79.9 L RDW 20.1 H PT with INR 37.60 H INR 3.33 H Chloride 93 L Carbon Dioxide 37 H Anion Gap 7 L BUN 26 H Creatinine 1.3 H Random Glucose 151 H Hemoglobin A1c % Calcium 8.3 L Magnesium 1.6 L Total Protein 5.7 L Albumin 2.7 L 10/03/17 07:30 Hgb Hct MCV RDW PT with INR INR Chloride Carbon Dioxide Anion Gap BUN Creatinine Random Glucose Hemoglobin A1c % 9.8 H Calcium Magnesium Total Protein Albumin Laboratory Results - last 24 hr 10/02/17 10/03/17 10/03/17 21:03 06:41 07:30 WBC 6.4 RBC 3.92 Hgb 10.3 L Hct 31.3 L MCV 79.9 L MCH 26.1 MCHC 32.7 RDW 20.1 H Plt Count 243 MPV 8.0 PT with INR INR Sodium Potassium Chloride Carbon Dioxide Anion Gap BUN Creatinine Creat Clearance w eGFR POC Glucometer 231 184 Random Glucose Hemoglobin A1c % Calcium Phosphorus Magnesium Total Bilirubin AST ALT Alkaline Phosphatase Troponin I Total Protein Albumin Triglycerides Cholesterol Total LDL Cholesterol HDL Cholesterol 10/03/17 10/03/17 10/03/17 07:30 07:30 07:30 WBC RBC Hgb Hct MCV MCH MCHC RDW Plt Count MPV PT with INR 37.60 H INR 3.33 H Sodium 137 Potassium 3.9 Chloride 93 L Carbon Dioxide 37 H Anion Gap 7 L BUN 26 H Creatinine 1.3 H Creat Clearance w eGFR 39.72 POC Glucometer Random Glucose 151 H Hemoglobin A1c % 9.8 H Calcium 8.3 L Phosphorus 3.6 Magnesium 1.6 L Total Bilirubin 0.4 AST 17 ALT 25 Alkaline Phosphatase 45 Troponin I < 0.02 Total Protein 5.7 L Albumin 2.7 L Triglycerides 110 Cholesterol 122 Total LDL Cholesterol 70 HDL Cholesterol 43 plan: continue levemir 35 units am bgm qid novolog insulin glimeperide 2mg daily januvia 50mg daily discharge home,follow up out patient
--- NOTE | 2017-10-03 12:57 | CON.CARD ---
Consult Consult Specialty:: cardiology Referred by:: Bienvenido Reason for Consultation:: Status post fall - History of Present Illness Chief Complaint: I fell down History of Present Illness: The patient is a 76-year-old morbidly obese female, with a history of diabetes, hypertension, hyperlipidemia, atrial fibrillation on Coumadin, gout, COPD on home O2, stroke, seizure disorder, now admitted after a fall. The patient stated that she got out of bed at 2 AM and started to walk towards the bathroom. She suddenly fell forward. As per the patient she did not lose consciousness. She was aware of her fall. She usually walks with a walker or a cane at home. This time she was walking by herself. Her diuretics were recently increased because of significant leg edema. She had a similar episode approximately 2 years ago in the same setting. The patient is currently comfortable and symptom free. Denies chest pains, shortness of breath, palpitations. ECG on admission, atrial fibrillation in the 50s, left axis deviation, old inferior and anteroseptal infarct, nonspecific ST-T changes. 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 Cardio/Vascular: Yes: AFIB, CHF, HTN, Hyperlipdemia Pulmonary: Yes: Bronchitis, Cancer, COPD, O2 Dependent, Sleep Apnea Gastrointestinal: Yes: GERD ...: No Endocrine: Yes: Diabetes Mellitus Additional Medical History: right shoulder fracture - Past Surgical History Past Surgical History: Yes: Appendectomy (age 16), Joint Replacement (bilateral) - Alcohol/Substance Use Hx Alcohol Use: Yes (occasional glass of wine) History of Substance Use: reports: None - Smoking History Smoking history: Former smoker Have you smoked in the past 12 months: No Aproximately how many cigarettes per day: 0 If you are a former smoker, when did you quit?: 1975 - Social History Usual Living Arrangement: With Child ADL: Independent History of Recent Travel: No Home Medications - Allergies Allergies/Adverse Reactions: Allergies Allergy/AdvReac Type Severity Reaction Status Date / Time Opioids - Morphine Analogues Allergy Intermediate Vomiting Verified 10/02/17 05: 01 [Opioids-Morphine & Related] adhesive tape Allergy Mild Rash Verified 10/02/17 05:01 Penicillins Allergy Verified 10/02/17 05:01 - Home Medications Home Medications: Ambulatory Orders Albuterol Sulfate Inhaler - [Ventolin HFA Inhaler -] 1 - 2 inh PO Q4H PRN Allopurinol [Zyloprim -] 100 mg PO DAILY 09/19/17 Atorvastatin Ca [Lipitor] 20 mg PO HS 09/19/17 Budesonide/Formeterol Fumarate [SYMBICORT 80/4.5mcg -] 2 puff PO BID 09/19/17 Digoxin [Lanoxin -] 0.125 mg PO Q48H 09/19/17 Diltiazem Cd [Cardizem Cd -] 360 mg PO DAILY 09/19/17 Gabapentin 200 mg PO BID 09/19/17 Glimepiride [Amaryl -] 4 mg PO BID 09/19/17 Lansoprazole [Prevacid] 30 mg PO DAILY 09/19/17 Multivit-Min/Iron/Folic/Lutein [Centrum Silver Women Tablet] 1 each PO DAILY Sitagliptin Phosphate [Januvia] 50 mg PO DAILY 09/19/17 Tiotropium [place] [Spiriva] 1 inh IH DAILY 09/19/17 Warfarin Na [Coumadin -] 2.5 mg PO ASDIR 09/19/17 Warfarin Na [Coumadin -] 5 mg PO ASDIR 09/19/17 levETIRAcetam [Keppra -] 1,000 mg PO BID 09/19/17 Review of Systems - Review of Systems Constitutional: reports: No Symptoms Eyes: reports: No Symptoms HENT: reports: No Symptoms Neck: reports: No Symptoms Cardiovascular: reports: No Symptoms Respiratory: reports: No Symptoms Gastrointestinal: reports: No Symptoms Genitourinary: reports: No Symptoms Breasts: reports: No Symptoms Reported Musculoskeletal: reports: No Symptoms Integumentary: reports: No Symptoms Neurological: reports: No Symptoms Endocrine: reports: No Symptoms Hematology/Lymphatic: reports: No Symptoms Psychiatric: reports: No Symptoms Vital Signs: Vital Signs Temperature 97.9 F 10/03/17 10:28 Pulse Rate 83 10/03/17 10:28 Respiratory Rate 22 10/03/17 10:28 Blood Pressure 136/65 10/03/17 10:28 O2 Sat by Pulse Oximetry (%) 95 10/03/17 08:03 Constitutional: Yes: No Distress, Calm, Obese Eyes: Yes: WNL, Conjunctiva Clear, EOM Intact HENT: Yes: Other ([place] achymosis) Respiratory: Yes: Accessory Muscle Use, On Nasal O2, Poor Air Entry Gastrointestinal: Yes: WNL, Normal Bowel Sounds, Soft Renal/: Yes: WNL Cardiovascular: Yes: Bradycardia, Pulse Irregular JVD: No Carotid Bruit: No PMI: Non-Displaced Heart Sounds: Yes: S1, S2 Murmur: Yes: Systolic Murmur, Grade 2 Musculoskeletal: Yes: WNL Extremities: Yes: WNL Edema: Yes Edema: LLE: 1+, RLE: 1+ Peripheral Pulses: 1+ Left Carotid, 1+ Right Carotid, 1+ Left Femoral, 1+ Right Femoral, 1+ Left Popliteal, 1+ Right Popliteal, 1+ Left Doralis Pedis, 1+ Right Dorsalis Pedis Integumentary: Yes: WNL Neurological: Yes: WNL, Alert, Oriented Psychiatric: Yes: WNL - Other Data Labs, Other Data: CBC, BMP 10/03/17 07:30 10/03/17 07:30 INR, PTT INR 3.33 (0.82-1.09) H 10/03/17 07:30 Troponin, BNP 10/03/17 07:30 Troponin I < 0.02 Troponin, BNP 10/03/17 07:30 Troponin I < 0.02 Assessment/Plan 76-year-old morbidly obese female, we've a history of diabetes, hypertension, hyperlipidemia, chronic atrial fibrillation on Coumadin, COPD on home O2, gout, prior stroke with a seizure disorder, now admitted with a non-witnessed fall. The patient stated that she did not lose consciousness throughout the event. She is currently fairly comfortable. Moderate acute on chronic diastolic heart failure. The patient is in slow atrial fibrillation. On oral Cardizem. There is no evidence of ischemia nor acute coronary syndrome. Please perform orthostatics. Continue current regimen for the time being. Strict salt and fluid restrictions. Would transferred to telemetry for monitoring. Please arrange for an echocardiogram. The patient is stable.
--- NOTE | 2017-10-03 13:16 | ECHO ---
Name: GRANT, DANILO Study Date: 10/03/2017 10:35 AM Reason For Study: r/o valvular abnormality Height: 64 in Weight: 230 lb BSA IVSd 0.81cm Ao root diam3.0cm LVIDd 4.6cm LA dimension 4.2cm LVIDs 3.0cm LVPWd 1.1cm EDV(Teich) 96.0ml ESV(Teich) 36.4ml MV E max christiano 161.0cm/sec TR max christiano 268 .8cm/sec TR max PG 28. 9mmHg Med Peak E' Christiano 8.2cm/sec Med E/e' 19.7 Lat Peak E' Vel8.3cm/sec Lat E/e'19.5
--- NOTE | 2017-10-03 13:51 | PN ---
Progress Note (short form) - Note Progress Note: Renal follow up for CKD/Volume overload Pt seen and examined no acute complaints wants to go home no dizziness, LOC denies any sob, chest pain on Lasix Vital Signs Temperature 97.9 F 10/03/17 10:28 Pulse Rate 83 10/03/17 10:28 Respiratory Rate 22 10/03/17 10:28 Blood Pressure 136/65 10/03/17 10:28 O2 Sat by Pulse Oximetry (%) 95 10/03/17 08:03 Intake & Output 09/30/17 10/01/17 10/02/17 10/03/17 23:59 23:59 23:59 23:59 Intake Total 400 50 Balance 400 50 Weight 104.78 kg 104.689 kg NAD awake and alert + laceration on top of head MMM No JVD RRR CTA + edema in LE CBC, BMP 10/03/17 07:30 10/03/17 07:30 Current Medications Digoxin (Lanoxin -) 0.125 mg PO Q48H [facility], [facility] Last Admin: 10/02/17 18:53 Dose: 0.125 mg Diltiazem HCl (Cardizem Cd -) 360 mg PO DAILY [facility] Last Admin: 10/03/17 10:31 Dose: 360 mg Furosemide (Lasix -) 80 mg PO BID@0600,1400 [facility] Last Admin: 10/03/17 06:41 Dose: 80 mg Gabapentin (Neurontin -) 200 mg PO BID [facility] Last Admin: 10/03/17 10:30 Dose: 200 mg Glimepiride (Amaryl -) 4 mg PO DAILY@0700 [facility] Last Admin: 10/03/17 06:42 Dose: 4 mg Insulin Aspart (Novolog Vial Sliding Scale -) 1 vial SQ [facility], [facility]; Protocol Last Admin: 10/03/17 12:25 Dose: Not Given Insulin Detemir (Levemir Vial) 20 units SQ HS [facility] Last Admin: 10/02/17 21:36 Dose: 20 units Insulin Detemir (Levemir Vial) 35 units SQ AM [facility] Last Admin: 10/03/17 06:42 Dose: 35 units Levetiracetam (Keppra -) 1,000 mg PO BID [facility] Last Admin: 10/03/17 10:31 Dose: 1,000 mg Pantoprazole Sodium (Protonix -) 20 mg PO DAILY [facility] Last Admin: 10/03/17 10:30 Dose: 20 mg Prednisone (Deltasone -) 10 mg PO DAILY [facility] Last Admin: 10/03/17 10:30 Dose: 10 mg Sitagliptin Phosphate (Januvia -) 50 mg PO DAILY@0700 [facility] Last Admin: 10/03/17 06:42 Dose: 50 mg Tiotropium [place] (Spiriva -) 1 puff IH DAILY [facility] Last Admin: 10/03/17 10:30 Dose: 1 capl Warfarin Sodium (Coumadin -) 5 mg PO MoThSa@1800 [facility] Last Admin: 10/02/17 18:53 Dose: 5 mg Warfarin Sodium (Coumadin -) 2.5 mg PO SuTuWeFr@1800 [facility] 76 year old woman with PMxh of CKD, CHF, DM Type 2 presented s/p fall #CKD with volume overload #Hypertenstion/CHF #Fall Renal function stable continue Lasix BID orthostatisc negative no electrolyte derangements Cardiac enzymes negative x 3 Cardiology follow up no contraindication to discharge from renal perspective Thank you Connor Ruvalcaba DO
--- NOTE | 2017-10-03 14:13 | DS ---
Physical Examination Vital Signs: Vital Signs Temperature 97.9 F 10/03/17 10:28 Pulse Rate 83 10/03/17 10:28 Respiratory Rate 22 10/03/17 10:28 Blood Pressure 136/65 10/03/17 10:28 O2 Sat by Pulse Oximetry (%) 95 10/03/17 08:03 Constitutional: Yes: No Distress Eyes: Yes: WNL HENT: Yes: WNL Neck: Yes: WNL Cardiovascular: Yes: Pulse Irregular Respiratory: Yes: WNL Gastrointestinal: Yes: WNL Renal/: Yes: WNL Musculoskeletal: Yes: Muscle Weakness Extremities: Yes: WNL Edema: Yes Integumentary: Yes: WNL Wound/Incision: Yes: Clean/Dry Neurological: Yes: Pre-Existing Deficit ...Motor Strength: LLE, RLE Psychiatric: Yes: Other Labs: CBC, BMP 10/03/17 07:30 10/03/17 07:30 Discharge Summary Reason For Visit: PRE SYNCOPE Current Active Problems Concussion (Acute) Head injury due to trauma (Acute) Near syncope (Acute) Procedures: Principal: CT SCAN BRAIN/CSPINE Hospital Course: ADMITTED FOR FALL, SYNCOPE WORKUP, ECHO, CT BRAIN,CSPINE NO ACUTE CHANGES, F/U OUTPATIENT. HOME HEALTH CARE Condition: Fair - Instructions Diet, Activity, Other Instructions: ADA SEE DR LOPEZ IN 1 WEEK Referrals: Dami Faria MD [Primary Care Provider] - Disposition: VNS/HOME HEALTH CARE - Home Medications Comprehensive Discharge Medication List: Ambulatory Orders Albuterol Sulfate Inhaler - [Ventolin HFA Inhaler -] 1 - 2 inh PO Q4H PRN Allopurinol [Zyloprim -] 100 mg PO DAILY 09/19/17 Atorvastatin Ca [Lipitor] 20 mg PO HS 09/19/17 Budesonide/Formeterol Fumarate [SYMBICORT 80/4.5mcg -] 2 puff PO BID 09/19/17 Digoxin [Lanoxin -] 0.125 mg PO Q48H 09/19/17 Diltiazem Cd [Cardizem Cd -] 360 mg PO DAILY 09/19/17 Gabapentin 200 mg PO BID 09/19/17 Glimepiride [Amaryl -] 4 mg PO BID 09/19/17 Lansoprazole [Prevacid] 30 mg PO DAILY 09/19/17 Multivit-Min/Iron/Folic/Lutein [Centrum Silver Women Tablet] 1 each PO DAILY Sitagliptin Phosphate [Januvia] 50 mg PO DAILY 09/19/17 Tiotropium [place] [Spiriva] 1 inh IH DAILY 09/19/17 Warfarin Na [Coumadin -] 2.5 mg PO ASDIR 09/19/17 Warfarin Na [Coumadin -] 5 mg PO ASDIR 09/19/17 levETIRAcetam [Keppra -] 1,000 mg PO BID 09/19/17
[2017-10-03 14:15] VITALS: BP 138/76; PULSE 81; TEMP 98.4
[2017-10-03] MEDS ORDERED: WARFARIN NA 2.5 MG TABLET (FP) PO SCH (18:00)
[2017-10-04] MEDS ORDERED: WARFARIN NA 2.5 MG TABLET (FP) PO SCH (10:00)
== END 2017-10-03 15:10 | disposition home health service (06) | DRG 913 ==
LOC: JER 02:24 → JERBED 10:38 → OBSVTOIN 16:22 → J5S 17:15 → J8W 19:18 → J5S 19:20
PROVIDERS: ADMIT Internal Medicine Endocrinology, Diabetes & Metabolism; ATTEND Internal Medicine Endocrinology, Diabetes & Metabolism
DX: S09.90XA Unspecified injury of head, initial encounter (principal); I50.33 Acute on chronic diastolic (congestive) heart failure; Z68.41 Body mass index [BMI] 40.0-44.9, adult; G25.9 Extrapyramidal and movement disorder, unspecified; I13.0 Hypertensive heart and chronic kidney disease with heart failure and stage 1 through stage 4 chronic kidney disease, or unspecified chronic kidney disease; S06.0X0A Concussion without loss of consciousness, initial encounter; S01.01XA Laceration without foreign body of scalp, initial encounter; J44.9 Chronic obstructive pulmonary disease, unspecified; K21.9 Gastro-esophageal reflux disease without esophagitis; E78.00 Pure hypercholesterolemia, unspecified; I48.91 Unspecified atrial fibrillation; G47.30 Sleep apnea, unspecified; E87.79 Other fluid overload; I25.10 Atherosclerotic heart disease of native coronary artery without angina pectoris; M10.9 Gout, unspecified; S50.12XA Contusion of left forearm, initial encounter; S80.01XA Contusion of right knee, initial encounter; E11.42 Type 2 diabetes mellitus with diabetic polyneuropathy; G40.909 Epilepsy, unspecified, not intractable, without status epilepticus; Z79.01 Long term (current) use of anticoagulants; E66.01 Morbid (severe) obesity due to excess calories; E11.22 Type 2 diabetes mellitus with diabetic chronic kidney disease; N18.3 Chronic kidney disease, stage 3 (moderate); Z99.81 Dependence on supplemental oxygen; Z85.118 Personal history of other malignant neoplasm of bronchus and lung; Z90.2 Acquired absence of lung [part of]; Z86.73 Personal history of transient ischemic attack (TIA), and cerebral infarction without residual deficits; W18.39XA Other fall on same level, initial encounter; Y92.098 Other place in other non-institutional residence as the place of occurrence of the external cause
CPT/HCPCS: 36415; 70450-TC; 71045-TC-FY; 72125-TC; 80053; 80061; 81003; 81015; 82550; 82962; 83036; 83721; 83735; 83880; 84100; 84484; 85025; 85027; 85610; 87086; 87186; 93005; 93010; 93306-TC; 93880-TC; 94660; 97116-GP; 97161-GP; 99285-25; G0378

== ENCOUNTER 2018-03-15 10:55 | Emergency (ER) | payer OTHER, BC ==
[2018-03-15 11:07] VITALS: PULSE 75; BMI 35.4
--- NOTE | 2018-03-15 12:00 | PDOC ---
Attending Attestation - [facility] HPI: 03/15/18 12:17 The patient is a 77 year old female, with a significant past medical history of lung CA s/p right upper lobe resection, CHF, echo revealing ejection fraction, Afib (on coumadin), COPD on home O2, diabetes, who presents to the emergency department with left arm pain today. She reports the pain intermittently tingles down to her hand. She states the pain is exacerbated with movement of the left arm. She reports a few days of cold-symptoms which has involved violently coughing which started yesterday. She reports the cough is dry and nagging. She states her baseline SOB becomes exacerbated after coughing. She denies any other changes to her SOB. She denies injury or trauma. She denies back pain and neck pain. The patient denies chest pain, shortness of breath, headache and dizziness. The patient denies fever, chills, nausea, vomit, diarrhea and constipation. The patient denies dysuria, frequency, urgency and hematuria. Allergies: opioids, penicillins - Physicial Exam PE: 03/15/18 12:18 Constitutional: Non toxic appearing. Awake, alert, oriented. No acute distress. Head: Normocephalic. Atraumatic Eyes: PERRL. EOMI. Conjunctivae are not pale. ENT: Mucous membranes are moist and intact. Posterior pharynx without exudates or erythema. Uvula midline. Neck: Supple. Full ROM. No lymphadenopathy. Cardiovascular: Regular rate. Regular rhythm. S1, S2 regular. Distal pulses are 2+ and symmetric. Pulmonary/Chest: (+) diminished at bases. No evidence of respiratory distress. Clear to auscultation bilaterally No wheezing, rales or rhonchi. Abdominal: (+) obese. Soft and non-distended. There is no tenderness. No rebound, guarding or rigidity. No organomegaly. No palpable masses. Good bowel sounds. Back: No CVA tenderness. Musculoskeletal: (+) trace edema to bilateral ankles. left shoulder is ttp with adduction and forward flexion. tenderness to rhomboid on left into the L scapula. palpation of left upper rhomboid reproduces the patient's pain. tenderness to left anterior pectoralis muscle. no anterior shoulder tenderness. no bicep tendon tenderness. full ROM passively. No cyanosis. No clubbing. Full range of motion in remainder of extremities. No calf tenderness. Radial/ pedal pulses are intact and 2+ bilaterally Skin: Skin is warm and dry. No petechiae. No purpura. Neurological: Alert and oriented to person, place, and time. Cranial nerves II -XII are grossly intact. Normal speech. Strength is grossly symmetric. No sensory deficits. Psychiatric: Good eye contact. Normal interaction, affect and behavior. - Medical Decision Making 03/15/18 12:17 Documentation prepared by Haley Lerma, acting as medical instrument cable fabricator for Ashley Ott DO, <Haley Lerma - Last Filed: 03/15/18 12:51> - Resident Resident Name: Kojo Groves - ED Attending Attestation I have performed the following: I have examined & evaluated the patient, The case was reviewed & discussed with the resident, I agree w/resident's findings & plan, Exceptions are as noted - Critical Care Time Total Critical Care Time: 35 Critical Care Statement: The care of this patient involved high complexity decision making to prevent further life threatening deterioration of the patient 's condition and/or to evaluate & treat vital organ system(s) failure or risk of failure. - Medical Decision Making 03/15/18 11:59 I, Dr. Ashley Ott DO, attest that this document has been prepared under my direction and personally reviewed by me in its entirety. I further attest, that it accurately reflects all work, treatment, procedures and medical decision -making performed by me. 03/15/18 12:56 77yo female with LUE pain. L shoulder pain, L upper back and upper chest pain -recent URI with coughing yesterday -pain with ROM and palpation of hte L shoulder and ARA Back -suspect coughing caused msk strain/spasm -will send labs, ekg, cxr, shoulder xray -tylenol and robaxin -nontoxic in appearance 03/15/18 15:52 cxr without acute findings shoulder xray without acute findings re-eval: pt feeling much better, able to range her shoulder completely without pain trop negative magnesium is low- will replace 03/15/18 16:13 bnp lower than other visits feeling better stable for dc to home <Ashley Ott - Last Filed: 03/15/18 16:14> Heart Score/ECG Review - ECG Intrepretation Comment:: 03/15/18 11:59 afib at 63, L axis deviation, q waves inferiorly that are age indeterminate, poor r wave progression, q waves anteroseptal that are age indeterminate <Ashley Ott - Last Filed: 03/15/18 16:14>
--- NOTE | 2018-03-15 12:18 | PDOC ---
History of Present Illness - General Chief Complaint: Pain Stated Complaint: LT SIDE ARM PAIN,COPD History Source: Patient Exam Limitations: No Limitations - History of Present Illness Initial Comments: 03/15/18 12:15 77 yo F with a hx of lung cancer s/p resection RUL, afib (on coumadin), COPD ( on home O2 PRN 2 liters), CHF (09/2017 normal LVEF), DM, HLD, and HTN presents to the emergency department with left shoulder pain. Per the patient, her symptoms began this morning. The pain is a stabbing like sensation, 8/10, intermittent episodes lasting 1 minute, with worsening pain when she moves the arm. She denies the following: hx of arthritis in the left shoulder, trauma, SOB , chest pain, neck pain, back pain, and neurological deficits (denies loss of sensation and movement of the left arm). Concurrently, she has been having URI symptoms since friday (endorses several members of the household had cold symptoms throughout last week) with an associative cough that has been dry and progressively worsening. Denies the following: fever, chills, chest pain, trauma , abdominal pain, nausea, vomiting, dysuria, hematuria, diarrhea, hematochezia, and leg pain/swelling. Past History - Past Medical History Allergies/Adverse Reactions: Allergies Allergy/AdvReac Type Severity Reaction Status Date / Time Opioids - Morphine Analogues Allergy Intermediate Vomiting Verified 03/15/18 11: 02 [Opioids-Morphine & Related] adhesive tape Allergy Mild Rash Verified 03/15/18 11:02 Penicillins Allergy Verified 03/15/18 11:02 Home Medications: Ambulatory Orders Albuterol Sulfate Inhaler - [Ventolin HFA Inhaler -] 1 - 2 inh PO Q4H PRN Allopurinol [Zyloprim -] 100 mg PO DAILY 09/19/17 Budesonide/Formeterol Fumarate [SYMBICORT 80/4.5mcg -] 2 puff PO BID 09/19/17 Digoxin [Lanoxin -] 0.125 mg PO Q48H 09/19/17 Diltiazem Cd [Cardizem Cd -] 360 mg PO DAILY 09/19/17 Gabapentin 200 mg PO BID 09/19/17 Glimepiride [Amaryl -] 4 mg PO BID 09/19/17 Lansoprazole [Prevacid] 30 mg PO DAILY 09/19/17 Multivit-Min/Iron/Folic/Lutein [Centrum Silver Women Tablet] 1 each PO DAILY Sitagliptin Phosphate [Januvia] 50 mg PO DAILY 09/19/17 Tiotropium [place] [Spiriva] 1 inh IH DAILY 09/19/17 Warfarin Na [Coumadin -] 2.5 mg PO ASDIR 09/19/17 Warfarin Na [Coumadin -] 5 mg PO ASDIR 09/19/17 levETIRAcetam [Keppra -] 1,000 mg PO BID 09/19/17 Atorvastatin Ca [Lipitor] 20 mg PO HS 10/18/17 Furosemide [Lasix] 80 mg PO ASDIR 10/18/17 Lansoprazole [Prevacid] 30 mg PO DAILY 10/18/17 Acetaminophen [Tylenol .Regular Strength -] 650 mg PO Q6H PRN tablet 10/23/17 Albuterol 2.5/Ipratropium 0.5 [Duoneb -] 1 amp NEB Q4H PRN amp 10/23/17 Furosemide [Lasix] 40 mg PO HS #30 tablet 10/23/17 Insulin (Levemir) [Levemir Vial] 20 units SQ AM units 10/23/17 Insulin (Levemir) [Levemir Vial] 20 units SQ HS units 10/23/17 Insulin Sliding Scale [Novolog Vial Sliding Scale -] 1 vial SQ ACHS units 10/23 Lactobacillus Acidophilus [Bacid -] 1 tab PO DAILY tab 10/23/17 Warfarin Na [Coumadin -] 2.5 mg PO DAILY@1800 tablet 10/23/17 Methocarbamol [Robaxin -] 500 mg PO TID #10 tablet 03/15/18 Anemia: No Asthma: No Cancer: Yes (lung cancer status post RIGHT UPPER lobectomy) Cardiac Disorders: Yes (afib) CVA: Yes COPD: Yes CHF: Yes DVT: No Dementia: No Diabetes: Yes GI Disorders: Yes (GERD) Disorders: No HTN: Yes Hypercholesterolemia: Yes Liver Disease: No Seizures: Yes Thyroid Disease: No - Surgical History Abdominal Surgery: Yes (appendectomy) Appendectomy: Yes Cardiac Surgery: Yes (LARIAT SX) Cholecystectomy: No Lung Surgery: Yes (lobectomy for lung cancer) Neurologic Surgery: No Orthopedic Surgery: No - Immunization History Immunization Up to Date: Yes - Suicide/Smoking/Psychosocial Hx Smoking Status: No (40 YRS QUIT) Smoking History: Former smoker Years of Tobacco Use: 25 Have you smoked in the past 12 months: No Number of Cigarettes Smoked Daily: 0 If you are a former smoker, when did you quit?: 50 yrs ago Cigars Per Day: 0 Information on smoking cessation initiated: No Hx Alcohol Use: No Drug/Substance Use Hx: No Substance Use Type: None Hx Substance Use Treatment: No Review of Systems - Review of Systems Able to Perform ROS?: Yes Is the patient limited Yoruba proficient: No Constitutional: No: Chills, Diaphoresis, Fever HEENTM: No: Eye Pain, Recent change in vision, Ear Pain, Nose Pain, Throat Pain , Mouth Pain Respiratory: Yes: Cough. No: Shortness of Breath, Productive cough, Hemoptysis Cardiac (ROS): No: Chest Pain, Irregular Heart Rate, Lightheadedness, Palpitations, Syncope, Chest Tightness ABD/GI: No: Constipated, Diarrhea, Nausea, Poor Appetite, Poor Fluid Intake, Rectal Bleeding, Vomiting, Tarry Stools : No: Dysuria, Hematuria, Pain Musculoskeletal: Yes: Joint Pain (left shoulder). No: Joint Swelling Integumentary: No: Erythema, Flushing, Lesions, Lumps, Rash Neurological: No: Headache, Numbness, Paresthesia, Weakness, Ataxia, Dizziness Psychiatric: No: Stressors Endocrine: No: Change in Weight Hematologic/Lymphatic: No: Anemia *Physical Exam - Vital Signs Last Vital Signs Temp Pulse Resp BP Pulse Ox 97.5 F L 75 24 H 123/48 L 96 03/15/18 11:02 03/15/18 11:02 03/15/18 11:02 03/15/18 11:02 03/15/18 11:02 - Physical Exam General Appearance: Yes: Nourished, Appropriately Dressed. No: Apparent Distress, Intoxicated HEENT: positive: EOMI, TONI, Normal Voice, Symmetrical, Pharynx Normal. negative: Pale Conjunctivae, Scleral Icterus (R), Scleral Icterus (L) Neck: positive: Trachea midline. negative: Tender, Lymphadenopathy (R), Lymphadenopathy (L), Tender lateral, Tender midline Respiratory/Chest: positive: Lungs Clear, Normal Breath Sounds, Other (on her home O2 NC 2 Liters). negative: Chest Tender, Respiratory Distress, Accessory Muscle Use Cardiovascular: positive: Regular Rhythm, Regular Rate, S1, S2 Moderate Sedation - Procedure Monitoring Vital Signs: Procedure Monitoring Vital Signs Temperature 97.5 F L 03/15/18 11:02 Pulse Rate 75 03/15/18 11:02 Respiratory Rate 24 H 03/15/18 11:02 Blood Pressure 123/48 L 03/15/18 11:02 O2 Sat by Pulse Oximetry (%) 96 03/15/18 11:02 ED Treatment Course - LABORATORY CBC & Chemistry Diagram: 03/15/18 13:30 03/15/18 13:30 *DC/Admit/Observation/Transfer Diagnosis at time of Disposition: Atrial fibrillation Qualifiers: Atrial fibrillation type: unspecified Qualified Code(s): I48.91 - Unspecified atrial fibrillation Left shoulder pain Qualifiers: Chronicity: unspecified Qualified Code(s): M25.512 - Pain in left shoulder - Discharge Dispostion Disposition: HOME Decision to Admit order: No - Prescriptions Prescriptions: Methocarbamol [Robaxin -] 500 mg PO TID #10 tablet - Referrals Referrals: Dami Faria MD [Primary Care Provider] - - Patient Instructions Printed Discharge Instructions: DI for Muscle Strain Additional Instructions: you were seen for the evaluation of your muscle pain. yours labs were within normal limits except your magnesium which we repleted here. please follow up with your primary medical doctor within 1 week after discharge for follow up care and management. please return to the emergency department if you have worsening symptoms or new concerning symptoms such as chest pain and/or shortness of breath with exertion, chest pain that does not go away, and uncontrollable nausea and vomiting. thank you. please take the medication prescribed as directed. - Post Discharge Activity
[2018-03-15] MEDS ORDERED: ACETAMINOPHEN 1000 MG/100 ML VIAL (NON FORMULARY) IVPB ONE (12:19)
[2018-03-15] MEDS ORDERED: METHOCARBAMOL 500 MG TABLET PO ONE (12:38)
[2018-03-15] MEDS ORDERED: METHOCARBAMOL 500 MG TABLET ONE (12:53)
[2018-03-15] MEDS ORDERED: ACETAMINOPHEN INJECTION 100 ML IVPB ONE (12:54)
[2018-03-15 13:47] LABS: BASO % 0.5 % (0-2.0); EOS % 1.6 % (0-4.5); HEMATOCRIT 37.8 % (32.4-45.2); HEMOGLOBIN 12.8 GM/dL (10.7-15.3); LYMPH % 13.8 % (8-40); MCH 28.2 pg (25.7-33.7); MCHC 33.8 g/dl (32.0-36.0); MEAN CELL VOLUME 83.6 fl (80-96); MEAN PLT VOLUME 8.5 fl (7.5-11.1); MONO % 9.2 % (3.8-10.2); NEUT % 74.9 % (42.8-82.8); PLATELET COUNT 231 K/MM3 (134-434); RBC 4.53 M/mm3 (3.60-5.2); RDW 19.2 % (11.6-15.6); WHITE BLOOD COUNT 7.9 K/mm3 (4.0-10.0)
[2018-03-15 13:56] LABS: VENOUS PC02 56.7 mmHg (38-52); VENOUS PH 7.33 (7.32-7.42); VENOUS PO2 37.5 mmHg (28-48)
[2018-03-15 14:13] LABS: INR 3.65 (0.83-1.09); PROTHROMBIN TIME (PATIENT) 43.6 SEC (9.7-13.0)
[2018-03-15 14:15] LABS: ACTIVATED PTT 41.5 SECONDS (25.2-36.5)
[2018-03-15] MEDS ORDERED: MAGNESIUM SULF 50% (8.12 MEQ/2 ML-1 GM VIAL) IVPB ONE (14:25)
[2018-03-15 14:27] LABS: ALBUMIN 3.4 g/dl (3.4-5.0); ALK PHOS 95 U/L (45-117); ANION GAP 9 MMOL/L (8-16); BILIRUBIN,TOTAL 0.5 mg/dL (0.2-1); BLOOD UREA NITROGEN 50 mg/dL (7-18); CHLORIDE 97 mmol/L (98-107); CO2 26 mmol/L (21-32); CREATININE 1.5 mg/dL (0.55-1.3); GLUCOSE,RANDOM 238 mg/dL (74-106); POTASSIUM 5.1 mmol/L (3.5-5.1); SGOT/AST 44 U/L (15-37); SGPT/ALT 33 U/L (13-61); SODIUM 132 mmol/L (136-145)
[2018-03-15] MEDS ORDERED: MAGNESIUM 1GM/D5W - 1 GM/100 ML IVPB IVPB ONE (14:44)
[2018-03-15 16:51] VITALS: BP 130/68; TEMP 98.1
--- NOTE | 2018-03-16 07:14 | EKG ---
Test Reason : Blood Pressure : / mmHG Vent. Rate : 064 BPM Atrial Rate : 036 BPM P-R Int : 000 ms QRS Dur : 086 ms QT Int : 390 ms P-R-T Axes : 000 -46 083 degrees QTc Int : 402 ms ATRIAL FIBRILLATION LEFT AXIS DEVIATION LOW VOLTAGE QRS INFERIOR INFARCT (CITED ON OR BEFORE 17-MAY-2007) CANNOT RULE OUT ANTEROSEPTAL INFARCT (CITED ON OR BEFORE 17-MAY-2007) ABNORMAL ECG WHEN COMPARED WITH ECG OF 18-OCT-2017 17:24, NO SIGNIFICANT CHANGE WAS FOUND Confirmed by GABRIELLA PRADO MD ([id number]) on 03/16/2018 7:14:29 AM Referred By: Confirmed By:GABRIELLA PRADO MD
== END 2018-03-15 16:30 | disposition home or self-care (01) ==
LOC: JER 10:55
PROC: 3E033GC Introduction of Other Therapeutic Substance into Peripheral Vein, Percutaneous Approach (ICD-10-PCS; principal; 2018-03-15)
PROC: 3E033NZ Introduction of Analgesics, Hypnotics, Sedatives into Peripheral Vein, Percutaneous Approach (ICD-10-PCS; 2018-03-15)
DX: I48.91 Unspecified atrial fibrillation (principal); Z79.01 Long term (current) use of anticoagulants; I11.0 Hypertensive heart disease with heart failure; I50.9 Heart failure, unspecified; E11.9 Type 2 diabetes mellitus without complications; Z79.4 Long term (current) use of insulin; E78.00 Pure hypercholesterolemia, unspecified; Z85.118 Personal history of other malignant neoplasm of bronchus and lung; Z86.73 Personal history of transient ischemic attack (TIA), and cerebral infarction without residual deficits; G40.909 Epilepsy, unspecified, not intractable, without status epilepticus; J44.1 Chronic obstructive pulmonary disease with (acute) exacerbation; Z87.891 Personal history of nicotine dependence
CPT/HCPCS: 36415; 71046-TC-FY; 73030-TC-LT-FY; 80053; 80162; 82550; 82803; 83735; 83880; 84484; 85025; 85610; 85730; 93005; 93010; 99284-25; J0131

== ENCOUNTER 2018-07-10 13:13 | Inpatient (IN) | payer OTHER, BC ==
--- NOTE | 2018-07-10 14:43 | PDOC ---
History of Present Illness - General Chief Complaint: Weakness Stated Complaint: WEAKNESS Time Seen by Provider: 07/10/18 14:09 History Source: Patient Exam Limitations: No Limitations - History of Present Illness Initial Comments: 07/10/18 14:40 77 y/o female with PMH of CHF, afib , HTN, HLD, DM, COPD/asthma who presents to the ED with worsening weakness and lightheadedness for the past week. She states that she has not been feeling like herself this past week. She has been feeling very fatigued, more dyspneic and weak. She thought she was able to manage it however, today she just felt as if she was going to pass out and she could hardly stand up which is why she came to the hospital. The only new medication that was started was a medication called myrbetriq which is an anti- spasmodic, and she had stopped taking it because she was not feeling well. Otherwise no new changes to any medications. she has also been complaining of decreased urinary output for the past week- she has not been filling her diaper up with as much urine as she usually has. She feels achey all over. She last saw her head of digital one week ago and everything was normal. Last echo was back in September and she had a normal EF. She states she takes all of her medications regularly and does not recall taking any extra doses of any medications. she denies any chest pains, nausea/vomiting fevers 07/10/18 14:43 07/10/18 15:24 Timing/Duration: getting worse Associated Symptoms: reports: malaise, shortness of breath, weakness Past History - Travel Traveled outside of the country in the last 30 days: No Close contact w/someone who was outside of country & ill: No - Past Medical History Allergies/Adverse Reactions: Allergies Allergy/AdvReac Type Severity Reaction Status Date / Time Opioids - Morphine Analogues Allergy Intermediate Vomiting Verified 07/10/18 14: 01 [Opioids-Morphine & Related] adhesive tape Allergy Mild Rash Verified 07/10/18 14:01 Penicillins Allergy Verified 07/10/18 14:01 Home Medications: Ambulatory Orders Albuterol Sulfate Inhaler - [Ventolin HFA Inhaler -] 1 - 2 inh PO Q4H PRN Allopurinol [Zyloprim -] 100 mg PO DAILY 09/19/17 Budesonide/Formeterol Fumarate [SYMBICORT 80/4.5mcg -] 2 puff PO BID 09/19/17 Digoxin [Lanoxin -] 0.125 mg PO Q48H 09/19/17 Diltiazem Cd [Cardizem Cd -] 360 mg PO DAILY 09/19/17 Gabapentin 200 mg PO BID 09/19/17 Glimepiride [Amaryl -] 4 mg PO BID 09/19/17 Lansoprazole [Prevacid] 30 mg PO DAILY 09/19/17 Multivit-Min/Iron/Folic/Lutein [Centrum Silver Women Tablet] 1 each PO DAILY Sitagliptin Phosphate [Januvia] 50 mg PO DAILY 09/19/17 Tiotropium [place] [Spiriva] 1 inh IH DAILY 09/19/17 Warfarin Na [Coumadin -] 2.5 mg PO ASDIR 09/19/17 Warfarin Na [Coumadin -] 5 mg PO ASDIR 09/19/17 levETIRAcetam [Keppra -] 1,000 mg PO BID 09/19/17 Atorvastatin Ca [Lipitor] 20 mg PO HS 10/18/17 Furosemide [Lasix] 80 mg PO ASDIR 10/18/17 Lansoprazole [Prevacid] 30 mg PO DAILY 10/18/17 Acetaminophen [Tylenol .Regular Strength -] 650 mg PO Q6H PRN tablet 10/23/17 Albuterol 2.5/Ipratropium 0.5 [Duoneb -] 1 amp NEB Q4H PRN amp 10/23/17 Furosemide [Lasix] 40 mg PO HS #30 tablet 10/23/17 Insulin (Levemir) [Levemir Vial] 20 units SQ AM units 10/23/17 Insulin (Levemir) [Levemir Vial] 20 units SQ HS units 10/23/17 Insulin Sliding Scale [Novolog Vial Sliding Scale -] 1 vial SQ ACHS units 10/23 Lactobacillus Acidophilus [Bacid -] 1 tab PO DAILY tab 10/23/17 Warfarin Na [Coumadin -] 2.5 mg PO DAILY@1800 tablet 10/23/17 Methocarbamol [Robaxin -] 500 mg PO TID #10 tablet 03/15/18 Anemia: No Asthma: No Cancer: Yes (lung cancer status post RIGHT UPPER lobectomy) Cardiac Disorders: Yes (afib) CVA: Yes COPD: Yes CHF: Yes DVT: No Dementia: No Diabetes: Yes GI Disorders: Yes (GERD) Disorders: No HTN: Yes Hypercholesterolemia: Yes Liver Disease: No Seizures: Yes Thyroid Disease: No - Surgical History Abdominal Surgery: Yes (appendectomy) Appendectomy: Yes Cardiac Surgery: Yes (LARIAT SX) Cholecystectomy: No Lung Surgery: Yes (lobectomy for lung cancer) Neurologic Surgery: No Orthopedic Surgery: No - Immunization History Immunization Up to Date: Yes - Suicide/Smoking/Psychosocial Hx Smoking Status: No (40 YRS QUIT) Smoking History: Former smoker Years of Tobacco Use: 25 Have you smoked in the past 12 months: No Number of Cigarettes Smoked Daily: 0 If you are a former smoker, when did you quit?: 50 yrs ago Cigars Per Day: 0 Information on smoking cessation initiated: No Hx Alcohol Use: No Drug/Substance Use Hx: No Substance Use Type: None Hx Substance Use Treatment: No Review of Systems - Review of Systems Able to Perform ROS?: Yes Is the patient limited Bengali proficient: No *Physical Exam - Vital Signs Last Vital Signs Temp Pulse Resp BP Pulse Ox 97.2 F L 48 L 18 88/33 L 93 L 07/10/18 13:56 07/10/18 13:56 07/10/18 13:56 07/10/18 13:56 07/10/18 13:56 ED Treatment Course - LABORATORY CBC & Chemistry Diagram: 07/10/18 15:15 07/10/18 15:15 Medical Decision Making - Medical Decision Making 07/10/18 16:14 cbc/cmp/lipase/dig level given atropine/glucagon/calcium gluconate order CT scan labs; admit ICU *DC/Admit/Observation/Transfer Diagnosis at time of Disposition: JOSE RAMON (acute kidney injury), Bradycardia, Hypotension, Hyponatremia - Discharge Dispostion Decision to Admit order: Yes - Referrals Referrals: Dami Faria MD [Primary Care Provider] - - Patient Instructions - Post Discharge Activity - Attestations Physician Attestion: 07/10/18 16:59 Lidia Reese
[2018-07-10] MEDS ORDERED: CALCIUM GLUCONATE 10% - 1,000 MG/10 ML VIAL ONE (14:45)
[2018-07-10] MEDS ORDERED: ATROPINE SULFATE 1 MG/10 ML DISP.SYRIN ONE (14:46)
[2018-07-10] MEDS ORDERED: GlUCAGON HUMAN RECOMBINANT 1 MG/VIAL ONE (14:59)
[2018-07-10 15:33] LABS: BASO % 0.7 % (0-2.0); EOS % 1.5 % (0-4.5); HEMATOCRIT 32.4 % (32.4-45.2); HEMOGLOBIN 10.7 GM/dL (10.7-15.3); LYMPH % 11.8 % (8-40); MCH 29.3 pg (25.7-33.7); MEAN CELL VOLUME 88.8 fl (80-96); MEAN PLT VOLUME 8.8 fl (7.5-11.1); MONO % 6.4 % (3.8-10.2); NEUT % 79.6 % (42.8-82.8); PLATELET COUNT 218 K/MM3 (134-434); RBC 3.65 M/mm3 (3.60-5.2); RDW 15.7 % (11.6-15.6); WHITE BLOOD COUNT 7.5 K/mm3 (4.0-10.0)
[2018-07-10 15:45] LABS: VENOUS PC02 40.4 mmHg (41-51); VENOUS PH 7.4 (7.31-7.41); VENOUS PO2 95.6 mmHg (30-40)
[2018-07-10] MEDS ORDERED: CALCIUM GLUCONATE 10% - 1,000 MG/10 ML VIAL IVPUSH ONE (15:45)
[2018-07-10 15:55] LABS: INR 2.84 (0.83-1.09); PROTHROMBIN TIME (PATIENT) 33.9 SEC (9.7-13.0)
[2018-07-10 15:58] LABS: ACTIVATED PTT 42.7 SECONDS (25.2-36.5)
--- NOTE | 2018-07-10 15:59 | PDOC ---
Documentation entered by Haley Lerma SCRIBE, acting as scribe for Aaron Eldridge MD. Aaron Eldridge MD: This documentation has been prepared by the Maria Guadalupe henning Amanda, SCRIBE, under my direction and personally reviewed by me in its entirety. I confirm that the documentation accurately reflects all work, treatment, procedures, and medical decision making performed by me. Attending Attestation - Resident Resident Name: Lidia Reese - ED Attending Attestation I have performed the following: I have examined & evaluated the patient, The case was reviewed & discussed with the resident, I agree w/resident's findings & plan - HPI HPI: 07/10/18 14:23 The patient is a 77 year old female with a significant past medical history of lung cancer s/p resection RUL, afib (on coumadin), COPD (on home O2 PRN 2 liters ), CHF (09/2017 normal LVEF), DM, HLD, and HTN presents to the emergency department via ems with complaint of lower extremity weakness, lightheadedness, dizziness and decreased urinary output for about one week. She states she feels she will fall due to weakness in her legs, bilaterally. She states she feels the symptoms all started around the time she started new medication. The patient denies any increased SOB. She denies any CP, palpitations. She denies any fevers, chills, nausea, vomiting, or diarrhea. Allergies: Opioids - Physicial Exam PE: 07/10/18 14:26 GENERAL: The patient is awake, alert, and fully oriented, Nontoxic - in no acute distress. HEAD: Normocephalic, atraumatic. EYES: extraocular movements intact, sclera anicteric, conjunctiva clear. ENT: Normal voice, Moist mucous membranes. NECK: Normal range of motion, supple LUNGS: Breath sounds equal, clear to auscultation bilaterally. No wheezes, no rhonchi, no rales. HEART: (+) bradycardic to mid 40s, irregular ABDOMEN: Soft, mild diffuse lower abd tenderness, No guarding, no rebound. No CVA tenderness EXTREMITIES: Normal range of motion, no edema. No cyanosis. No erythema, or tenderness. NEUROLOGICAL: No facial assymetry, Normal speech, PSYCH: Normal mood, normal affect. SKIN: Warm, Dry, normal turgor, delayed cap refill - Critical Care Time Total Critical Care Time: 45 Critical Care Statement: The care of this patient involved high complexity decision making to prevent further life threatening deterioration of the patient 's condition and/or to evaluate & treat vital organ system(s) failure or risk of failure. - Medical Decision Making 07/10/18 14:28 77y F hx of lung cancer s/p resection RUL, afib (on coumadin), COPD (on home O2 PRN 2 liters), CHF (09/2017 normal LVEF), DM, HLD, and HTN presents with feeling generalized weakness for a few days. Endorses starting a new medication for an overactive bladder (Myrbetriq) - upon arrival pt noted to be terence to 47 and hypotensive- pt also with lower abdominal pain -? urinar retention will place wang to see if in retention bradycardia may be side effect of CCB vs Myrbetriq? - vs vagal response from urinary retension will give fluids will give calcium consder reversal of CCB w glucogon 07/10/18 15:00 No signfiicant chagne in her HR after wang placement. Only minimal urine output (~40-50cc) 07/10/18 15:45 labs reviewed - noted for norbert PTs HR improved from mid-low 40s to high 40s-low 50 bp stable 07/10/18 15:46 per son - there is a chance the pt may have gotten an extra dose of her [id number] on friday07/12/18 07:37 Heart Score/ECG Review - ECG Impressions Comment:: 07/10/18 14:33 Twelve-lead EKG was performed and reviewed by me. Rate of 47 irregularliy irrgular AFib with slow ventricular response
--- NOTE | 2018-07-10 16:05 | HP ---
Admitting History and Physical - Primary Care Physician PCP: Dami Faria - Admission Chief Complaint: came in for weakness History of Present Illness: The patient is a 77 year old female with a significant past medical history of lung cancer s/p resection RUL, afib (on coumadin), COPD (on home O2 PRN 2 liters ), CHF (09/2017 normal LVEF), DM, HLD, and HTN presents to the emergency department via ems with complaint of lower extremity weakness, lightheadedness, dizziness and decreased urinary output for about one week. 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 Cardiovascular: Yes: AFIB, CHF, HTN, Hyperlipdemia Pulmonary: Yes: Bronchitis, Cancer, COPD, O2 Dependent, Sleep Apnea Gastrointestinal: Yes: GERD Heme/Onc: Yes: Cancer (lung cancer) Endocrine: Yes: Diabetes Mellitus - Past Surgical History Past Surgical History: Yes: Appendectomy (age 16), Joint Replacement (bilateral) - Smoking History Smoking history: Former smoker Have you smoked in the past 12 months: No Aproximately how many cigarettes per day: 0 If you are a former smoker, when did you quit?: 50 yrs ago - Alcohol/Substance Use Hx Alcohol Use: No History of Substance Use: reports: None - Social History ADL: Independent History of Recent Travel: No Home Medications - Allergies Allergies/Adverse Reactions: Allergies Allergy/AdvReac Type Severity Reaction Status Date / Time Opioids - Morphine Analogues Allergy Intermediate Vomiting Verified 07/10/18 14: 01 [Opioids-Morphine & Related] adhesive tape Allergy Mild Rash Verified 07/10/18 14:01 Penicillins Allergy Verified 07/10/18 14:01 - Home Medications Home Medications: Ambulatory Orders Albuterol Sulfate Inhaler - [Ventolin HFA Inhaler -] 1 - 2 inh PO Q4H PRN Allopurinol [Zyloprim -] 100 mg PO DAILY 09/19/17 Budesonide/Formeterol Fumarate [SYMBICORT 80/4.5mcg -] 2 puff PO BID 09/19/17 Digoxin [Lanoxin -] 0.125 mg PO Q48H 09/19/17 Diltiazem Cd [Cardizem Cd -] 360 mg PO DAILY 09/19/17 Gabapentin 200 mg PO BID 09/19/17 Glimepiride [Amaryl -] 4 mg PO BID 09/19/17 Lansoprazole [Prevacid] 30 mg PO DAILY 09/19/17 Multivit-Min/Iron/Folic/Lutein [Centrum Silver Women Tablet] 1 each PO DAILY Sitagliptin Phosphate [Januvia] 50 mg PO DAILY 09/19/17 Tiotropium [place] [Spiriva] 1 inh IH DAILY 09/19/17 Warfarin Na [Coumadin -] 2.5 mg PO ASDIR 09/19/17 Warfarin Na [Coumadin -] 5 mg PO ASDIR 09/19/17 levETIRAcetam [Keppra -] 1,000 mg PO BID 09/19/17 Atorvastatin Ca [Lipitor] 20 mg PO HS 10/18/17 Furosemide [Lasix] 80 mg PO ASDIR 10/18/17 Lansoprazole [Prevacid] 30 mg PO DAILY 10/18/17 Acetaminophen [Tylenol .Regular Strength -] 650 mg PO Q6H PRN tablet 10/23/17 Albuterol 2.5/Ipratropium 0.5 [Duoneb -] 1 amp NEB Q4H PRN amp 10/23/17 Furosemide [Lasix] 40 mg PO HS #30 tablet 10/23/17 Insulin (Levemir) [Levemir Vial] 20 units SQ AM units 10/23/17 Insulin (Levemir) [Levemir Vial] 20 units SQ HS units 10/23/17 Insulin Sliding Scale [Novolog Vial Sliding Scale -] 1 vial SQ ACHS units 10/23 Lactobacillus Acidophilus [Bacid -] 1 tab PO DAILY tab 10/23/17 Warfarin Na [Coumadin -] 2.5 mg PO DAILY@1800 tablet 10/23/17 Methocarbamol [Robaxin -] 500 mg PO TID #10 tablet 03/15/18 Review of Systems - Review of Systems Constitutional: reports: Other (thirsty weak) Cardiovascular: reports: No Symptoms Respiratory: reports: No Symptoms Physical Examination Vital Signs: Vital Signs Temperature 97.2 F L 07/10/18 13:56 Pulse Rate 48 L 07/10/18 13:56 Respiratory Rate 18 07/10/18 13:56 Blood Pressure 88/33 L 07/10/18 13:56 O2 Sat by Pulse Oximetry (%) 93 L 07/10/18 13:56 Labs: CBC, BMP 07/10/18 15:15 Imaging - Results Chest X-ray: Image Reviewed (cardiomegaly prominent markings) EKG: Report Reviewed (afib slow ventricular rate) Problem List - Problems (1) JOSE RAMON (acute kidney injury) Assessment/Plan: ivf- NS renal sono wang renal consult cr in 1.5 to 3.5 Code(s): N17.9 - ACUTE KIDNEY FAILURE, UNSPECIFIED (2) Hypotension Assessment/Plan: urine analysis urine culture, blood cultures ivf monitor in ICU lactic acid ct scan abdomen pelvis inc in BUN/cr will hydrate Code(s): I95.9 - HYPOTENSION, UNSPECIFIED (3) Bradycardia Assessment/Plan: continuous cardiac monitoring cardiology consult hold all AV brina blocking agents check digoxin level hold digoxin check lytes Code(s): R00.1 - BRADYCARDIA, UNSPECIFIED (4) Atrial fibrillation Assessment/Plan: slow ventricular rate- bradycardia hold AV brina agents cardiac monitoring coumadin INR therapeutic Code(s): I48.91 - UNSPECIFIED ATRIAL FIBRILLATION Qualifiers: Atrial fibrillation type: unspecified Qualified Code(s): I48.91 - Unspecified atrial fibrillation (5) Diabetes mellitus Assessment/Plan: bgm diabetic diet sliding scale [id number] hold januvia Code(s): E11.9 - TYPE 2 DIABETES MELLITUS WITHOUT COMPLICATIONS Qualifiers: Diabetes mellitus type: type 2 (6) COPD (chronic obstructive pulmonary disease) Assessment/Plan: on nasal oxygen bronchodilators pulm consult Code(s): J44.9 - CHRONIC OBSTRUCTIVE PULMONARY DISEASE, UNSPECIFIED (7) HLD (hyperlipidemia) Assessment/Plan: atorvastatin lipid profile monitor LFT Code(s): E78.5 - HYPERLIPIDEMIA, UNSPECIFIED (8) Hyponatremia Assessment/Plan: ivf repeat in AM Code(s): E87.1 - HYPO-OSMOLALITY AND HYPONATREMIA
[2018-07-10] MEDS ORDERED: GLUCAGON 1 MG KIT IVPUSH ONE (16:15)
[2018-07-10] MEDS ORDERED: SODIUM CHLORIDE 1,000 ML IV SCH ×3 (16:15→22:15)
[2018-07-10] MEDS ORDERED: ATROPINE SO4 0.4 MG/1 ML VIAL IVPUSH ONE (16:15)
--- NOTE | 2018-07-10 16:18 | CON.CARD ---
Cardiology Consult (text) - Consultation Consultation Note: Chief Complaint: weak, lightheaded History of Present Illness: 77 year old female with a PMH of lung Ca s/p right upper lobectomy(2005), afib, CVA, COPD, dCHF, GERD, diabetes, HTN, and HLD who is here with weakness and lightheadedness. Past week has felt this way. no cp sob palps loc pnd orthopnea le edema. No fevers, uri sxs. Has noticed dec urine output. In er found hypotension and afib with slow vent response in 40s. She was given atropine, glucagon, calcium gluconate. Hr now high 40s-low 50s. sbp 90s now. Pt sees dr huynh for cardio. 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 Cardio/Vascular: Yes: AFIB, CHF, HTN, Hyperlipdemia Pulmonary: Yes: Bronchitis, Cancer, COPD, O2 Dependent, Sleep Apnea Gastrointestinal: Yes: GERD ...: No Endocrine: Yes: Diabetes Mellitus Additional Medical History: right shoulder fracture - Past Surgical History Past Surgical History: Yes: Appendectomy (age 16), Joint Replacement (bilateral) - Alcohol/Substance Use Hx Alcohol Use: No History of Substance Use: reports: None - Smoking History Smoking history: Former smoker Have you smoked in the past 12 months: No Aproximately how many cigarettes per day: 0 If you are a former smoker, when did you quit?: 1975 - Social History Usual Living Arrangement: With Child ADL: Independent History of Recent Travel: No Home Medications - Allergies Allergies/Adverse Reactions: Allergies Allergy/AdvReac Type Severity Reaction Status Date / Time Opioids - Morphine Analogues Allergy Intermediate Vomiting Verified 07/10/18 14: 01 [Opioids-Morphine & Related] adhesive tape Allergy Mild Rash Verified 07/10/18 14:01 Penicillins Allergy Verified 07/10/18 14:01 - Home Medications Home Medications Medication Instructions Recorded Albuterol Sulfate Inhaler - 1 - 2 inh PO Q4H PRN 09/19/17 [Ventolin HFA Inhaler -] Allopurinol [Zyloprim -] 100 mg PO DAILY 09/19/17 Budesonide/Formeterol Fumarate 2 puff PO BID 09/19/17 [SYMBICORT 80/4.5mcg -] Digoxin [Lanoxin -] 0.125 mg PO Q48H 09/19/17 Diltiazem Cd [Cardizem Cd -] 360 mg PO DAILY 09/19/17 Gabapentin 200 mg PO BID 09/19/17 Glimepiride [Amaryl -] 4 mg PO BID 09/19/17 Lansoprazole [Prevacid] 30 mg PO DAILY 09/19/17 Multivit-Min/Iron/Folic/Lutein 1 each PO DAILY 09/19/17 [Centrum Silver Women Tablet] Sitagliptin Phosphate [Januvia] 50 mg PO DAILY 09/19/17 Tiotropium [place] [Spiriva] 1 inh IH DAILY 09/19/17 Warfarin Na [Coumadin -] 2.5 mg PO ASDIR 09/19/17 Warfarin Na [Coumadin -] 5 mg PO ASDIR 09/19/17 levETIRAcetam [Keppra -] 1,000 mg PO BID 09/19/17 Atorvastatin Ca [Lipitor] 20 mg PO HS 10/18/17 Furosemide [Lasix] 80 mg PO ASDIR 10/18/17 Lansoprazole [Prevacid] 30 mg PO DAILY 10/18/17 Acetaminophen [Tylenol .Regular 650 mg PO Q6H PRN tablet 10/23/17 Strength -] Albuterol 2.5/Ipratropium 0.5 1 amp NEB Q4H PRN amp 10/23/17 [Duoneb -] Furosemide [Lasix] 40 mg PO HS #30 tablet 10/23/17 Insulin (Levemir) [Levemir Vial] 20 units SQ AM units 10/23/17 Insulin (Levemir) [Levemir Vial] 20 units SQ HS units 10/23/17 Insulin Sliding Scale [Novolog 1 vial SQ ACHS units 10/23/17 Vial Sliding Scale -] Lactobacillus Acidophilus [Bacid -] 1 tab PO DAILY tab 10/23/17 Warfarin Na [Coumadin -] 2.5 mg PO DAILY@1800 tablet 10/23/17 Methocarbamol [Robaxin -] 500 mg PO TID #10 tablet 03/15/18 Family Disease History - Family Disease History Family History: Denies Review of Systems - Review of Systems per hpi; all others normal Vital Signs: Vital Signs Period Temp Pulse Resp BP Sys/[place] Pulse Ox Last 24 Hr 97.2 F 48-53 17-18 88-97/33-49 93-94 Constitutional: Yes: No Distress, Calm Eyes: Yes: Conjunctiva Clear HENT: Yes: Atraumatic, Normocephalic Neck: Yes: Supple, Trachea Midline Respiratory: cta bl nl eff Gastrointestinal: Yes: Normal Bowel Sounds, Soft. No: Distention, Tenderness Cardiovascular: Yes: Pulse Irregular. + Bradycardia, no Gallop, Rub, murmur JVD: No Carotid Bruit: No PMI: Non-Displaced Heart Sounds: Yes: S1, S2. No: Split S2, S3, S4, Clicks, Gallop, Rub, Bruit Murmur: No: Systolic Murmur, Diastolic Murmur Edema: no Peripheral Pulses: 2+ Left Doralis Pedis, 2+ Right Dorsalis Pedis Integumentary: no jaundice diaphoresis Neurological: Yes: Alert, Oriented Psychiatric: Yes: Alert, Oriented Laboratory Last Values WBC 7.5 K/mm3 (4.0-10.0) 07/10/18 15:15 RBC 3.65 M/mm3 (3.60-5.2) 07/10/18 15:15 Hgb 10.7 GM/dL (10.7-15.3) 07/10/18 15:15 Hct 32.4 % (32.4-45.2) 07/10/18 15:15 MCV 88.8 fl (80-96) 07/10/18 15:15 MCH 29.3 pg (25.7-33.7) 07/10/18 15:15 MCHC 33.0 g/dl (32.0-36.0) 07/10/18 15:15 RDW 15.7 % (11.6-15.6) H D 07/10/18 15:15 Plt Count 218 K/MM3 (134-434) 07/10/18 15:15 MPV 8.8 fl (7.5-11.1) 07/10/18 15:15 Absolute Neuts (auto) 6.0 K/mm3 (1.5-8.0) 07/10/18 15:15 Neutrophils % 79.6 % (42.8-82.8) 07/10/18 15:15 Lymphocytes % 11.8 % (8-40) 07/10/18 15:15 Monocytes % 6.4 % (3.8-10.2) 07/10/18 15:15 Eosinophils % 1.5 % (0-4.5) 07/10/18 15:15 Basophils % 0.7 % (0-2.0) 07/10/18 15:15 Nucleated RBC % 0 % (0-0) 07/10/18 15:15 PT with INR 33.90 SEC (9.7-13.0) H 07/10/18 15:15 INR 2.84 (0.83-1.09) H 07/10/18 15:15 PTT (Actin FS) 42.7 SECONDS (25.2-36.5) H 07/10/18 15:15 VBG pH 7.40 (7.31-7.41) 07/10/18 15:15 POC VBG pCO2 40.4 mmHg (41-51) L 07/10/18 15:15 POC VBG pO2 95.6 mmHg (30-40) H 07/10/18 15:15 VBG HCO3 24.5 mmol/L (23-29) 07/10/18 15:15 VBG O2 Sat (Pau) 95.7 % (70-80) H 07/10/18 15:15 VBG Base Excess 0.2 meq/l (-2-2) 07/10/18 15:15 Sodium 127 mmol/L (136-145) L 07/10/18 15:15 Potassium 5.2 mmol/L (3.5-5.1) H 07/10/18 15:15 Chloride 90 mmol/L (98-107) L 07/10/18 15:15 Carbon Dioxide 25 mmol/L (21-32) 07/10/18 15:15 Anion Gap 11 MMOL/L (8-16) 07/10/18 15:15 BUN 90 mg/dL (7-18) H 07/10/18 15:15 Creatinine 3.5 mg/dL (0.55-1.3) H 07/10/18 15:15 Creat Clearance w eGFR 12.63 (>60) 07/10/18 15:15 Random Glucose 140 mg/dL (74-106) H 07/10/18 15:15 Calcium 8.4 mg/dL (8.5-10.1) L 07/10/18 15:15 Total Bilirubin 0.3 mg/dL (0.2-1) 07/10/18 15:15 AST 16 U/L (15-37) 07/10/18 15:15 ALT 21 U/L (13-61) 07/10/18 15:15 Alkaline Phosphatase 62 U/L (45-117) 07/10/18 15:15 B-Natriuretic Peptide 1615.2 pg/ml (5-450) H 07/10/18 15:15 Total Protein 5.4 g/dl (6.4-8.2) L 07/10/18 15:15 Albumin 2.8 g/dl (3.4-5.0) L 07/10/18 15:15 Digoxin 1.24 ng/ml (0.8-2.0) 07/10/18 15:15 ECHO 10/03/17 Normal LV sytolic function No sig valvular abnl Echocardiogram 02/04/17: EF 41% Mild LAE Normal RV FXN Moderate MR ecg: afib rate 47 nl qtc no ischemic changes cxr: no sig chf Assessment/Plan 77 year old female with a PMH of lung Ca s/p right upper lobectomy(2005), afib, CVA, COPD, dCHF, GERD, diabetes, HTN, and HLD who is here with weakness and lightheadedness. norbert: -pt with dec urine output and norbert here with cr 3.5 (baseline low 1s) -does not appear vol overloaded so ok to give ivfs -hold home diuretics afib with slow vent response: -vr in 40s-50s now -dig level ok -hold home dig and dilt for now -bradycardia likely due to norebrt/electrolyte abnormalities and should improve as these are corrected -monitor on tele floor -cont coumadin per inr for ac chronic diastolic CHF -no signs vol overload -hold diuretics as above htn: -bp low currently -hold home dilt -would give ivfs hld: -cont statin
[2018-07-10 16:23] LABS: ALBUMIN 2.8 g/dl (3.4-5.0); ALK PHOS 62 U/L (45-117); ANION GAP 11 MMOL/L (8-16); BILIRUBIN,TOTAL 0.3 mg/dL (0.2-1); BLOOD UREA NITROGEN 90 mg/dL (7-18); CALCIUM 8.4 mg/dL (8.5-10.1); CHLORIDE 90 mmol/L (98-107); CO2 25 mmol/L (21-32); CREATININE 3.5 mg/dL (0.55-1.3); GLUCOSE,RANDOM 140 mg/dL (74-106); N-TERMINAL BNP 1615.2 pg/ml (5-450); POTASSIUM 5.2 mmol/L (3.5-5.1); SGOT/AST 16 U/L (15-37); SGPT/ALT 21 U/L (13-61); SODIUM 127 mmol/L (136-145); TOT PROT 5.4 g/dl (6.4-8.2)
[2018-07-10] MEDS: INSULIN SLIDING SCALE (NOVOLOG) 1 VIAL SQ SCH ×2 (16:52→21:27)
[2018-07-10 17:14] LABS: MAGNESIUM 2.3 mg/dL (1.8-2.4); PHOSPHOROUS 6.1 mg/dL (2.5-4.9)
[2018-07-10 17:43] LABS: EPI CELLS 12.1 /HPF (0-5/HPF); URINE APPEARANCE CLOUDY; URINE BACTERIA 140.9 /hpf (NEGATIVE); URINE BILIRUBIN NEGATIVE (NEGATIVE); URINE CASTS 22 /lpf (0-8); URINE COLOR YELLOW; URINE GLUCOSE (UA) NEGATIVE (NEGATIVE); URINE KETONE TRACE (NEGATIVE); URINE LEUK ESTERASE 2+ (NEGATIVE); URINE NITRITE NEGATIVE (NEGATIVE); URINE PROTEIN NEGATIVE (NEGATIVE); URINE RBC 1 /hpf (0-4); URINE WBC 4 /hpf (0-5)
[2018-07-10] MEDS ORDERED: WARFARIN NA 5 MG TABLET (UD) PO SCH ×2 (18:00→19:34)
[2018-07-10] MEDS ORDERED: WARFARIN NA 5 MG TABLET (UD) ONE (18:02)
[2018-07-10 18:09] LABS: BASO % 0.2 % (0-2.0); EOS % 1.3 % (0-4.5); HEMOGLOBIN 11.6 GM/dL (10.7-15.3); LYMPH % 11.1 % (8-40); MCH 29.4 pg (25.7-33.7); MCHC 33.2 g/dl (32.0-36.0); MEAN CELL VOLUME 88.4 fl (80-96); MEAN PLT VOLUME 9.1 fl (7.5-11.1); MONO % 5.5 % (3.8-10.2); NEUT % 81.9 % (42.8-82.8); PLATELET COUNT 213 K/MM3 (134-434); RBC 3.96 M/mm3 (3.60-5.2); RDW 15.6 % (11.6-15.6); WHITE BLOOD COUNT 8.4 K/mm3 (4.0-10.0)
[2018-07-10 18:28] LABS: INR 2.66 (0.83-1.09); PROTHROMBIN TIME (PATIENT) 31.7 SEC (9.7-13.0)
[2018-07-10 18:34] LABS: ALBUMIN 3.2 g/dl (3.4-5.0); ALK PHOS 68 U/L (45-117); ANION GAP 11 MMOL/L (8-16); BILIRUBIN,TOTAL 0.4 mg/dL (0.2-1); BLOOD UREA NITROGEN 88 mg/dL (7-18); CALCIUM 8.5 mg/dL (8.5-10.1); CHLORIDE 90 mmol/L (98-107); CHOLESTEROL 147 mg/dL (50-200); CO2 26 mmol/L (21-32); CREATININE 3.4 mg/dL (0.55-1.3); GLUCOSE,RANDOM 115 mg/dL (74-106); HDL CHOLESTEROL 39 mg/dL (40-60); POTASSIUM 5.3 mmol/L (3.5-5.1); SGOT/AST 19 U/L (15-37); SGPT/ALT 22 U/L (13-61); SODIUM 128 mmol/L (136-145); TRIGLYCERIDES 182 mg/dL (0-150)
--- NOTE | 2018-07-10 19:45 | CONSULT ---
Consultation: Requesting Provider: Dr. Snow Consult Request: We have been asked to medically evaluate this patient for ICU admission for bradycardias. History of Present Illness: 77 y/o female presenting to [facility] ER from her home complaining of progressive weakness and generalized malaise for the past four days. Initially thought the symptoms may be a side effect of Myrbetriq, which she started last week for urinary incontinence. Pt also endorses taking a dose of her sons Diltiazem last Friday after running out of her prescription. She is also prescribed Diltalizem but takes a lower dose. Was evaluated by Dr. Quintana, her frame stripper , in clinic on Friday and told everything was normal on her Echo. Son at bedside reports hearing the EF was 60-65%. Denies difficulty taking and/or obtaining any other medications. Denies any other recent changes in prescriptions. Pt endorses normal PO intake over the past several days but states significantly decreased urinary frequency. Denies dysuria or hematuria. On arrival to the ED, the pt was found to be hypotensive and bradycardic but bradycardic. 12-lead EKG revealed a-fib with a ventricular rate of 47. No heart blocks or ischemic findings. No significant changes from previous EKG. Labs revealed an JOSE RAMON with a Cr elevation to 3.5 from 1.5 measured in February 2018, hyponatremia, and mild hyperkalemia. No leukocytosis or anemia. Troponin not elevated. Alas catheter was placed and approx. 30cc of urine was put out. UA revealed leukocyte esterase without pyuria or nitrites. Digoxin level was normal. Received Atropine, Calcium Gluconate, and Glucagon without significant change in heart rate. Dr. Edmondson of cardiology service was consulted and evaluated the pt in the ED. Recommended IVFs, as well as holding home Digoxin, Diltiazem, and Lasix. No signs of volume overload on his exam. PCP: Dr. Faria Social Hx: - Lives at home with adult son. Medical Hx: Lung cancer s/p resection RUL, seizure disorder, Afib (on Coumadin and Digoxin) , COPD (Home O2 PRN 2 LPM), CHF (09/2017 normal LVEF), DM, HLD, and HTN Review of Systems: In addition to that documented in the HPI above, the additional ROS was obtained : Constitutional: Denies fevers or chills Head: Denies vision changes or hearing changes ENMT: Denies sore throat CV: Denies chest pain Resp: Denies SOB GI: Denies vomiting or diarrhea : Per HPI MSK: Denies recent trauma Skin: Denies new rashes Neuro: Denies new numbness or tingling Endocrine: Denies polyuria Heme: Denies bleeding or bruising Objective: Lines: - PIV Drains: - Alas Supplemental Oxygen: - 3 LPM on NC Vital Signs - 24 hr 07/10/18 07/10/18 13:56 16:07 Temperature 97.2 F L Pulse Rate 48 L Pulse Rate [ 53 L Apical] Respiratory 18 17 Rate Blood Pressure 88/33 L Blood Pressure 97/49 L [Left Arm] O2 Sat by Pulse 93 L 94 L Oximetry (%) Physical Exam: Constitutional: Nontoxic adult female in no acute distress or obvious discomfort. Obese body habitus. Found semi-fowlers on hospital bed. Alert and oriented x4. Answered all questions appropriately and completely. Speech was non -labored, non-pressured. Head: Normocephalic. No obvious external signs of trauma. Eyes: Conjunctiva pink and moist. Ears: Hearing grossly intact. Nose: No nasal discharge. Throat: Dry mucosal membranes without erythema or exudate. Neck: Supple, trachea is midline. Cardiovascular / Chest: Bradycardic rate with regular rhythm. No murmur, rubs, clicks, or gallops. Peripheral pulses: radial pulses full. Trace pretibial edema. Respiratory: Nasal cannula in place. Breathing unlabored. Equal chest rise and fall. Trace wheezing in bilateral lower lobes. No rales or rhonchi. Gastrointestinal: abdomen exam limited secondary to large pannus. Not distended with mild tenderness to LLQ without rebound or guarding. Small umbilical hernia , easily reducible. No overlying skin lesions or obvious signs of trauma. Neuro: Alert and oriented. Moving all four extremities spontaneously. Skin: Warm, dry, and intact. Psych: Affect: appropriate. Mood: normal. Imaging: - Portable CXR: Per resident wet read: No obvious consolidation or infiltrates. No significant changes when compared to previous study dated 15 Mar 2018. Official radiology report pending. Laboratory Results - last 24 hr 07/10/18 07/10/18 07/10/18 15:15 15:15 15:15 WBC 7.5 RBC 3.65 Hgb 10.7 Hct 32.4 MCV 88.8 MCH 29.3 MCHC 33.0 RDW 15.7 H D Plt Count 218 MPV 8.8 Absolute Neuts (auto) 6.0 Neutrophils % 79.6 Lymphocytes % 11.8 Monocytes % 6.4 Eosinophils % 1.5 Basophils % 0.7 Nucleated RBC % 0 PT with INR 33.90 H INR 2.84 H PTT (Actin FS) 42.7 H VBG pH 7.40 POC VBG pCO2 40.4 L POC VBG pO2 95.6 H VBG HCO3 24.5 VBG O2 Sat (Pau) 95.7 H VBG Base Excess 0.2 Sodium Potassium Chloride Carbon Dioxide Anion Gap BUN Creatinine Creat Clearance w eGFR Random Glucose Lactic Acid Calcium Phosphorus Magnesium Total Bilirubin AST ALT Alkaline Phosphatase Creatine Kinase Troponin I B-Natriuretic Peptide Total Protein Albumin Triglycerides Cholesterol Total LDL Cholesterol HDL Cholesterol Urine Color Urine Appearance Urine pH Ur Specific [place] Urine Protein Urine Glucose (UA) Urine Ketones Urine Blood Urine Nitrite Urine Bilirubin Urine Urobilinogen Ur Leukocyte Esterase Urine WBC (Auto) Urine RBC (Auto) Urine Casts (Auto) U Epithel Cells (Auto) U Sm Round Cell (Auto) Urine Bacteria (Auto) Digoxin 07/10/18 07/10/18 07/10/18 15:15 15:15 16:20 WBC RBC Hgb Hct MCV MCH MCHC RDW Plt Count MPV Absolute Neuts (auto) Neutrophils % Lymphocytes % Monocytes % Eosinophils % Basophils % Nucleated RBC % PT with INR INR PTT (Actin FS) VBG pH POC VBG pCO2 POC VBG pO2 VBG HCO3 VBG O2 Sat (Pau) VBG Base Excess Sodium 127 L Potassium 5.2 H Chloride 90 L Carbon Dioxide 25 Anion Gap 11 BUN 90 H Creatinine 3.5 H Creat Clearance w eGFR 12.63 Random Glucose 140 H Lactic Acid 1.4 Calcium 8.4 L Phosphorus 6.1 H Magnesium 2.3 Total Bilirubin 0.3 AST 16 ALT 21 Alkaline Phosphatase 62 Creatine Kinase Troponin I < 0.02 B-Natriuretic Peptide 1615.2 H Total Protein 5.4 L Albumin 2.8 L Triglycerides Cholesterol Total LDL Cholesterol HDL Cholesterol Urine Color Yellow Urine Appearance Cloudy Urine pH 5.0 Ur Specific [place] 1.017 Urine Protein Negative Urine Glucose (UA) Negative Urine Ketones Trace H Urine Blood Negative Urine Nitrite Negative Urine Bilirubin Negative Urine Urobilinogen 1.0 Ur Leukocyte Esterase 2+ H Urine WBC (Auto) 4 Urine RBC (Auto) 1 Urine Casts (Auto) 22 U Epithel Cells (Auto) 12.1 U Sm Round Cell (Auto) None seen Urine Bacteria (Auto) 140.9 Digoxin 1.24 07/10/18 07/10/18 07/10/18 17:45 17:45 17:45 WBC 8.4 RBC 3.96 Hgb 11.6 Hct 35.0 MCV 88.4 MCH 29.4 MCHC 33.2 RDW 15.6 Plt Count 213 MPV 9.1 Absolute Neuts (auto) 6.8 Neutrophils % 81.9 Lymphocytes % 11.1 Monocytes % 5.5 Eosinophils % 1.3 Basophils % 0.2 Nucleated RBC % 0 PT with INR 31.70 H INR 2.66 H PTT (Actin FS) VBG pH POC VBG pCO2 POC VBG pO2 VBG HCO3 VBG O2 Sat (Pau) VBG Base Excess Sodium 128 L Potassium 5.3 H Chloride 90 L Carbon Dioxide 26 Anion Gap 11 BUN 88 H Creatinine 3.4 H Creat Clearance w eGFR 13.06 Random Glucose 115 H Lactic Acid Calcium 8.5 Phosphorus Magnesium Total Bilirubin 0.4 AST 19 ALT 22 Alkaline Phosphatase 68 Creatine Kinase 57 Troponin I < 0.02 B-Natriuretic Peptide Total Protein 6.0 L Albumin 3.2 L Triglycerides 182 H Cholesterol 147 Total LDL Cholesterol 89 HDL Cholesterol 39 L Urine Color Urine Appearance Urine pH Ur Specific [place] Urine Protein Urine Glucose (UA) Urine Ketones Urine Blood Urine Nitrite Urine Bilirubin Urine Urobilinogen Ur Leukocyte Esterase Urine WBC (Auto) Urine RBC (Auto) Urine Casts (Auto) U Epithel Cells (Auto) U Sm Round Cell (Auto) Urine Bacteria (Auto) Digoxin Active Medications Generic Name Dose Route Start Last Admin Trade Name Freq PRN Reason Stop Dose Admin Atorvastatin Calcium 20 mg 07/10/18 22:00 Lipitor - PO HS [facility] Budesonide/Formoterol Fumarate 2 puff 07/10/18 22:00 Symbicort 160/4.5mcg - IH BID [facility] Chlorhexidine Gluconate 1 applic 07/10/18 22:00 Hibiclens For Decolonization - TP HS [facility] Insulin Aspart 1 vial 07/10/18 16:30 07/10/18 16:52 Novolog Vial Sliding Scale - SQ Not Given ACHS [facility] Protocol Levetiracetam 500 mg 07/10/18 22:00 Keppra - PO BID [facility] Mupirocin 1 applic 07/10/18 22:00 Bactroban Ointment (For Decolonization) - NS 07/15/18 21:59 BID [facility] Tiotropium [place] 2 puff 07/11/18 10:00 Spiriva Respimat IH DAILY [facility] Warfarin Sodium 5 mg 07/10/18 19:34 Coumadin - PO DAILY@1800 [facility] ASSESSMENT/PLAN: Dispo: We will continue to follow the patient. Thank you for this consultative opportunity. 77 year old female with h/o lung cancer s/p resection RUL, seizure disorder, Afib (on Coumadin and Digoxin), COPD (Home O2 PRN 2 LPM), CHF (09/2017 normal LVEF), DM, HLD, and HTN. Admitted to ICU for JOSE RAMON, hyponatremia, mild hyperkalemia, bradycardia, and hypotension. Neuro (& Psych): - A/o x4. No sedating gtts. Endocrine: - Consult Dr. Ruvalcaba - JOSE RAMON with hyponatremia and mild hyperkalemia. No EKG changes. Suspect secondary to dehydration given dry appearing mucosal membranes and decreased urinary output. - Ordered urine lytes and creatinine. - Renal and pelvis U/S pending. - Ordered NS @100 gtts/hr. No signs of volume overload. - Diabetes. Placed on insulin sliding scale. Cardiovascular: - Bradycardia persists despite atropine and calcium gluconate. Low suspicion this is related to Myrbetriq or Diltiazem. More likely to be related to Diltiazem, Spironolactone, and volume status. Will monitor on telemetry. Will hold antihypertensives and diuretics. - Hypotension somewhat improved over course of ED stay. BP noted to be over 110 systolic during my exam. - Low suspicion for ACS as pt denies chest pain or SOB. EKG unremarkable for ischemic changes. Initial troponin and 2.4 hour troponin were not elevated. Repeat cardiac profile ordered for the morning. - HLD c/w Atorvastatin Pulm / Resp: - Stable on home oxygen rate. Will continue. - COPD c/w Budesonide/ Formeterol and Tiotropium [place]. Gastrointestinal: - Umbilical hernia easily reducible without overlying skin changes. Will defer further workup to primary team. Genitourinary: - Decreased urinary output. Hematologic: - No leukocytosis or anemia. - PT/INR in therapeutic range. Will continue Warfarin Infectious Disease: - Low suspicion for infectious process. Pt is afebrile. Lactic acid not elevated. - UA unremarkable for pyuria or nitrites. Low suspicion acute cystitis. Urine culture pending. - Blood cultures pending. FEN: - IVF: NS @ 100ggts/hr - Diabetic Diet Prophylaxis: - DVT: Warfarin - GI: Pepcid Code Status / Family Conversation: Dispo: Will accept the pt to ICU for further monitoring. Thank you for this consultative opportunity. Case discussed with ICU attending, Dr. Jann Kinney MD, PGY1 ICU Consult Service Visit type - Emergency Visit Emergency Visit: No - New Patient This patient is new to me today: Yes Date on this admission: 07/10/18 - Critical Care Critical Care patient: Yes Total Critical Care Time (in minutes): 40 Critical Care Statement: The care of this patient involved high complexity decision making to prevent further life threatening deterioration of the patient 's condition and/or to evaluate & treat vital organ system(s) failure or risk of failure.
[2018-07-10 20:29] LABS: URINE APPEARANCE CLEAR; URINE BILIRUBIN NEGATIVE (NEGATIVE); URINE COLOR YELLOW; URINE GLUCOSE (UA) NEGATIVE (NEGATIVE); URINE KETONE NEGATIVE (NEGATIVE); URINE LEUK ESTERASE 2+ (NEGATIVE); URINE NITRITE NEGATIVE (NEGATIVE); URINE PROTEIN NEGATIVE (NEGATIVE); URINE UROBILINOGEN 0.2 mg/dL (0.2-1.0)
[2018-07-10 21:06] VITALS: BMI 41.3
[2018-07-10 21:11] LABS: CREATININE, URINE RANDOM 152 mg/dL (30-150); URINE UREA NITROGEN 297 MG/DL (350-1000)
[2018-07-10] MEDS: ATORVASTATIN CA 20 MG TABLET (FP) PO SCH (21:26)
[2018-07-10] MEDS: FAMOTIDINE 20 MG/50 ML IVPB 20 MG/50 ML MG IVPB SCH (21:26)
[2018-07-10] MEDS: levETIRAcetam 500 MG TABLET (FP) PO SCH (21:26)
[2018-07-10] MEDS: CHLORHEXIDINE GLUCONATE 4% CLEANSER FOR DECOLONIZATION TP SCH (21:26)
[2018-07-10 21:27] LABS: EPI CELLS 2.9 /HPF (0-5/HPF)
[2018-07-10 21:28] LABS: URINE BACTERIA NONE SEEN /hpf (NEGATIVE); URINE CASTS NONE SEEN /lpf (0-8); URINE WBC 0-3 /hpf (0-5)
[2018-07-10] MEDS: MUPIROCIN 2% TOPICAL OINTMENT FOR DECOLONIZATION NS SCH (21:48)
[2018-07-10] MEDS: BUDESONIDE/FORMETEROL FUMARATE 160/4.5 mcg INHALER IH SCH (21:48)
[2018-07-11] MEDS ORDERED: DEXTROSE 5%-NORMAL SALINE 500 ML IV ONE (05:53)
[2018-07-11] MEDS: INSULIN SLIDING SCALE (NOVOLOG) 1 VIAL SQ SCH ×4 (06:01→22:01)
[2018-07-11 06:17] LABS: HEMATOCRIT 35.2 % (32.4-45.2); HEMOGLOBIN 11.5 GM/dL (10.7-15.3); MCH 28.9 pg (25.7-33.7); MCHC 32.8 g/dl (32.0-36.0); MEAN CELL VOLUME 88.1 fl (80-96); PLATELET COUNT 214 K/MM3 (134-434); RBC 3.99 M/mm3 (3.60-5.2); RDW 15.7 % (11.6-15.6); WHITE BLOOD COUNT 6.1 K/mm3 (4.0-10.0)
[2018-07-11] MEDS ORDERED: ACETAMINOPHEN 325 MG TABLET (FP) PO ONE (06:28)
[2018-07-11] MEDS ORDERED: ACETAMINOPHEN 325 MG TABLET (FP) ONE (06:30)
[2018-07-11 06:32] LABS: INR 2.4 (0.83-1.09); PROTHROMBIN TIME (PATIENT) 28.6 SEC (9.7-13.0)
[2018-07-11 06:49] LABS: ALBUMIN 2.9 g/dl (3.4-5.0); ALK PHOS 64 U/L (45-117); ANION GAP 9 MMOL/L (8-16); BILIRUBIN,TOTAL 0.4 mg/dL (0.2-1); BLOOD UREA NITROGEN 79 mg/dL (7-18); CALCIUM 8.7 mg/dL (8.5-10.1); CHLORIDE 95 mmol/L (98-107); CO2 27 mmol/L (21-32); CREATININE 2.7 mg/dL (0.55-1.3); GLUCOSE,RANDOM 62 mg/dL (74-106); MAGNESIUM 2.5 mg/dL (1.8-2.4); N-TERMINAL BNP 1516.7 pg/ml (5-450); PHOSPHOROUS 5.1 mg/dL (2.5-4.9); POTASSIUM 4.6 mmol/L (3.5-5.1); SGOT/AST 15 U/L (15-37); SGPT/ALT 20 U/L (13-61); SODIUM 131 mmol/L (136-145); TOT PROT 5.5 g/dl (6.4-8.2)
[2018-07-11 09:11] LABS: CHOLESTEROL 142 mg/dL (50-200); HDL CHOLESTEROL 42 mg/dL (40-60); TRIGLYCERIDES 154 mg/dL (0-150)
--- NOTE | 2018-07-11 09:24 | PN ---
Progress Note (short form) - Note Progress Note: PULM/CCM Pt seen and examined in ICU 24Hr: -Cr downtrending with IVF, made 2000cc urine -HR improved to 60s, no Cxpn or distress -eating well this am Vital Signs Temp 98.6 F 07/11/18 06:00 Pulse 64 07/11/18 08:00 Resp 17 07/11/18 08:00 BP 129/66 07/11/18 08:00 Pulse Ox 99 07/11/18 08:06 Intake & Output 07/10/18 07/10/18 07/11/18 11:59 23:59 11:59 Intake Total 125 600 Output Total 50 2000 Balance 75 -1400 Weight 105.959 kg 105.959 kg Intake: IV 75 600 Normal Saline - 1,000 ml 75 600 @ 75 mls/hr IV ASDIR TIM Rx#:[id number] IVPB 50 Output: Urine 50 2000 Wang 50 2000 Other: Voiding Method Indwelling Catheter Indwelling Catheter Height 5 ft 3 in Body Mass Index (BMI) 41.3 Weight Measurement Method Built in [facility] Built in [facility] CBC, BMP 07/11/18 05:30 07/11/18 05:30 Ambulatory Orders Albuterol 0.083% Nebulizer Georgina [Ventolin 0.083% Nebulizer Soln -] 1 amp NEB PRN 07/10/18 Allopurinol [Zyloprim -] 100 mg PO DAILY 07/10/18 Atorvastatin Ca [Lipitor] 10 mg PO HS 07/10/18 Budesonide/Formeterol Fumarate [SYMBICORT 160/4.5mcg -] 1 inh PO DAILY 07/10/18 Digoxin [Lanoxin -] 0.125 mg PO Q48H 07/10/18 Diltiazem Cd [Cardizem Cd -] 360 mg PO DAILY 07/10/18 Furosemide [Lasix] 80 mg PO DAILY 07/10/18 Gabapentin [Neurontin -] 200 mg PO BID 07/10/18 Glimepiride - 4 mg PO BID 07/10/18 Lansoprazole [Prevacid -] 30 mg PO DAILY 07/10/18 Mirabegron [Myrbetriq] 25 mg PO DAILY 07/10/18 Sitagliptin Phosphate [Januvia] 50 mg PO DAILY@0700 04/19/19 Spironolactone [Aldactone] 25 mg PO DAILY 07/10/18 Tiotropium [place] [Spiriva] 18 mcg IH DAILY 07/10/18 Warfarin Na [Coumadin] 5 mg PO DAILY 07/10/18 levETIRAcetam [Keppra Xr -] 1,000 mg PO BID 07/10/18 Active Medications Atorvastatin Calcium (Lipitor -) 20 mg PO HS [facility] Last Admin: 07/10/18 21:26 Dose: 20 mg Budesonide/Formoterol Fumarate (Symbicort 160/4.5mcg -) 2 puff IH BID [facility] Last Admin: 07/10/18 21:48 Dose: 2 puff Chlorhexidine Gluconate (Hibiclens For Decolonization -) 1 applic TP HS [facility] Last Admin: 07/10/18 21:26 Dose: 1 applic Famotidine/Sodium Chloride (Pepcid 20 Mg Premixed Ivpb -) 20 mg in 50 mls @ 100 mls/hr IVPB BID [facility] Last Admin: 07/10/18 21:26 Dose: 100 mls/hr Sodium Chloride (Normal Saline -) 1,000 mls @ 75 mls/hr IV ASDIR [facility] Last Admin: 07/11/18 06:34 Dose: 75 mls/hr Insulin Aspart (Novolog Vial Sliding Scale -) 1 vial SQ [facility]; Protocol Last Admin: 07/11/18 06:01 Dose: Not Given Levetiracetam (Keppra -) 500 mg PO BID [facility] Last Admin: 07/10/18 21:26 Dose: 500 mg Mupirocin (Bactroban Ointment (For Decolonization) -) 1 applic NS BID [facility] Stop: 07/15/18 21:59 Last Admin: 07/10/18 21:48 Dose: 1 applic Nystatin (Nystop Powder -) 1 applic TP DAILY [facility] Polyethylene Glycol (Miralax (For Daily Use) -) 17 gm PO BID [facility] Tiotropium [place] (Spiriva Respimat) 2 puff IH DAILY [facility] Warfarin Sodium (Coumadin -) 5 mg PO DAILY@1800 TIM PE: Gen: awake, alert, without distress, asking for wang out HEENT: EOMI, NCAT, No jvd Pulm: clear anterior CV; RRR unable to appreciate M/r/g ABD; obese, soft, +BS Ext; dependent edema Neuro: intact, non focal A/ 77 y/o woman w CHF, afib , HTN, HLD, DM, COPD/asthma admitted with JOSE RAMON, volume depletion, bradycardia now improved with gentle hydration P/ -would d/c IVF as Cr downtrending and pt eating and drinking freely -d/c foely - restart home meds save diuretics - ok for tele Isai OHARAP
[2018-07-11] MEDS: FAMOTIDINE 20 MG/50 ML IVPB 20 MG/50 ML MG IVPB SCH ×2 (09:51→22:13)
[2018-07-11] MEDS: levETIRAcetam 500 MG TABLET (FP) PO SCH ×2 (09:51→21:07)
[2018-07-11] MEDS: MUPIROCIN 2% TOPICAL OINTMENT FOR DECOLONIZATION NS SCH ×2 (09:52→21:07)
[2018-07-11] MEDS: POLYETHYLENE GLYCOL 3350 119 GM BTL PO SCH ×2 (09:52→21:07)
[2018-07-11] MEDS: BUDESONIDE/FORMETEROL FUMARATE 160/4.5 mcg INHALER IH SCH ×2 (09:53→21:07)
[2018-07-11] MEDS: TIOTROPIUM BROMIDE 2.5 MCG (SPIRIVA) RESPIMAT INHALER IH SCH (09:53)
[2018-07-11] MEDS ORDERED: SODIUM CHLORIDE 1,000 ML IV SCH (10:09)
--- NOTE | 2018-07-11 10:09 | CONSULT ---
Consult - text type - Consultation Consultation Note: Renal consult for JOSE RAMON This is 77 year old woman with hx of Lung Ca s/p resection, seizure disorder, Afib on Coumadin, COPD, Diastolic HF, DM, HLD and hypertension who presented with generalized weakness and found to have hypotension, bradycardia and JOSE RAMON. Pt was recently started on Myrbetriq for urinary incontiance. Was also on PO lasix and aldactone for volume management. Denies any recent antibiotic use, contrast exoposure or NSAID use. Denies any skin rash. No flank pain or dysuria. No leg swelling. No cough, sob, cp, abd pain, N/V/D. PMhx: as above Allergies: NKDA Family Hx: NC Social Hx: No T/A/D ROS: as per HPI, all other ROS negative Home Medications Medication Instructions Recorded Albuterol 0.083% Nebulizer Georgina 1 amp NEB PRN 07/10/18 [Ventolin 0.083% Nebulizer Soln -] Allopurinol [Zyloprim -] 100 mg PO DAILY 07/10/18 Atorvastatin Ca [Lipitor] 10 mg PO HS 07/10/18 Budesonide/Formeterol Fumarate 1 inh PO DAILY 07/10/18 [SYMBICORT 160/4.5mcg -] Digoxin [Lanoxin -] 0.125 mg PO Q48H 07/10/18 Diltiazem Cd [Cardizem Cd -] 360 mg PO DAILY 07/10/18 Furosemide [Lasix] 80 mg PO DAILY 07/10/18 Gabapentin [Neurontin -] 200 mg PO BID 07/10/18 Glimepiride - 4 mg PO BID 07/10/18 Lansoprazole [Prevacid -] 30 mg PO DAILY 07/10/18 Mirabegron [Myrbetriq] 25 mg PO DAILY 07/10/18 Sitagliptin Phosphate [Januvia] 50 mg PO DAILY@0700 07/10/18 Spironolactone [Aldactone] 25 mg PO DAILY 07/10/18 Tiotropium [place] [Spiriva] 18 mcg IH DAILY 07/10/18 Warfarin Na [Coumadin] 5 mg PO DAILY 07/10/18 levETIRAcetam [Keppra Xr -] 1,000 mg PO BID 07/10/18 Vital Signs Temperature 98.6 F 07/11/18 06:00 Pulse Rate 64 04/20/19 08:00 Respiratory Rate 17 07/11/18 08:00 Blood Pressure 129/66 07/11/18 08:00 O2 Sat by Pulse Oximetry (%) 99 07/11/18 08:06 NAD awake and alert neck supple, no JVD irregular, no M/R CTA, dec BSbut no rales obese, NT/ND no bladder distension No LE edema, clubbing or cyanosis no focal neurolgic deficits CBC, BMP 07/11/18 05:30 07/11/18 05:30 Current Medications Atorvastatin Calcium (Lipitor -) 20 mg PO HS [facility] Last Admin: 07/10/18 21:26 Dose: 20 mg Budesonide/Formoterol Fumarate (Symbicort 160/4.5mcg -) 2 puff IH BID [facility] Last Admin: 07/11/18 09:53 Dose: 2 puff Chlorhexidine Gluconate (Hibiclens For Decolonization -) 1 applic TP HS [facility] Last Admin: 07/10/18 21:26 Dose: 1 applic Famotidine/Sodium Chloride (Pepcid 20 Mg Premixed Ivpb -) 20 mg in 50 mls @ 100 mls/hr IVPB BID [facility] Last Admin: 07/11/18 09:51 Dose: 100 mls/hr Sodium Chloride (Normal Saline -) 1,000 mls @ 75 mls/hr IV ASDIR [facility] Last Admin: 07/11/18 06:34 Dose: 75 mls/hr Insulin Aspart (Novolog Vial Sliding Scale -) 1 vial SQ ACHS [facility]; Protocol Last Admin: 07/11/18 06:01 Dose: Not Given Levetiracetam (Keppra -) 500 mg PO BID [facility] Last Admin: 07/11/18 09:51 Dose: 500 mg Mupirocin (Bactroban Ointment (For Decolonization) -) 1 applic NS BID [facility] Stop: 07/15/18 21:59 Last Admin: 07/11/18 09:52 Dose: 1 applic Nystatin (Nystop Powder -) 1 applic TP DAILY TIM Polyethylene Glycol (Miralax (For Daily Use) -) 17 gm PO BID [facility] Last Admin: 07/11/18 09:52 Dose: 17 gm Tiotropium [place] (Spiriva Respimat) 2 puff IH DAILY [facility] Last Admin: 07/11/18 09:53 Dose: 2 puff Warfarin Sodium (Coumadin -) 5 mg PO DAILY@1800 TIM 77 year old woman with hx of Lung Ca s/p resection, seizure disorder, Afib on Coumadin, COPD, Diastolic HF, DM, HLD and hypertension who presented with generalized weakness and found to have hypotension, bradycardia and JOSE RAMON. #JOSE RAMON due to volume depletion in setting of diuretics #Hypotension due to hypovolemia #Hypovolemic Hyponatremia (improving) #Diastolic HF w/o evidence of volume overload #DM #COPD #Afib on Coumadin Imaging studies show no obstruction in urine flow Urine studies consistent with pre-renal injury continue isotonc saline for addtional 8-12 hours hold diuretics for now Keep MAP > 65 oral intake as tolerated Dose all meds for CrCl < 20 avoid IV contrast and nephrotoxins Trend renal function and electrolytes daily Thank you Connor Ruvalcaba DO
--- NOTE | 2018-07-11 10:12 | PN ---
Progress Note (short form) - Note Progress Note: s: feels better. no chest pain, palps, dyspnea Current Medications Atorvastatin Calcium (Lipitor -) 20 mg PO HS [facility] Last Admin: 07/10/18 21:26 Dose: 20 mg Budesonide/Formoterol Fumarate (Symbicort 160/4.5mcg -) 2 puff IH BID [facility] Last Admin: 07/11/18 09:53 Dose: 2 puff Chlorhexidine Gluconate (Hibiclens For Decolonization -) 1 applic TP HS [facility] Last Admin: 07/10/18 21:26 Dose: 1 applic Famotidine/Sodium Chloride (Pepcid 20 Mg Premixed Ivpb -) 20 mg in 50 mls @ 100 mls/hr IVPB BID [facility] Last Admin: 07/11/18 09:51 Dose: 100 mls/hr Sodium Chloride (Normal Saline -) 1,000 mls @ 75 mls/hr IV ASDIR [facility] Stop: 07/11/18 18:08 Insulin Aspart (Novolog Vial Sliding Scale -) 1 vial SQ [facility]; Protocol Last Admin: 07/11/18 06:01 Dose: Not Given Levetiracetam (Keppra -) 500 mg PO BID [facility] Last Admin: 07/11/18 09:51 Dose: 500 mg Mupirocin (Bactroban Ointment (For Decolonization) -) 1 applic NS BID [facility] Stop: 07/15/18 21:59 Last Admin: 07/11/18 09:52 Dose: 1 applic Nystatin (Nystop Powder -) 1 applic TP DAILY [facility] Polyethylene Glycol (Miralax (For Daily Use) -) 17 gm PO BID [facility] Last Admin: 07/11/18 09:52 Dose: 17 gm Tiotropium [place] (Spiriva Respimat) 2 puff IH DAILY [facility] Last Admin: 07/11/18 09:53 Dose: 2 puff Warfarin Sodium (Coumadin -) 5 mg PO DAILY@1800 TIM Vital Signs: Vital Signs Period Temp Pulse Resp BP Sys/[place] Pulse Ox Last 24 Hr 97.2 F 48-53 17-18 88-97/33-49 93-94 Constitutional: Yes: No Distress, Calm Eyes: Yes: Conjunctiva Clear HENT: Yes: Atraumatic, Normocephalic Neck: Yes: Supple, Trachea Midline Respiratory: cta bl nl eff Gastrointestinal: Yes: Normal Bowel Sounds, Soft. No: Distention, Tenderness Cardiovascular: Yes: Pulse Irregular. + Bradycardia, no Gallop, Rub, murmur JVD: No Carotid Bruit: No PMI: Non-Displaced Heart Sounds: Yes: S1, S2. No: Split S2, S3, S4, Clicks, Gallop, Rub, Bruit Murmur: No: Systolic Murmur, Diastolic Murmur Edema: no Peripheral Pulses: 2+ Left Doralis Pedis, 2+ Right Dorsalis Pedis Integumentary: no jaundice diaphoresis Neurological: Yes: Alert, Oriented Psychiatric: Yes: Alert, Oriented ECHO 10/03/17 Normal LV sytolic function No sig valvular abnl Echocardiogram 02/04/17: EF 41% Mild LAE Normal RV FXN Moderate MR ecg: afib rate 47 nl qtc no ischemic changes cxr: no sig chf tele: afib rate 60s Assessment/Plan 77 year old female with a PMH of lung Ca s/p right upper lobectomy(2005), afib, CVA, COPD, dCHF, GERD, diabetes, HTN, and HLD who is here with weakness and lightheadedness. norbert: -pt with dec urine output and norbert here with cr 3.5 (baseline low 1s) -does not appear vol overloaded so ok to give ivfs -hold home diuretics -Cr improving, renal following afib with slow vent response: -vr in 40s-50s on admission -dig level ok -hold home dig and dilt for now -bradycardia likely due to norbert/electrolyte abnormalities - improving -monitor on tele -cont coumadin per inr for ac chronic diastolic CHF -no signs vol overload -hold diuretics as above htn: -bp low currently -hold home dilt -would give ivfs hld: -cont statin
[2018-07-11] MEDS: NYSTATIN POWDER 100,000 UNITS/GM - 15 GM TOPICAL POWDER TP SCH (11:03)
--- NOTE | 2018-07-11 14:20 | EKG ---
Test Reason : Blood Pressure : / mmHG Vent. Rate : 047 BPM Atrial Rate : 046 BPM P-R Int : 000 ms QRS Dur : 090 ms QT Int : 426 ms P-R-T Axes : 000 -50 065 degrees QTc Int : 377 ms ATRIAL FIBRILLATION WITH SLOW VENTRICULAR RESPONSE LEFT AXIS DEVIATION LOW VOLTAGE QRS INFERIOR INFARCT (CITED ON OR BEFORE 17-MAY-2007) CANNOT RULE OUT ANTEROSEPTAL INFARCT (CITED ON OR BEFORE 17-MAY-2007) ABNORMAL ECG Confirmed by MD NATANAEL, SARKIS ([id number]) on 07/11/2018 2:20:21 PM Referred By: AMIRA Confirmed By:SARKIS SANTOYO MD
--- NOTE | 2018-07-11 14:21 | EKG ---
Test Reason : Blood Pressure : / mmHG Vent. Rate : 047 BPM Atrial Rate : 300 BPM P-R Int : 000 ms QRS Dur : 090 ms QT Int : 430 ms P-R-T Axes : 000 -53 065 degrees QTc Int : 380 ms ATRIAL FIBRILLATION WITH SLOW VENTRICULAR RESPONSE LEFT AXIS DEVIATION LOW VOLTAGE QRS INFERIOR INFARCT (CITED ON OR BEFORE 17-MAY-2007) CANNOT RULE OUT ANTEROSEPTAL INFARCT (CITED ON OR BEFORE 17-MAY-2007) ABNORMAL ECG Confirmed by MD NATANAEL, SARKIS ([id number]) on 07/11/2018 2:21:41 PM Referred By: Confirmed By:SARKIS SANTOYO MD
[2018-07-11] MEDS: ATORVASTATIN CA 20 MG TABLET (FP) PO SCH (21:07)
[2018-07-11] MEDS: CHLORHEXIDINE GLUCONATE 4% CLEANSER FOR DECOLONIZATION TP SCH (21:08)
--- NOTE | 2018-07-11 21:47 | CONSULT ---
Consult Consult Specialty:: endocrine Referred by:: dr.saba murrieta Reason for Consultation:: diabetes mellitus - History of Present Illness Chief Complaint: short of breath and fluid retention History of Present Illness: 77 year old female with pmh dm2,ckd,lung caner, afib (on coumadin), COPD (on home O2 PRN 2 liters), CHF (09/2017 normal LVEF), DM, HLD, and HTN presented with fluid retention,and chf via ems with complaint of lower extremity weakness , lightheadedness, dizziness and decreased urinary output for about one week. She states she was recently started on bladder medication and was experiencing decreased urine output,shortness of breath and difficulty getting out of chair. 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 Cardio/Vascular: Yes: AFIB, CHF, HTN, Hyperlipdemia Pulmonary: Yes: Bronchitis, Cancer, COPD, O2 Dependent, Sleep Apnea Gastrointestinal: Yes: GERD ...: No Endocrine: Yes: Diabetes Mellitus Additional Medical History: right shoulder fracture - Past Surgical History Past Surgical History: Yes: Appendectomy (age 16), Joint Replacement (bilateral) - Alcohol/Substance Use Hx Alcohol Use: No History of Substance Use: reports: None - Smoking History Smoking history: Former smoker Have you smoked in the past 12 months: No Aproximately how many cigarettes per day: 0 If you are a former smoker, when did you quit?: 50 yrs ago - Social History Usual Living Arrangement: With Child ADL: Independent History of Recent Travel: No Home Medications - Allergies Allergies/Adverse Reactions: Allergies Allergy/AdvReac Type Severity Reaction Status Date / Time Opioids - Morphine Analogues Allergy Intermediate Vomiting Verified 07/10/18 14: 01 [Opioids-Morphine & Related] adhesive tape Allergy Mild Rash Verified 07/10/18 14:01 Penicillins Allergy Verified 07/10/18 14:01 - Home Medications Home Medications: Ambulatory Orders Albuterol 0.083% Nebulizer Georgina [Ventolin 0.083% Nebulizer Soln -] 1 amp NEB PRN 07/10/18 Allopurinol [Zyloprim -] 100 mg PO DAILY 07/10/18 Atorvastatin Ca [Lipitor] 10 mg PO HS 07/10/18 Budesonide/Formeterol Fumarate [SYMBICORT 160/4.5mcg -] 1 inh PO DAILY 07/10/18 Digoxin [Lanoxin -] 0.125 mg PO Q48H 07/10/18 Diltiazem Cd [Cardizem Cd -] 360 mg PO DAILY 07/10/18 Furosemide [Lasix] 80 mg PO DAILY 07/10/18 Gabapentin [Neurontin -] 200 mg PO BID 07/10/18 Glimepiride - 4 mg PO BID 07/10/18 Lansoprazole [Prevacid -] 30 mg PO DAILY 07/10/18 Mirabegron [Myrbetriq] 25 mg PO DAILY 07/10/18 Sitagliptin Phosphate [Januvia] 50 mg PO DAILY@0700 07/10/18 Spironolactone [Aldactone] 25 mg PO DAILY 07/10/18 Tiotropium [place] [Spiriva] 18 mcg IH DAILY 07/10/18 Warfarin Na [Coumadin] 5 mg PO DAILY 07/10/18 levETIRAcetam [Keppra Xr -] 1,000 mg PO BID 07/10/18 Review of Systems - Review of Systems Constitutional: reports: Lethargy, Weakness Eyes: reports: No Symptoms HENT: reports: No Symptoms Neck: reports: No Symptoms Cardiovascular: reports: Shortness of Breath Respiratory: reports: Exercise Intolerance, SOB on Exertion Gastrointestinal: reports: Constipation Genitourinary: reports: No Symptoms Breasts: reports: No Symptoms Reported Musculoskeletal: reports: Muscle Weakness Neurological: reports: Numbness, Weakness Endocrine: reports: Unexplained Weight Gain Physical Exam Vital Signs: Vital Signs Temperature 99.2 F 07/11/18 20:00 Pulse Rate 76 07/11/18 20:00 Respiratory Rate 19 07/11/18 20:00 Blood Pressure 139/59 L 07/11/18 20:00 O2 Sat by Pulse Oximetry (%) 98 07/11/18 19:49 Constitutional: Yes: Anxious Eyes: Yes: EOM Intact HENT: Yes: Normocephalic Neck: Yes: Trachea Midline Cardiovascular: Yes: Tachycardia Respiratory: Yes: Rhonchi, SOB, Tachypnea Gastrointestinal: Yes: Abdomen, Obese ...Rectal Exam: Yes: Deferred Renal/: Yes: WNL Extremities: Yes: WNL Edema: Yes Edema: LLE: 1+, RLE: 1+ Neurological: Yes: Alert, Oriented Labs: CBC, BMP 07/11/18 05:30 07/11/18 05:30 Problem List - Problems (1) JOSE RAMON (acute kidney injury) Code(s): N17.9 - ACUTE KIDNEY FAILURE, UNSPECIFIED (2) COPD (chronic obstructive pulmonary disease) Code(s): J44.9 - CHRONIC OBSTRUCTIVE PULMONARY DISEASE, UNSPECIFIED (3) HLD (hyperlipidemia) Code(s): E78.5 - HYPERLIPIDEMIA, UNSPECIFIED (4) Acute decompensated heart failure Code(s): I50.9 - HEART FAILURE, UNSPECIFIED (5) Acute hypoxemic respiratory failure Code(s): J96.01 - ACUTE RESPIRATORY FAILURE WITH HYPOXIA Assessment/Plan Current Active Problems dm2 ckd JOSE RAMON (acute kidney injury) (Acute) Bradycardia (Acute) COPD (chronic obstructive pulmonary disease) (Acute) HLD (hyperlipidemia) (Acute) Hyponatremia (Acute) Hypotension (Acute) Abnormal Lab Results 07/11/18 07/11/18 07/11/18 05:30 05:30 05:30 RDW 15.7 H PT with INR 28.60 H INR 2.40 H Sodium Chloride BUN Creatinine Random Glucose Hemoglobin A1c % 8.6 H Phosphorus Magnesium B-Natriuretic Peptide Total Protein Albumin Triglycerides 07/11/18 05:30 RDW PT with INR INR Sodium 131 L Chloride 95 L BUN 79 H Creatinine 2.7 H Random Glucose 62 L Hemoglobin A1c % Phosphorus 5.1 H Magnesium 2.5 H B-Natriuretic Peptide 1516.7 H Total Protein 5.5 L Albumin 2.9 L Triglycerides 154 H Laboratory Results - last 24 hr 07/10/18 07/11/18 07/11/18 16:20 05:30 05:30 WBC RBC Hgb Hct MCV MCH MCHC RDW Plt Count MPV PT with INR 28.60 H INR 2.40 H Sodium Potassium Chloride Carbon Dioxide Anion Gap BUN Creatinine Creat Clearance w eGFR POC Glucometer Random Glucose Hemoglobin A1c % 8.6 H Lactic Acid Calcium Phosphorus Magnesium Total Bilirubin AST ALT Alkaline Phosphatase Creatine Kinase Troponin I B-Natriuretic Peptide Total Protein Albumin Triglycerides Cholesterol Total LDL Cholesterol HDL Cholesterol Ur Random Potassium 50.5 07/11/18 07/11/18 07/11/18 05:30 05:30 05:45 WBC 6.1 RBC 3.99 Hgb 11.5 Hct 35.2 MCV 88.1 MCH 28.9 MCHC 32.8 RDW 15.7 H Plt Count 214 MPV 9.0 PT with INR INR Sodium 131 L Potassium 4.6 Chloride 95 L Carbon Dioxide 27 Anion Gap 9 BUN 79 H Creatinine 2.7 H Creat Clearance w eGFR 17.04 POC Glucometer 58 Random Glucose 62 L Hemoglobin A1c % Lactic Acid Calcium 8.7 Phosphorus 5.1 H Magnesium 2.5 H Total Bilirubin 0.4 AST 15 ALT 20 Alkaline Phosphatase 64 Creatine Kinase 44 Troponin I < 0.02 B-Natriuretic Peptide 1516.7 H Total Protein 5.5 L Albumin 2.9 L Triglycerides 154 H Cholesterol 142 Total LDL Cholesterol 88 HDL Cholesterol 42 Ur Random Potassium 07/11/18 07/11/18 07/11/18 10:12 11:46 16:50 WBC RBC Hgb Hct MCV MCH MCHC RDW Plt Count MPV PT with INR INR Sodium Potassium Chloride Carbon Dioxide Anion Gap BUN Creatinine Creat Clearance w eGFR POC Glucometer 189 113 Random Glucose Hemoglobin A1c % Lactic Acid 0.8 Calcium Phosphorus Magnesium Total Bilirubin AST ALT Alkaline Phosphatase Creatine Kinase Troponin I B-Natriuretic Peptide Total Protein Albumin Triglycerides Cholesterol Total LDL Cholesterol HDL Cholesterol Ur Random Potassium 07/11/18 21:02 WBC RBC Hgb Hct MCV MCH MCHC RDW Plt Count MPV PT with INR INR Sodium Potassium Chloride Carbon Dioxide Anion Gap BUN Creatinine Creat Clearance w eGFR POC Glucometer 129 Random Glucose Hemoglobin A1c % Lactic Acid Calcium Phosphorus Magnesium Total Bilirubin AST ALT Alkaline Phosphatase Creatine Kinase Troponin I B-Natriuretic Peptide Total Protein Albumin Triglycerides Cholesterol Total LDL Cholesterol HDL Cholesterol Ur Random Potassium plan: iv fluid rehydration wang catheter for urine flow evaluation Current Medications Generic Name Dose Route Start Last Admin Trade Name Freq PRN Reason Stop Dose Admin Atorvastatin Calcium 20 mg 07/10/18 22:00 07/11/18 21:07 Lipitor - PO 20 mg HS TIM Administration Budesonide/Formoterol Fumarate 2 puff 07/10/18 22:00 07/11/18 21:07 Symbicort 160/4.5mcg - IH 2 puff BID TIM Administration Chlorhexidine Gluconate 1 applic 07/10/18 22:00 07/11/18 21:08 Hibiclens For Decolonization - TP 1 applic HS TIM Administration Famotidine/Sodium Chloride 20 mg in 50 mls @ 100 mls/hr 07/10/18 22:00 09:51 Pepcid 20 Mg Premixed Ivpb - IVPB 100 mls/hr BID TIM Administration Insulin Aspart 1 vial 07/10/18 16:30 07/11/18 16:54 Novolog Vial Sliding Scale - SQ Not Given ACHS TIM Protocol Levetiracetam 500 mg 07/10/18 22:00 07/11/18 21:07 Keppra - PO 500 mg BID TIM Administration Mupirocin 1 applic 07/10/18 22:00 07/11/18 21:07 Bactroban Ointment (For Decolonization) - NS 07/15/18 21:59 1 applic BID TIM Administration Nystatin 1 applic 07/11/18 10:00 07/11/18 11:03 Nystop Powder - TP 1 applic DAILY TIM Administration Polyethylene Glycol 17 gm 07/11/18 10:00 07/11/18 21:07 Miralax (For Daily Use) - PO 17 gm BID TIM Administration Tiotropium [place] 2 puff 07/11/18 10:00 07/11/18 09:53 Spiriva Respimat IH 2 puff DAILY TIM Administration Warfarin Sodium 5 mg 07/10/18 19:34 07/11/18 17:10 Coumadin - PO 5 mg DAILY@1800 TIM Administration continue bgm qid novolog scale ck [id number]
[2018-07-12 06:02] LABS: BASO % 0.3 % (0-2.0); EOS % 1.9 % (0-4.5); HEMATOCRIT 36.3 % (32.4-45.2); HEMOGLOBIN 11.9 GM/dL (10.7-15.3); MCH 29.1 pg (25.7-33.7); MCHC 32.8 g/dl (32.0-36.0); MEAN CELL VOLUME 88.7 fl (80-96); MEAN PLT VOLUME 8.9 fl (7.5-11.1); MONO % 9.2 % (3.8-10.2); NEUT % 71.6 % (42.8-82.8); PLATELET COUNT 216 K/MM3 (134-434); RBC 4.09 M/mm3 (3.60-5.2); RDW 15.7 % (11.6-15.6); WHITE BLOOD COUNT 6.5 K/mm3 (4.0-10.0)
[2018-07-12] MEDS: INSULIN SLIDING SCALE (NOVOLOG) 1 VIAL SQ SCH (06:13)
[2018-07-12] MEDS ORDERED: ACETAMINOPHEN 325 MG TABLET (FP) PO PRN (06:18)
[2018-07-12 06:31] VITALS: TEMP 99.2
[2018-07-12 06:33] LABS: ALBUMIN 2.9 g/dl (3.4-5.0); ALK PHOS 67 U/L (45-117); ANION GAP 6 MMOL/L (8-16); BILIRUBIN,TOTAL 0.5 mg/dL (0.2-1); BLOOD UREA NITROGEN 56 mg/dL (7-18); CALCIUM 8.5 mg/dL (8.5-10.1); CHLORIDE 100 mmol/L (98-107); CO2 26 mmol/L (21-32); GLUCOSE,RANDOM 112 mg/dL (74-106); MAGNESIUM 2.1 mg/dL (1.8-2.4); PHOSPHOROUS 3.5 mg/dL (2.5-4.9); POTASSIUM 4.6 mmol/L (3.5-5.1); SGOT/AST 16 U/L (15-37); SGPT/ALT 19 U/L (13-61); SODIUM 133 mmol/L (136-145); TOT PROT 5.9 g/dl (6.4-8.2)
[2018-07-12 06:39] LABS: INR 2.36 (0.83-1.09); PROTHROMBIN TIME (PATIENT) 28.1 SEC (9.7-13.0)
--- NOTE | 2018-07-12 09:17 | PN ---
Progress Note (short form) - Note Progress Note: PULM/CCM Pt seen and examined in ICU 24Hr: -Cr cont to down trend -pt asking to be d/c home today, awaiting call back from Primary Team -GNR in urine cxl but pt never had dysuria, wbc is normal Vital Signs Temp 99.2 F 07/12/18 06:00 Pulse 78 07/12/18 08:00 Resp 18 07/12/18 08:00 BP 148/116 H 07/12/18 08:00 Pulse Ox 98 07/12/18 08:13 Intake & Output 07/11/18 07/11/18 07/12/18 11:59 23:59 11:59 Intake Total 600 1905 200 Output Total 1999 2600 Balance -1400 -695 200 Weight 105.959 kg 105.942 kg Intake: IV 600 825 Normal Saline - 1,000 ml 600 825 @ 75 mls/hr IV ASDIR TIM Rx#:[id number] IVPB 100 Oral 980 200 Output: Urine 1999 2600 Wang 1999 2600 Other: Voiding Method Indwelling Catheter Bedpan Toilet # Unmeasured Voids Wang 2 2 Bowel Movement Yes # Bowel Movements 1 Weight Measurement Method Built in [facility] CBC, BMP 07/12/18 05:30 07/12/18 05:30 Microbiology 07/10/18 20:05 Urine - Urine Clean Catch Urine Culture - Preliminary Non Lactose Fermenting Gnb 07/10/18 16:20 Urine - Urine Wang Urine Culture - Preliminary Non Lactose Fermenting Gnb 07/10/18 15:15 Blood - Peripheral Venous Blood Culture - Preliminary NO GROWTH OBTAINED AFTER 24 HOURS, INCUBATION TO CONTINUE FOR 4 DAYS. 07/10/18 15:00 Blood - Peripheral Venous Blood Culture - Preliminary NO GROWTH OBTAINED AFTER 24 HOURS, INCUBATION TO CONTINUE FOR 4 DAYS. Ambulatory Orders Albuterol 0.083% Nebulizer Georgina [Ventolin 0.083% Nebulizer Soln -] 1 amp NEB PRN 07/10/18 Allopurinol [Zyloprim -] 100 mg PO DAILY 07/10/18 Atorvastatin Ca [Lipitor] 10 mg PO HS 07/10/18 Budesonide/Formeterol Fumarate [SYMBICORT 160/4.5mcg -] 1 inh PO DAILY 07/10/18 Digoxin [Lanoxin -] 0.125 mg PO Q48H 07/10/18 Diltiazem Cd [Cardizem Cd -] 360 mg PO DAILY 07/10/18 Furosemide [Lasix] 80 mg PO DAILY 07/10/18 Gabapentin [Neurontin -] 200 mg PO BID 07/10/18 Glimepiride - 4 mg PO BID 07/10/18 Lansoprazole [Prevacid -] 30 mg PO DAILY 07/10/18 Mirabegron [Myrbetriq] 25 mg PO DAILY 07/10/18 Sitagliptin Phosphate [Januvia] 50 mg PO DAILY@0700 07/10/18 Spironolactone [Aldactone] 25 mg PO DAILY 07/10/18 Tiotropium [place] [Spiriva] 18 mcg IH DAILY 07/10/18 Warfarin Na [Coumadin] 5 mg PO DAILY 07/10/18 levETIRAcetam [Keppra Xr -] 1,000 mg PO BID 07/10/18 Active Medications Atorvastatin Calcium (Lipitor -) 20 mg PO HS [facility] Last Admin: 07/10/18 21:26 Dose: 20 mg Budesonide/Formoterol Fumarate (Symbicort 160/4.5mcg -) 2 puff IH BID [facility] Last Admin: 07/10/18 21:48 Dose: 2 puff Chlorhexidine Gluconate (Hibiclens For Decolonization -) 1 applic TP HS [facility] Last Admin: 07/10/18 21:26 Dose: 1 applic Famotidine/Sodium Chloride (Pepcid 20 Mg Premixed Ivpb -) 20 mg in 50 mls @ 100 mls/hr IVPB BID [facility] Last Admin: 07/10/18 21:26 Dose: 100 mls/hr Sodium Chloride (Normal Saline -) 1,000 mls @ 75 mls/hr IV ASDIR [facility] Last Admin: 07/11/18 06:34 Dose: 75 mls/hr Insulin Aspart (Novolog Vial Sliding Scale -) 1 vial SQ ACHS [facility]; Protocol Last Admin: 07/11/18 06:01 Dose: Not Given Levetiracetam (Keppra -) 500 mg PO BID [facility] Last Admin: 07/10/18 21:26 Dose: 500 mg Mupirocin (Bactroban Ointment (For Decolonization) -) 1 applic NS BID [facility] Stop: 07/15/18 21:59 Last Admin: 07/10/18 21:48 Dose: 1 applic Nystatin (Nystop Powder -) 1 applic TP DAILY TIM Polyethylene Glycol (Miralax (For Daily Use) -) 17 gm PO BID TIM Tiotropium [place] (Spiriva Respimat) 2 puff IH DAILY TIM Warfarin Sodium (Coumadin -) 5 mg PO DAILY@1800 TIM PE: Gen: awake, alert, without distress, asking for wang out HEENT: EOMI, NCAT, No jvd Pulm: clear anterior CV; RRR unable to appreciate M/r/g ABD; obese, soft, +BS Ext; dependent edema Neuro: intact, non focal A/ 77 y/o woman w CHF, afib , HTN, HLD, DM, COPD/asthma admitted with JOSE RAMON, volume depletion, bradycardia now improved with gentle hydration P/ -would d/c IVF as Cr downtrending and pt eating and drinking freely -d/c wang - restart home meds save diuretics - no indication to treat GNR in urine given lack of symptoms, can give dose of ceftriaxone and have follow up on d/c - ok for tele -can likely be safely d/c home Isai MADRID
[2018-07-12] MEDS: MUPIROCIN 2% TOPICAL OINTMENT FOR DECOLONIZATION NS SCH (09:32)
[2018-07-12] MEDS: levETIRAcetam 500 MG TABLET (FP) PO SCH (09:32)
[2018-07-12] MEDS: FAMOTIDINE 20 MG/50 ML IVPB 20 MG/50 ML MG IVPB SCH (09:32)
[2018-07-12] MEDS: NYSTATIN POWDER 100,000 UNITS/GM - 15 GM TOPICAL POWDER TP SCH (09:32)
[2018-07-12] MEDS: POLYETHYLENE GLYCOL 3350 119 GM BTL PO SCH (09:33)
--- NOTE | 2018-07-12 09:33 | DS ---
Physical Examination Vital Signs: Vital Signs Temperature 99.2 F 07/12/18 06:00 Pulse Rate 78 07/12/18 08:00 Respiratory Rate 18 07/12/18 08:00 Blood Pressure 148/116 H 07/12/18 08:00 O2 Sat by Pulse Oximetry (%) 98 07/12/18 08:13 Constitutional: Yes: No Distress Eyes: Yes: WNL HENT: Yes: WNL Neck: Yes: WNL Cardiovascular: Yes: Pulse Irregular Respiratory: Yes: Diminished Gastrointestinal: Yes: WNL, Soft Renal/: Yes: WNL Musculoskeletal: Yes: Muscle Weakness Extremities: Yes: WNL Edema: No Peripheral Pulses WNL: Yes Integumentary: Yes: WNL Wound/Incision: Yes: Clean/Dry Neurological: Yes: Pre-Existing Deficit ...Motor Strength: LLE, RLE Psychiatric: Yes: WNL Labs: CBC, BMP 07/12/18 05:30 07/12/18 05:30 Discharge Summary Reason For Visit: ACUTE RENAL FAILURE BRADYCARDIA HYPOTENSION Current Active Problems JOSE RAMON (acute kidney injury) (Acute) Bradycardia (Acute) COPD (chronic obstructive pulmonary disease) (Acute) HLD (hyperlipidemia) (Acute) Hyponatremia (Acute) Hypotension (Acute) Procedures: Principal: CT SCAN Hospital Course: ADMITTED LEG WEAKNESS, FATIGUE, +CHRONIC UTI, WORKED UP SHOWED HYPONATREMIA, GIVEN IVF.WILL MONITOR OUTPATIENT. Condition: Improved - Instructions Diet, Activity, Other Instructions: SEE DR TOBAR IN 2-3 DAYS FOR FOLLOW UP STOP MYRBETRIC Disposition: HOME - Home Medications Comprehensive Discharge Medication List: Ambulatory Orders Albuterol 0.083% Nebulizer Georgina [Ventolin 0.083% Nebulizer Soln -] 1 amp NEB PRN 07/10/18 Allopurinol [Zyloprim -] 100 mg PO DAILY 07/10/18 Atorvastatin Ca [Lipitor] 10 mg PO HS 07/10/18 Budesonide/Formeterol Fumarate [SYMBICORT 160/4.5mcg -] 1 inh PO DAILY 07/10/18 Digoxin [Lanoxin -] 0.125 mg PO Q48H 07/10/18 Diltiazem Cd [Cardizem Cd -] 360 mg PO DAILY 07/10/18 Furosemide [Lasix] 80 mg PO DAILY 07/10/18 Gabapentin [Neurontin -] 200 mg PO BID 07/10/18 Glimepiride - 4 mg PO BID 07/10/18 Lansoprazole [Prevacid -] 30 mg PO DAILY 07/10/18 Sitagliptin Phosphate [Januvia -] 50 mg PO DAILY@0700 07/10/18 Spironolactone [Aldactone -] 25 mg PO DAILY 07/10/18 Tiotropium [place] [Spiriva] 18 mcg IH DAILY 07/10/18 Warfarin Na [Coumadin -] 5 mg PO DAILY 07/10/18 levETIRAcetam [Levetiracetam -] 1,000 mg PO BID 07/10/18 Nystatin Powder [Nystop Powder -] 1 applic TP DAILY #90 applic 07/12/18 Polyethylene Glycol 3350 [Miralax 119 gm Btl -] 17 gm PO BID #1 bottle 07/12/18
[2018-07-12] MEDS: BUDESONIDE/FORMETEROL FUMARATE 160/4.5 mcg INHALER IH SCH (09:41)
[2018-07-12] MEDS: TIOTROPIUM BROMIDE 2.5 MCG (SPIRIVA) RESPIMAT INHALER IH SCH (09:41)
[2018-07-12 09:46] VITALS: BP 146/78; PULSE 90
--- NOTE | 2018-07-12 10:23 | PN ---
Progress Note (short form) - Note Progress Note: Renal follow up for JOSE RAMON Pt seen and examined in the ICU awake and alert feels better making urine no sob, cp, abd pain, N/V/D, fever or chills going home today Vital Signs Temperature 99.2 F 07/12/18 06:00 Pulse Rate 90 07/12/18 09:28 Respiratory Rate 07/12/18 09:28 Blood Pressure 146/78 07/12/18 09:28 O2 Sat by Pulse Oximetry (%) 98 07/12/18 08:13 Intake & Output 07/09/18 07/10/18 07/11/18 07/12/18 23:59 23:59 23:59 23:59 Intake Total 125 2505 200 Output Total 50 4600 Balance 75 -2095 200 Weight 105.959 kg 105.959 kg 105.942 kg NAD irregular, no M/R CTA, dec BS but no rales obese, NT/ND no bladder distension No LE edema CBC, BMP 07/12/18 05:30 07/12/18 05:30 Current Medications Acetaminophen (Tylenol -) 650 mg PO Q6H PRN PRN Reason: MILD PAIN Last Admin: 07/12/18 06:23 Dose: 325 mg Atorvastatin Calcium (Lipitor -) 20 mg PO [facility] Last Admin: 07/11/18 21:07 Dose: 20 mg Budesonide/Formoterol Fumarate (Symbicort 160/4.5mcg -) 2 puff IH BID [facility] Last Admin: 07/12/18 09:41 Dose: 2 puff Chlorhexidine Gluconate (Hibiclens For Decolonization -) 1 applic TP [facility] Last Admin: 07/11/18 21:08 Dose: 1 applic Famotidine/Sodium Chloride (Pepcid 20 Mg Premixed Ivpb -) 20 mg in 50 mls @ 100 mls/hr IVPB BID [facility] Last Admin: 07/12/18 09:32 Dose: 100 mls/hr Insulin Aspart (Novolog Vial Sliding Scale -) 1 vial SQ [facility]; Protocol Last Admin: 07/12/18 06:13 Dose: Not Given Levetiracetam (Keppra -) 500 mg PO BID [facility] Last Admin: 07/12/18 09:32 Dose: 500 mg Mupirocin (Bactroban Ointment (For Decolonization) -) 1 applic NS BID [facility] Stop: 07/15/18 21:59 Last Admin: 07/12/18 09:32 Dose: 1 applic Nystatin (Nystop Powder -) 1 applic TP DAILY [facility] Last Admin: 07/12/18 09:32 Dose: 1 applic Polyethylene Glycol (Miralax (For Daily Use) -) 17 gm PO BID [facility] Last Admin: 07/12/18 09:33 Dose: 17 gm Tiotropium [place] (Spiriva Respimat) 2 puff IH DAILY [facility] Last Admin: 07/12/18 09:41 Dose: 2 puff Warfarin Sodium (Coumadin -) 5 mg PO DAILY@1800 [facility] Last Admin: 07/11/18 17:10 Dose: 5 mg 77 year old woman with hx of Lung Ca s/p resection, seizure disorder, Afib on Coumadin, COPD, Diastolic HF, DM, HLD and hypertension who presented with generalized weakness and found to have hypotension, bradycardia and JOSE RAMON. #JOSE RAMON due to volume depletion in setting of diuretics #Hypotension due to hypovolemia #Hypovolemic Hyponatremia (improving) #Diastolic HF w/o evidence of volume overload #DM #COPD #Afib on Coumadin Renal function improving toward baseline with IVF Imaging studies show no obstruction in urine flow Urine studies consistent with pre-renal injury hold diuretics for now, pt advised to follow up with PMD and restart diuretics after repeat labs are drawn as outpatient Stable for discharge with outpatient follow up Thank you Connor Ruvalcaba DO
--- NOTE | 2018-07-12 10:24 | PN ---
Progress Note (short form) - Note Progress Note: s: no chest pain, palps, dyspnea Current Medications Acetaminophen (Tylenol -) 650 mg PO Q6H PRN PRN Reason: MILD PAIN Last Admin: 07/12/18 06:23 Dose: 325 mg Atorvastatin Calcium (Lipitor -) 20 mg PO HS [facility] Last Admin: 07/11/18 21:07 Dose: 20 mg Budesonide/Formoterol Fumarate (Symbicort 160/4.5mcg -) 2 puff IH BID [facility] Last Admin: 07/12/18 09:41 Dose: 2 puff Chlorhexidine Gluconate (Hibiclens For Decolonization -) 1 applic TP HS [facility] Last Admin: 07/11/18 21:08 Dose: 1 applic Famotidine/Sodium Chloride (Pepcid 20 Mg Premixed Ivpb -) 20 mg in 50 mls @ 100 mls/hr IVPB BID [facility] Last Admin: 07/12/18 09:32 Dose: 100 mls/hr Insulin Aspart (Novolog Vial Sliding Scale -) 1 vial SQ [facility]; Protocol Last Admin: 07/12/18 06:13 Dose: Not Given Levetiracetam (Keppra -) 500 mg PO BID [facility] Last Admin: 07/12/18 09:32 Dose: 500 mg Mupirocin (Bactroban Ointment (For Decolonization) -) 1 applic NS BID [facility] Stop: 07/15/18 21:59 Last Admin: 07/12/18 09:32 Dose: 1 applic Nystatin (Nystop Powder -) 1 applic TP DAILY [facility] Last Admin: 07/12/18 09:32 Dose: 1 applic Polyethylene Glycol (Miralax (For Daily Use) -) 17 gm PO BID [facility] Last Admin: 07/12/18 09:33 Dose: 17 gm Tiotropium [place] (Spiriva Respimat) 2 puff IH DAILY [facility] Last Admin: 07/12/18 09:41 Dose: 2 puff Warfarin Sodium (Coumadin -) 5 mg PO DAILY@1800 [facility] Last Admin: 07/11/18 17:10 Dose: 5 mg Vital Signs: Vital Signs Period Temp Pulse Resp BP Sys/[place] Pulse Ox Last 24 Hr 98.0 F-99.2 F 68-90 16-22 105-163/59-116 96-98 Constitutional: Yes: No Distress, Calm Eyes: Yes: Conjunctiva Clear HENT: Yes: Atraumatic, Normocephalic Neck: Yes: Supple, Trachea Midline Respiratory: cta bl nl eff Gastrointestinal: Yes: Normal Bowel Sounds, Soft. No: Distention, Tenderness Cardiovascular: Yes: Pulse Irregular. + Bradycardia, no Gallop, Rub, murmur JVD: No Carotid Bruit: No PMI: Non-Displaced Heart Sounds: Yes: S1, S2. No: Split S2, S3, S4, Clicks, Gallop, Rub, Bruit Murmur: No: Systolic Murmur, Diastolic Murmur Edema: no Peripheral Pulses: 2+ Left Doralis Pedis, 2+ Right Dorsalis Pedis Integumentary: no jaundice diaphoresis Neurological: Yes: Alert, Oriented Psychiatric: Yes: Alert, Oriented ECHO 10/03/17 Normal LV sytolic function No sig valvular abnl Echocardiogram 02/04/17: EF 41% Mild LAE Normal RV FXN Moderate MR ecg: afib rate 47 nl qtc no ischemic changes cxr: no sig chf tele: afib rate ok Assessment/Plan 77 year old female with a PMH of lung Ca s/p right upper lobectomy(2005), afib, CVA, COPD, dCHF, GERD, diabetes, HTN, and HLD who is here with weakness and lightheadedness. norbert: -pt with dec urine output and norbert here with cr 3.5 (baseline low 1s) -does not appear vol overloaded so ok to give ivfs -hold home diuretics -Cr improving, renal following afib with slow vent response: -vr in 40s-50s on admission -dig level ok -continue to hold home dig and dilt -bradycardia likely due to norbert/electrolyte abnormalities - improved -cont coumadin per inr for ac chronic diastolic CHF -no signs vol overload -hold diuretics as above htn: -bp low currently -hold home dilt -would give ivfs hld: -cont statin
== END 2018-07-12 11:16 | disposition home or self-care (01) | DRG 683 ==
LOC: JER 13:13 → JERBED 16:57 → JICU 20:40
PROVIDERS: ADMIT Student in an Organized Health Care Education/Training Program; ATTEND Student in an Organized Health Care Education/Training Program
DX: N17.9 Acute kidney failure, unspecified (principal); E87.1 Hypo-osmolality and hyponatremia; I50.32 Chronic diastolic (congestive) heart failure; I13.0 Hypertensive heart and chronic kidney disease with heart failure and stage 1 through stage 4 chronic kidney disease, or unspecified chronic kidney disease; Z79.01 Long term (current) use of anticoagulants; J44.9 Chronic obstructive pulmonary disease, unspecified; I48.91 Unspecified atrial fibrillation; Z99.81 Dependence on supplemental oxygen; I11.0 Hypertensive heart disease with heart failure; Z85.118 Personal history of other malignant neoplasm of bronchus and lung; E11.9 Type 2 diabetes mellitus without complications; E78.5 Hyperlipidemia, unspecified; Z79.4 Long term (current) use of insulin; I95.9 Hypotension, unspecified; R00.1 Bradycardia, unspecified; Z86.73 Personal history of transient ischemic attack (TIA), and cerebral infarction without residual deficits; Z88.0 Allergy status to penicillin; G40.909 Epilepsy, unspecified, not intractable, without status epilepticus; E87.5 Hyperkalemia; E86.0 Dehydration; E86.9 Volume depletion, unspecified; E11.22 Type 2 diabetes mellitus with diabetic chronic kidney disease; N18.9 Chronic kidney disease, unspecified; T50.995A Adverse effect of other drugs, medicaments and biological substances, initial encounter
CPT/HCPCS: 36415; 71045-TC-FY; 74176-TC; 76775-TC; 80048; 80053; 80061; 80162; 81003; 82436; 82465; 82550; 82565; 82803; 82962; 83036; 83605; 83718; 83721; 83735; 83880; 84100; 84133; 84300; 84478; 84484; 85025; 85027; 85610; 85730; 86850; 86900; 86901; 87040; 87086; 87186; 93005; 93010; 99284-25; J7030

== ENCOUNTER 2018-10-19 13:20 | Inpatient (IN) | payer OTHER, BC | END 2018-10-23 14:16 | LOC: JER 13:20 → JERBED 17:32 → J7W 21:58 ==

== ENCOUNTER 2018-11-20 16:07 | Inpatient (IN) | payer OTHER, BC | END 2018-12-06 12:48 | disposition E | LOC: J4S 12-04 00:12 → JER 16:07 → JERBED 22:55 → JICU 11-25 23:44 → J4S 11-21 03:38 ==